=== PATIENT | female | born 1955 | race Caucasian/White ===

== ENCOUNTER 2018-01-30 02:26 | Outpatient (CLI) | payer BC, SELFPAY ==
[2018-01-30 13:21] LABS: ALT 31 U/L (12-78); AST 18 U/L (15-37); Albumin 3.9 g/dL (3.4-5.0); Alkaline Phosphatase 48 U/L (46-116); Anion Gap 9.7 mmol/L (3-11); BUN 11 mg/dL (7-18); Bilirubin, Total 0.3 mg/dL (0.2-1.0); CO2 30.3 mmol/L (21.0-32.0); CREATININE 0.88 mg/dL (0.55-1.02); Calcium 8.8 mg/dL (8.5-10.1); Chloride 103 mmol/L (98-107); Cholesterol 183 mg/dL (50-200); Glucose 107 mg/dL (70-100); HDL Cholesterol 51 mg/dL (40-60); LDL CHOLESTEROL 114 mg/dL (<100); Sodium 143 mmol/L (136-145); Triglyceride 143 mg/dL (30-150)
== END 2018-01-30 02:46 ==
PROVIDERS: PCP Family Medicine; Visit Provider Family Medicine
DX: I10 Essential (primary) hypertension (principal); Z00.00 Encounter for general adult medical examination without abnormal findings
CPT/HCPCS: 36415; 80053; 80061; 83721

== ENCOUNTER 2018-06-05 05:15 | Outpatient (CLI) | payer BC, SELFPAY ==
--- NOTE | 2018-06-05 14:35 | DI.CTLCSR_ITS ---
SYMPTOMS/DIAGNOSIS: FORMER SMOKER, F17.210 CT CHEST, LUNG CANCER SCREENING PROTOCOL: CT examination of the chest was performed utilizing lung cancer screening protocol. Images obtained through the upper abdomen show grossly unremarkable appearance of visualized portions of liver, spleen, pancreas, adrenals and kidneys. There appears to have been a previous cholecystectomy. There is calcific scarring in the right mid lung medially. There are diffuse central lobular pulmonary emphysematous changes and some subpleural emphysema is also noted in the lung apices. Tracheobronchial tree appears intact. Minimal linear scarring noted in left lung base. No pulmonary nodule identified. No evidence of consolidation. CONCLUSION: Negative lung cancer screening CT. Lung-RAD Category: 1- Negative Lung- RAD Management of Findings: Continue annual LDCT screening in 12 months
== END 2018-06-05 05:35 ==
PROVIDERS: PCP Family Medicine; Visit Provider Internal Medicine
DX: Z12.2 Encounter for screening for malignant neoplasm of respiratory organs (principal); Z87.891 Personal history of nicotine dependence; J43.9 Emphysema, unspecified; J98.4 Other disorders of lung
CPT/HCPCS: G0297

== ENCOUNTER 2018-07-11 14:50 | Outpatient (CLI) | payer BC, SELFPAY ==
--- NOTE | 2018-07-11 15:13 | DI.CT_ITS ---
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 Comparison is 12/09/16. The frontal sinuses are clear, as are the ethmoid air cells and sphenoid sinuses. There are postsurgical changes with removal of the medial krueger of both maxillary sinuses. There is mild to moderate mucosal thickening in the right maxillary sinus with a small air-fluid level. There is a rounded soft tissue mass in the left maxillary sinus, which has been present on prior examination and is unchanged in size. This may represent a polyp or mucus retention cyst. The mastoid air cells are well pneumatized. There does appear to be mild wall thickening in the right maxillary sinus consistent with chronic sinus disease. There has been removal of the floors of the ethmoid air cells. The bones otherwise appear intact. The nasal septum is midline. The turbinates are grossly unremarkable. The orbits and retroorbital soft tissues are unremarkable. IMPRESSION: 1. Postsurgical changes seen in the nasal cavity. 2. Stable mucus retention cyst or polyp in the left maxillary sinus. 3. Findings of chronic sinusitis. Small fluid level in the right maxillary sinus. Superimposed acute sinusitis cannot be excluded.
== END 2018-07-11 15:10 ==
PROVIDERS: PCP Family Medicine; Visit Provider Otolaryngology Otolaryngology/Facial Plastic Surgery
DX: J34.89 Other specified disorders of nose and nasal sinuses (principal); J32.0 Chronic maxillary sinusitis; Z98.890 Other specified postprocedural states
CPT/HCPCS: 70486

== ENCOUNTER 2018-07-12 00:27 | Outpatient (CLI) | payer BC, SELFPAY ==
--- NOTE | 2018-07-12 13:42 | DI.MAMMO_ITS ---
SYMPTOM/DIAGNOSIS: SCREENING, Z12.31 MAMMOGRAMS: Mammograms were interpreted according to the usual protocol including computer analysis with CAD system, tomosynthesis and C view imaging. Comparison is made with prior examinations. Breast density, Category B. There are scattered nodular densities in both breasts which appear stable. The skin and axilla are unremarkable. IMPRESSION: No evidence for malignancy. Yearly mammography is recommended. Category 2. MQSA ASSESSMENT OF FINDINGS: Negative with benign findings. Category 2. BI-RADS category B. There are scattered areas of fibroglandular density.
== END 2018-07-12 00:47 ==
PROVIDERS: PCP Family Medicine; Visit Provider Family Medicine
DX: Z12.31 Encounter for screening mammogram for malignant neoplasm of breast (principal)
CPT/HCPCS: 77063; 77067

== ENCOUNTER 2018-08-27 02:40 | Outpatient (RCR) | payer BC, SELFPAY | END 2018-09-03 23:59 | disposition home or self-care (01) | LOC: PRC 02:40 | PROVIDERS: PCP Family Medicine; Visit Provider Family Medicine | DX: J44.9 Chronic obstructive pulmonary disease, unspecified (principal); Z51.89 Encounter for other specified aftercare ==

== ENCOUNTER 2018-09-13 09:46 | Outpatient (RCR) | payer BC, SELFPAY | END 2018-10-04 23:59 | disposition home or self-care (01) | LOC: PRC 09:46 | PROVIDERS: PCP Family Medicine; Visit Provider Family Medicine | DX: J44.9 Chronic obstructive pulmonary disease, unspecified (principal); Z51.89 Encounter for other specified aftercare | CPT/HCPCS: G0424 ==

== ENCOUNTER 2018-09-18 14:31 | Outpatient (CLI) | payer BC, SELFPAY ==
[2018-09-18 14:49] LABS: BE 4.3 mmol/L (-3-3); HCO3 29 mmol/L (22-28); pCO2 42 mmHg (34-47); pH 7.44 (7.35-7.45); pO2 71 mmHg (83-108); sO2 94 % (94-98); tCO2 26 mmol/L (22-29)
[2018-09-18 14:50] LABS: FIO2L R/A L; Site Right Radial
== END 2018-09-18 14:51 ==
PROVIDERS: PCP Family Medicine; Visit Provider Family Medicine
DX: R09.02 Hypoxemia (principal)
CPT/HCPCS: 82805; 36600

== ENCOUNTER 2018-10-06 04:48 | Outpatient (RCR) | payer BC, SELFPAY | END 2018-11-03 23:59 | disposition home or self-care (01) | LOC: PRC 04:48 | PROVIDERS: PCP Family Medicine; Visit Provider Family Medicine | DX: J44.9 Chronic obstructive pulmonary disease, unspecified (principal); Z51.89 Encounter for other specified aftercare | CPT/HCPCS: G0424 ==

== ENCOUNTER 2018-11-04 09:22 | Outpatient (RCR) | payer BC, SELFPAY | END 2018-12-04 23:59 | disposition home or self-care (01) | LOC: PRC 09:22 | PROVIDERS: PCP Family Medicine; Visit Provider Family Medicine | DX: J44.9 Chronic obstructive pulmonary disease, unspecified (principal); Z51.89 Encounter for other specified aftercare | CPT/HCPCS: G0424 ==

== ENCOUNTER 2018-11-18 00:21 | Emergency (ER) | payer BC, SELFPAY ==
[2018-11-18 00:21] VITALS: BP 153/80; PULSE 117; RESP 22; TEMP 36.2; O2SAT 90
--- NOTE | 2018-11-18 00:35 | ED.GENADUL_ITS ---
Discharge Plan Disposition Condition: Stable Discharge Details Chief Complaint: Cellulitis Primary Care Provider: Nicole Hubbard ED Provider: Ham Poole Home Meds and New Rx's Prescriptions: No Action cholecalciferol (vitamin D3) 2,000 unit capsule 2,000 unit PO DAILY RF: 0 albuterol sulfate [Ventolin HFA] 90 mcg/actuation HFA aerosol inhaler 2 puff Inhalation QID PRN (Reason: bronchospasm) Qty: 3 RF: 11 atorvastatin [Lipitor] 10 mg tablet 10 mg PO DAILY Qty: 90 RF: 12 Symbicort 160-4.5 mcg/actuation HFA aerosol inhaler 2 puff Inhalation BID Qty: 3 RF: 11 cetirizine [Zyrtec] 10 mg tablet 10 mg PO BID Qty: 180 RF: 11 estradiol [Estrace] 0.5 mg tablet 0.5 mg PO EVERY OTHER DAY Qty: 45 RF: 12 montelukast [Singulair] 10 mg tablet 10 mg PO DAILY Qty: 90 RF: 12 valacyclovir [Valtrex] 1 gram tablet 1,000 mg PO DAILY Qty: 90 RF: 12 omeprazole 40 mg capsule,delayed release(DR/EC) 40 mg PO BID RF: 0 Stiolto Respimat 2.5-2.5 mcg/actuation mist 2 puff IH DAILY RF: 0 duloxetine 30 mg capsule,delayed release(DR/EC) 30 mg PO DAILY Qty: 90 RF: 5 (DME) EasiVent Mask Large 1 EACH device 1 ea Miscellaneous DIRECTED RF: 0 calcium carbonate-vitamin D3 [Caltrate with Vitamin D3] 1 EACH tablet 1 tab PO DAILY RF: 0 clotrimazole-betamethasone 15 GM cream 15 gm Topical DAILY PRNQty: 45 RF: 0 metoprolol succinate 25 mg tablet extended release 24 hr 25 mg PO DAILY Qty: 90 RF: 4 hydrochlorothiazide 12.5 mg tablet 12.5 mg PO DAILY Qty: 90 RF: 11 losartan-hydrochlorothiazide 50-12.5 mg tablet 1 tab PO DAILY Qty: 90 RF: 5 duloxetine 60 mg capsule,delayed release(DR/EC) 60 mg PO DAILY Qty: 90 RF: 11 Medical Decision Making 62 yo female with hx of copd on o2, hld, who comes in with right leg indentation. She has leg swelling chronically and has 3+ pitting edema of both ankles. The area that she is concerned about is on the lateral right ankle where the edema does indent in. She denies trauma and has no fevers or pain, no redness or warmth or rashes and full rom of the ankle. She was concerned about a dvt and had no ride so called ems. She has no visible dvt on bedside u/s and my suspicion of such given no calf pain and normal size as left leg is low. I suspect she had her ankle pressed against something and indented the fluid she has there. Do not feel further w/u for this indicated at this time. She was tachcyardic after walking from stretcher to the bed but states this is baseline and after resting her HR was in the 90's in no distress. Will have her obtain radiology u/s as outpatient and return precautions given Differential Diagnosis leg edema, lymphedema, dvt HPI General Mode of arrival: ambulatory . Date/Time Provider Initiated Documentation: 11/18/18 00:34 . Limitations to Documentation: no limitations . Information obtained by: patient . History of Present Illness 62 year old F presents to the emergency department with the chief complaint of right ankle indentation, described as mild, and is localized to the right and lower extremity. Patient reports no radiation. Patient started experiencing this hour(s) (3) and it has been constant. No relieving factors improve symptom(s), No exacerbating factors reported . Patient did receive the following treatments prior to arrival, none Related Data Home Medications Medication Instructions Recorded Confirmed EasiVent Mask Large ea 09/18/12 08/12/18 calcium carbonate-vitamin D3 1 tab PO DAILY 09/18/12 08/12/18 [Caltrate with Vitamin D3] clotrimazole-betamethasone 15 gm TOPICAL DAILY PRN #45 gm 12/13/17 08/12/18 metoprolol succinate 25 mg 25 mg PO DAILY #90 tab 01/23/18 08/12/18 tablet,extended release 24 hr albuterol sulfate 90 mcg/actuation 2 puff INHALATION QID PRN #3 each 02/05/18 08/12/18 aerosol inhaler atorvastatin 10 mg tablet 10 mg PO DAILY #90 tab-cap 02/05/18 08/12/18 budesonide-formoterol HFA 160 2 puff INHALATION BID #3 inhaler 02/05/18 08/12/18 mcg-4.5 mcg/actuation aerosol inhaler cetirizine 10 mg tablet 10 mg PO BID #180 tab 02/05/18 08/12/18 cholecalciferol (vitamin D3) 2,000 2,000 unit PO DAILY 02/05/18 08/12/18 unit capsule estradiol 0.5 mg tablet 0.5 mg PO EVERY OTHER DAY #45 02/05/18 08/12/18 tab-cap montelukast 10 mg tablet 10 mg PO DAILY #90 tab-cap 02/05/18 08/12/18 valacyclovir 1 gram tablet 1,000 mg PO DAILY #90 tab-cap 02/05/18 08/12/18 hydrochlorothiazide 12.5 mg tablet 12.5 mg PO DAILY #90 tab-cap 06/22/18 08/12/18 duloxetine 30 mg capsule,delayed 30 mg PO DAILY #90 cap 08/12/18 08/12/18 release omeprazole 40 mg capsule,delayed 40 mg PO BID tab-cap 08/12/18 release tiotropium 2.5 mcg-olodaterol 2.5 2 puff IH DAILY 08/12/18 08/12/18 mcg/actuation mist for inhalation losartan 50 mg-hydrochlorothiazide 1 tab PO DAILY #90 tab 09/17/18 12.5 mg tablet duloxetine 60 mg capsule,delayed 60 mg PO DAILY #90 tab-cap 11/11/18 release Previous Rx's Medication Instructions Recorded metoprolol succinate 25 mg 25 mg PO DAILY #90 tab 01/23/18 tablet,extended release 24 hr albuterol sulfate 90 mcg/actuation 2 puff INHALATION QID PRN #3 each 02/05/18 aerosol inhaler atorvastatin 10 mg tablet 10 mg PO DAILY #90 tab-cap 02/05/18 budesonide-formoterol HFA 160 2 puff INHALATION BID #3 inhaler 02/05/18 mcg-4.5 mcg/actuation aerosol inhaler cetirizine 10 mg tablet 10 mg PO BID #180 tab 02/05/18 estradiol 0.5 mg tablet 0.5 mg PO EVERY OTHER DAY #45 02/05/18 tab-cap montelukast 10 mg tablet 10 mg PO DAILY #90 tab-cap 02/05/18 valacyclovir 1 gram tablet 1,000 mg PO DAILY #90 tab-cap 02/05/18 hydrochlorothiazide 12.5 mg tablet 12.5 mg PO DAILY #90 tab-cap 06/22/18 duloxetine 30 mg capsule,delayed 30 mg PO DAILY #90 cap 08/12/18 release losartan 50 mg-hydrochlorothiazide 1 tab PO DAILY #90 tab 09/17/18 12.5 mg tablet duloxetine 60 mg capsule,delayed 60 mg PO DAILY #90 tab-cap 11/11/18 release Allergies Allergy/AdvReac Type Severity Reaction Status Date / Time amoxicillin trihydrate AdvReac Nausea/Diar Unverified 11/18/18 00:34 [From Augmentin] francisca oxybutynin AdvReac Dry Unverified 11/18/18 00:34 mouth/mucous membranes potassium clavulanate AdvReac Nausea/Diar Unverified 11/18/18 00:34 [From Augmentin] francisca General Stated Complaint: Cellulitis YUKI: 3 Review of Systems Review of Systems All systems reviewed & are unremarkable except as noted in HPI and below Constitutional Denies chills, Denies fever(s) and Denies weakness Cardiovascular Denies chest pain and Denies dyspnea Respiratory Denies dyspnea Gastrointestinal Denies abdominal pain, Denies nausea and Denies vomiting Integumentary/Breasts Denies rash Neurologic Denies weakness [facility] Medical History (Updated 08/12/18 @ 09:22 by Nicole Hubbard MD, [place]) Abnormal mammogram, unspecified (Resolved) Achilles tendinitis, right leg (Chronic 08/18/16) Achilles tendonitis Allergic fungal sinusitis Allergic fungal sinusitis (Chronic 07/16/13) Anemia Anemia (Resolved 12/31/12) Annual physical exam (Resolved 10/25/17) Asthma exacerbation (Chronic 06/12/16) Bleeding hemorrhoids (Resolved 08/09/17) Cellulitis of left lower extremity Cellulitis of left lower extremity (Resolved) Cholelithiasis (Resolved) Chronic obstructive lung disease (Chronic) COPD (chronic obstructive pulmonary disease) Depression Depressive disorder (Chronic) Essential hypertension (Chronic 04/09/13) Gastritis Gastritis (Chronic 04/05/05) 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 (Resolved 04/05/99) Hiatal hernia Hiatal hernia (Resolved 04/05/96) Hormone replacement therapy (postmenopausal) (Resolved 12/20/11) Hyperlipidemia Hyperlipidemia (Chronic 12/31/12) Hypertension Internal hemorrhoids Internal hemorrhoids (Resolved 02/24/14) Lumbar disc prolapse with compression radiculopathy Lumbar disc prolapse with compression radiculopathy (Chronic 08/21/09) Numbness and tingling (Chronic 01/11/16) Otalgia of both ears Otalgia, unspecified (Resolved) Pre-op exam (Resolved) Smoker Smoker (Resolved) Thyroid nodule Thyroid nodule (Resolved) Vitamin D deficiency Vitamin D deficiency (Chronic 06/26/16) Surgical History (Updated 06/17/18 @ 15:46 by Temitope Do) Arthroplasty of knee Cholecystectomy Colonoscopy - MAC Debridement, Soft Tissue Dilation and curettage EGD - MAC (02/24/14) H/O arthroscopy of knee (Resolved) H/O esophagogastroduodenoscopy (Resolved) H/O surgical procedure (Resolved) History of bilateral tubal ligation (Resolved) Hx of biopsy (Resolved) Hysterectomy, Laproscopic (~1996) Ligation of fallopian tube LIP BX (10/05/11) LUNG LOBECTOMY (~1991) RHINOPLASTY (~2001) S/P cholecystectomy (Resolved) S/P dilatation and curettage (Resolved) S/P laparoscopic hysterectomy (Resolved) S/P lobectomy of lung (Resolved) S/P rhinoplasty (Resolved) TOE NAIL REMOVAL Family History Mother Essential hypertension Asthma Father Diabetes Personal history of malignant neoplasm Sister Asthma Sister Asthma Brother No problems noted. Grandfather COPD (chronic obstructive pulmonary disease) Grandfather Diabetes Heart disease Grandmother Personal history of malignant neoplasm Grandmother Diabetes Social History (Updated 02/04/18 @ 08:33 by Nicole Domingo) Smoking/Tobacco Use Status: Current every day Tobacco Type: cigarettes Alcohol Intake: current Alcohol Intake frequency: a few times a month Drug use: Never Substance use type: does not use Household members: spouse and other Details: 2 current occupation: [employer] Pets and animals: Yes Pets and animals: cat(s) What type of physical activity do you participate in: none Louise/Baptism: Confucianist Special louise needs: No Do you feel safe in your relationship?: Yes Exam Const General: no acute distress Orientation: alert HENMT Head: normal to inspection Ears: external ears normal General nose exam: external nose normal Mouth: moist mucous membranes Eyes General: appearance normal, both eyes and all related structures Neck Neck: normal visual inspection Resp Effort & Inspection: normal respiratory effort and able to speak in complete sentences Cardio Rate: regular rate Skin General skin exam: no rashes or lesions noted Neuro General: alert and oriented x3 Extrem General: full ROM and normal capillary refill Psych Mental Status: mental status grossly normal Course Vital Signs Temperature 36.2 C L 11/18/18 00:21 Pulse 117 H 11/18/18 00:21 Respiratory Rate 22 11/18/18 00:21 Blood Pressure 153/80 H 11/18/18 00:21 Pulse Oximetry 90 L 11/18/18 00:21 Temperature 36.2 C L 11/18/18 00:21 Temperature Source Temporal Artery Scan 11/18/18 00:21 Pulse 117 H 11/18/18 00:21 Respiratory Rate 22 11/18/18 00:21 Respiratory Effort 11/18/18 00:21 Blood Pressure 153/80 H 11/18/18 00:21 Pulse Oximetry 90 L 11/18/18 00:21 Oxygen Delivery Method Room Air 11/18/18 00:21 Oxygen Flow Rate 0 11/18/18 00:21 Pain Level 0 11/18/18 00:21
[2018-11-18 00:59] VITALS: BP 127/76; PULSE 104; RESP 20; O2SAT 95
== END 2018-11-18 00:58 | disposition home or self-care (01) ==
LOC: ER 01:00
PROVIDERS: Emergency Provider Emergency Medicine; PCP Family Medicine
DX: L03.115 Cellulitis of right lower limb (principal); F17.210 Nicotine dependence, cigarettes, uncomplicated; J44.9 Chronic obstructive pulmonary disease, unspecified; Z99.81 Dependence on supplemental oxygen; I10 Essential (primary) hypertension
CPT/HCPCS: 99283

== ENCOUNTER 2018-11-20 00:33 | Outpatient (CLI) | payer BC, SELFPAY ==
--- NOTE | 2018-11-20 08:58 | DI.MRI_ITS ---
SYMPTOM/DIAGNOSIS: ? WORSENING SPINAL STENOSIS, BACK PAIN LUMBAR SPINE MRI: Sagittal T 2 and sagittal T 1 and sagittal STIR and axial T 1 and T 2 and axial T 2 MSMA, coronal T 1 pulse sequences were obtained. At L 1-2, there is no evidence of a disc herniation. There are mild facet joint degenerative changes and no evidence of spinal stenosis. At L 2-3, there is diminished disc signal consistent with partial desiccation. There is a mild disc bulge and no focal herniation is seen. There are moderate degenerative changes involving the facet joints without evidence of spinal stenosis. At L 3-4, again noted is diminished disc signal consistent with partial desiccation. There is no evidence of a disc herniation. Moderate facet joint DJD is identified and there is no evidence of spinal stenosis. At L 4-5, a small disc bulge is identified. There is no focal herniation. There are moderately severe facet joint degenerative changes and no evidence of spinal stenosis. At L 5-S 1, again noted is diminished disc signal. There is a small disc herniation with inferior extrusion of a small quantity of disc material. There is severe facet joint DJD and there is moderate left foraminal stenosis. There is no intrinsic abnormality involving the lower dorsal cord,. conus or filum terminale. SUMMARY: Findings consistent with degenerative disc disease and DJD. A small disc herniation is identified at L 5-S 1 where there is severe facet joint DJD and resultant moderate left foraminal stenosis.
== END 2018-11-20 00:53 ==
PROVIDERS: PCP Family Medicine; Visit Provider Chiropractor
DX: M54.5 Low back pain (principal); M48.061 Spinal stenosis, lumbar region without neurogenic claudication; M51.37 Other intervertebral disc degeneration, lumbosacral region; M47.817 Spondylosis without myelopathy or radiculopathy, lumbosacral region; M51.27 Other intervertebral disc displacement, lumbosacral region
CPT/HCPCS: 72148

== ENCOUNTER 2018-11-20 00:37 | Outpatient (CLI) | payer BC, SELFPAY ==
--- NOTE | 2018-11-20 08:47 | DI.US_ITS ---
SYMPTOM/DIAGNOSIS: LEG SWELLING RIGHT LOWER EXTREMITY ULTRASOUND: The study was carried out according to the usual protocol. The superficial, femoral, popliteal and proximal trifurcation in the superior portion of the leg are well seen. Good compressibility is noted throughout. Flow is demonstrated and flow augmentation was easily elicited with calf compression. SUMMARY: There is no evidence of DVT.
== END 2018-11-20 00:57 ==
PROVIDERS: PCP Family Medicine; Visit Provider Emergency Medicine
DX: R22.41 Localized swelling, mass and lump, right lower limb (principal)
CPT/HCPCS: 93971

== ENCOUNTER 2018-12-05 09:07 | Outpatient (RCR) | payer BC, SELFPAY | END 2019-01-04 23:59 | disposition home or self-care (01) | LOC: PRC 09:07 | PROVIDERS: PCP Family Medicine; Visit Provider Family Medicine | DX: J44.9 Chronic obstructive pulmonary disease, unspecified (principal); Z51.89 Encounter for other specified aftercare | CPT/HCPCS: 94618; G0237; G0424 ==

== ENCOUNTER 2019-03-25 07:42 | Outpatient (CLI) | payer BC, SELFPAY ==
--- NOTE | 2019-03-25 07:52 | PDOC.PAIN ---
Pain Clinic Procedure Note Procedure Note Procedure Note: PROCEDURE NOTE LUMBAR MEDIAL BRANCH DIAGNOSTIC BLOCKS Date of Service: March 25, 2019 Patient: CESAR ANGULO Provider: Bean Lyon MD Referring Physician: Masha Snato APRN Diagnosis: lumbar spondylosis Post-operative diagnosis: same as above Pre-procedure Note History and Exam: Patient demonstrates today moderate to severe non- radicular back pain without neurologic deficit aggravated by hyperextension Yes Back pain greater than leg pain Yes Patient today has tenderness over the suspected joint(s) Yes History of post-traumatic injury No Hypertrophic arthropathy Yes Back pain associated with suspected motion segment instability or Hypermobility or pseudoarthrosis No Pre-testing pain score (VAS): 5/10 Previous medial branch block testing?: No Today's Operative Note CESAR ANGULO was greeted by the nurse who verified the patients name and . Patient was then taken to the fluoroscopy suite. CESAR was interviewed and the medical record was reviewed. There were no medical contraindications to performing the bilateral lumbar medial branch nerve blocks. I first had a talk with the patient and discussed the potential risks, benefits, side effects, and alternatives of this procedure including but not limited to increased pain from the procedure, no pain relief, nerve damage, infection, and bleeding. She comprehended my conversation and accepts the risks and understands the goals of this diagnostic procedure. All questions and concerns from the patient were addressed. After I was comfortable that the patient was fully informed about this procedure, the printed consent form was signed. Standard time-out procedure was performed CESAR was placed in the prone position on the fluoroscopy table and automated blood pressure cuff and pulse oximeter were applied. The anatomic target points of the segmental medial branches of bilateral L3, L4, L5-DR were identified with fluoroscopy. Following thorough Chlorhexadine preparation of the skin and draping, a 25 gauge 3.5 spinal needle was placed under fluoroscopic guidance down on to the target point for each respective segmental medial branch.Position was confirmed in A/P, oblique and lateral views and 0.25 cc of Omnipaque-240 at each segmental nerve. At each level we injected 0.5ml of Bupivacaine 0.5%. (49 cc of Omnipaque was wasted) CESAR Hodgess vital signs were stable throughout the procedure and were as recorded in the docflowsheet by the nursing staff. Postoperatively, today patient demonstrates the following changes with hyperextension and with tenderness over the suspected joint(s). Provacative testing using the Loera's facet loading test Right side Left side Directly before the block VAS (0-10) = 5 VAS (0-10) = 5 5 minutes after the block VAS (0-10) = 5 VAS (0-10) = 5 Percentage relief obtained with this diagnostic block 0% 0% Any improved physical functioning directly after the blocks? to be determined Next, CESAR was asked to record the percent pain relief and any changes in provocative maneuvers for the next 4 hours. She will report this information at the next business day to one of our nurses. Based on the medial branches blocked today, if the patient meets insurance criteria for radiofrequency, the treatment should result in the denervation of the bilateral L4/5 and L5/S1 facet joint nerves. We would expect to denervate a total of 4 facets during the radiofrequency ablation. Discharge plan:: She will call back with her 0-4 hour post-procedure pain scores. I personally performed the entire procedure. Bean Lyon MD ABPN-subspecialty board certification in Pain Medicine Attending Physician - Pain Management
[2019-03-25 07:55] VITALS: BP 121/78; PULSE 85; RESP 20; TEMP 37.2; O2SAT 95
[2019-03-25] MEDS: Lactated Ringers 1,000 ML 80 ML IV (08:25)
[2019-03-25] MEDS: Omnipaque 240 MG/ML 50 ML BTL IJ (08:58)
[2019-03-25] MEDS: Bupivacaine 0.5% Pres-Free 10 ML VIAL IJ (08:58)
--- NOTE | 2019-03-25 08:58 | DI.RAD_ITS ---
EXAM: XR PAIN CLINIC LUMBAR SP 2V CLINICAL HISTORY: Dx: Lumbar Spondylosis. TECHNIQUE: Fluoroscopy was provided for the referring physician for guidance with performing injecti on procedure. COMPARISON: No exams were available for comparison FINDINGS: Please see procedure note for details. FLUORO TIME: 65.3 seconds
[2019-03-25 09:02] VITALS: BP 117/61; PULSE 85; RESP 18; O2SAT 96
== END 2019-03-25 08:02 ==
PROVIDERS: PCP Family Medicine; Visit Provider Internal Medicine
DX: M47.816 Spondylosis without myelopathy or radiculopathy, lumbar region (principal)
CPT/HCPCS: 64493 ×2; 64494 ×2; 72100; Q9967

== ENCOUNTER 2019-04-15 12:23 | Emergency (ER) | payer BC, SELFPAY ==
[2019-04-15] VITALS (24 sets, daily range): BP systolic 148–187; BP diastolic 84–108; PULSE 67–83; RESP 11–28; TEMP 36.2–36.5; O2SAT 96–100
[2019-04-15 12:55] LABS: Abs Immature Grans 0.02 k/cumm (0.0-0.09); Absolute Basophil Count 0.04 k/cumm (0.0-0.2); Absolute Lymphocyte Count 2.22 k/cumm (1.2-3.4); Absolute Monocyte Count 0.42 k/cumm (0.11-0.7); Absolute Neutrophil Count 2.74 k/cumm (1.2-6.7); Basophils % 0.7; Eosinophils % 1.8; HCT 33.4 % (36.0-46.0); Immature Grans % 0.4; Lymphocytes % 40.1; Mean Corp. HGB Concentration 32.9 g/dL (32.0-36.0); Mean Corpuscular Hemoglobin 31.2 pg (27.0-33.0); Mean Corpuscular Volume 94.6 fL (80-95); Mean Platelet Volume 9.1 fL (8.0-11.0); Monocytes % 7.6; Neutrophils % 49.4; Platelet Count 312 x1000/uL (130-400); RBC 3.53 m/cumm (4.00-5.20); RBC Distribution Width 12.6 % (11.7-14.6); White Blood Cell Count 5.54 k/cumm (4.4-10.8)
[2019-04-15] MEDS: Ondansetron 4 MG/2 ML VIAL IVP ×2 (13:04→14:19)
[2019-04-15] MEDS: HYDROmorphone 2 MG/ML VIAL 0.5 MG IVP ×2 (13:05→14:19)
[2019-04-15 13:14] LABS: ALT 36 U/L (14-59); AST 24 U/L (15-37); Albumin 4.1 g/dL (3.4-5.0); Alkaline Phosphatase 40 U/L (46-116); Anion Gap 8.4 mmol/L (3-11); BUN 18 mg/dL (7-18); Bilirubin, Total 0.2 mg/dL (0.2-1.0); CO2 32.6 mmol/L (21.0-32.0); CREATININE 0.81 mg/dL (0.55-1.02); Calcium 9.7 mg/dL (8.5-10.1); Chloride 101 mmol/L (98-107); Glucose 108 mg/dL (74-106); Lipase 110 U/L (73-393); Magnesium 1.5 mg/dL (1.8-2.4); NT-proBNP 93 pg/mL (<300); Potassium 3.5 mmol/L (3.5-5.1); Sodium 142 mmol/L (136-145)
[2019-04-15 13:21] LABS: Troponin I < 0.05 ng/Ml (<0.06)
[2019-04-15 13:29] LABS: Bilirubin Negative (Negative); Blood Trace-intact (Negative); Clarity Sl Cloudy (Clear); Glucose Negative (Negative); Ketones Negative (Negative); Leukocyte Esterase Negative (Negative); Nitrite Negative (Negative); Urobilinogen 0.2 EU/dL (Up TO 0.2)
[2019-04-15] MEDS: Omnipaque 350 MG/ML 100 ML BTL IJ (13:32)
[2019-04-15] MEDS: Normal Saline Flush 10 ML SYR IVP (13:33)
--- NOTE | 2019-04-15 13:40 | DI.CT_ITS ---
EXAM: CT ABDOMEN PELVIS W CLINICAL HISTORY: Epigastric pain, nausea, vomiting, diarrhea TECHNIQUE: After IV and without oral contrast. COMPARISON: No exams were available for comparison FINDINGS: Linear densities are seen above the left diaphragm consistent with scarring and/or atelectasis. The liver is enlarged and shows fatty infiltration. The patient is status post cholecystectomy. The spl een, pancreas, adrenals and kidneys are unremarkable. The appendix appears normal. There is no irish l dilatation or inflammatory change. Diverticulosis is noted. There is no evidence of diverticuliti s. No gastric or small bowel distention or wall thickening is seen. There is no free air or free fl uid. The urinary bladder is nearly empty. The patient is status post hysterectomy. The aorta is no rmal in diameter. Degenerative disc changes are seen greatest at L5-S1. IMPRESSION: No acute abnormality.
[2019-04-15 13:42] LABS: Bacteria Few HPF (Negative); C & S Indicated? No/Sq. Contamination; Casts Negative LPF (Negative); Crystals Negative HPF (Negative); Epithelial Cells Moderate HPF (Negative); Mucus Trace (Negative); RBC 0-2 HPF (0-2); WBC 0-2 HPF (0-5)
--- NOTE | 2019-04-15 13:45 | DI.RAD_ITS ---
EXAM: XR CHEST 2V PA LATERAL INDICATION: Nausea, vomiting, diarrhea increased SOB. COMPARISON: CHEST 2 VIEWS PA,LAT from 05/10/2017 TECHNIQUE: 2D digital imaging was performed. FINDINGS: The heart is enlarged and the aorta is tortuous, unchanged. There are linear areas of scarring at th e left lung base. There are old right rib fractures. No free air is seen beneath the diaphragm. IMPRESSION: No acute abnormality.
--- NOTE | 2019-04-15 14:37 | ED.GENADUL_ITS ---
Discharge Plan Disposition Patient Disposition: HOME Discharge Details Chief Complaint: GenMedical Clinical Impression: Diarrhea, Abdominal discomfort Primary Care Provider: Nicole Hubbard ED Provider: Randy Mejias Home Meds and New Rx's Prescriptions: New ondansetron HCl [Zofran] 4 mg tablet 4 mg PO Q8H PRN (Reason: nausea and vomiting) Qty: 10 RF: 0 No Action cholecalciferol (vitamin D3) 2,000 unit capsule 2,000 unit PO DAILY RF: 0 omeprazole 40 mg capsule,delayed release(DR/EC) 40 mg PO BID Qty: 180 RF: 3 albuterol sulfate [Ventolin HFA] 90 mcg/actuation HFA aerosol inhaler 2 puff Inhalation Q4H PRN (Reason: bronchospasm) Qty: 3 RF: 11 atorvastatin [Lipitor] 10 mg tablet 10 mg PO DAILY Qty: 90 RF: 12 cetirizine [Zyrtec] 10 mg tablet 10 mg PO BID Qty: 180 RF: 11 duloxetine 60 mg capsule,delayed release(DR/EC) 60 mg PO DAILY Qty: 90 RF: 11 estradiol [Estrace] 0.5 mg tablet 0.5 mg PO EVERY OTHER DAY Qty: 90 RF: 12 metoprolol succinate 25 mg tablet extended release 24 hr 25 mg PO DAILY Qty: 90 RF: 4 valacyclovir [Valtrex] 1 gram tablet 1,000 mg PO DAILY Qty: 90 RF: 12 methylphenidate HCl 10 mg tablet 10 mg PO BID MDD 2 Qty: 60 RF: 0 (DME) EasiVent Mask Large 1 EACH device 1 ea Miscellaneous DIRECTED RF: 0 calcium carbonate-vitamin D3 [Caltrate with Vitamin D3] 1 EACH tablet 1 tab PO DAILY RF: 0 clotrimazole-betamethasone 15 GM cream 15 gm Topical DAILY PRNQty: 45 RF: 0 hydrochlorothiazide 12.5 mg tablet 12.5 mg PO DAILY Qty: 90 RF: 11 losartan-hydrochlorothiazide 50-12.5 mg tablet 1 tab PO DAILY Qty: 90 RF: 5 Symbicort 160-4.5 mcg/actuation HFA aerosol inhaler 2 puff Inhalation BID Qty: 3 RF: 11 montelukast [Singulair] 10 mg tablet 10 mg PO DAILY Qty: 90 RF: 12 Stiolto Respimat 2.5-2.5 mcg/actuation Mist 2 puff INHALATION DAILY RF: 0 Discharge Instructions Instructions: Acute Diarrhea (ED) Additional Instructions: Lab tests today in the emergency room were unremarkable. CAT scan was also negative for any sort of abnormalities. I suspect that your symptoms are most l ikely related to a form of a stomach bug. Continue with home hydration. You should be drinking 8 ounces of water every 1-2 hours throughout the day. If your symptoms of abdominal pain worsen, or you develop severe vomiting and/or diarrhea you must return to the emergency department. Should your symptoms persist over the next 5 to 7 days you must follow-up with your primary care provider. Referrals: Nicole Hubbard MD, [place] [Primary Care Provider] - 1 week Discharge Data Discharge Date/Time-TO BE ENTERED AT DEPARTURE: 04/15/19 15:09 Medical Decision Making This is a nontoxic-appearing 63-year-old female presenting to the emergency department with GI symptoms of abdominal pain, distention, nausea, vomiting and diarrhea over the last several days. Her vital signs are significant for slightly elevated blood pressure readings to the 150 systolic range. No hypotension or tachycardia. Physical exam demonstrates diffuse tenderness over the abdomen. No rebound or guarding. Her oxygen saturation is upper 90s on 2 L which is her home requirement. Lung sounds clear. Labs unremarkable. Flu negative. CT abdomen pelvis negative for intra-abdominal pathology. Most likely a form of gastroenteritis. Discussed adequate home hydration and the need to follow-up should her symptoms persist. I do not suspect C. difficile or other opportunistic infection at this time as she has not been on any recent antibiotic or hospitalized. HPI General Date/Time Provider Initiated Documentation: 04/15/19 12:32 . HPI Narrative: Patient is a 63-year-old female with a significant past medical history for obesity, COPD (on 27/11 supplemental oxygen), chronic anemia, gastritis, hiatal hernia who presents to the emergency department with abdominal pain and distention with associated nausea and vomiting. She has had frequent bouts of diarrhea associated with her symptoms. She denies any fever but admits to muscle aches. She is had a mild headache associated with her symptoms. She has had increased shortness of breath, however, has remained on the 2 L via nasal cannula. She denies any chest pain. No worsening sputum production or cough. She denies any bloody diarrhea. No recent antibiotic use. Related Data Home Medications Medication Instructions Recorded Confirmed EasiVent Mask Large ea 09/18/12 04/15/19 calcium carbonate-vitamin D3 1 tab PO DAILY 09/18/12 04/15/19 [Caltrate with Vitamin D3] clotrimazole-betamethasone 15 gm TOPICAL DAILY PRN #45 gm 12/13/17 04/15/19 cholecalciferol (vitamin D3) 50 2,000 unit PO DAILY 02/05/18 04/15/19 mcg (2,000 unit) capsule hydrochlorothiazide 12.5 mg tablet 12.5 mg PO DAILY #90 tab-cap 06/22/18 04/15/19 losartan 50 mg-hydrochlorothiazide 1 tab PO DAILY #90 tab 09/17/18 04/15/19 12.5 mg tablet budesonide-formoterol HFA 160 2 puff INHALATION BID #3 inhaler 02/15/19 04/15/19 mcg-4.5 mcg/actuation aerosol inhaler montelukast 10 mg tablet 10 mg PO DAILY #90 tab-cap 02/15/19 04/15/19 tiotropium-olodaterol [Stiolto 2 puff INHALATION DAILY 03/25/19 04/15/19 Respimat] albuterol sulfate 90 mcg/actuation 2 puff INHALATION Q4H PRN #3 each 04/08/19 04/15/19 aerosol inhaler atorvastatin 10 mg tablet 10 mg PO DAILY #90 tab-cap 04/08/19 04/15/19 cetirizine 10 mg tablet 10 mg PO BID #180 tab 04/08/19 04/15/19 duloxetine 60 mg capsule,delayed 60 mg PO DAILY #90 tab-cap 04/08/19 04/15/19 release estradiol 0.5 mg tablet 0.5 mg PO EVERY OTHER DAY #90 04/08/19 04/15/19 tab-cap methylphenidate HCl 10 mg tablet 10 mg PO BID #60 tab MDD 2 04/08/19 04/15/19 metoprolol succinate 25 mg 25 mg PO DAILY #90 tab 04/08/19 04/15/19 tablet,extended release 24 hr omeprazole 40 mg capsule,delayed 40 mg PO BID #180 tab-cap 04/08/19 04/15/19 release valacyclovir 1 gram tablet 1,000 mg PO DAILY #90 tab-cap 04/08/19 04/15/19 ondansetron HCl [Zofran] 4 mg PO Q8H PRN #10 tab 04/15/19 Previous Rx's Medication Instructions Recorded hydrochlorothiazide 12.5 mg tablet 12.5 mg PO DAILY #90 tab-cap 06/22/18 losartan 50 mg-hydrochlorothiazide 1 tab PO DAILY #90 tab 09/17/18 12.5 mg tablet budesonide-formoterol HFA 160 2 puff INHALATION BID #3 inhaler 02/15/19 mcg-4.5 mcg/actuation aerosol inhaler montelukast 10 mg tablet 10 mg PO DAILY #90 tab-cap 02/15/19 albuterol sulfate 90 mcg/actuation 2 puff INHALATION Q4H PRN #3 each 04/08/19 aerosol inhaler atorvastatin 10 mg tablet 10 mg PO DAILY #90 tab-cap 04/08/19 cetirizine 10 mg tablet 10 mg PO BID #180 tab 04/08/19 duloxetine 60 mg capsule,delayed 60 mg PO DAILY #90 tab-cap 04/08/19 release estradiol 0.5 mg tablet 0.5 mg PO EVERY OTHER DAY #90 04/08/19 tab-cap methylphenidate HCl 10 mg tablet 10 mg PO BID #60 tab MDD 2 04/08/19 metoprolol succinate 25 mg 25 mg PO DAILY #90 tab 04/08/19 tablet,extended release 24 hr omeprazole 40 mg capsule,delayed 40 mg PO BID #180 tab-cap 04/08/19 release valacyclovir 1 gram tablet 1,000 mg PO DAILY #90 tab-cap 04/08/19 ondansetron HCl [Zofran] 4 mg PO Q8H PRN #10 tab 04/15/19 Allergies Allergy/AdvReac Type Severity Reaction Status Date / Time amoxicillin trihydrate AdvReac Nausea/Diar Unverified 04/15/19 12:35 [From Augmentin] francisca oxybutynin AdvReac Dry Unverified 04/15/19 12:35 mouth/mucous membranes potassium clavulanate AdvReac Nausea/Diar Unverified 04/15/19 12:35 [From Augmentin] francisca General Stated Complaint: GenMedical YUKI: 2 Review of Systems Constitutional Constitutional: Reports fatigue, Denies fever(s), Reports headache(s) and Denies malaise Eyes Eyes: Denies eye discharge ENT Ears, Nose, Mouth, and Throat: Reports headache(s), Denies odynophagia and Denies sore throat Cardiovascular Cardiovascular: Denies chest pain, Denies pedal edema, Denies edema, Denies claudication, Reports dyspnea, Reports dyspnea on exertion and Denies orthopnea Respiratory Respiratory: Reports cough, Reports dyspnea, Reports dyspnea on exertion, Denies stridor and Denies wheezing Gastrointestinal Gastrointestinal: Reports abdominal pain, Denies melena, Reports bloating, Denies change in stool character, Denies coffee ground emesis, Denies constipation, Reports diarrhea, Reports nausea, Denies odynophagia, Reports vomiting and Denies hematemesis Genitourinary Genitourinary: Denies dysuria and Denies flank pain Musculoskeletal Musculoskeletal: Reports back pain, Reports myalgias, Denies arthralgias and Denies muscle cramps Integumentary/Breasts Skin/Breast: Denies rash Neurologic Neurologic: Reports headache(s) Endocrine Endocrine: Reports fatigue Allergic/Immunologic Allergic/Immunologic: Denies wheezing ON LICENSE OF [facility] Medical History Abnormal mammogram (Inactive 04/05/06) Abnormal mammogram, unspecified (Resolved) 04/05/06 w/6 mos. F/U per [facility] Achilles tendinitis, right leg (Chronic 08/18/16) WITH RETROCALCANEAL EXOSOTOSIS AND APOLONIA'S DEFORMITY Achilles tendonitis Allergic fungal sinusitis Allergic fungal sinusitis (Chronic 07/16/13) Anemia Anemia (Resolved 12/31/12) Annual physical exam (Resolved 10/25/17) Asthma exacerbation (Chronic 06/12/16) Bleeding hemorrhoids (Resolved 08/09/17) Cellulitis of left lower extremity Cellulitis of left lower extremity (Resolved) 12/11/16 Cellulitis of left lower extremity (Inactive 12/11/16) Cholelithiasis (Resolved) without obstruction s/p cholecystectomy Cholelithiasis without obstruction (Inactive) Chronic obstructive lung disease (Chronic) FEV 1-72% COPD (chronic obstructive pulmonary disease) FEV 1- 72% Depression Depressive disorder (Chronic) Essential hypertension (Chronic 04/09/13) Gastritis Gastritis (Chronic 04/05/05) per EGD and mild reflux 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 Evans Hiatal hernia Hiatal hernia (Resolved 04/05/96) small Hormone replacement therapy (postmenopausal) (Resolved 12/20/11) Hyperlipidemia Hyperlipidemia (Chronic 12/31/12) Hypertension Internal hemorrhoids Internal hemorrhoids (Resolved 02/24/14) SMALL Lumbar disc prolapse with compression radiculopathy Lumbar disc prolapse with compression radiculopathy (Chronic 08/21/09) Numbness and tingling (Inactive 01/11/16) Otalgia (Inactive 05/29/16) Otalgia of both ears Otalgia, unspecified (Resolved) 05/29/16 Pre-op exam (Resolved) 06/08/15 Smoker Smoker (Resolved) 2002 Smoker (Inactive) Thyroid nodule Thyroid nodule (Resolved) 01/19/16 normal thyroid scan 01/20 Vitamin D deficiency Vitamin D deficiency (Chronic 06/26/16) Surgical History Arthroplasty of knee Cholecystectomy Colonoscopy - MAC 02/24/14 Debridement, Soft Tissue 11/10/16-DR. VALLECILLO-RIGHT HEEL Dilation and curettage EGD - MAC (02/24/14) H/O arthroscopy of knee (Resolved) H/O esophagogastroduodenoscopy (Resolved) H/O surgical procedure (Resolved) removal of toenails of great toe-bilateral History of arthroscopy of knee (Inactive) History of bilateral ligation of fallopian tubes (Inactive) History of bilateral tubal ligation (Resolved) Hx of biopsy (Resolved) 05/07/11 lip; Dr. Quesada Hysterectomy, Laproscopic (~1996) Ligation of fallopian tube LIP BX (10/05/11) DR. QUESADA LUNG LOBECTOMY (~1991) RLL; ? 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 Grandfather COPD (chronic obstructive pulmonary disease) Grandfather Diabetes Heart disease Grandmother Personal history of malignant neoplasm Pancreatic Grandmother Diabetes Social History Smoking/Tobacco Use Status: Former Tobacco Use Quit Date: 05/07/18 Alcohol Intake: current Alcohol Intake frequency: a few times a month Drug use: Socially Substance use type: marijuana Details: Pt notes that she takes THC gummies recreationally. Household members: spouse and other Details: 2 current occupation: [employer] Pets and animals: Yes Pets and animals: cat(s) What type of physical activity do you participate in: none Louise/Nondenominational: Druze Special louise needs: No Do you feel safe in your relationship?: Yes Exam Const General: cooperative, healthy appearing, comfortable and no acute distress Orientation: alert, awake and oriented x3 HENMT Head: normal to inspection Ears: hearing grossly normal bilaterally Face and sinus: normal facial exam Mouth: oral mucosae normal Throat: posterior oropharynx normal Eyes General: appearance normal, both eyes and all related structures Neck Neck: normal visual inspection, full ROM, no lymphadenopathy and no meningeal signs Chest Chest: normal inspection of the chest Resp Effort & Inspection: normal respiratory effort and able to speak in complete sentences Auscultation: clear to auscultation bilaterally Cardio Rate: regular rate Rhythm: regular rhythm Pulses: normal peripheral pulses GI Inspection: normal to inspection Palpation: soft and tender in the epigastrum; with no rebound tenderness Back/Spine/Pelvis Back: no CVA tenderness Skin General skin exam: no rashes or lesions noted Extrem General: no pedal edema Course Vital Signs Vital signs: Vital Signs Pulse 77 04/15/19 12:29 Respiratory Rate 17 04/15/19 12:29 Blood Pressure 187/99 H 04/15/19 12:29 Pulse Oximetry 98 04/15/19 12:29 Temperature 36.2 C L 04/15/19 12:30 Temperature Source Skin 04/15/19 12:30 Pulse 68 04/15/19 13:47 Pulse 83 04/15/19 13:50 Respiratory Rate 20 04/15/19 13:50 Respiratory Effort 04/15/19 13:00 Respiratory Depth Normal 04/15/19 13:00 Respiratory Pattern Normal 04/15/19 13:00 Blood Pressure 149/88 H 04/15/19 13:47 Blood Pressure Mean 103 04/15/19 13:47 Blood Pressure Position Sitting 04/15/19 12:30 Pulse Oximetry 97 04/15/19 13:50 Oxygen Delivery Method Nasal Cannula 04/15/19 12:44 Oxygen Flow Rate 2 04/15/19 12:44 Pain Level 7 04/15/19 14:19 Lab/Test Results Lab/Test Results: 04/15/19 14:00 Nasopharynx Influenza Types A,B Antigen - Final Laboratory Tests Range/Units 04/15/19 04/15/19 04/15/19 12:35 12:35 13:15 WBC (4.4-10.8) k/cumm 5.54 RBC (4.00-5.20) m/cumm 3.53 L Hgb (12.0-15.5) g/dL 11.0 L Hct (36.0-46.0) % 33.4 L MCV (80-95) fL 94.6 MCH (27.0-33.0) pg 31.2 MCHC (32.0-36.0) g/dL 32.9 RDW (11.7-14.6) % 12.6 Plt Count (130-400) x1000/uL 312 MPV (8.0-11.0) fL 9.1 Immature Gran % 0.4 Neutrophils % 49.4 Lymphocytes % 40.1 Monocytes % 7.6 Eosinophils % 1.8 Basophils % 0.7 Absolute Neutrophils (1.2-6.7) k/cumm 2.74 Absolute Lymphocytes (1.2-3.4) k/cumm 2.22 Absolute Monocytes (0.11-0.7) k/cumm 0.42 Absolute Eosinophils (0.0-0.7) k/cumm 0.10 Absolute Basophils (0.0-0.2) k/cumm 0.04 Sodium (136-145) mmol/L 142 Potassium (3.5-5.1) mmol/L 3.5 Chloride (98-107) mmol/L 101 Carbon Dioxide (21.0-32.0) mmol/L 32.6 H Anion Gap (3-11) mmol/L 8.4 BUN (7-18) mg/dL 18 Creatinine (0.55-1.02) mg/dL 0.81 Estimated GFR/1.73 m2 (mL/min/1.73m2) >= 60.00 Glucose (74-106) mg/dL 108 H Calcium (8.5-10.1) mg/dL 9.7 Magnesium (1.8-2.4) mg/dL 1.5 L Total Bilirubin (0.2-1.0) mg/dL 0.2 AST (15-37) U/L 24 ALT (14-59) U/L 36 Alkaline Phosphatase (46-116) U/L 40 L Troponin I (<0.06) ng/Ml < 0.05 NT-Pro-B Natriuret Pep (<300) pg/mL 93 Total Protein (6.4-8.2) g/dL 8.0 Albumin (3.4-5.0) g/dL 4.1 Lipase (73-393) U/L 110 Urine Color (Yellow) Yellow Urine Clarity (Clear) Sl cloudy Urine pH (5-8) 6.0 Ur Specific [employer] (1.005-1.025) 1.020 Urine Protein (Negative) mg/dL Negative Urine Ketones (Negative) mg/dL Negative Urine Blood (Negative) Trace-intact H Urine Nitrite (Negative) Negative Urine Bilirubin (Negative) Negative Urine Urobilinogen (Up TO 0.2) EU/dL 0.2 Ur Leukocyte Esterase (Negative) Negative Urine RBC (0-2) HPF 0-2 Urine WBC (0-5) HPF 0-2 Ur Epithelial Cells (Negative) HPF Moderate Urine Crystals (Negative) HPF Negative Urine Bacteria (Negative) HPF Few Urine Casts (Negative) LPF Negative Urine Mucus (Negative) Trace Urine Other (Negative) Ur Culture Indicated? No/sq. contamination Urine Glucose (Negative) mg/dL Negative
== END 2019-04-15 15:09 | disposition home or self-care (01) ==
PROVIDERS: Emergency Provider Physician Assistant; PCP Family Medicine
DX: R19.7 Diarrhea, unspecified (principal); R11.2 Nausea with vomiting, unspecified; R14.0 Abdominal distension (gaseous); J44.9 Chronic obstructive pulmonary disease, unspecified; Z87.891 Personal history of nicotine dependence; Z99.81 Dependence on supplemental oxygen; I10 Essential (primary) hypertension
CPT/HCPCS: 36415; 80053; 83690; 87449; 93005; 96374; 96375; 96376; 99285; 71046; 74177; 81003; 81015; 83735; 83880; 84484; 85025; 93010; J2405; J3490

== ENCOUNTER 2019-05-06 12:18 | Outpatient (CLI) | payer BC, SELFPAY ==
[2019-05-06 12:39] VITALS: BP 124/83; PULSE 82; RESP 24; TEMP 37; O2SAT 98
--- NOTE | 2019-05-06 12:55 | PDOC.PAIN_ITS ---
Pain Clinic Procedure Note Procedure Note Procedure Note: INTRA-ARTICULAR SI JOINT INJECTION CESAR ANGULO has been referred to the [facility] for intra- articular SI joint injection. pre-operative diagnosis: disorder of sacrum post-operative diagnosis: same as above Patient was interviewed and the medical record reviewed. There were no medical, pharmacologic, radiographic or other structural contraindications to attempting fluoroscopically guided intra-articular SI joint injection. Risks and expected side effects as well as potential benefit of the procedure were reviewed and voiced concerns addressed. The printed consent form was signed and witnessed. Standard time-out procedure was performed. Patient was placed in the prone position on the fluoroscopy table and automated blood pressure cuff and pulse oximeter applied. The skin entry point for approaching bilateral SI joints was identified under the most advantageous fluoroscopic view and marked. Following thorough Chlorhexadine preparation of the skin and draping and 1% lidocaine infiltration of the skin entry point and subcutaneous tissues, a 22 gauge 5'' spinal needle was placed under fluoroscopic guidance into bilateral SI joints was identified under the most advantageous fluoroscopic view and marked. Following thorough Chlorhexadine preparation of the skin and draping and 1% lidocaine infiltration of the skin entry point and subcutaneous tissues, a 22 gauge spinal needle was placed under fluoroscopic guidance into bilateral SI joint. Intra-articular placement was confirmed by a clear arthrogram resulting from the injection of 0.25ml Omnipaque 240, 1ml 0.5% Bupivocaine, and 40mg Depomedrol were injected intra-articularily with an initial reproduction of a significant component of the usual pain. Vital signs were stable throughout the procedure and were as recorded in the docflowsheet by the nursing staff. If given, dosages of intravenous drugs for anxiolysis and analgesia were documented in MAR. patient received total of 1.5mg of IV versed due to severe needle phobia. Follow up plans and appointments were discussed with the patient. Post procedure instruction was given as documented in nursing documentation and lina rodriguez met discharge criteria, and was discharged from the [facility]. COMMENTS: patient tolerated procedure well. She reported pre-procedure pain level as 3-4 out of 10 and post-procedure pain level as 0 out of 10. I personally performed the entire procedure. Bean Lyon MD Pain Management CC: Nicole Hubbard MD, [place]
[2019-05-06] MEDS: Midazolam 2 MG/2 ML VIAL IVP ×2 (13:15→13:24)
[2019-05-06] MEDS: Lactated Ringers 1,000 ML 80 ML IV (13:16)
[2019-05-06] MEDS: Bupivacaine 0.5% Pres-Free 10 ML VIAL IJ (13:26)
[2019-05-06 13:31] VITALS: BP 126/78; PULSE 81; RESP 20; O2SAT 97
[2019-05-06] MEDS: methylPREDNISolone ACETATE 80 MG/ML VIAL IJ (13:44)
[2019-05-06] MEDS: Omnipaque 240 MG/ML 50 ML BTL IJ (13:45)
--- NOTE | 2019-05-06 14:17 | DI.RAD_ITS ---
EXAM: XR PAIN CLINIC SACRIOILIAC 2V CLINICAL HISTORY: Dx: Sacroiliac Joint Dysfunction TECHNIQUE: C-arm fluoroscopy was utilized by Dr. Lyon during SI joint injection. COMPARISON: No exams were available for comparison FINDINGS: Hard copy shows injection at the SI joints bilaterally. Fluoro time 61.4 seconds
== END 2019-05-06 12:38 ==
PROVIDERS: PCP Family Medicine; Visit Provider Internal Medicine
DX: M54.5 Low back pain (principal); M53.3 Sacrococcygeal disorders, not elsewhere classified
CPT/HCPCS: 27096; 72200; J1040; J2250; Q9967

== ENCOUNTER 2019-05-15 02:24 | Outpatient (CLI) | payer BC, SELFPAY ==
--- NOTE | 2019-05-15 13:58 | DI.CTLCSR_ITS ---
EXAM: CT CHEST LUNG CANCER SCREEN CLINICAL HISTORY: EX SMOKER Z87.891 TECHNIQUE: CT examination of the chest was performed utilizing low-dose lung cancer screening protoc ol. FINDINGS: Images obtained through the upper abdomen show grossly unremarkable appearance of visualized portions of liver, spleen, kidneys, adrenals and pancreas. No mediastinal or hilar adenopathy. Tracheobronc hial tree appears intact throughout. Marked pulmonary centrilobular and subpleural emphysematous kell nges noted. No pleural effusion. Examination is compared to prior study of 06/05/2018. There is a new ground-glass opacity in the lef t lower lobe posteriorly measuring about 17 millimeters in diameter. There is also a 5 millimeter in diameter nodule in the right upper lobe anteromedially, which was probably present on the previous e xamination. No additional nodule seen. IMPRESSION: Marked emphysematous changes. New left lower lobe ground-glass opacity, 17 millimeters. Category 2, benign appearance or behavior. Continue annual screening with LDCT in 12 months. Lung RADS Cat 2 - Benign Appearance / Behavior: Nodules with a very low likelihood of becoming a clin ically active caner due to size or lack of growth
== END 2019-05-15 02:44 ==
PROVIDERS: PCP Family Medicine; Visit Provider Internal Medicine
DX: Z12.2 Encounter for screening for malignant neoplasm of respiratory organs (principal); Z87.891 Personal history of nicotine dependence; J43.9 Emphysema, unspecified; J98.4 Other disorders of lung
CPT/HCPCS: G0297

== ENCOUNTER 2019-07-15 07:47 | Outpatient (CLI) | payer BC, SELFPAY ==
--- NOTE | 2019-07-15 06:00 | DI.RAD_ITS ---
EXAM: XR PAIN CLINIC SACRIOILIAC 2V CLINICAL HISTORY: Dx: Sacroiliac joint dysfunction TECHNIQUE: 2D and realtime digital imaging was performed. CONTRAST MATERIAL: Refer to procedure report. COMPARISON: No exams were available for comparison FINDINGS: Fluoroscopy was provided for Dr. Lyon during the performance of a sacroiliac joint injection. Please refer to the procedure report for complete details. Fluoro time: 30.4 seconds IMPRESSION:
[2019-07-15 07:56] VITALS: BP 105/70; PULSE 72; RESP 17; TEMP 36.2; O2SAT 97
--- NOTE | 2019-07-15 08:08 | PDOC.PAIN ---
Pain Clinic Procedure Note Procedure Note Procedure Note: INTRA-ARTICULAR SI JOINT INJECTION CESAR ANGULO has been referred to the [facility] for intra-articular SI joint injection. COMMENTS: patient underwent bilateral SI joint injection in 04/2019 for bilateral lower back, buttock pain with physical examination consistent with sacroiliac mediated pain, with positive tenderness over bilateral pSIS, and NADEEM's manuever. patient likely has multifactorial pain generators including lumbar facet mediated, however, she has extreme needle phobia and could not tolerate diagnostic lumbar medial branch nerve block. She reports to me that she has left more than right sided pain. From her prior injection, she had several days of absolutely pain free, then her usual pain started to return gradually. She thought left sided pain relief lasted for about 1 month, the right sided pain relief lastsed for 2.5 months - although her right side at baseline is not as severe as left side. Of note, patient again expressed that she has extreme needle phobia but she is willing undergo all future interventional procedures as long as she receives IV anxiolytic. Pre-operative diagnosis: sacroiliac joint pain Post-operative diagnosis: same as above Patient was interviewed and the medical record reviewed. There were no medical, pharmacologic, radiographic or other structural contraindications to attempting fluoroscopically guided intra-articular SI joint injection. Risks and expected side effects as well as potential benefit of the procedure were reviewed and voiced concerns addressed. The printed consent form was signed and witnessed. Standard time-out procedure was performed. Patient was placed in the prone position on the fluoroscopy table and automated blood pressure cuff and pulse oximeter applied. The skin entry point for approaching bilateral SI joints was identified under the most advantageous fluoroscopic view and marked. Following thorough Chlorhexadine preparation of the skin and draping and 1% lidocaine infiltration of the skin entry point and subcutaneous tissues, a 22 gauge 5 spinal needle was placed under fluoroscopic guidance into bilateral SI joints was identified under the most advantageous fluoroscopic view and marked. Intra-articular placement was confirmed by a clear arthrogram resulting from the injection of 0.25ml Omnipaque 240, 1ml 0.5% Bupivocaine, and 40mg Depomedrol were injected intra-articularily on each side with an initial reproduction of a significant component of the usual pain. Vital signs were stable throughout the procedure and were as recorded in the docflowsheet by the nursing staff. If given, dosages of intravenous drugs for anxiolysis and analgesia were documented in MAR. Follow up plans and appointments were discussed with the patient. Post procedure instruction was given as documented in nursing documentation and having met discharge criteria, and was discharged from the [facility]. COMMENTS: patient received 1mg of IV versed. Of note, patient has somewhat unrealistic expectation of pain relief, she stated I am so exhausted from the amount of pain I suffer from on a daily basis, I want it to be gone. When the last injection gave me a couple of days of pain free days, I want to feel that way all the time when I have the ablation. I discussed with patient that with Coolief lateral sacral branch nerve ablation, it will likely result in significant pain relief, however, there is no guarantee that it will achieve 100% pain relief. In fact, it is unlikely for any injections to result in 100% pain relief. 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 She voiced understanding. I personally performed the entire procedure. Bean Lyon MD Pain Management CC: Nicole Hubbard MD, [place]
[2019-07-15] MEDS: Lactated Ringers 1,000 ML 80 ML IV (08:25)
[2019-07-15] MEDS: Midazolam 2 MG/2 ML VIAL IVP (08:30)
[2019-07-15 08:37] VITALS: BP 124/77; PULSE 74; RESP 16; O2SAT 98
[2019-07-15] MEDS: Omnipaque 240 MG/ML 50 ML BTL IJ (08:50)
[2019-07-15] MEDS: methylPREDNISolone ACETATE 80 MG/ML VIAL IJ (08:51)
[2019-07-15] MEDS: Bupivacaine 0.5% Pres-Free 10 ML VIAL IJ (08:51)
== END 2019-07-15 08:07 ==
PROVIDERS: PCP Family Medicine; Visit Provider Internal Medicine
DX: M54.5 Low back pain (principal); M53.3 Sacrococcygeal disorders, not elsewhere classified
CPT/HCPCS: 27096; 72200; J1040; J2250; Q9967

== ENCOUNTER 2019-09-23 08:45 | Outpatient (CLI) | payer BC, SELFPAY ==
[2019-09-25 00:37] LABS: COVID-19 RT-PCR Result NEGATIVE (Negative)
== END 2019-09-23 09:05 ==
PROVIDERS: PCP Family Medicine; Visit Provider Family Medicine
DX: R68.83 Chills (without fever) (principal)
CPT/HCPCS: U0003

== ENCOUNTER 2019-09-23 13:05 | Emergency (ER) | payer BC, SELFPAY ==
[2019-09-23 13:12] VITALS: BP 190/87; PULSE 83; TEMP 37.3; O2SAT 100
--- NOTE | 2019-09-23 13:33 | W.ED.GENAD ---
Discharge Plan Disposition Patient Disposition: HOME Condition: Stable Discharge Details Chief Complaint: Abd Prob Clinical Impression: Abdominal pain, Nausea & vomiting Primary Care Provider: Nicole Hubbard ED Provider: Hector Costa Home Meds and New Rx's Prescriptions: New ondansetron 4 mg tablet,disintegrating 4 mg PO Q8H PRN (Reason: nausea and vomiting) Qty: 14 RF: 0 Continued cholecalciferol (vitamin D3) 2,000 unit capsule 2,000 unit PO DAILY RF: 0 albuterol sulfate [Ventolin HFA] 90 mcg/actuation HFA aerosol inhaler 2 puff Inhalation Q4H PRN (Reason: bronchospasm) Qty: 3 RF: 11 atorvastatin [Lipitor] 10 mg tablet 10 mg PO DAILY Qty: 90 RF: 12 cetirizine [Zyrtec] 10 mg tablet 10 mg PO BID Qty: 180 RF: 11 duloxetine 60 mg capsule,delayed release(DR/EC) 60 mg PO DAILY Qty: 90 RF: 11 estradiol [Estrace] 0.5 mg tablet 0.5 mg PO EVERY OTHER DAY Qty: 90 RF: 12 metoprolol succinate 25 mg tablet extended release 24 hr 25 mg PO DAILY Qty: 90 RF: 4 valacyclovir [Valtrex] 1 gram tablet 1,000 mg PO DAILY Qty: 90 RF: 12 (DME) Aerochamber MV Spacer See Rx Instructions .ROUTE .MEDSUPPLY Qty: 1 RF: 0 omeprazole 40 mg capsule,delayed release(DR/EC) 40 mg PO DAILY Qty: 180 RF: 3 (DME) EasiVent Mask Large 1 EACH device 1 ea Miscellaneous DIRECTED RF: 0 calcium carbonate-vitamin D3 [Caltrate with Vitamin D3] 1 EACH tablet 1 tab PO DAILY RF: 0 clotrimazole-betamethasone 15 GM cream 15 gm Topical DAILY PRNQty: 45 RF: 0 budesonide-formoterol [Symbicort] 160-4.5 mcg/actuation HFA aerosol inhaler 2 puff Inhalation BID Qty: 3 RF: 11 montelukast [Singulair] 10 mg tablet 10 mg PO DAILY Qty: 90 RF: 12 gabapentin 600 mg tablet 600 mg PO TID 30 Days Qty: 90 RF: 11 losartan 50 mg tablet 50 mg PO DAILY Qty: 90 RF: 5 albuterol sulfate 2.5 mg /3 mL (0.083 %) solution for nebulization 2.5 mg IH QID PRNRF: 0 Stiolto Respimat 2.5-2.5 mcg/actuation Mist 2 puff INHALATION DAILY RF: 0 methylphenidate HCl 10 mg tablet 20 mg PO DAILY MDD 2 RF: 0 Discharge Instructions Instructions: Acute Nausea and Vomiting (ED), Abdominal Pain (ED) Additional Instructions: Follow up with primary care provider in 3-5 days. Return to ED sooner if any worsening or concerns. Increase oral fluids. Take medications as prescribed. At this time your symptoms are very concerning for coronavirus. Due to the increased likelihood of your symptoms being from coronavirus the CDC does recommend testing. It takes 48 to 72 hours for the test results to return. You will be contacted by [facility] staff when your results return. If you do not hear from them in 48 to 72 hours, please contact [facility]. Out of an abundance of precaution it is highly recommended that you self quarantine yourself for a total of 14 days or until symptom-free for greater than 24 to 48 hours. It would be prudent to wear a mask at all times, always wash her hands frequently, and follow-up closely with your primary care provider. It is recommended that you call your primary care provider prior to reassessment. If you are going to a health facility, please call/contact them before you arrive. At this time based on your current symptoms the CDC does not recommend admission, and there is no current clinical indication for your admission here at the hospital. However it is vitally important to monitor your symptoms closely, and if you notice any worsening of your symptoms, or any new symptoms such as worsening shortness of breath, difficulty breathing, persistent fever, worsening chills, chest pain, numbness, weakness, or fainting please call and then return immediately to the emergency department for reevaluation. Please call your primary care provider as soon as possible to make them aware of your current situation and for continued monitoring. As always, it was a pleasure participating in your medical care today. Stand Alone Forms: PENDING COVID-19 TESTING Referrals: Nicole Hubbard MD, [place] [Primary Care Provider] - Medical Decision Making <Nedra Wade - Last Filed: 09/23/19 16:19> 63 year old female with a history of COPD presents to the ED with generalized weakness, headache, abdominal pain with vomiting and mild diarrhea. This began on Sunday patient states began with weakness and fatigue followed by the other symptoms. She reports moderate to severe right upper quadrant and left upper quadrant abdominal pain. She is normally on 2 L of oxygen nasal cannula. She states that she has had 2 of her oxygen to 4 L. She has no respiratory distress on arrival mild dyspnea on exertion. Patient was at outpatient COVID testing tent and decided to check into the ED due to severity of symptoms. Work-up ordered including CBC, CMP, lipase, urinalysis. CT abdomen pelvis with IV contrast. Labs are largely unremarkable except for low magnesium 1.5. This is been consistent with her previous results. Abdomen pelvis shows diverticulosis without diverticulitis, fatty liver, no obstruction, no acute changes. She had a CT with similar results in April 2019. We will replace her magnesium with 1 g IV piggyback bolus. Patient is receiving 1 L normal saline is infusing without difficulty. Patient is taking p.o. liquids without difficulty she is drinking carlita mark at this time. COVID testing was done in outpatient setting and at this time is pending. Differential diagnosis includes but not limited to gastroenteritis, small bowel obstruction, COVID-19, kidney stone, UTI. 1615: Magnesium is infusing at this time, will sign out patient's care to ANNABELLE Dejesus oncoming provider pending discharge and magnesium infusion. Patient was hemodynamically stable at the time of this dictation. Medical Records Medical records reviewed: Yes I reviewed the patient's medical records. Lab Data Lab results reviewed: Yes I reviewed the patient's lab results. <ANNABELLE Rubi - Last Filed: 09/23/19 17:17> This is a 63-year-old female who was signed out to me at shift change pending her magnesium infusion and discharge. She received her liter of fluid and a gram of magnesium. I discussed her evaluation here in the ER. She reports that she is currently asymptomatic and has no additional questions or concerns. She has a prescription written for her for Zofran as she did present nauseous, denies any nausea now. She appears well, nontoxic. Head normocephalic, moist mucous membranes, speaks in full sentences. She appears in no acute distress. Moves all extremities without difficulty. Work-up was essentially completed prior to my shift starting. Patient reports that she has no additional questions or concerns, talked with the previous provider regarding everything and is comfortable discharge. Here. We discussed the importance of outpatient follow-up, contacting her primary care provider tomorrow or return to the ER for new or worsening symptoms. Medical Records Medical records reviewed: Yes I reviewed the patient's medical records. HPI <Nedra Wade - Last Filed: 09/23/19 16:19> General Mode of arrival: ambulatory. Date/Time Provider Initiated Documentation: 09/23/19 13:16. Limitations to Documentation: no limitations. Information obtained by: patient. HPI Narrative: 63 year old female with a history of COPD presents to the ED with generalized weakness, headache, abdominal pain with vomiting and mild diarrhea. This began on Sunday patient states began with weakness and fatigue followed by the other symptoms. She reports moderate to severe right upper quadrant and left upper quadrant abdominal pain. She is normally on 2 L of oxygen nasal cannula. She states that she has had 2 of her oxygen to 4 L. She has no respiratory distress on arrival mild dyspnea on exertion. Patient also noted a boil to her right lower quadrant abdominal wall. This was noticed yesterday. Related Data Home Medications Medication Instructions Recorded Confirmed EasiVent Mask Large ea 09/18/12 09/02/19 calcium carbonate-vitamin D3 1 tab PO DAILY 09/18/12 09/23/19 [Caltrate with Vitamin D3] clotrimazole-betamethasone 15 gm TOPICAL DAILY PRN #45 gm 12/13/17 09/23/19 cholecalciferol (vitamin D3) 50 2,000 unit PO DAILY 02/05/18 09/23/19 mcg (2,000 unit) capsule budesonide-formoterol HFA 160 2 puff INHALATION BID #3 inhaler 02/15/19 09/23/19 mcg-4.5 mcg/actuation aerosol inhaler montelukast 10 mg tablet 10 mg PO DAILY #90 tab-cap 02/15/19 09/23/19 Stiolto Respimat 2 puff INHALATION DAILY 03/25/19 09/23/19 albuterol sulfate 90 mcg/actuation 2 puff INHALATION Q4H PRN #3 each 04/08/19 09/23/19 aerosol inhaler atorvastatin 10 mg tablet 10 mg PO DAILY #90 tab-cap 12/03/19 05/19/20 cetirizine 10 mg tablet 10 mg PO BID #180 tab 04/08/19 09/23/19 duloxetine 60 mg capsule,delayed 60 mg PO DAILY #90 tab-cap 04/08/19 09/23/19 release estradiol 0.5 mg tablet 0.5 mg PO EVERY OTHER DAY #90 04/08/19 09/23/19 tab-cap metoprolol succinate 25 mg 25 mg PO DAILY #90 tab 04/08/19 09/23/19 tablet,extended release 24 hr valacyclovir 1 gram tablet 1,000 mg PO DAILY #90 tab-cap 04/08/19 09/23/19 gabapentin 600 mg tablet 600 mg PO TID 30 Days #90 tab 07/15/19 09/23/19 losartan 50 mg tablet 50 mg PO DAILY #90 tab 08/04/19 09/23/19 albuterol sulfate 2.5 mg IH QID PRN 09/01/19 09/23/19 inhalational spacing device #1 each 09/02/19 09/02/19 omeprazole 40 mg capsule,delayed 40 mg PO DAILY #180 tab-cap 09/02/19 09/23/19 release methylphenidate HCl 20 mg PO DAILY MDD 2 09/23/19 09/23/19 ondansetron 4 mg PO Q8H PRN #14 tab 09/23/19 Previous Rx's Medication Instructions Recorded budesonide-formoterol HFA 160 2 puff INHALATION BID #3 inhaler 02/15/19 mcg-4.5 mcg/actuation aerosol inhaler montelukast 10 mg tablet 10 mg PO DAILY #90 tab-cap 02/15/19 albuterol sulfate 90 mcg/actuation 2 puff INHALATION Q4H PRN #3 each 04/08/19 aerosol inhaler atorvastatin 10 mg tablet 10 mg PO DAILY #90 tab-cap 04/08/19 cetirizine 10 mg tablet 10 mg PO BID #180 tab 04/08/19 duloxetine 60 mg capsule,delayed 60 mg PO DAILY #90 tab-cap 04/08/19 release estradiol 0.5 mg tablet 0.5 mg PO EVERY OTHER DAY #90 04/08/19 tab-cap metoprolol succinate 25 mg 25 mg PO DAILY #90 tab 12/03/19 tablet,extended release 24 hr valacyclovir 1 gram tablet 1,000 mg PO DAILY #90 tab-cap 04/08/19 gabapentin 600 mg tablet 600 mg PO TID 30 Days #90 tab 07/15/19 losartan 50 mg tablet 50 mg PO DAILY #90 tab 08/04/19 inhalational spacing device #1 each 09/02/19 omeprazole 40 mg capsule,delayed 40 mg PO DAILY #180 tab-cap 09/02/19 release ondansetron 4 mg PO Q8H PRN #14 tab 09/23/19 Allergies Allergy/AdvReac Type Severity Reaction Status Date / Time amoxicillin trihydrate AdvReac Nausea/Diar Unverified 09/23/19 13:43 [From Augmentin] francisca oxybutynin AdvReac Dry Unverified 09/23/19 13:43 mouth/mucous membranes potassium clavulanate AdvReac Nausea/Diar Unverified 09/23/19 13:43 [From Augmentin] francisca General Stated Complaint: Abd Prob YUKI: 3 Review of Systems <Nedra Wade - Last Filed: 09/23/19 16:19> Narrative: Constitutional: Negative for weight loss, alert and oriented, well groomed, obese body habitus, appears uncomfortable. HEENT: Denies trauma, blurry vision, nasal discharge, sore throat, trouble swallowing. Chest: Denies chest pain, palpitations, irregular rhythm, hypertension. Respiratory: Denies cough, hemoptysis. Positive shortness of breath history of COPD on oxygen. GI: Denies constipation. Positive nausea vomiting diarrhea, positive abdominal pain. : Denies dysuria, hematuria, flank pain, rectal bleeding. Neuro: Denies dizziness, blurry vision, syncope, headache or facial numbness. Positive generalized weakness. Hematologic: Denies easy bruising, intolerance to heat or cold, hair loss. All systems reviewed & are unremarkable except as noted in HPI and below PFSH <Nedra Wade - Last Filed: 09/23/19 16:19> Medical History Abnormal mammogram (Inactive 04/05/06) Abnormal mammogram, unspecified (Resolved) 04/05/06 w/6 mos. F/U per [facility] Achilles tendinitis, right leg (Chronic 08/18/16) WITH RETROCALCANEAL EXOSOTOSIS AND APOLONIA'S DEFORMITY Achilles tendonitis Allergic fungal sinusitis Allergic fungal sinusitis (Chronic 07/16/13) Anemia Anemia (Resolved 12/31/12) Annual physical exam (Resolved 10/25/17) Asthma exacerbation (Chronic 06/12/16) Bleeding hemorrhoids (Resolved 08/09/17) Cellulitis of left lower extremity Cellulitis of left lower extremity (Resolved) 12/11/16 Cellulitis of left lower extremity (Inactive 12/11/16) Cholelithiasis (Resolved) without obstruction s/p cholecystectomy Cholelithiasis without obstruction (Inactive) Chronic obstructive lung disease (Chronic) FEV 1-72% COPD (chronic obstructive pulmonary disease) FEV 1- 72% Depression Depressive disorder (Chronic) Essential hypertension (Chronic 04/09/13) Gastritis Gastritis (Chronic 04/05/05) per EGD and mild reflux 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 Evans Hiatal hernia Hiatal hernia (Resolved 04/05/96) small Hormone replacement therapy (postmenopausal) (Resolved 12/20/11) Hyperlipidemia Hyperlipidemia (Chronic 12/31/12) Hypertension Internal hemorrhoids Internal hemorrhoids (Resolved 02/24/14) SMALL Lumbar disc prolapse with compression radiculopathy Lumbar disc prolapse with compression radiculopathy (Chronic 08/21/09) Numbness and tingling (Inactive 01/11/16) Otalgia (Inactive 05/29/16) Otalgia of both ears Otalgia, unspecified (Resolved) 05/29/16 Pre-op exam (Resolved) 06/08/15 Smoker Smoker (Resolved) 2002 Smoker (Inactive) Thyroid nodule Thyroid nodule (Resolved) 01/19/16 normal thyroid scan 01/20 Vitamin D deficiency Vitamin D deficiency (Chronic 06/26/16) Surgical History Arthroplasty of knee Cholecystectomy Colonoscopy - MAC 02/24/14 Debridement, Soft Tissue 11/10/16-DR. VALLECILLO-RIGHT HEEL Dilation and curettage EGD - MAC (02/24/14) H/O arthroscopy of knee (Resolved) H/O esophagogastroduodenoscopy (Resolved) H/O surgical procedure (Resolved) removal of toenails of great toe-bilateral History of arthroscopy of knee (Inactive) History of bilateral ligation of fallopian tubes (Inactive) History of bilateral tubal ligation (Resolved) Hx of biopsy (Resolved) 05/07/11 lip; Dr. Quesada Hysterectomy, Laproscopic (~1996) Ligation of fallopian tube LIP BX (10/05/11) DR. QUESADA LUNG LOBECTOMY (~1991) RLL; ? 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 Grandfather COPD (chronic obstructive pulmonary disease) Grandfather Diabetes Heart disease Grandmother Personal history of malignant neoplasm Pancreatic Grandmother Diabetes Social History Smoking/Tobacco Use Status: Former Tobacco Use Quit Date: 05/07/18 Alcohol Intake: current Alcohol Intake frequency: a few times a month Drug use: Socially Substance use type: marijuana Details: Pt notes that she takes THC gummies recreationally. Household members: spouse and other Details: 2 current occupation: [employer] Pets and animals: Yes Pets and animals: cat(s) What type of physical activity do you participate in: none Louise/Christianity: Religion Special louise needs: No Do you feel safe at home: Yes Do you feel safe in your relationship?: Yes Exam <Nedra Wade - Last Filed: 09/23/19 16:19> Narrative Exam Narrative: Constitutional: Alert and oriented x3. Appears stated age. Obese body habitus. Head: Normocephalic, no trauma. Eyes: Pupils PERRLA, Red reflex noted, EOM's intact. Eyelids symmetrical without lesions, discharge, or swelling. ENT: Bilateral TM's WNL, External ear normal to inspection, no mastoid TTP, swelling, or erythema, Nasal turbinates WNL, no nasal discharge. Normal dentition, Posterior pharynx WNL, no exudate. Chest: RRR, Normal S1, S2, distal pulses intact. Resp: Lungs clear to auscultation bilaterally, no wheezes, rales, or rhonchi. Musculoskeletal: Normal gait, 5/5 strength to all four extremities. Skin: No suspicious rashes. Patient does have a red raised papule noted to her right lower quadrant abdominal fold which began yesterday. Capillary refill less than 2 sec. Neurologic: Cranial nerves II-XII intact. Alert and oriented x 3. DTR's intact. Hematologic/Lymphatic: No ecchymosis, no lymphadenopathy. Course <Nedra Wade - Last Filed: 09/23/19 16:19> Vital Signs Vital signs: Vital Signs Temperature 37.3 C 09/23/19 13:12 Pulse 83 09/23/19 13:12 Blood Pressure 190/87 H 09/23/19 13:12 Pulse Oximetry 100 09/23/19 13:12 Temperature 37.3 C 09/23/19 13:12 Temperature Source Oral 09/23/19 13:12 Pulse 83 09/23/19 13:12 Respiratory Effort Non-Labored 09/23/19 13:26 Blood Pressure 190/87 H 09/23/19 13:12 Blood Pressure Position Supine 09/23/19 13:12 Pulse Oximetry 100 09/23/19 13:12 Oxygen Delivery Method Nasal Cannula 09/23/19 13:12 Oxygen Flow Rate 4 09/23/19 13:12 Pain Level 3 09/23/19 13:12 Comment 09/23/19 13:12 Sign Out <Nedra Wade - Last Filed: 09/23/19 16:19> Sign Out Data: Sign Out Comment: Pending discharge and magnesium infusion. Last updated by Nedra Wade at 09/23/19 16:17
[2019-09-23] MEDS: FAMOTIDINE 20 MG/50 ML BAG 100 MG IVPB (14:10)
[2019-09-23] MEDS: Normal Saline 1,000 ML 1000 ML IV (14:10)
[2019-09-23] MEDS: Ondansetron 4 MG/2 ML VIAL IVP (14:10)
[2019-09-23] MEDS: Normal Saline Flush 10 ML SYR IVP ×2 (14:14→14:59)
[2019-09-23 14:20] LABS: Bilirubin Small (Negative); Blood Negative (Negative); Clarity Cloudy (Clear); Glucose Negative (Negative); Ketones Trace mg/dL (Negative); Leukocyte Esterase Negative (Negative); Nitrite Negative (Negative); Specific Gravity 1.025 (1.005-1.025); Urobilinogen 0.2 EU/dL (Up TO 0.2)
[2019-09-23 14:20] LABS: Abs Immature Grans 0.01 k/cumm (0.0-0.09); Absolute Basophil Count 0.03 k/cumm (0.0-0.2); Absolute Eosinophil Count 0.08 k/cumm (0.0-0.7); Absolute Lymphocyte Count 2.19 k/cumm (1.2-3.4); Absolute Neutrophil Count 4.71 k/cumm (1.2-6.7); Basophils % 0.4; Eosinophils % 1.1; HCT 33.3 % (36.0-46.0); Immature Grans % 0.1 %; Lymphocytes % 29.1; Mean Corpuscular Hemoglobin 31.3 pg (27.0-33.0); Mean Corpuscular Volume 94.6 fL (80-95); Mean Platelet Volume 9.3 fL (8.0-11.0); Monocytes % 6.6; Neutrophils % 62.7; Platelet Count 305 x1000/uL (130-400); RBC 3.52 m/cumm (4.00-5.20); White Blood Cell Count 7.52 k/cumm (4.4-10.8)
[2019-09-23 14:29] LABS: ALT 51 U/L (14-59); AST 30 U/L (15-37); Albumin 4.4 g/dL (3.4-5.0); Alkaline Phosphatase 35 U/L (46-116); Anion Gap 7.2 mmol/L (3-11); BUN 14 mg/dL (7-18); Bilirubin, Total 0.3 mg/dL (0.2-1.0); CO2 30.8 mmol/L (21.0-32.0); CREATININE 0.84 mg/dL (0.55-1.02); Calcium 9.2 mg/dL (8.5-10.1); Chloride 102 mmol/L (98-107); Glucose 100 mg/dL (74-106); Lipase 68 U/L (73-393); Magnesium 1.5 mg/dL (1.8-2.4); Potassium 3.5 mmol/L (3.5-5.1); Sodium 140 mmol/L (136-145)
[2019-09-23 14:31] LABS: Bacteria Moderate HPF (Negative); C & S Indicated? No/Sq. Contamination; Epithelial Cells Many HPF (Negative)
[2019-09-23 14:33] LABS: Troponin I < 0.05 ng/Ml (<0.06)
[2019-09-23] MEDS: Omnipaque 350 MG/ML 100 ML BTL IJ (14:58)
--- NOTE | 2019-09-23 15:05 | DI.CT_ITS ---
EXAM: CT ABDOMEN PELVIS W CLINICAL HISTORY: Abdominal pain, dry heaves TECHNIQUE: Imaging Protocol: Axial computed tomography images with coronal and sagittal reformatted images were created and reviewed CONTRAST MATERIAL: Intravenous: Omnipaque 350 Contrast volume:100 mL Oral: No COMPARISON: CT CT ABDOMEN PELVIS W from 04/15/2019 FINDINGS: ABDOMEN: Lung Bases: No acute abnormality. Liver: Diffuse decreased attenuation of the liver consistent with fatty infiltration. No measurable mass. Portal, Superior Mesenteric, and Splenic Veins: Unremarkable. Gallbladder and Biliary Tract: Status post cholecystectomy. No biliary ductal dilatation. Pancreas: Normal density, no abnormal calcifications or inflammatory process. Spleen: Normal. Adrenals: No masses seen. Kidneys: Normal size, contour and axis. No radiodense stones or obstructive uropathy. Stable left jessica al cyst. Abdominal Aorta: Abdominal portion non-dilated. Mild atherosclerosis. Bowel: No obstruction or bowel wall thickening. No evidence of acute appendicitis. Colonic diverticu losis but no evidence of acute diverticulitis. Peritoneal Cavity: No ascites, collection or mesenteric inflammatory response. Lymph Nodes: Within normal limits. Bones: Age appropriate degenerative changes. Soft Tissues: Unremarkable. PELVIS: Bladder: Symmetric distention, no gross wall thickening. Reproductive Organs: Status post hysterectomy. Lymph Nodes: Within normal limits. Bones: Age appropriate degenerative changes. IMPRESSION: No acute abdominal or pelvic process. The findings were discussed with the emergency department on the date of the examination. RADIATION DOSE DELIVERED: 1,471.88mGy.cm Total DLP DATA REPOSITORY: All CT scans at this facility are submitted to the National Radiology Data Registry (NRDR) Dose Index Registry (DIR) with the [employer] (A[employer]). RADIATION OPTIMIZATION: All CT scans at this facility use at least one of these dose optimization te chniques: automated exposure control; mA and/or kV adjustment per patient size (includes targeted exa ms where dose is matched to clinical indication); or iterative reconstruction.
[2019-09-23 15:09] VITALS: BP 142/90; PULSE 73; RESP 18; O2SAT 99
[2019-09-23] MEDS: MAGNESIUM SULFATE 1 GM/100 ML BAG IVPB (15:44)
[2019-09-23 15:54] VITALS: BP 142/90; PULSE 78; O2SAT 94
[2019-09-23 16:45] VITALS: BP 145/87; PULSE 88; RESP 14; TEMP 36.6; O2SAT 95
== END 2019-09-23 17:15 | disposition home or self-care (01) ==
PROVIDERS: Registered Nurse Emergency; Emergency Provider Physician Assistant; PCP Family Medicine
DX: R11.2 Nausea with vomiting, unspecified (principal); R10.10 Upper abdominal pain, unspecified; R53.1 Weakness; E83.42 Hypomagnesemia; L02.221 Furuncle of abdominal wall; J44.9 Chronic obstructive pulmonary disease, unspecified; Z87.891 Personal history of nicotine dependence; Z99.81 Dependence on supplemental oxygen; I10 Essential (primary) hypertension
CPT/HCPCS: 36415; 80053; 83690; 96361; 96365; 96367; 96375; 99285; 74177; 81003; 81015; 83735; 84484; 85025; J2405; J3475; J3490

== ENCOUNTER 2019-11-11 01:05 | Outpatient (CLI) | payer BC, SELFPAY ==
--- NOTE | 2019-11-11 14:30 | DI.CT_ITS ---
EXAM: CT CHEST WO CLINICAL HISTORY: R93.89, ABNORMAL FINDINGS ON DIAGNOSTIC IMAGING TECHNIQUE: Imaging Protocol: Axial computed tomography images with coronal and sagittal reformatted images were created and reviewed CONTRAST MATERIAL: Intravenous: Omnipaque 350 Contrast volume:structured data in ml. COMPARISON: CR XR CHEST 2V PA LATERAL from 04/15/2019 FINDINGS: Tracheobronchial tree: Patent where visualized. Mediastinum and Yolanda: No dominant adenopathy or fluid collection. Pulmonary parenchyma: No consolidation or dominant measurable mass. Centrilobular emphysema greatest in the upper lobes. Minimal basilar atelectasis or scarring.. Pleura: No effusion or pneumothorax. Heart: The heart is not dilated. No coronary artery calcifications are seen. Aorta: Thoracic aorta non-dilated. Lymph nodes: No pathologically enlarged lymph nodes.. Upper abdomen: Enlarged liver. Hepatic steatosis. Status post cholecystectomy. Normal size spleen. Normal adrenal glands. Bones: Partial resection of the right 6th rib. Degenerative disc changes are seen in the thoracic sp ine. IMPRESSION: Mild emphysematous changes. No acute abnormality. RADIATION DOSE DELIVERED: Total DLP DATA REPOSITORY: All CT scans at this facility are submitted to the National Radiology Data Registry (NRDR) Dose Index Registry (DIR) with the [employer] ([employer]). RADIATION OPTIMIZATION: All CT scans at this facility use at least one of these dose optimization te chniques: automated exposure control; mA and/or kV adjustment per patient size (includes targeted exa ms where dose is matched to clinical indication); or iterative reconstruction.
== END 2019-11-11 01:25 ==
PROVIDERS: PCP Family Medicine; Visit Provider Internal Medicine
DX: R93.89 Abnormal findings on diagnostic imaging of other specified body structures (principal); J43.8 Other emphysema; K76.0 Fatty (change of) liver, not elsewhere classified; R16.0 Hepatomegaly, not elsewhere classified
CPT/HCPCS: 71250

== ENCOUNTER 2020-02-18 16:45 | Inpatient (IN) | payer BC, SELFPAY ==
[2020-02-18] VITALS (51 sets, daily range): BP systolic 122–165; BP diastolic 75–94; PULSE 67–196; RESP 11–25; TEMP 36.6–36.8; O2SAT 96–100
[2020-02-18] MEDS: Normal Saline 1,000 ML 250 ML IV (16:45)
--- NOTE | 2020-02-18 16:45 | RT.EKG_ITS ---
APPROVED REPORT Exam: Resting ECG Patient Location: E HR:83 bpm ECG Measurements Heart Rate 83 AXIS MT 152 P 45 QRSd 94 QRS -9 QT 408 T 38 QTc 481 Conclusion Sinus rhythm. Rate 83...normal P axis Low voltage, precordial leads
--- NOTE | 2020-02-18 16:52 | ED.GENADUL_ITS ---
Discharge Plan Disposition Patient Disposition: [facility] INPATIENT Condition: Poor Discharge Details Chief Complaint: Chest Pain Clinical Impression: PSVT (paroxysmal supraventricular tachycardia), Anemia Admit Date/Time: 02/18/20 19:00 Admit Provider: Srinath Vasquez Attending Provider: Srinath Vasquez Primary Care Provider: Nicole Hubbard ED Provider: Nadira Mead Discharge Data Discharge Date/Time-TO BE ENTERED AT DEPARTURE: 02/18/20 20:00 Medical Decision Making Patient is a pleasant 64-year-old female presenting today with chief complaint of intermittent chest pain. She reports that she is been experiencing this for at least the last month. She reports no precipitating factors. States that when she does experience this discomfort is substernal, radiates up to the neck into the top of her head. Feels that she is having palpitations with this. Reports that throughout the course of the month is become more frequent with increased severity. She also reports she is short of breath. When she experiences these is short lived. Does not wake from sleep. States that she has had similar symptoms prior to the past month they have not been as noticeable. No recent medication changes. Denies any recent fevers or chills. No recent illness. Denies any abdominal pain. No nausea or vomiting. Pain does not radiate into her back. No personal or familial history of cardiac disease. On exam, patient does appear acutely ill. Shortly after her arrival here, while the patient was on the monitor, she spiked a pulse from the 80s to 180s. Monitor appeared to be consistent with sinus tach. She began to appear flushed and diaphoretic. This is very short-lived. Only lasted few seconds. Vagal maneuvers these symptoms went away. No EKG was able to be obtained. Thyroid is normal on exam. Patient is on methylphenidate which may be driving some of this. Also consider potential electrolyte abnormality, ACS. Will obtain ECG, baseline labs, chest x-ray. Discussed this plan with the patient and her signif icant other who are in agreement. Chest x-ray reviewed by radiologist: FINDINGS: MEDIASTINUM: Normal. HEART: Normal. PULMONARY VASCULATURE: Normal. LUNGS: Clear. PLEURAL SPACE: No pleural effusion or pneumothorax. BONE:Within normal limits for the patient's age. OTHER FINDINGS:Normal. IMPRESSION: No acute pulmonary findings. EKG was reviewed by Dr. Martinez. Patient is in sinus rhythm with a rate of 83. Low voltage in the precordial leads with this appears unchanged from previous. No acute ischemic changes. Labs reviewed. No leukocytosis. Patient is anemic with a hemoglobin of 9.6. Patient is typically 05/16/2010 range. She denies any active bleeding. Coags are normal. Potassium is low at 3.2, will replenish this IV. Her magnesium is also low at 1.1, 2 g ordered. Troponin is less than 0.05. TSH is elevated 4.52 but free T4 is normal at 0.89. Patient had one further episode of what appeared to be short-lived SVT during which time she did experience the same symptoms. Patient is on metoprolol daily. Give another 5 metoprolol IV. In total, the patient has been receiving IV hydration, 20 mcg of potassium, 2 g of magnesium and 5 mg of metoprolol. She received nitroglycerin and aspirin prior to arrival. Consulted with hospitalist who agrees to admission. Question of the hypomagnesemia versus medications patient is currently on may be driving this. Patient will remain on telemetry. Discussed plan with her and she is in agreement. All of her questions and concerns were addressed and she is in agreement this plan. HPI General Mode of arrival: EMS . Date/Time Provider Initiated Documentation: 02/18/20 16:45 . Limitations to Documentation: no limitations . Information obtained by: patient, EMS and RN notes reviewed . History of Present Illness 64 year old F presents to the emergency department with the chief complaint of Chest pain, palpitations, lightheadedness, described as moderate, with intensity rated at 6. Quality is described as aching, and is localized to the chest. Patient neck. Patient started experiencing this month(s) and it has been intermittent. No relieving factors improve symptom(s), No exacerbating factors reported . Patient notes chest pain and shortness of breath; denies confusion, cough, diaphoresis, fever/chills, headaches, loss of appetite, nausea/vomiting, seizure, syncope and weakness. Patient did receive the following treatments prior to arrival, none Related Data Home Medications Medication Instructions Recorded Confirmed EasiVent Mask Large ea 09/18/12 12/15/19 calcium carbonate-vitamin D3 1 tab PO DAILY 09/18/12 02/18/20 [Caltrate with Vitamin D3] clotrimazole-betamethasone 15 gm TOPICAL DAILY PRN #45 gm 12/13/17 02/18/20 cholecalciferol (vitamin D3) 50 2,000 unit PO DAILY 02/05/18 02/18/20 mcg (2,000 unit) capsule budesonide-formoterol HFA 160 2 puff INHALATION BID #3 inhaler 02/15/19 02/18/20 mcg-4.5 mcg/actuation aerosol inhaler montelukast 10 mg tablet 10 mg PO DAILY #90 tab-cap 02/15/19 02/18/20 Stiolto Respimat 2 puff INHALATION DAILY 03/25/19 02/18/20 atorvastatin 10 mg tablet 10 mg PO DAILY #90 tab-cap 04/08/19 02/18/20 cetirizine 10 mg tablet 10 mg PO BID #180 tab 04/08/19 02/18/20 duloxetine 60 mg capsule,delayed 60 mg PO DAILY #90 tab-cap 04/08/19 02/18/20 release estradiol 0.5 mg tablet 0.5 mg PO EVERY OTHER DAY #90 04/08/19 02/18/20 tab-cap metoprolol succinate 25 mg 25 mg PO DAILY #90 tab 04/08/19 02/18/20 tablet,extended release 24 hr valacyclovir 1 gram tablet 1,000 mg PO DAILY #90 tab-cap 04/08/19 02/18/20 losartan 50 mg tablet 50 mg PO DAILY #90 tab 08/04/19 02/18/20 albuterol sulfate 2.5 mg IH QID PRN 09/01/19 02/18/20 inhalational spacing device #1 each 09/02/19 12/15/19 omeprazole 40 mg capsule,delayed 40 mg PO DAILY #180 tab-cap 09/02/19 02/18/20 release methylphenidate HCl 10 mg tablet 20 mg PO DAILY #60 tab MDD 2 01/16/20 02/18/20 Previous Rx's Medication Instructions Recorded budesonide-formoterol HFA 160 2 puff INHALATION BID #3 inhaler 02/15/19 mcg-4.5 mcg/actuation aerosol inhaler montelukast 10 mg tablet 10 mg PO DAILY #90 tab-cap 02/15/19 atorvastatin 10 mg tablet 10 mg PO DAILY #90 tab-cap 04/08/19 cetirizine 10 mg tablet 10 mg PO BID #180 tab 04/08/19 duloxetine 60 mg capsule,delayed 60 mg PO DAILY #90 tab-cap 04/08/19 release estradiol 0.5 mg tablet 0.5 mg PO EVERY OTHER DAY #90 04/08/19 tab-cap metoprolol succinate 25 mg 25 mg PO DAILY #90 tab 04/08/19 tablet,extended release 24 hr valacyclovir 1 gram tablet 1,000 mg PO DAILY #90 tab-cap 04/08/19 losartan 50 mg tablet 50 mg PO DAILY #90 tab 08/04/19 inhalational spacing device #1 each 09/02/19 omeprazole 40 mg capsule,delayed 40 mg PO DAILY #180 tab-cap 09/02/19 release methylphenidate HCl 10 mg tablet 20 mg PO DAILY #60 tab MDD 2 01/16/20 Allergies Allergy/AdvReac Type Severity Reaction Status Date / Time amoxicillin trihydrate AdvReac Nausea/Diar Unverified 02/18/20 16:56 [From Augmentin] francisca oxybutynin AdvReac Dry Unverified 02/18/20 16:56 mouth/mucous membranes potassium clavulanate AdvReac Nausea/Diar Unverified 02/18/20 16:56 [From Augmentin] francisca General YUKI: 3 Review of Systems Constitutional Constitutional: Reports as per HPI, Denies chills, Denies fever(s), Denies headache(s), Denies lethargy and Denies poor appetite Eyes Eyes: Denies change in vision ENT Ears, Nose, Mouth, and Throat: Denies dizziness and Denies headache(s) Cardiovascular Cardiovascular: Reports as per HPI, Reports chest pain (intermittent, short lived CP), Reports lightheadedness, Reports radiating jaw, neck or arm pain, Reports palpitations, Reports dyspnea (during episodes of discomfort), Denies dyspnea on exertion, Denies orthopnea and Denies paroxysmal nocturnal dyspnea Respiratory Respiratory: Reports as per HPI, Denies chest congestion, Denies cough, Denies pain on inspiration, Denies pain with cough, Reports dyspnea (during episodes of discomfort), Denies dyspnea on exertion and Denies wheezing Gastrointestinal Gastrointestinal: Reports as per HPI, Denies abdominal pain, Denies diarrhea, Denies nausea and Denies vomiting Musculoskeletal Musculoskeletal: Reports as per HPI and Denies back pain Integumentary/Breasts Skin/Breast: Reports as per HPI and Denies rash Neurologic Neurologic: Reports as per HPI, Denies dizziness and Denies headache(s) Endocrine Endocrine: Reports palpitations Allergic/Immunologic Allergic/Immunologic: Denies wheezing [facility] Medical History (Updated 02/19/20 @ 00:13 by ANNABELLE Vasquez) Abnormal mammogram (04/05/06) Abnormal mammogram, unspecified 04/05/06 w/6 mos. F/U per [facility] Achilles tendinitis, right leg (08/18/16) WITH RETROCALCANEAL EXOSOTOSIS AND APOLONIA'S DEFORMITY Achilles tendonitis Allergic fungal sinusitis Allergic fungal sinusitis (07/16/13) Anemia Anemia (12/31/12) Annual physical exam (10/25/17) Asthma exacerbation (06/12/16) Bleeding hemorrhoids (08/09/17) Cellulitis of left lower extremity Cellulitis of left lower extremity 12/11/16 Cellulitis of left lower extremity (12/11/16) Cholelithiasis without obstruction s/p cholecystectomy Cholelithiasis without obstruction Chronic obstructive lung disease FEV 1-72% COPD (chronic obstructive pulmonary disease) FEV 1- 72% Depression Depressive disorder Essential hypertension (04/09/13) Gastritis Gastritis (04/05/05) per EGD and mild reflux 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 Evans Hiatal hernia Hiatal hernia (04/05/96) small Hormone replacement therapy (postmenopausal) (12/20/11) Hyperlipidemia Hyperlipidemia (12/31/12) Hypertension Internal hemorrhoids Internal hemorrhoids (02/24/14) SMALL Lumbar disc prolapse with compression radiculopathy Lumbar disc prolapse with compression radiculopathy (08/21/09) Numbness and tingling (01/11/16) Otalgia (05/29/16) Otalgia of both ears Otalgia, unspecified 05/29/16 Pre-op exam 06/08/15 Smoker Smoker 2002 Smoker Thyroid nodule Thyroid nodule 01/19/16 normal thyroid scan 01/20 Vitamin D deficiency Vitamin D deficiency (06/26/16) Surgical History Arthroplasty of knee Cholecystectomy Colonoscopy - MAC 02/24/14 Debridement, Soft Tissue 11/10/16-DR. VALLECILLO-RIGHT HEEL Dilation and curettage EGD - MAC (02/24/14) H/O arthroscopy of knee H/O esophagogastroduodenoscopy H/O surgical procedure removal of toenails of great toe-bilateral History of arthroscopy of knee History of bilateral ligation of fallopian tubes History of bilateral tubal ligation Hx of biopsy 05/07/11 lip; Dr. Quesada Hysterectomy, Laproscopic (~1996) Ligation of fallopian tube LIP BX (10/05/11) DR. QUESADA LUNG LOBECTOMY (~1991) RLL; ? 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 Grandfather COPD (chronic obstructive pulmonary disease) Grandfather Diabetes Heart disease Grandmother Personal history of malignant neoplasm Pancreatic Grandmother Diabetes Social History Smoking/Tobacco Use Status: Former Tobacco Use Quit Date: 05/07/18 Alcohol Intake: current Alcohol Intake frequency: a few times a week Drug use: Socially Substance use type: marijuana Details: Pt notes that she takes THC gummies recreationally. Household members: spouse and other Details: 2 current occupation: [employer] Pets and animals: Yes Pets and animals: cat(s) What type of physical activity do you participate in: none Louise/Baptist: [employer] Special louise needs: No Do you feel safe at home: Yes Do you feel safe in your relationship?: Yes Exam Const General: cooperative, comfortable, no acute distress, well developed and ill appearing acutely Nutritional Appearance: well nourished and obese Orientation: alert, awake and oriented x3 HENMT Head: normal to inspection Ears: hearing grossly normal bilaterally Mouth: moist mucous membranes Neck Neck: normal visual inspection, full ROM and no lymphadenopathy Thyroid: thyroid normal Chest Chest: normal inspection of the chest, normal palpation of entire chest wall and no crepitus Resp Effort & Inspection: normal respiratory effort, able to speak in complete sentences and no respiratory distress Auscultation: clear to auscultation bilaterally, no rales, no rhonchi and no wheezes Cardio Rate: tachycardic Rhythm: regular rhythm Heart Sounds: S1 normal and S2 normal GI Inspection: normal to inspection, no edema and non-distended Palpation: soft, no hepatosplenomegaly, not firm, no guarding, not rigid and nontender Auscultation: normal bowel sounds Back/Spine/Pelvis Back: no CVA tenderness Thoracic/Lumbar Spine: thoracic and lumbar spine normal to inspection Skin General skin exam: no rashes or lesions noted Trauma: no lacerations or abrasions Neuro General: patient alert, patient awake and patient oriented x3 Cognition: normal cognition Speech: speech normal Gait: normal gait Extrem General: normal to inspection, capillary refill normal, no pedal edema, no calf tenderness and normal gait Psych Appearance: grossly normal and well kempt Mental Status: mental status grossly normal Speech and Movement: speech and movement normal
--- NOTE | 2020-02-18 16:54 | DI.RAD_ITS ---
EXAM: XR PORTABLE CHEST AP CLINICAL HISTORY: chest pain TECHNIQUE: 2D digital imaging was performed. COMPARISON: CR XR CHEST 2V PA LATERAL from 04/15/2019 FINDINGS: MEDIASTINUM: Normal. HEART: Normal. PULMONARY VASCULATURE: Normal. LUNGS: Clear. PLEURAL SPACE: No pleural effusion or pneumothorax. BONE:Within normal limits for the patient's age. OTHER FINDINGS:Normal. IMPRESSION: No acute pulmonary findings. DATA REPOSITORY: RADIATION DOSE DELIVERED:
--- NOTE | 2020-02-18 17:00 | RT.EKG_ITS ---
APPROVED REPORT Exam: Resting ECG Patient Location: I HR:76 bpm ECG Measurements Heart Rate 76 AXIS SD 148 P 29 QRSd 94 QRS -4 QT 441 T 32 QTc 497 Conclusion Sinus rhythm...normal P axis, V-rate 60- 99 Low voltage, precordial leads...precordial leads <1.0mV
[2020-02-18 17:25] LABS: Abs Immature Grans 0.03 10^3/uL (0.0-0.06); Absolute Basophil Count 0.05 10^3/uL (0.0-0.2); Absolute Eosinophil Count 0.09 10^3/uL (0.0-0.7); Absolute Lymphocyte Count 2.34 10^3/uL (1.2-3.4); Absolute Monocyte Count 0.39 10^3/uL (0.1-0.8); Absolute Neutrophil Count 3.01 10^3/uL (1.2-6.7); Basophils % 0.8; Eosinophils % 1.5; HCT 28.5 % (36.0-46.0); HGB 9.6 g/dL (11.2-15.7); Immature Grans % 0.5; Lymphocytes % 39.6; MCH 31.8 pg (27.0-33.0); MCHC 33.7 % (32.0-36.0); MCV 94.4 fL (80-95); MPV 9.6 fL (8.0-11.0); Monocytes % 6.6; Nucleated RBC 0 %; Platelet Count 278 10^3/uL (130-400); RBC 3.02 10^6/uL (3.93-5.22); RDW 12.5 % (11.7-14.6); RDW-SD 43.3 fL; WBC 5.91 10^3/uL (4.4-10.8)
[2020-02-18 17:40] LABS: PTT Activated 22.9 sec (21.0-31.4); Prothrombin Time 10.3 sec (9.3-11.0)
[2020-02-18 17:44] LABS: ALT 24 U/L (14-59); AST 18 U/L (15-37); Albumin 3.9 g/dL (3.4-5.0); Alkaline Phosphatase 44 U/L (46-116); Anion Gap 5.7 mmol/L (3-11); BUN 23 mg/dL (7-18); Bilirubin, Total 0.2 mg/dL (0.2-1.0); CO2 34.3 mmol/L (21.0-32.0); CREATININE 0.99 mg/dL (0.55-1.02); Chloride 101 mmol/L (98-107); Estimated GFR 56.65 (mL/min/1.73m2); Glucose 112 mg/dL (74-106); Magnesium 1.1 mg/dL (1.8-2.4); Potassium 3.2 mmol/L (3.5-5.1); Sodium 141 mmol/L (136-145); Total Protein 7.5 g/dL (6.4-8.2)
[2020-02-18 17:47] LABS: Troponin I < 0.05 ng/mL (<0.06)
[2020-02-18 17:47] LABS: Bilirubin Negative (Negative); Blood Negative (Negative); Clarity Clear (Clear); Glucose Negative (Negative); Ketones Negative (Negative); Leukocyte Esterase Negative (Negative); Nitrite Negative (Negative); Specific Gravity 1.015 (1.005-1.025); Urobilinogen 0.2 EU/dL (Up TO 0.2); pH 6.5 (5-8)
[2020-02-18 17:49] LABS: TSH (W/Ref FT4) 4.52 uIU/mL (0.36-3.74)
[2020-02-18] MEDS: Metoprolol 5 MG/5 ML VIAL IVP (17:57)
[2020-02-18] MEDS: POTASSIUM CHLORIDE 20 MEQ/100 ML BAG 50 MEQ IVPB (18:03)
[2020-02-18] MEDS: Normal Saline Flush 10 ML SYR IVP (18:04)
[2020-02-18] MEDS: MAGNESIUM SULFATE 2 GM/50 ML BAG IVPB (18:04)
[2020-02-18 18:10] LABS: FREE T4 0.89 ng/dL (0.76-1.46)
--- NOTE | 2020-02-18 18:41 | W.PM.HP.N ---
Date of service: 02/18/20 Time of Service: 18:42 Assessment and Plan Assessment and plan (1) PSVT (paroxysmal supraventricular tachycardia): Status: Acute Assessment and plan: PSVT. Electrolyte abnormalities may be precipitating factor and will first focus here. If persists thereafter would consider reducing or eliminating Ritalin. As to the cause of the issues no cause apparent, may be some intrinsic wasting syndrome. For now would replace and maintain on supplements, and will need renal consult. The occurrence of CP during spells, along with ST depressions on strip, could be construed as auto stress test; would advise formal ETT. It is theoretically possible patient may be having primary ischemic episodes with consequent SVT but I think this is a very unlikely scenario. In meantime we are trending out troponins (first negative). Incidental anemia noted, unclear cause, acute on chronic. Will check stools, iron studies and track counts. Reviewed ADs, requests Full Code. History of Present Illness History of Present Illness Chief Complaint: palpitations Narrative: 64 female reports one month of escalating episodes of palpitations, associated with CP, lightheadedness and sometimes diaphoresis. Episodes ttpically last only a minute or so. Seen by PCP, tachycardia noted and sent tot ER. In ER had two documented episodes of SVT (the one I have shows regular, narrow complex at 196). This was brief, unable to obtain 12 lead, but her symptoms correlated precisely with ictus). Mg 1.1 and K 3.2 noted. Given 2 g Mg SO4 and 20 KCl IV. No spells since. TSH noted . Has had prior hypo mag consistently, and one prior hypo-K. Denies diuretics, laxatives or diarrhea. Also Hct 28 noted, MCV 94. Baseline low 30s. At present feels well except for dyspepsia -- common for her, resolves with AAs. Note that this is not the CP she experienced during PSVT. Review of Systems All systems reviewed & are unremarkable except as noted in HPI and below [facility] Medical History (Updated 02/18/20 @ 18:52 by Srinath Vasquez MD) Abnormal mammogram (04/05/06) Abnormal mammogram, unspecified 04/05/06 w/6 mos. F/U per [facility] Achilles tendinitis, right leg (08/18/16) WITH RETROCALCANEAL EXOSOTOSIS AND APOLONIA'S DEFORMITY Achilles tendonitis Allergic fungal sinusitis Allergic fungal sinusitis (07/16/13) Anemia Anemia (12/31/12) Annual physical exam (10/25/17) Asthma exacerbation (06/12/16) Bleeding hemorrhoids (08/09/17) Cellulitis of left lower extremity Cellulitis of left lower extremity 12/11/16 Cellulitis of left lower extremity (12/11/16) Cholelithiasis without obstruction s/p cholecystectomy Cholelithiasis without obstruction Chronic obstructive lung disease FEV 1-72% COPD (chronic obstructive pulmonary disease) FEV 1- 72% Depression Depressive disorder Essential hypertension (04/09/13) Gastritis Gastritis (04/05/05) per EGD and mild reflux 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 Evans Hiatal hernia Hiatal hernia (04/05/96) small Hormone replacement therapy (postmenopausal) (12/20/11) Hyperlipidemia Hyperlipidemia (12/31/12) Hypertension Internal hemorrhoids Internal hemorrhoids (02/24/14) SMALL Lumbar disc prolapse with compression radiculopathy Lumbar disc prolapse with compression radiculopathy (08/21/09) Numbness and tingling (01/11/16) Otalgia (05/29/16) Otalgia of both ears Otalgia, unspecified 05/29/16 Pre-op exam 06/08/15 Smoker Smoker 2002 Smoker Thyroid nodule Thyroid nodule 01/19/16 normal thyroid scan 01/20 Vitamin D deficiency Vitamin D deficiency (06/26/16) Surgical History Arthroplasty of knee Cholecystectomy Colonoscopy - MAC 02/24/14 Debridement, Soft Tissue 11/10/16-DR. VALLECILLO-RIGHT HEEL Dilation and curettage EGD - MAC (02/24/14) H/O arthroscopy of knee H/O esophagogastroduodenoscopy H/O surgical procedure removal of toenails of great toe-bilateral History of arthroscopy of knee History of bilateral ligation of fallopian tubes History of bilateral tubal ligation Hx of biopsy 05/07/11 lip; Dr. Quesada Hysterectomy, Laproscopic (~1996) Ligation of fallopian tube LIP BX (10/05/11) DR. QUESADA LUNG LOBECTOMY (~1991) RLL; ? 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 Grandfather COPD (chronic obstructive pulmonary disease) Grandfather Diabetes Heart disease Grandmother Personal history of malignant neoplasm Pancreatic Grandmother Diabetes Social History Smoking/Tobacco Use Status: Former Tobacco Use Quit Date: 05/07/18 Alcohol Intake: current Alcohol Intake frequency: a few times a week Drug use: Socially Substance use type: marijuana Details: Pt notes that she takes THC gummies recreationally. Household members: spouse and other Details: 2 current occupation: [employer] Pets and animals: Yes Pets and animals: cat(s) What type of physical activity do you participate in: none Louise/Jainism: Yazdanism Special louise needs: No Do you feel safe at home: Yes Do you feel safe in your relationship?: Yes Meds Home Medications and Allergies Home Medications Medication Instructions Recorded Confirmed Type EasiVent Mask Large ea 09/18/12 12/15/19 History calcium carbonate-vitamin D3 1 tab PO DAILY 09/18/12 02/18/20 History [Caltrate with Vitamin D3] clotrimazole-betamethasone 15 gm TOPICAL DAILY PRN #45 gm 12/13/17 02/18/20 History cholecalciferol (vitamin D3) 50 2,000 unit PO DAILY 02/05/18 02/18/20 History mcg (2,000 unit) capsule budesonide-formoterol HFA 160 2 puff INHALATION BID #3 inhaler 02/15/19 02/18/20 Rx mcg-4.5 mcg/actuation aerosol inhaler montelukast 10 mg tablet 10 mg PO DAILY #90 tab-cap 02/15/19 02/18/20 Rx Stiolto Respimat 2 puff INHALATION DAILY 03/25/19 02/18/20 History atorvastatin 10 mg tablet 10 mg PO DAILY #90 tab-cap 04/08/19 02/18/20 Rx cetirizine 10 mg tablet 10 mg PO BID #180 tab 04/08/19 02/18/20 Rx duloxetine 60 mg capsule,delayed 60 mg PO DAILY #90 tab-cap 04/08/19 02/18/20 Rx release estradiol 0.5 mg tablet 0.5 mg PO EVERY OTHER DAY #90 04/08/19 02/18/20 Rx tab-cap metoprolol succinate 25 mg 25 mg PO DAILY #90 tab 04/08/19 02/18/20 Rx tablet,extended release 24 hr valacyclovir 1 gram tablet 1,000 mg PO DAILY #90 tab-cap 04/08/19 02/18/20 Rx losartan 50 mg tablet 50 mg PO DAILY #90 tab 08/04/19 02/18/20 Rx albuterol sulfate 2.5 mg IH QID PRN 09/01/19 02/18/20 History inhalational spacing device #1 each 09/02/19 12/15/19 Rx omeprazole 40 mg capsule,delayed 40 mg PO DAILY #180 tab-cap 09/02/19 02/18/20 Rx release methylphenidate HCl 10 mg tablet 20 mg PO DAILY #60 tab MDD 2 01/16/20 02/18/20 Rx Allergies Allergy/AdvReac Type Severity Reaction Status Date / Time amoxicillin trihydrate AdvReac Nausea/Diar Unverified 02/18/20 16:56 [From Augmentin] francisca oxybutynin AdvReac Dry Unverified 02/18/20 16:56 mouth/mucous membranes potassium clavulanate AdvReac Nausea/Diar Unverified 02/18/20 16:56 [From Augmentin] francisca Exam Narrative Exam Narrative: 135/85, 74, 36.0, 15, 98% RA. HEENT unremarkable; neck supple; lungs clear; heart RRR w/o MRG; abdomen soft and NT; extremities w/o edema, pulses 2+/=; neuro Ox3, nonfocal Results Labs Result diagrams: 02/18/20 16:55 02/18/20 16:55 Labs: Laboratory Results - last 24 hr 10/14/20 10/14/20 10/14/20 16:55 16:55 16:55 WBC 5.91 RBC 3.02 L Hgb 9.6 L Hct 28.5 L MCV 94.4 MCH 31.8 MCHC 33.7 RDW 12.5 Plt Count 278 MPV 9.6 Immature Gran % 0.5 Neutrophils % 51.0 Lymphocytes % 39.6 Monocytes % 6.6 Eosinophils % 1.5 Basophils % 0.8 Nucleated RBC % 0 Absolute Neutrophils 3.01 Absolute Lymphocytes 2.34 Absolute Monocytes 0.39 Absolute Eosinophils 0.09 Absolute Basophils 0.05 PT INR APTT Sodium 141 Potassium 3.2 L Chloride 101 Carbon Dioxide 34.3 H Anion Gap 5.7 BUN 23 H Creatinine 0.99 Estimated GFR/1.73 m2 56.65 Glucose 112 H Calcium 9.0 Magnesium 1.1 L Total Bilirubin 0.2 AST 18 ALT 24 Alkaline Phosphatase 44 L Troponin I < 0.05 Total Protein 7.5 Albumin 3.9 TSH 4.52 H Free T4 0.89 Urine Color Urine Clarity Urine pH Ur Specific [place] Urine Protein Urine Ketones Urine Blood Urine Nitrite Urine Bilirubin Urine Urobilinogen Ur Leukocyte Esterase Urine Glucose 02/18/20 02/18/20 16:55 17:40 WBC RBC Hgb Hct MCV MCH MCHC RDW Plt Count MPV Immature Gran % Neutrophils % Lymphocytes % Monocytes % Eosinophils % Basophils % Nucleated RBC % Absolute Neutrophils Absolute Lymphocytes Absolute Monocytes Absolute Eosinophils Absolute Basophils PT 10.3 INR 1.0 APTT 22.9 Sodium Potassium Chloride Carbon Dioxide Anion Gap BUN Creatinine Estimated GFR/1.73 m2 Glucose Calcium Magnesium Total Bilirubin AST ALT Alkaline Phosphatase Troponin I Total Protein Albumin TSH Free T4 Urine Color Yellow Urine Clarity Clear Urine pH 6.5 Ur Specific [place] 1.015 Urine Protein Negative Urine Ketones Negative Urine Blood Negative Urine Nitrite Negative Urine Bilirubin Negative Urine Urobilinogen 0.2 Ur Leukocyte Esterase Negative Urine Glucose Negative Last Vital Signs Temp 36.6 C 02/18/20 16:47 Pulse 74 02/18/20 18:30 Resp 15 02/18/20 18:31 BP 138/85 02/18/20 18:30 Pulse Ox 98 02/18/20 18:31 COVID-19 Screening Have you,or household,traveled outside [place] in last 14 days?: No Had IN PERSON contact w/suspected or confirmed C-19 person: No
[2020-02-18 19:33] LABS: Reticulocyte 1.5 % (0.5-2.4)
[2020-02-18 19:47] LABS: Iron 56 ug/dL (50-170); Total Iron Binding Capacity 319 ug/dL (250-450); Transferrin Sat 18 % (15-50)
[2020-02-18 20:00] LABS: Ferritin 164 ng/mL (8-252)
[2020-02-18 20:36] LABS: Magnesium 1.8 mg/dL (1.8-2.4); Potassium 4.1 mmol/L (3.5-5.1)
[2020-02-18 20:40] LABS: Troponin I < 0.05 ng/mL (<0.06)
[2020-02-18] MEDS: Cetirizine 10 MG TAB PO (22:54)
[2020-02-18] MEDS: Famotidine 20 MG TAB PO (22:54)
[2020-02-19] VITALS (23 sets, daily range): BP systolic 128–180; BP diastolic 78–94; PULSE 66–174; RESP 15–24; TEMP 36.4–36.8; O2SAT 92–100
--- NOTE | 2020-02-19 | DI.US_ITS ---
APPROVED REPORT EXAM: Comprehensive 2D, Doppler, and color-flow Echocardiogram Patient Location: In-Patient Room/Bed: [id number] [facility] [employer] Teacher: Ratna Rice RDCS (AE) Indications: SVT Other Information Study Quality: Adequate Conclusion Left Ventricle : The left ventricle is normal size. The left ventricular systolic function is normal. The left ventricular ejection fraction is within the normal range. Mild concentric left ventricular hypertrophy. There is normal LV segmental wall motion. The left ventricular diastolic function is nor mal. LVEF is 60%. Right Ventricle : The right ventricle is normal size. The right ventricular systolic function is norm al. The RVSP is 26.4 mmHg. Atria : The left atrium size is normal. The right atrium size is normal. Aortic Valve : The Aortic valve is sclerotic. Aortic valve is trileaflet. Mild aortic regurgitation. No hemodynamically significant valvular aortic stenosis. Mitral Valve : Mild mitral annular calcification. Great Vessels : The aortic root is normal in size. Ascending aorta is not well visualized. Aortic arc h is normal in caliber. IVC is normal in size and collapses >50% with inspiration. Paired to study from 01/19/2016, there is no significant change. Wall motion Left Ventricle The left ventricle is normal size. The left ventricular systolic function is normal. The left ventric ular ejection fraction is within the normal range. Mild concentric left ventricular hypertrophy. Ther e is normal LV segmental wall motion. The left ventricular diastolic function is normal. There is no ventricular septal defect visualized. LVEF is 60%. Right Ventricle The right ventricle is normal size. The right ventricular systolic function is normal. The RVSP is 26 .4 mmHg. Atria The left atrium size is normal. The right atrium size is normal. The interatrial septum is intact wit h no evidence for an atrial septal defect. Aortic Valve The Aortic valve is sclerotic. Aortic valve is trileaflet. No hemodynamically significant valvular ao rtic stenosis. Mild aortic regurgitation. Mitral Valve Mild mitral annular calcification. No evidence of mitral valve stenosis. Trace mitral regurgitation. Tricuspid Valve The tricuspid valve is normal in structure. There is no tricuspid valve stenosis. Trace tricuspid reg urgitation. Pulmonic Valve Pulmonic valve is not well visualized. There is no pulmonic valvular stenosis. There is no pulmonic v alvular regurgitation. Great Vessels The aortic root is normal in size. Ascending aorta is not well visualized. Aortic arch is normal in c aliber. IVC is normal in size and collapses >50% with inspiration. Pericardium There is no pericardial effusion. 2D Dimensions IVSD d PLAX 1.11 cm F: 0.6-1.0 LV Vol A2C d MOD 96.3 mL LVPW d PLAX 1.17 cm F: 0.6 - 1.0 LV Vol A4C d MOD 124.4 mL LVID d PLAX 4.94 cm F: 3.8 - 5.2 LA vol/ BSA A2C s A-L 29.5 mL/m2 LVDs 3.35 cm F: 2.2 - 3.5 LA vol/ BSA A4C s A-L 29.3 mL/m2 Ao Root d 3.62 cm F: 2.7 - 3.3 LA Vol/ BSA Biplane s A-L 30.4 mL/m2 RA Area A4C 20.26 cm2 LA Area A4C s MOD 20.98 cm2 RA Vol/ BSA A4C s A-L 28.8 mL/m2 LA Area A2C s MOD 21.75 cm2 LV EF Teichholz 59.9 % LV EF A4C MOD 60.0 % LVEF (Rubio's) 59.46 % F: 54 - 74 LV EF A2C MOD 60.0 % LV Volume 80.60 mL F: 46 - 106 LV EF Biplane MOD 59.5 % LV Volume Index 37.48 mL/m2 F: 29 - 61 SV 65.42 mL LV Vol Biplane MOD 110.0 mL SV Index 30.42 mL/m2 FS 32.00 % M-Mode TAPSE 2.64 cm (M/F) >1.7 LV Diastology MV E' medial 0.099 (>0.07 m/s) E/A Ratio 0.9 LV E/e MED 8.80 (<14) MV E Vmax 0.87 (0.4-1.3 m/s) MV E' lateral 0.123 (>0.1 m/s) MV A Vmax 0.95 (0.4-1.3 m/s) LV E/e LAT 7.05 (<14) MV E/A Ratio 0.90 MV E/E' medial 8.81 MV E/E' lateral 7.06 Aortic Valve LVOT Area 3.72 cm2 AoV Area Vmax 2.10 cm2 LVOT Vmax 1.10 m/s AoV Area/ BSA (Vmax) 0.97 cm2/m2 LVOT Mean Usnny. 0.74 m/s RUBY Mean Sunny. 1.94 cm2 LVOT Peak Grad 4.9 mmHg RUBY Mean Sunny. Index 0.90 cm2/m2 LVOT Mean Grad 2.5 mmHg AR DT 1509 msec LVOT VTI 0.244 m AR PHT 438 msec LVOT Diam s 2.15 cm AoV Vmax 1.96 m/s Velocity Ratio 0.56 AoV Mean Sunny. 1.41 m/s AoV Peak Grad 15.3 mmHg LVOT SV 90.69 mL AoV Mean Grad 8.7 mmHg AoV VTI 0.425 m AoV Area VTI 2.13 cm2 AoV Area/ BSA (VTI) 0.99 cm/m2 Mitral Valve MV DT 275 (160-240 msec) MV PHT 80 msec MV Area PHT 2.76 cm2 Pulmonary Valve PV Vmax 0.89 (0.5-1.5 m/s) RVOT Peak Gr. 1.10 mmHg PV Peak Grad 3.2 mmHg RVOT Mean Gr. 0.65 mmHg PV Mean Grad 1.9 mmHg RVOT VTI 0.110 m PV VTI 0.209 m RVOT Vmax 0.53 m/s Tricuspid Valve TR Peak Grad 23.4 mmHg TR Vmax 2.42 m/s RA Pressure 3.00 mmHg RVSP (TR) 26.4 mmHg
[2020-02-19] MEDS: Budesonide/Formoterol 160/4.5 6 GM 60 PUFF INH IH ×3 (00:16→19:53)
[2020-02-19] MEDS: MAGNESIUM SULFATE 1 GM/100 ML BAG IVPB (02:28)
[2020-02-19 07:07] LABS: HCT 27.1 % (36.0-46.0); HGB 8.9 g/dL (11.2-15.7); MCH 31.3 pg (27.0-33.0); MCHC 32.8 % (32.0-36.0); MCV 95.4 fL (80-95); MPV 9.7 fL (8.0-11.0); Platelet Count 246 10^3/uL (130-400); RBC 2.84 10^6/uL (3.93-5.22); RDW 12.7 % (11.7-14.6); RDW-SD 43.5 fL; WBC 6.03 10^3/uL (4.4-10.8)
[2020-02-19 07:20] LABS: Magnesium 1.6 mg/dL (1.8-2.4); Potassium 3.9 mmol/L (3.5-5.1)
[2020-02-19] MEDS: Atorvastatin 10 MG TAB PO (08:00)
--- NOTE | 2020-02-19 08:22 | PGE_ITS ---
Date of Service Date of service: 02/19/20 Time of Service: 11:23 Assessment and Plan Assessment and plan (1) PSVT (paroxysmal supraventricular tachycardia): Status: Acute Assessment and plan: In setting of profound hypomagnesemia as well as hypokalemia. No recurrences of SVT since repletion. Continue to monitor on tele. I did increase her beta blockers. Echo without significant abnormalities. Appreciate cardiology consult. (2) Chest pain: Status: Resolved Assessment and plan: ACS ruled out. Additionally, negative MPI today. Chest pain is likely due to symptomatic PSVT, but does not clearly indicate underlying ischemia. (3) Hypokalemia: Status: Acute Assessment and plan: Resolved. Recheck in am. (4) Hypomagnesemia: Status: Acute Assessment and plan: likely due to a PPI. Likely the cause of NSVT. Recheck in am. (5) Chronic obstructive lung disease: Status: Chronic Assessment and plan: Not clearly in acute exacerbation. Continue home therapy. (6) ALEXX on CPAP: Status: Chronic Assessment and plan: Continue home CPAP (7) DVT prophylaxis: Status: Acute Assessment and plan: SC heparin (8) Discharge planning issues: Status: Acute Assessment and plan: Full code Will likely discharge home tomorrow, assuming magnesium is better. Will need a cardiac event recorder and a referral to cardiology. Subjective Subjective Interval history since last seen: Feels very tired. Feels like her heart is about to start doing something funny again. She admits to feeling anxious about all this. She denies nausea, but stated that she has no appetite. Denies shortness of breath at rest at rest. 2L of O2 (wears 2L of O2 at home). Wears a CPAP at home. Bursts of SVT - frequent, a couple of bursts of VTach (longest 8 beats) while asleep. No SVT since 3 am. High 90s on 2L - just taken off and saturating 94%. Exam Narrative Exam Narrative: General: very pleasant obese female, A&Ox3, mildly anxious HEENT: EOMI, MMM Heart: RRR, no m/r/g Lungs: dry cough, coarse breath sounds B Abdomen: soft, nontender, nondistended Extremities: no edema BLEs Objective Last Vital Signs Temp 36.8 C 02/19/20 03:46 Pulse 88 02/19/20 03:46 Resp 18 10/15/20 03:46 BP 135/84 02/19/20 00:26 Pulse Ox 97 02/19/20 03:46 Laboratory Results - last 24 hr 02/18/20 02/18/20 02/18/20 16:55 16:55 16:55 WBC 5.91 RBC 3.02 L Hgb 9.6 L Hct 28.5 L MCV 94.4 MCH 31.8 MCHC 33.7 RDW 12.5 Plt Count 278 MPV 9.6 Reticulocyte % (Auto) Immature Gran % 0.5 Neutrophils % 51.0 Lymphocytes % 39.6 Monocytes % 6.6 Eosinophils % 1.5 Basophils % 0.8 Nucleated RBC % 0 Absolute Neutrophils 3.01 Absolute Lymphocytes 2.34 Absolute Monocytes 0.39 Absolute Eosinophils 0.09 Absolute Basophils 0.05 PT INR APTT Sodium 141 Potassium 3.2 L Chloride 101 Carbon Dioxide 34.3 H Anion Gap 5.7 BUN 23 H Creatinine 0.99 Estimated GFR/1.73 m2 56.65 Glucose 112 H Calcium 9.0 Magnesium 1.1 L Iron TIBC Transferrin % Sat Ferritin Total Bilirubin 0.2 AST 18 ALT 24 Alkaline Phosphatase 44 L Troponin I < 0.05 Total Protein 7.5 Albumin 3.9 TSH 4.52 H Free T4 0.89 Urine Color Urine Clarity Urine pH Ur Specific [place] Urine Protein Urine Ketones Urine Blood Urine Nitrite Urine Bilirubin Urine Urobilinogen Ur Leukocyte Esterase Urine Glucose 02/18/20 02/18/20 02/18/20 16:55 16:55 16:55 WBC RBC Hgb Hct MCV MCH MCHC RDW Plt Count MPV Reticulocyte % (Auto) 1.5 Immature Gran % Neutrophils % Lymphocytes % Monocytes % Eosinophils % Basophils % Nucleated RBC % Absolute Neutrophils Absolute Lymphocytes Absolute Monocytes Absolute Eosinophils Absolute Basophils PT 10.3 INR 1.0 APTT 22.9 Sodium Potassium Chloride Carbon Dioxide Anion Gap BUN Creatinine Estimated GFR/1.73 m2 Glucose Calcium Magnesium Iron TIBC Transferrin % Sat Ferritin 164 Total Bilirubin AST ALT Alkaline Phosphatase Troponin I Total Protein Albumin TSH Free T4 Urine Color Urine Clarity Urine pH Ur Specific [place] Urine Protein Urine Ketones Urine Blood Urine Nitrite Urine Bilirubin Urine Urobilinogen Ur Leukocyte Esterase Urine Glucose 02/18/20 02/18/20 02/18/20 17:40 19:03 19:06 WBC RBC Hgb Hct MCV MCH MCHC RDW Plt Count MPV Reticulocyte % (Auto) Immature Gran % Neutrophils % Lymphocytes % Monocytes % Eosinophils % Basophils % Nucleated RBC % Absolute Neutrophils Absolute Lymphocytes Absolute Monocytes Absolute Eosinophils Absolute Basophils PT INR APTT Sodium Potassium Chloride Carbon Dioxide Anion Gap BUN Creatinine Estimated GFR/1.73 m2 Glucose Calcium Magnesium Iron Cancelled 56 TIBC Cancelled 319 Transferrin % Sat Cancelled 18 Ferritin Total Bilirubin AST ALT Alkaline Phosphatase Troponin I Total Protein Albumin TSH Free T4 Urine Color Yellow Urine Clarity Clear Urine pH 6.5 Ur Specific [place] 1.015 Urine Protein Negative Urine Ketones Negative Urine Blood Negative Urine Nitrite Negative Urine Bilirubin Negative Urine Urobilinogen 0.2 Ur Leukocyte Esterase Negative Urine Glucose Negative 02/18/20 02/18/20 02/19/20 20:00 20:00 06:25 WBC RBC Hgb Hct MCV MCH MCHC RDW Plt Count MPV Reticulocyte % (Auto) Immature Gran % Neutrophils % Lymphocytes % Monocytes % Eosinophils % Basophils % Nucleated RBC % Absolute Neutrophils Absolute Lymphocytes Absolute Monocytes Absolute Eosinophils Absolute Basophils PT INR APTT Sodium Potassium 4.1 D 3.9 Chloride Carbon Dioxide Anion Gap BUN Creatinine Estimated GFR/1.73 m2 Glucose Calcium Magnesium 1.8 1.6 L Iron TIBC Transferrin % Sat Ferritin Total Bilirubin AST ALT Alkaline Phosphatase Troponin I < 0.05 Total Protein Albumin TSH Free T4 Urine Color Urine Clarity Urine pH Ur Specific [place] Urine Protein Urine Ketones Urine Blood Urine Nitrite Urine Bilirubin Urine Urobilinogen Ur Leukocyte Esterase Urine Glucose 02/19/20 06:25 WBC 6.03 RBC 2.84 L Hgb 8.9 L Hct 27.1 L MCV 95.4 H MCH 31.3 MCHC 32.8 RDW 12.7 Plt Count 246 MPV 9.7 Reticulocyte % (Auto) Immature Gran % Neutrophils % Lymphocytes % Monocytes % Eosinophils % Basophils % Nucleated RBC % Absolute Neutrophils Absolute Lymphocytes Absolute Monocytes Absolute Eosinophils Absolute Basophils PT INR APTT Sodium Potassium Chloride Carbon Dioxide Anion Gap BUN Creatinine Estimated GFR/1.73 m2 Glucose Calcium Magnesium Iron TIBC Transferrin % Sat Ferritin Total Bilirubin AST ALT Alkaline Phosphatase Troponin I Total Protein Albumin TSH Free T4 Urine Color Urine Clarity Urine pH Ur Specific [place] Urine Protein Urine Ketones Urine Blood Urine Nitrite Urine Bilirubin Urine Urobilinogen Ur Leukocyte Esterase Urine Glucose Objective Narrative Objective Narrative: Echo: Left Ventricle : The left ventricle is normal size. The left ventricular systolic function is normal. The left ventricular ejection fraction is within the normal range. Mild concentric left ventricular hypertrophy. There is normal LV segmental wall motion. The left ventricular diastolic function is normal. LVEF is 60%. Right Ventricle : The right ventricle is normal size. The right ventricular systolic function is normal. The RVSP is 26.4 mmHg. Atria : The left atrium size is normal. The right atrium size is normal. Aortic Valve : The Aortic valve is sclerotic. Aortic valve is trileaflet. Mild aortic regurgitation. No hemodynamically significant valvular aortic stenosis. Mitral Valve : Mild mitral annular calcification. Great Vessels : The aortic root is normal in size. Ascending aorta is not well visualized. Aortic arch is normal in caliber. IVC is normal in size and collapses >50% with inspiration. Paired to study from 01/19/2016, there is no significant change. MPI: The patient's ejection fraction was 53% with stress. There were no wall motion abnormalities. There is no evidence of ischemia on the imaging portion of the exam. This represents a normal SPECT stress test.
[2020-02-19] MEDS: Magnesium Oxide 400 MG TAB PO ×2 (08:33→19:53)
[2020-02-19] MEDS: Famotidine 20 MG TAB PO ×2 (08:33→19:53)
[2020-02-19] MEDS: Losartan 50 MG TAB PO (08:34)
[2020-02-19] MEDS: Metoprolol CR 25 MG TABCR PO (08:34)
[2020-02-19] MEDS: Methylphenidate 10 MG TAB 20 MG PO (08:34)
[2020-02-19] MEDS: DULoxetine 30 MG CAP 60 MG PO (08:34)
[2020-02-19] MEDS: Cetirizine 10 MG TAB PO ×2 (08:35→19:54)
[2020-02-19] MEDS: valACYclovir 1,000 MG TAB 1000 MG PO (08:35)
[2020-02-19] MEDS: MAGNESIUM SULFATE 4 GM/100 ML BAG IVPB (08:36)
[2020-02-19 08:50] LABS: Calculated LDL 101 mg/dL (<100); Cholesterol 179 mg/dL (<200); HDL Cholesterol 39 mg/dL (40-60); Triglyceride 196 mg/dL (<150)
[2020-02-19 08:56] LABS: Troponin I < 0.05 ng/mL (<0.06)
--- NOTE | 2020-02-19 10:21 | W.CARDCONSUL ---
Date of service: 02/19/20 Time of Service: 10:21 Assessment and Plan Assessment and plan (1) PSVT (paroxysmal supraventricular tachycardia): Status: Acute Assessment and plan: 1. SVT as well as NSVT in the setting of multiple metabolic abnormalities. I think is a high likelihood that these are triggered by her low potassium and low magnesium. She does not have any particular reason to have low potassium and low magnesium at this point except for potentially her Prilosec use. Her TSH is slightly high today. she does have risk factors for ischemia even though she has ruled out with multiple negative troponins. She has a history of smoking as well as obesity and exercise intolerance. The echocardiogram was being performed while I was in the room but I did not see any significant decrease in ejection fraction. We will need to look at it in more detail on the larger screen. The patient has been on Ritalin for over a year now so I be surprised if it all of a sudden started causing arrhythmia without another underlying aberration. ?We will review echocardiogram ?Agree with aggressive electrolyte replacement. Goal magnesium greater than 2 goal potassium greater than 4. ?Would consider thyroid repletion based on T4 as her TSH is slightly elevated. ?Agree with aggressive beta-blockade both for the SVT and the NSVT. ?The patient will need an ischemic evaluation but this does not necessarily have to be done prior to discharge as long as we can decrease her ectopic burden. ?Please discharge with a 48-hour Holter monitor. Please contact cardiology with any further questions. History of Present Illness History of Present Illness Chief Complaint: chest pain Narrative: Ms. Sheets is a 64-year-old female with past medical history significant for COPD, attention deficit disorder on stimulant, and gastritis who presents with chest discomfort and palpitations. She says over the past month or so she has noted more episodes of heart racing but over the last few days it has become worse. Now when she has these episodes she feels a tightness in her neck which was concerning enough that she went to see her primary care who sent her to the emergency room. Here she has been ruled out with multiple negative troponins but overnight was noted to have multiple episodes of SVT as well as NSVT. These are symptomatic episodes. She was found to have a slightly elevated TSH as well as multiple metabolic abnormalities including low magnesium at 1.1 and a low potassium of 3.2. These have been repleted overnight. Cardiology was consulted for arrhythmia. Patient denies episodes of chest pain outside of these tachycardic episodes. She has baseline COPD and says she has not felt well with regards to her breathing in many years. She denies exertional dyspnea out of proportion to what she has had before. Review of Systems All systems reviewed & are unremarkable except as noted in HPI and below PFSH Medical History Abnormal mammogram (04/05/06) Abnormal mammogram, unspecified 04/05/06 w/6 mos. F/U per [facility] Achilles tendinitis, right leg (08/18/16) WITH RETROCALCANEAL EXOSOTOSIS AND APOLONIA'S DEFORMITY Achilles tendonitis Allergic fungal sinusitis Allergic fungal sinusitis (07/16/13) Anemia Anemia (12/31/12) Annual physical exam (10/25/17) Asthma exacerbation (06/12/16) Bleeding hemorrhoids (08/09/17) Cellulitis of left lower extremity Cellulitis of left lower extremity 12/11/16 Cellulitis of left lower extremity (12/11/16) Cholelithiasis without obstruction s/p cholecystectomy Cholelithiasis without obstruction Chronic obstructive lung disease FEV 1-72% COPD (chronic obstructive pulmonary disease) FEV 1- 72% Depression Depressive disorder Essential hypertension (04/09/13) Gastritis Gastritis (04/05/05) per EGD and mild reflux 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 Evans Hiatal hernia Hiatal hernia (04/05/96) small Hormone replacement therapy (postmenopausal) (12/20/11) Hyperlipidemia Hyperlipidemia (12/31/12) Hypertension Internal hemorrhoids Internal hemorrhoids (02/24/14) SMALL Lumbar disc prolapse with compression radiculopathy Lumbar disc prolapse with compression radiculopathy (08/21/09) Numbness and tingling (01/11/16) Otalgia (05/29/16) Otalgia of both ears Otalgia, unspecified 05/29/16 Pre-op exam 06/08/15 Smoker Smoker 2003 Smoker Thyroid nodule Thyroid nodule 01/19/16 normal thyroid scan 01/20 Vitamin D deficiency Vitamin D deficiency (06/26/16) Surgical History Arthroplasty of knee Cholecystectomy Colonoscopy - MAC 02/24/14 Debridement, Soft Tissue 11/10/16-DR. VALLECILLO-RIGHT HEEL Dilation and curettage EGD - MAC (02/24/14) H/O arthroscopy of knee H/O esophagogastroduodenoscopy H/O surgical procedure removal of toenails of great toe-bilateral History of arthroscopy of knee History of bilateral ligation of fallopian tubes History of bilateral tubal ligation Hx of biopsy 05/07/11 lip; Dr. Quesada Hysterectomy, Laproscopic (~1996) Ligation of fallopian tube LIP BX (10/05/11) DR. QUESADA LUNG LOBECTOMY (~1991) RLL; ? 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 Grandfather COPD (chronic obstructive pulmonary disease) Grandfather Diabetes Heart disease Grandmother Personal history of malignant neoplasm Pancreatic Grandmother Diabetes Social History Smoking/Tobacco Use Status: Former Tobacco Use Quit Date: 05/07/18 Alcohol Intake: current Alcohol Intake frequency: a few times a week Drug use: Socially Substance use type: marijuana Details: Pt notes that she takes THC gummies recreationally. Household members: spouse and other Details: 2 current occupation: [employer] Pets and animals: Yes Pets and animals: cat(s) What type of physical activity do you participate in: none Louise/Bahai: Jain Special louise needs: No Do you feel safe at home: Yes Do you feel safe in your relationship?: Yes Exam Const General: comfortable and no acute distress HENMT Head: normocephalic and atraumatic Eyes General: appearance normal, both eyes and all related structures Resp Effort & Inspection: normal respiratory effort Auscultation: clear to auscultation bilaterally Cardio Jugular venous pressure: no JVD Palpation: normal PMI Rate: regular rate Rhythm: regular rhythm Heart Sounds: S1 normal and murmur diastolic II/ GI Palpation: soft Auscultation: normoactive bowel sounds Skin General skin exam: no rashes or lesions noted Extrem General: normal to inspection and no clubbing, cyanosis or edema Psych Appearance: grossly normal Results Last Vital Signs Temp 36.8 C 02/19/20 09:01 Pulse 72 02/19/20 09:01 Resp 18 02/19/20 09:01 BP 130/78 02/19/20 09:01 Pulse Ox 97 02/19/20 09:01 Labs Result diagrams: 02/19/20 06:25 02/19/20 06:25 Labs: Laboratory Results - last 24 hr 02/18/20 02/18/20 02/18/20 16:55 16:55 16:55 WBC 5.91 RBC 3.02 L Hgb 9.6 L Hct 28.5 L MCV 94.4 MCH 31.8 MCHC 33.7 RDW 12.5 Plt Count 278 MPV 9.6 Reticulocyte % (Auto) Immature Gran % 0.5 Neutrophils % 51.0 Lymphocytes % 39.6 Monocytes % 6.6 Eosinophils % 1.5 Basophils % 0.8 Nucleated RBC % 0 Absolute Neutrophils 3.01 Absolute Lymphocytes 2.34 Absolute Monocytes 0.39 Absolute Eosinophils 0.09 Absolute Basophils 0.05 PT INR APTT Sodium 141 Potassium 3.2 L Chloride 101 Carbon Dioxide 34.3 H Anion Gap 5.7 BUN 23 H Creatinine 0.99 Estimated GFR/1.73 m2 56.65 Glucose 112 H Calcium 9.0 Magnesium 1.1 L Iron TIBC Transferrin % Sat Ferritin Total Bilirubin 0.2 AST 18 ALT 24 Alkaline Phosphatase 44 L Troponin I < 0.05 Total Protein 7.5 Albumin 3.9 Triglycerides Total Cholesterol LDL Cholesterol, Calc HDL Cholesterol TSH 4.52 H Free T4 0.89 Urine Color Urine Clarity Urine pH Ur Specific [place] Urine Protein Urine Ketones Urine Blood Urine Nitrite Urine Bilirubin Urine Urobilinogen Ur Leukocyte Esterase Urine Glucose 02/18/20 02/18/20 02/18/20 16:55 16:55 16:55 WBC RBC Hgb Hct MCV MCH MCHC RDW Plt Count MPV Reticulocyte % (Auto) 1.5 Immature Gran % Neutrophils % Lymphocytes % Monocytes % Eosinophils % Basophils % Nucleated RBC % Absolute Neutrophils Absolute Lymphocytes Absolute Monocytes Absolute Eosinophils Absolute Basophils PT 10.3 INR 1.0 APTT 22.9 Sodium Potassium Chloride Carbon Dioxide Anion Gap BUN Creatinine Estimated GFR/1.73 m2 Glucose Calcium Magnesium Iron TIBC Transferrin % Sat Ferritin 164 Total Bilirubin AST ALT Alkaline Phosphatase Troponin I Total Protein Albumin Triglycerides Total Cholesterol LDL Cholesterol, Calc HDL Cholesterol TSH Free T4 Urine Color Urine Clarity Urine pH Ur Specific [place] Urine Protein Urine Ketones Urine Blood Urine Nitrite Urine Bilirubin Urine Urobilinogen Ur Leukocyte Esterase Urine Glucose 02/18/20 02/18/20 02/18/20 17:40 19:03 19:06 WBC RBC Hgb Hct MCV MCH MCHC RDW Plt Count MPV Reticulocyte % (Auto) Immature Gran % Neutrophils % Lymphocytes % Monocytes % Eosinophils % Basophils % Nucleated RBC % Absolute Neutrophils Absolute Lymphocytes Absolute Monocytes Absolute Eosinophils Absolute Basophils PT INR APTT Sodium Potassium Chloride Carbon Dioxide Anion Gap BUN Creatinine Estimated GFR/1.73 m2 Glucose Calcium Magnesium Iron Cancelled 56 TIBC Cancelled 319 Transferrin % Sat Cancelled 18 Ferritin Total Bilirubin AST ALT Alkaline Phosphatase Troponin I Total Protein Albumin Triglycerides Total Cholesterol LDL Cholesterol, Calc HDL Cholesterol TSH Free T4 Urine Color Yellow Urine Clarity Clear Urine pH 6.5 Ur Specific [place] 1.015 Urine Protein Negative Urine Ketones Negative Urine Blood Negative Urine Nitrite Negative Urine Bilirubin Negative Urine Urobilinogen 0.2 Ur Leukocyte Esterase Negative Urine Glucose Negative 02/18/20 02/18/20 02/19/20 20:00 20:00 06:25 WBC RBC Hgb Hct MCV MCH MCHC RDW Plt Count MPV Reticulocyte % (Auto) Immature Gran % Neutrophils % Lymphocytes % Monocytes % Eosinophils % Basophils % Nucleated RBC % Absolute Neutrophils Absolute Lymphocytes Absolute Monocytes Absolute Eosinophils Absolute Basophils PT INR APTT Sodium Potassium 4.1 D 3.9 Chloride Carbon Dioxide Anion Gap BUN Creatinine Estimated GFR/1.73 m2 Glucose Calcium Magnesium 1.8 1.6 L Iron TIBC Transferrin % Sat Ferritin Total Bilirubin AST ALT Alkaline Phosphatase Troponin I < 0.05 < 0.05 Total Protein Albumin Triglycerides 196 H Total Cholesterol 179 LDL Cholesterol, Calc 101 H HDL Cholesterol 39 L TSH Free T4 Urine Color Urine Clarity Urine pH Ur Specific [place] Urine Protein Urine Ketones Urine Blood Urine Nitrite Urine Bilirubin Urine Urobilinogen Ur Leukocyte Esterase Urine Glucose 02/19/20 06:25 WBC 6.03 RBC 2.84 L Hgb 8.9 L Hct 27.1 L MCV 95.4 H MCH 31.3 MCHC 32.8 RDW 12.7 Plt Count 246 MPV 9.7 Reticulocyte % (Auto) Immature Gran % Neutrophils % Lymphocytes % Monocytes % Eosinophils % Basophils % Nucleated RBC % Absolute Neutrophils Absolute Lymphocytes Absolute Monocytes Absolute Eosinophils Absolute Basophils PT INR APTT Sodium Potassium Chloride Carbon Dioxide Anion Gap BUN Creatinine Estimated GFR/1.73 m2 Glucose Calcium Magnesium Iron TIBC Transferrin % Sat Ferritin Total Bilirubin AST ALT Alkaline Phosphatase Troponin I Total Protein Albumin Triglycerides Total Cholesterol LDL Cholesterol, Calc HDL Cholesterol TSH Free T4 Urine Color Urine Clarity Urine pH Ur Specific [place] Urine Protein Urine Ketones Urine Blood Urine Nitrite Urine Bilirubin Urine Urobilinogen Ur Leukocyte Esterase Urine Glucose
--- NOTE | 2020-02-19 11:06 | PDOC.CMIN ---
- If Service Date Differs Date of service: 02/19/20 Time of Service: 11:07 Care Management Initial Assess REASON FOR HOSPITALIZATION:: PSVT PAST MEDICAL HISTORY/PAST SURGICAL HISTORY:: COPD, Hyperlipidemia, Anemia, VIT D Def., Lumbar disk prolaspe, gastritis, ashtma, allergic fungal sinusitis, depression, HTN PREVIOUS FUNCTIONAL STATUS/SOCIAL/FAMILY SUPPORTS:: Joselyn lives with her spouse in their own home. She is the local [employer] and works fulltime. She is indepdent with ADL's she does wear her oxygen at all times she does have a CPAP at home. CURRENT FUNCTIONAL STATUS:: Joselyn is sitting on the side of the bed she is engaged in conversation and assessment. Joselyn is able to describe why she came to the hospital and her treatment course. She is planning on being discharged home today and has a good relationship with her primary care and her pulmonolgist. ADVANCE DIRECTIVES:: On file at [facility] Has patient been provided with info about the portal/API?: No Did the patient sign up for the portal?: Yes (active ) CODE STATUS:: Full Code INSURANCE COVERAGE / FINANCIAL ISSUES:: BCBS CURRENT HOME/COMMUNITY SERVICES/EQUIPMENT:: Home oxgen and CPAP PRIMARY CARE PHYSICIAN:: Dr. Hubbard POTENTIAL DISCHARGE NEEDS:: Follow up with primary care as directed. PATIENT/FAMILY EDUCATION NEEDS:: Discharge education, limitations and follow up plan of care including ask me three and self management. ANTICIPATED BARRIERS TO DISCHARGE:: None TRANSPORTATION:: Via private car with spouse at time of discharge PLAN:: Joselyn will be discharge today, she anticipates no additional needs at this time. She will have resumption of oxygen and cpap. She will transport home with her spouse at time of discharge.
--- NOTE | 2020-02-19 11:50 | PHA.REVIEW ---
Pharmacy Admission Review - Admission Clinical Review (Last Reviewed 02/19/20 @ 10:24 by Srinath Lutz MD) PSVT (paroxysmal supraventricular tachycardia) (Acute) Anemia (Acute 12/31/12) amoxicillin trihydrate [From Augmentin] Adverse Reaction (Unverified 02/18/20 16:56) Nausea/Diarrhea oxybutynin Adverse Reaction (Unverified 02/18/20 16:56) Dry mouth/mucous membranes potassium clavulanate [From Augmentin] Adverse Reaction (Unverified 02/18/20 16:56) Nausea/Diarrhea Height 5 ft 4 in Weight 113.5 kg - Renal Dosing Renal Dosing: BUN 23 mg/dL (7-18) H 02/18/20 16:55 Creatinine 0.99 mg/dL (0.55-1.02) 02/18/20 16:55 Medications needing adjustments: Reviewed - Anticoagulation Anticoagulation: Hgb 8.9 g/dL (11.2-15.7) L 02/19/20 06:25 Hct 27.1 % (36.0-46.0) L 02/19/20 06:25 Plt Count 246 10^3/uL (130-400) 02/19/20 06:25 INR 1.0 (0.9-1.1) 02/18/20 16:55 Creatinine 0.99 mg/dL (0.55-1.02) 02/18/20 16:55 DVT Prohphylaxis: N/A Therapeutic Anticoagulation: N/A - Opiate Usage Evaluate Pain Scale/Pains Meds: N/A - Relevant Labs Sodium 141 mmol/L (136-145) 02/18/20 16:55 Potassium 3.9 mmol/L (3.5-5.1) 02/19/20 06:25 Chloride 101 mmol/L (98-107) 02/18/20 16:55 Magnesium 1.6 mg/dL (1.8-2.4) L 02/19/20 06:25 Electrolytes, C-Reactive P, ESR: Reviewed (2gm IV Mag in ED, 1gm IV mag given at 0200 and another 4gm IV given at 0800 AND 500mg po BID ordered; 20meq IV K+ in ED,) - DM Control DM Control: Glucose 112 mg/dL (74-106) H 02/18/20 16:55 Insulin Dosing: N/A - Heart Failure/WA Heart Failure/WA: Troponin I < 0.05 ng/mL (<0.06) 02/19/20 06:25 EF%, JANENE's, B-Blockers, Diuretics: Reviewed - BP Control BP Control: Blood Pressure [Right Arm] 130/78 Blood Pressure [Right Arm] 130/78 Blood Pressure 135/84 If elevated: Reviewed - Qtc Review If Elevated: Reviewed (481) - IV to PO Switch IV Medications: Reviewed - Home Meds Home Med List reviewed: Reviewed Relevent Home Meds Not ordered & why?: All ordered -- confirmed with patient that 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
--- NOTE | 2020-02-19 12:15 | DI.NM_ITS ---
APPROVED REPORT Exam: Pharmacologic Patient Location: In-Patient Room/Bed: 220 BMI: 42.90 Baseline Rhythm: Sinus Rhythm Indications: PSVT. Chest pain with diaphoresis. Medical History Medical History: COPD, Smoking, HTN, Hyperlipidemia, Obesity Cardiac Medications: Atorvastatin. Metoprolol Succinate. Losartan. Omeprazole Allergies: Amoxicillin, Oxybutynin, Potassium clavulanate. Cardiac Risk Factors: HTN, Hyperlipidemia, FHX of CAD, Smoking (former), Asthma, COPD Pretest Chest Pain Characteristics: No chest pain Exercise History: Sedentary Lung Sounds: Clear to auscultation, diminished Heart Sounds: Regular Stress Test Details Test: Pharmacologic stress testing performed using 0.4 mg of regadenoson per 5 mL given IV over 10 s econds. Reason for pharmacologic stress test: PUI for COVID19. Nuclear Acquisition: Rest Tc-99m/Stress Tc-99m 1 day Rest Isotope: Tc-99m Sestamibi. Dose: 12.3 Date: 02/19/2020 Injection Time: 1145 Stress Isotope: Tc-99m Sestamibi. Dose: 36.6 Date: 02/19/2020 Injection Time: 1441 HR Resting HR Supine: 71 bpm Max Heart Rate (APMHR): 157 bpm Target HR (85% APMHR): 133 bpm Max HR Achieved: 91 bpm % of APMHR: 57 Recovery HR: 73 bpm BP Resting BP Supine: 124/88 mmHg Max BP: 130/64 mmHg Recovery BP: 120/80 mmHg ECG Resting ECG: Sinus Rhythm Stress ECG: Sinus Rhythm ST Change: no significant ST segment changes noted Arrhythmia: None Recovery ECG: Sinus Rhythm Recovery ST Change: Normal Recovery Arrhythmia: None Clinical Stress Symptoms: Dyspnea, Chest pain Stress ECG Conclusion 1. This is a pharmacological stress test. Patient with symptoms suggestive of ischemia 2. EKG portion of the exam is nondiagnostic. Stress Test Summary STAGE HR BP Symptoms NOTES Supine 71 1124/88 1 min post Lexiscan injection 86 130/64 SOB, 3/10 chest pressure 3 min post Lexiscan injection 79 118/82 SOB resolved. 3/10 chest pressure. 6 min post Lexiscan injection 73 120/80 Chest pressure resolved. MPI Conclusion The patient's ejection fraction was 53% with stress. There were no wall motion abnormalities. There is no evidence of ischemia on the imaging portion of the exam. This represents a normal SPECT stress test. Radiologist Interpretation Radiologist Interpretation by: Manuel Barrera MD Interpretation Date/Time: 02/19/2020 15:57:00
--- NOTE | 2020-02-19 12:25 | RESPIRATORY ---
Pt has Oxygen and CPAP machine through [facility]. Oxygen 4lpm max. Pt CPAP Auto min 6 and max 14.
[2020-02-19 12:34] LABS: COVID-19 RT-PCR UVMMC Result Negative (Negative)
[2020-02-19] MEDS: Regadenoson 0.4 MG/5 ML SYR IVP (14:47)
--- NOTE | 2020-02-19 16:04 | DI.VRAD_ITS ---
PROCEDURE INFORMATION: Exam: XR Chest, 1 View Exam date and time: 02/18/2020 5:28 PM Age: 64 years old Clinical indication: Other: Chest pain TECHNIQUE: Imaging protocol: XR of the chest Views: 1 view. COMPARISON: CT CHEST WO 11/11/2019 2:38 PM FINDINGS: Lungs: Clear lungs. Pleural space: No pneumothorax. No sizeable effusion. Heart/Mediastinum: Cardiomediastinal silhouette is within normal limits. Bones/joints: No acute displaced fracture or dislocation. IMPRESSION: No acute cardiopulmonary process. Dictated and Authenticated by: Christoph Osborn MD. Ordering:SHERRY Waddell MD
[2020-02-19] MEDS: Heparin 5,000 UNITS/ML VIAL 5000 UNITS SC (16:56)
[2020-02-19] MEDS: Metoprolol 25 MG TAB PO (19:54)
[2020-02-19] MEDS: Normal Saline Flush 10 ML SYR IVP (20:15)
[2020-02-19] MEDS: Montelukast 10 MG TAB PO (20:15)
[2020-02-20] VITALS (7 sets, daily range): BP systolic 112–130; BP diastolic 72–83; PULSE 60–104; RESP 14–19; TEMP 36.2; O2SAT 95–98
[2020-02-20] MEDS: Heparin 5,000 UNITS/ML VIAL 5000 UNITS SC (05:05)
[2020-02-20 07:26] LABS: Anion Gap 4.6 mmol/L (3-11); BUN 17 mg/dL (7-18); CO2 30.4 mmol/L (21.0-32.0); CREATININE 0.92 mg/dL (0.55-1.02); Calcium 8.5 mg/dL (8.5-10.1); Chloride 104 mmol/L (98-107); Glucose 103 mg/dL (74-106); Magnesium 1.9 mg/dL (1.8-2.4); Potassium 4.1 mmol/L (3.5-5.1); Sodium 139 mmol/L (136-145)
[2020-02-20] MEDS: Budesonide/Formoterol 160/4.5 6 GM 60 PUFF INH IH (08:17)
[2020-02-20] MEDS: Tiotropium/Olodaterol 10 PUFF INHALER 2 PUFF IH (08:17)
--- NOTE | 2020-02-20 08:19 | W.PM.PROGNOT ---
Subjective Subjective Interval history since last seen: No SVT overnight. Coarse cough this am. COVID negtive. Objective Last Vital Signs Temp 36.2 C L 02/20/20 05:13 Pulse 60 02/20/20 05:11 Resp 19 02/20/20 05:11 BP 112/72 02/20/20 05:11 Pulse Ox 95 02/20/20 05:11 Laboratory Results - last 24 hr 02/18/20 02/19/20 02/20/20 19:15 06:25 06:12 Sodium 139 Potassium 3.9 4.1 Chloride 104 Carbon Dioxide 30.4 Anion Gap 4.6 BUN 17 D Creatinine 0.92 Estimated GFR/1.73 m2 >= 60.00 Glucose 103 Calcium 8.5 Magnesium 1.6 L 1.9 Troponin I < 0.05 Triglycerides 196 H Total Cholesterol 179 LDL Cholesterol, Calc 101 H HDL Cholesterol 39 L COVID-19 PCR Negative Nasopharyn COVID-19 PCR Not Applicable Ref Test Perform Site [facility]
[2020-02-20] MEDS: Methylphenidate 10 MG TAB 20 MG PO (09:28)
[2020-02-20] MEDS: valACYclovir 1,000 MG TAB 1000 MG PO (09:28)
[2020-02-20] MEDS: Cholecalciferol (Vitamin D3) 1,000 UNIT TAB 2000 UNITS PO (09:28)
[2020-02-20] MEDS: DULoxetine 30 MG CAP 60 MG PO (09:28)
[2020-02-20] MEDS: Metoprolol 25 MG TAB PO (09:28)
[2020-02-20] MEDS: Losartan 50 MG TAB PO (09:29)
[2020-02-20] MEDS: Cetirizine 10 MG TAB PO (09:29)
[2020-02-20] MEDS: Calcium 600mg/Vit D 200U TAB 1 TAB PO (09:29)
[2020-02-20] MEDS: Atorvastatin 10 MG TAB PO (09:29)
[2020-02-20] MEDS: Magnesium Oxide 400 MG TAB PO (09:29)
[2020-02-20] MEDS: Famotidine 20 MG TAB PO (09:29)
--- NOTE | 2020-02-20 10:55 | DSE_ITS ---
Date of service: 02/20/20 Time of Service: 10:55 DS: Diagnosis Discharge Diagnosis (1) PSVT (paroxysmal supraventricular tachycardia): Status: Resolved Asessment and Plan: In setting of hypomagnesemia and hypokalemia (2) Chest pain: Status: Resolved Asessment and Plan: In setting of SVT and electrolyte abnormalities. Negative MPI. (3) Hypokalemia: Status: Resolved (4) Hypomagnesemia: Status: Resolved (5) Chronic obstructive lung disease: Status: Chronic Asessment and Plan: Not in acute exacerbation (6) Chronic respiratory failure with hypoxia: Status: Chronic Asessment and Plan: 2 L of O2 at rest; 4L with activity. 2 L bleed in with CPAP. (7) ALEXX on CPAP: Status: Chronic (8) COVID-19 ruled out by laboratory testing: Status: Ruled-out Discharge Plan Disposition Patient Disposition: HOME Condition: Stable Discharge Details Reason For Visit: PSVT Admit Date/Time: 02/19/20 16:25 Admit Provider: Srinath Vasquez Attending Provider: Srinath Vasquez Primary Care Provider: Nicole Hubbard [facility] Hospital Course: Ms Sheets is a 64 year old female with PMHx of oxygen-dependent COPD, chronic hypoxic respiratory failure on 2-4L of O2 by NC, hypertension, ALEXX on CPAP, GERD on PPI, h/o gastritis on PPI, who was a patient on [facility] hospitalist service from 02/18/2020 until 02/20/2020 for symptomatic paroxysmal SVT in setting of profound hypomagnesemia as well as hypokalemia. Symptoms of SVT were suggestive of coronary ischemia, including chest pain, dizziness, nausea, diaphoresis, shortness of breath, and would resolve with resolution of SVT. SVT was treated w ith increase of the patient's metoprolol as well as aggressive correction of her electrolytes. SVT has not recurred since her magnesium and potassium levels have normalized. We feel that the reason she was so hypomagnesemic was because of her PPI therapy; therefore, she was switched to pepcid, which is somewhat safer in that regard. She underwent an echocardiogram, which revealed an LVEF of 60%, normal wall motion, RVSP of 26.4 mmHg, and no hemodynamically significant valvular abnormalities. Her aortic valve stenosis is unchanged. Her MPI was negative. She was evaluated by Dr Lutz of cardiology, who recommended increasing her beta blockers and a 48-hour holter monitor. She is being discharged on lopressor 25 mg PO BID. She will need to follow up with her PCP within 1 week and with cardi ology within 4-6 weeks. She will need bloodwork in 1 week to ensure her potassium and magnesium levels are adequate. Care for patient as well as completion of her discharge summary on day of discharge took 45 minutes. Home Meds and New Rx's Prescriptions: New famotidine 20 mg Tablet 20 mg PO BID Qty: 60 RF: 0 magnesium oxide 400 mg (241.3 mg magnesium) Tablet 400 mg PO BID Qty: 20 RF: 0 metoprolol tartrate 25 mg Tablet 25 mg PO BID Qty: 60 RF: 0 Continued cholecalciferol (vitamin D3) 2,000 unit capsule 2,000 unit PO DAILY RF: 0 atorvastatin [Lipitor] 10 mg tablet 10 mg PO DAILY Qty: 90 RF: 12 cetirizine [Zyrtec] 10 mg tablet 10 mg PO BID Qty: 180 RF: 11 duloxetine 60 mg capsule,delayed release(DR/EC) 60 mg PO DAILY Qty: 90 RF: 11 estradiol [Estrace] 0.5 mg tablet 0.5 mg PO EVERY OTHER DAY Qty: 90 RF: 12 valacyclovir [Valtrex] 1 gram tablet 1,000 mg PO DAILY Qty: 90 RF: 12 (DME) Aerochamber MV Spacer See Rx Instructions .ROUTE .MEDSUPPLY Qty: 1 RF: 0 (DME) EasiVent Mask Large 1 EACH device 1 ea Miscellaneous DIRECTED RF: 0 calcium carbonate-vitamin D3 [Caltrate with Vitamin D3] 1 EACH tablet 1 tab PO DAILY RF: 0 clotrimazole-betamethasone 15 GM cream 15 gm Topical DAILY PRNQty: 45 RF: 0 budesonide-formoterol [Symbicort] 160-4.5 mcg/actuation HFA aerosol inhaler 2 puff Inhalation BID Qty: 3 RF: 11 montelukast [Singulair] 10 mg tablet 10 mg PO DAILY Qty: 90 RF: 12 losartan 50 mg tablet 50 mg PO DAILY Qty: 90 RF: 5 albuterol sulfate 2.5 mg /3 mL (0.083 %) solution for nebulization 2.5 mg IH QID PRNRF: 0 methylphenidate HCl 10 mg tablet 20 mg PO DAILY MDD 2 Qty: 60 RF: 0 Stiolto Respimat 2.5-2.5 mcg/actuation Mist 2 puff INHALATION DAILY RF: 0 Discontinued metoprolol succinate 25 mg tablet extended release 24 hr 25 mg PO DAILY Qty: 90 RF: 4 omeprazole 40 mg capsule,delayed release(DR/EC) 40 mg PO DAILY Qty: 180 RF: 3 Discharge Instructions Instructions: Supraventricular Tachycardia (DC), Hypokalemia (DC), Hypomagnesemia (DC), Holter Monitor (GEN) Additional Instructions: Return to the hospital with any fever, bleeding, chest pain, or shortness of breath. Bloodwork in 1 week - results to Dr Hubbard. Follow up with Dr Hubbard within 1 week and with Cardiology (Dr Lutz) in 4-6 weeks. Referrals: Nicole Hubbard MD, [place] [Primary Care Provider] - Srinath Lutz MD [MD CONSULTING PHYSICIAN] - (4-6 week follow up for SVT) Activity:: Activity as Tolerated Equipment/Supplies:: 48 hour holter monitor Diet:: As Tolerated Discharge Orders Discharge Orders: Discharge Order (Routine); Ordered 02/20/20 Ordered By: Nicolasa Hdz Other Ambulatory Orders: Basic Metabolic Panel (Routine) Timeframe: 20200226 Facility: [facility] - Location: Laboratory Outpatient Ordered By: Nicolasa Hdz Magnesium (Routine) Timeframe: 20200226 Facility: [facility] - Location: Laboratory Outpatient Ordered By: Nicolasa Hdz Holter Monitor (Outpt) (ONCE) Timeframe: 20200221 Facility: [facility] - Location: Respiratory Therapy Ordered By: Nicolasa Hdz DS: Summary Status at Discharge Functional status at discharge: independent ambulation Overall status at discharge: patient is progressing back to baseline Mental Status: mental status grossly normal Speech and Movement: speech and movement normal Mood: congruent mood Affect: normal affect Exam Narrative Exam Narrative: General: very pleasant obese female, A&Ox3, sitting up at the edge of the bed HEENT: EOMI, MMM Heart: RRR, no m/r/g Lungs: dry cough, CTAB on my exam Abdomen: soft, nontender, nondistended Extremities: no edema BLEs Psych Mental Status: mental status grossly normal Speech and Movement: speech and movement normal Mood: congruent mood Affect: normal affect DS: Data Vitals/I&O Vitals and I&O: Vital Signs Temperature 36.2 C L 02/20/20 05:13 Temperature Source Temporal Artery Scan 02/20/20 05:13 Pulse 66 02/20/20 10:16 Pulse Rhythm Regular 02/20/20 09:51 Pulse 89 02/20/20 10:16 Respiratory Rate 19 02/20/20 10:16 Respiratory Effort Non-Labored 02/20/20 09:51 Respiratory Depth Normal 02/20/20 09:51 Respiratory Pattern Normal 02/20/20 09:51 Blood Pressure 124/83 02/20/20 10:16 Blood Pressure Mean 93 02/20/20 10:16 Blood Pressure Position Sitting 02/19/20 16:02 Pulse Oximetry 98 02/20/20 10:16 Oxygen Delivery Method Nasal Cannula 02/19/20 16:02 Oxygen Flow Rate 2 02/20/20 08:25 Pain Level 0 02/19/20 16:02 Intake & Output 02/19/20 02/19/20 02/20/20 11:59 23:59 11:59 Intake Total 200 / 440 240 / 440 480 / 480 Output Total 900 / 1450 550 / 1450 700 / 700 Balance -700 / -1010 -310 / -1010 -220 / -220 Weight 113.6 kg Intake: IV 200 / 200 Oral 240 / 240 480 / 480 Output: Urine 900 / 1450 550 / 1450 700 / 700 Other: Urine Color Yellow Yellow Yellow Urine Appearance Clear Clear Clear Urine Odor Normal Normal Comment one large unmeasurable void in commode Voiding Methods Bedside Commode Bedside Commode Bedside Commode Data Completed and Pending Completed studies during hospitalization [Text1]: CXR 02/18/2020: No acute pulmonary findings. Echo 02/19/2020: Left Ventricle : The left ventricle is normal size. The left ventricular systolic function is normal. The left ventricular ejection fraction is within the normal range. Mild concentric left ventricular hypertrophy. There is normal LV segmental wall motion. The left ventricular diastolic function is normal. LVEF is 60%. Right Ventricle : The right ventricle is normal size. The right ventricular systolic function is normal. The RVSP is 26.4 mmHg. Atria : The left atrium size is normal. The right atrium size is normal. Aortic Valve : The Aortic valve is sclerotic. Aortic valve is trileaflet. Mild aortic regurgitation. No hemodynamically significant valvular aortic stenosis. Mitral Valve : Mild mitral annular calcification. Great Vessels : The aortic root is normal in size. Ascending aorta is not well visualized. Aortic arch is normal in caliber. IVC is normal in size and collapses >50% with inspiration. Paired to study from 01/19/2016, there is no significant change. MPI 02/19/2020: Stress ECG Conclusion 1. This is a pharmacological stress test. Patient with symptoms suggestive of ischemia 2. EKG portion of the exam is nondiagnostic. The patient's ejection fraction was 53% with stress. There were no wall motion abnormalities. There is no evidence of ischemia on the imaging portion of the exam. This represents a normal SPECT stress test. Labs on day of discharge: Labs from last 24 hours 02/20/20 02/18/20 06:12 19:15 Sodium 139 Potassium 4.1 Chloride 104 Carbon Dioxide 30.4 Anion Gap 4.6 BUN 17 D Creatinine 0.92 Estimated GFR/1.73 m2 >= 60.00 Glucose 103 Calcium 8.5 Magnesium 1.9 COVID-19 PCR Negative Nasopharyn COVID-19 PCR Not Applicable Ref Test Perform Site [facility] Medical History (Updated 02/20/20 @ 10:58 by Nicolasa Hdz MD) Abnormal mammogram (04/05/06) Abnormal mammogram, unspecified 04/05/06 w/6 mos. F/U per [facility] Achilles tendinitis, right leg (08/18/16) WITH RETROCALCANEAL EXOSOTOSIS AND APOLONIA'S DEFORMITY Achilles tendonitis Allergic fungal sinusitis Allergic fungal sinusitis (07/16/13) Anemia Anemia (12/31/12) Annual physical exam (10/25/17) Asthma exacerbation (06/12/16) Bleeding hemorrhoids (08/09/17) Cellulitis of left lower extremity Cellulitis of left lower extremity 12/11/16 Cellulitis of left lower extremity (12/11/16) Cholelithiasis without obstruction s/p cholecystectomy Cholelithiasis without obstruction Chronic obstructive lung disease FEV 1-72% Chronic respiratory failure with hypoxia COPD (chronic obstructive pulmonary disease) FEV 1- 72% Depression Depressive disorder Essential hypertension (04/09/13) Gastritis Gastritis (04/05/05) per EGD and mild reflux 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 Evans Hiatal hernia Hiatal hernia (04/05/96) small Hormone replacement therapy (postmenopausal) (12/20/11) Hyperlipidemia Hyperlipidemia (12/31/12) Hypertension Internal hemorrhoids Internal hemorrhoids (02/24/14) SMALL Lumbar disc prolapse with compression radiculopathy Lumbar disc prolapse with compression radiculopathy (08/21/09) Numbness and tingling (01/11/16) Otalgia (05/29/16) Otalgia of both ears Otalgia, unspecified 05/29/16 Pre-op exam 06/08/15 Smoker Smoker 2002 Smoker Thyroid nodule Thyroid nodule 01/19/16 normal thyroid scan 01/20 Vitamin D deficiency Vitamin D deficiency (06/26/16) Surgical History Arthroplasty of knee Cholecystectomy Colonoscopy - MAC 02/24/14 Debridement, Soft Tissue 11/10/16-DR. VALLECILLO-RIGHT HEEL Dilation and curettage EGD - MAC (02/24/14) H/O arthroscopy of knee H/O esophagogastroduodenoscopy H/O surgical procedure removal of toenails of great toe-bilateral History of arthroscopy of knee History of bilateral ligation of fallopian tubes History of bilateral tubal ligation Hx of biopsy 05/07/11 lip; Dr. Quesada Hysterectomy, Laproscopic (~1996) Ligation of fallopian tube LIP BX (10/05/11) DR. QUESADA LUNG LOBECTOMY (~1991) RLL; ? 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 Grandfather COPD (chronic obstructive pulmonary disease) Grandfather Diabetes Heart disease Grandmother Personal history of malignant neoplasm Pancreatic Grandmother Diabetes Social History Smoking/Tobacco Use Status: Former Tobacco Use Quit Date: 05/07/18 Alcohol Intake: current Alcohol Intake frequency: a few times a week Drug use: Socially Substance use type: marijuana Details: Pt notes that she takes THC gummies recreationally. Household members: spouse and other Details: 2 current occupation: [employer] Pets and animals: Yes Pets and animals: cat(s) What type of physical activity do you participate in: none Louise/Bahai: Zoroastrianism Special louise needs: No Do you feel safe at home: Yes Do you feel safe in your relationship?: Yes
--- NOTE | 2020-02-20 12:38 | PDOC.CMDIS ---
- If Service Date Differs Date of service: 02/20/20 Time of Service: 12:38 LACE Index Scoring Tool - Questions: Length of Stay (in days): 3 Acuity (Admit via E.D.?): Yes Comorbidities: Chronic Pulmonary Disease E.D. Visits: 3 - Answers: Total Score: 11 Risk of Readmission: High Risk Care Management Discharge Reason for Hospitalization: PSVT Discharge Plan: Joselyn is being discharged home with resumption of home oxygen and her CPAP. She will follow up with her providers as directed. Spouse to transport home. Joselyn feels ready for discharge and understands her plan. Patient/Family Education Needs: Discharge education, limitations and follow up plan of care. Services Needed at Discharge: Oxygen Therapy
--- NOTE | 2020-02-20 14:38 | CHAPLAIN ---
Joselyn was sitting at the edge of her bed when I visited. We met when she was in pulmonary rehab, and spoke to patients in the program about advance directives. 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 At home she likes to relax with and cats. She said theologically she questions the existence of God, but at the same time is a believer in finding hope and renae in less traditional places. She believes that she has been placed in circumstances and in people's lives for a reason and is usually able to help them out, or lean something from them.
== END 2020-02-20 13:20 | disposition home or self-care (01) | DRG 309 ==
LOC: ER 19:39 → ICU 20:11
PROVIDERS: Internal Medicine; Admitting Provider General Practice; Emergency Provider Physician Assistant; PCP Family Medicine; Visit Provider General Practice
DX: I47.1 Supraventricular tachycardia (principal); Z68.41 Body mass index [BMI] 40.0-44.9, adult; J96.11 Chronic respiratory failure with hypoxia; R07.89 Other chest pain; D64.9 Anemia, unspecified; R42 Dizziness and giddiness; M76.61 Achilles tendinitis, right leg; J44.9 Chronic obstructive pulmonary disease, unspecified; F32.9 Major depressive disorder, single episode, unspecified; I10 Essential (primary) hypertension; K29.70 Gastritis, unspecified, without bleeding; K44.9 Diaphragmatic hernia without obstruction or gangrene; E78.5 Hyperlipidemia, unspecified; E55.9 Vitamin D deficiency, unspecified; Z87.891 Personal history of nicotine dependence; E83.42 Hypomagnesemia; E87.6 Hypokalemia; E66.9 Obesity, unspecified; G47.33 Obstructive sleep apnea (adult) (pediatric); Z11.59 Encounter for screening for other viral diseases; K21.9 Gastro-esophageal reflux disease without esophagitis
CPT/HCPCS: 36415; 78452; 80048; 80053; 80061; 85027; 93005; 94640; 96361; 96365; 96366; 96368; 96375; 99219; 99222; 99233; 99239; 99254; 99285; U0003; 71045; 81003; 82728; 83540; 83550; 83735; 84132; 84439; 84443; 84484; 85025; 85045; 85610; 85730; 93010; 93017; 93225; 93306; G0378; J1644; J2785; J3475; J3480

== ENCOUNTER 2020-02-23 17:04 | Outpatient (CLI) | payer BC, SELFPAY ==
--- NOTE | 2020-02-24 08:33 | W.HOLTRPT ---
Date of service: 02/24/20 Time of Service: 08:34 Holter Monitor Report Referring Provider:: kady Indications:: PSVT Holter Monitor Note: This is a 48-hour Holter monitor ordered for indication of SVT. ?Patient was in normal sinus rhythm for the majority of the recording with an average heart rate of 73 bpm. ?There were 6 episodes of SVT with the longest lasting 8 beats. None of these were symptomatic. There were rare PACs. ?There are no episodes of ventricular tachycardia and rare PVCs. ?There were no episodes of atrial fibrillation, no pauses greater than 3 seconds and no evidence of high degree heart block. ?The 1 patient triggered event was associated with sinus tachycardia.
== END 2020-02-23 17:24 ==
PROVIDERS: PCP Family Medicine; Visit Provider Family Medicine
DX: I47.1 Supraventricular tachycardia (principal)
CPT/HCPCS: 93226

== ENCOUNTER 2020-02-26 10:26 | Outpatient (REF) | payer BC, SELFPAY ==
[2020-02-26 13:25] LABS: HCT 30.1 % (36.0-46.0); HGB 9.9 g/dL (11.2-15.7); MCH 31.7 pg (27.0-33.0); MCHC 32.9 % (32.0-36.0); MCV 96.5 fL (80-95); MPV 9.9 fL (8.0-11.0); Platelet Count 282 10^3/uL (130-400); RBC 3.12 10^6/uL (3.93-5.22); RDW 12.8 % (11.7-14.6); RDW-SD 44.7 fL; WBC 9.97 10^3/uL (4.4-10.8)
[2020-02-26 13:41] LABS: ALT 31 U/L (14-59); AST 17 U/L (15-37); Albumin 4.1 g/dL (3.4-5.0); Alkaline Phosphatase 51 U/L (46-116); Anion Gap 7.6 mmol/L (3-11); BUN 21 mg/dL (7-18); Bilirubin, Total 0.3 mg/dL (0.2-1.0); CO2 28.4 mmol/L (21.0-32.0); CREATININE 0.97 mg/dL (0.55-1.02); Calcium 9.3 mg/dL (8.5-10.1); Chloride 102 mmol/L (98-107); Glucose 109 mg/dL (74-106); Magnesium 1.4 mg/dL (1.8-2.4); Potassium 4.3 mmol/L (3.5-5.1); Sodium 138 mmol/L (136-145); Total Protein 7.5 g/dL (6.4-8.2)
[2020-02-26 14:05] LABS: Vitamin D 25 Total 33.2 ng/ml (30-100)
== END 2020-02-26 10:46 ==
LOC: LBN 10:26
PROVIDERS: PCP Family Medicine; Visit Provider Family Medicine
DX: E11.9 Type 2 diabetes mellitus without complications (principal); I10 Essential (primary) hypertension; E04.1 Nontoxic single thyroid nodule; R53.83 Other fatigue; D64.9 Anemia, unspecified; J44.9 Chronic obstructive pulmonary disease, unspecified
CPT/HCPCS: 80053; 82306; 85027; 83036; 83735

== ENCOUNTER 2020-04-05 03:06 | Outpatient (CLI) | payer BC, SELFPAY ==
[2020-04-05 12:24] LABS: HCT 27.7 % (36.0-46.0); HGB 8.9 g/dL (11.2-15.7); MCH 30.8 pg (27.0-33.0); MCHC 32.1 % (32.0-36.0); MCV 95.8 fL (80-95); MPV 9.4 fL (8.0-11.0); Platelet Count 280 10^3/uL (130-400); RBC 2.89 10^6/uL (3.93-5.22); RDW 13.4 % (11.7-14.6); RDW-SD 47.2 fL; WBC 7.75 10^3/uL (4.4-10.8)
[2020-04-05 12:45] LABS: Iron 42 ug/dL (50-170)
[2020-04-05 12:55] LABS: AST 5 U/L (15-37)
[2020-04-05 13:08] LABS: BUN 37 mg/dL (7-18); Chloride 99 mmol/L (98-107); Glucose 104 mg/dL (74-106); Magnesium 1.6 mg/dL (1.8-2.4); Potassium 3.8 mmol/L (3.5-5.1)
[2020-04-05 13:20] LABS: ALT 28 U/L (14-59); Alkaline Phosphatase 66 U/L (46-116); Anion Gap 6.8 mmol/L (3-11); Bilirubin, Total 0.4 mg/dL (0.2-1.0); CO2 30.2 mmol/L (21.0-32.0); Calcium 9.3 mg/dL (8.5-10.1); Estimated GFR 41.37 (mL/min/1.73m2); Sodium 136 mmol/L (136-145); Total Protein 7.7 g/dL (6.4-8.2)
[2020-04-05 14:00] LABS: TSH (W/Ref FT4) 4.05 uIU/mL (0.36-3.74)
[2020-04-05 14:16] LABS: FREE T4 0.85 ng/dL (0.76-1.46)
== END 2020-04-05 03:26 ==
PROVIDERS: PCP Family Medicine; Visit Provider Family Medicine
DX: D64.9 Anemia, unspecified (principal); E83.42 Hypomagnesemia; E87.6 Hypokalemia; E04.1 Nontoxic single thyroid nodule
CPT/HCPCS: 36415; 80053; 85027; 83540; 83735; 84439; 84443

== ENCOUNTER 2020-04-14 10:06 | Outpatient (REF) | payer BC, SELFPAY ==
[2020-04-14 16:42] LABS: Abs Immature Grans 0.04 10^3/uL (0.0-0.06); Absolute Basophil Count 0.06 10^3/uL (0.0-0.2); Absolute Eosinophil Count 0.14 10^3/uL (0.0-0.7); Absolute Lymphocyte Count 2.48 10^3/uL (1.2-3.4); Absolute Monocyte Count 0.52 10^3/uL (0.1-0.8); Absolute Neutrophil Count 4.88 10^3/uL (1.2-6.7); Basophils % 0.7; Eosinophils % 1.7; HCT 28.2 % (36.0-46.0); Immature Grans % 0.5; Lymphocytes % 30.5; MCH 30.5 pg (27.0-33.0); MCHC 31.9 % (32.0-36.0); MCV 95.6 fL (80-95); MPV 9.4 fL (8.0-11.0); Monocytes % 6.4; Neutrophils % 60.2; Nucleated RBC 0 %; Platelet Count 309 10^3/uL (130-400); RBC 2.95 10^6/uL (3.93-5.22); RDW-SD 45.2 fL; Reticulocyte 2.4 % (0.5-2.4); WBC 8.12 10^3/uL (4.4-10.8)
[2020-04-14 17:38] LABS: Anion Gap 8.7 mmol/L (3-11); BUN 26 mg/dL (7-18); CO2 30.3 mmol/L (21.0-32.0); CREATININE 1.19 mg/dL (0.55-1.02); Calcium 9.8 mg/dL (8.5-10.1); Chloride 98 mmol/L (98-107); Estimated GFR 45.81 (mL/min/1.73m2); Ferritin 171 ng/mL (8-252); Folate 5.2 ng/mL (8.6-20.0); Glucose 103 mg/dL (74-106); Potassium 3.9 mmol/L (3.5-5.1); Sodium 137 mmol/L (136-145); Vitamin B12 235 pg/mL (193-986)
[2020-04-14 18:02] LABS: C-Reactive Protein 0.33 mg/dL (0.0-0.3)
[2020-04-14 21:26] LABS: Total Iron Binding Capacity 359 ug/dL (250-450)
[2020-04-16 09:22] LABS: Parathyroid Hormone,Intact 48 pg/mL (19-88)
[2020-04-19 16:59] LABS: 1,25-Dihydroxyvitamin D 34 pg/mL (18-78)
== END 2020-04-14 10:26 ==
LOC: LBN 10:06
PROVIDERS: PCP Family Medicine; Visit Provider Surgery
DX: D50.9 Iron deficiency anemia, unspecified (principal); E04.1 Nontoxic single thyroid nodule; E55.9 Vitamin D deficiency, unspecified; E83.42 Hypomagnesemia; E87.6 Hypokalemia; R53.83 Other fatigue; I47.1 Supraventricular tachycardia; R07.9 Chest pain, unspecified; R10.9 Unspecified abdominal pain; K29.70 Gastritis, unspecified, without bleeding
CPT/HCPCS: 80048; 82607; 82652; 82728; 82746; 83550; 83970; 85025; 85045; 86140

== ENCOUNTER 2020-04-15 13:31 | Outpatient (REF) | payer BC, SELFPAY ==
[2020-04-16 11:15] LABS: Campylobacter PCR Positive (Negative); Salmonella PCR Negative (Negative); Shiga Toxin PCR Negative (Negative); Shigella/Enteroinvasive Ecoli Negative (Negative)
== END 2020-04-15 13:51 ==
LOC: LBN 13:31
PROVIDERS: PCP Family Medicine; Visit Provider Surgery
DX: K52.9 Noninfective gastroenteritis and colitis, unspecified (principal); E87.6 Hypokalemia; E83.42 Hypomagnesemia
CPT/HCPCS: 87505

== ENCOUNTER 2020-04-22 02:21 | Outpatient (CLI) | payer BC, SELFPAY ==
[2020-04-23 14:50] LABS: COVID-19 RT-PCR UVMMC Result Negative (Negative)
== END 2020-04-22 02:41 ==
PROVIDERS: PCP Family Medicine; Visit Provider Surgery
DX: Z11.59 Encounter for screening for other viral diseases (principal); Z01.818 Encounter for other preprocedural examination
CPT/HCPCS: U0003

== ENCOUNTER 2020-04-26 06:21 | Day surgery (SDC) | payer BC, SELFPAY ==
[2020-04-26 06:41] VITALS: BP 121/76; PULSE 68; RESP 16; TEMP 36.3; O2SAT 100
[2020-04-26] MEDS: Lactated Ringers 1,000 ML 80 ML IV (07:18)
[2020-04-26 07:46] LABS: Anion Gap 9.6 mmol/L (3-11); BUN 21 mg/dL (7-18); CO2 28.4 mmol/L (21.0-32.0); Calcium 8.7 mg/dL (8.5-10.1); Chloride 100 mmol/L (98-107); Glucose 112 mg/dL (74-106); Magnesium 1.6 mg/dL (1.8-2.4); Potassium 3.7 mmol/L (3.5-5.1); Sodium 138 mmol/L (136-145)
--- NOTE | 2020-04-26 08:10 | BOWEL_PTH ---
PATIENT: Joselyn Ramírez LOC: [facility] U#:[id number] AGE/SX: 64/F ROOM: RE04/26/[address]: Negrita Pozo : 1955 BED: DIS: 04/26/2020 SPEC #: [id number] RECD: 04/26/20 12:42 STATUS: LÓPEZ REErik #: [id number] CONNOR: 04/26/20 08:[address]: Negrita Pozo DEPT: Surgical Specimen RECD BY: Rachel Pedro ENTERED: 04/26/20 12:44 SP TYPE: Bowel OTHR DR: Nicole Hubbard MD, DC Tissues: 1 - BIOPSY BOWEL 2 - STOMACH BIOPSY 3 - STOMACH BIOPSY 4 - ESOPHAGUS BIOPSY 5 - ESOPHAGUS BIOPSY 6 - BIOPSY BOWEL 7 - BIOPSY BOWEL 8 - BIOPSY BOWEL 9 - BIOPSY BOWEL 10 - BIOPSY BOWEL 11 - BIOPSY BOWEL Procedures: GROSS AND MICRO LEVEL 4 Comments: [id number]
--- NOTE | 2020-04-26 09:12 | ENDO_ITS ---
Date of service: 04/26/20 Time of Service: 09:13 Endoscopy Report DATE OF PROCEDURE: 04/26/20 PRE-OP DIAGNOSIS: anemia POST-OP DIAGNOSIS: other PROCEDURE: egd w/ bx SURGEON: Negrita Pozo ANESTHESIA: GETA ESTIMATED BLOOD LOSS: 1 PATHOLOGY: other COMPLICATIONS: None PROCEDURE DESCRIPTION: After informed consent was obtained the patient was take to the procedure room and placed in a supine position. Monitors were applied and a time out was done. The patients name, date of , procedure type, allergies to medications and metal in their body was reviewed. A bite block was placed and the patient was sedated. Once sedated and comfortable the gastroscope was advanced through the oropharynx which was grossly normal into the esophagus. The proximal and mid-esophagus were nl. In the distal esophagus there was no: esophageal erosions/varices/diverticula or hernias noted. The scope was advanced into the stomach and through the pylorus into the 3rd portion of the duodenum. The duodenum was noted to be nl. Biopsies were done, all spe cimens were retrieved adn no bleeding was noted.. The scope was retracted back into the stomach and biopsies were done to rule out H. pylori. There were no ulcers. The scope was retroflexed. The cardia and fundus were noted to be normal. There was no hiatal hernia noted. The scope was retracted back into the esophagus and biopsies were done of the GE junction to rule out Rojas's. The Z line was regular. The scopes today are essential normal and do not explain the pt aenmia.
--- NOTE | 2020-04-26 09:15 | W.COLOREPORT ---
Date of service: 04/26/20 Time of Service: 09:15 Colonoscopy Report Date of procedure: 04/26/20 Pre-op diagnosis general: anemia Anesthesia proc note operative: GETA and MAC Estimated blood loss (mL): 1 Pathology: other Disposition: same day Prep: Miralax/Dulcolax Retraction Time: 12 mins Procedure Description: After informed consent was obtained the patient was taken to the procedure room and placed in a left decubitous position. Monitors were applied and a time out was done. The patients name, date of , procedure, allergies to medications and metal in their body was reviewed. The patient was then sedated. Once sedated and comfortable a rectal exam was done. External exam was normal. Internal exam revealed a normal sphincter tone and no palpable masses. The scope was then introduced and retrofelexed. No internal hemorrhoids were identified. The scope was then advanced to the cecum w/out difficulty. The TI and appendiceal orifice were identified. The prep was good. The scope was then slowly retracted over 12 minutes back into the rectum. Polyps x1 were removed at 30cm it is a .75cm, but w/ no stalk.It is removed w/.a hot forcept. All specimen is retrieved and no bleeding is noted. She has moderate diverticula confined to the sigmoid colon w/ no signs of active bleeding or any infections. The scope was removed and the patient was woken up and taken back to Same day surgery in stable condition. The patient tolerated the procedure well and there were no immediate complications. Follow up: The patient should follow up in 5 years, path pd, unless they develop changes in bowel habits or other new gastrointestinal complaints.
--- NOTE | 2020-04-26 09:16 | W.PM.DSUDISC ---
Discharge Plan Disposition Patient Disposition: HOME Condition: Good Discharge Details Reason For Visit: stomach and colon scope Attending Provider: Negrita Pozo Primary Care Provider: Nicole Hubbard Home Meds and New Rx's Prescriptions: Continued cholecalciferol (vitamin D3) 2,000 unit capsule 2,000 unit PO DAILY RF: 0 valacyclovir [Valtrex] 1 gram tablet 1,000 mg PO DAILY Qty: 90 RF: 12 atorvastatin [Lipitor] 10 mg tablet 10 mg PO DAILY Qty: 90 RF: 12 budesonide-formoterol [Symbicort] 160-4.5 mcg/actuation HFA aerosol inhaler 2 puff Inhalation BID Qty: 3 RF: 11 cetirizine [Zyrtec] 10 mg tablet 10 mg PO BID Qty: 180 RF: 11 duloxetine 60 mg capsule,delayed release(DR/EC) 60 mg PO DAILY Qty: 90 RF: 11 estradiol [Estrace] 0.5 mg tablet 0.5 mg PO EVERY OTHER DAY Qty: 90 RF: 12 montelukast [Singulair] 10 mg tablet 10 mg PO DAILY Qty: 90 RF: 12 Stiolto Respimat 2.5-2.5 mcg/actuation mist 2 puff INHALATION DAILY Qty: 12 RF: 5 methylphenidate HCl 10 mg tablet 20 mg PO DAILY MDD 2 Qty: 60 RF: 0 hydrochlorothiazide 12.5 mg tablet 12.5 mg PO DAILY RF: 0 (DME) Aerochamber MV Spacer See Rx Instructions .ROUTE .MEDSUPPLY Qty: 1 RF: 0 magnesium oxide 400 mg (241.3 mg magnesium) tablet 800 mg PO TID Qty: 180 RF: 4 metoprolol succinate 25 mg tablet extended release 24 hr 25 mg PO DAILY Qty: 90 RF: 4 (DME) EasiVent Mask Large 1 EACH device 1 ea Miscellaneous DIRECTED RF: 0 calcium carbonate-vitamin D3 [Caltrate with Vitamin D3] 1 EACH tablet 1 tab PO DAILY RF: 0 clotrimazole-betamethasone 15 GM cream 15 gm Topical DAILY PRNQty: 45 RF: 0 losartan 50 mg tablet 50 mg PO DAILY Qty: 90 RF: 5 albuterol sulfate 2.5 mg /3 mL (0.083 %) solution for nebulization 2.5 mg IH QID PRNRF: 0 omeprazole 40 mg capsule,delayed release(DR/EC) 40 mg PO DAILY Qty: 90 RF: 5 folic acid 1 mg tablet 1 mg PO DAILY Qty: 90 RF: 4 No Action polyethylene glycol 3350 [Miralax] 17 gram powder in packet 17 g PO DAILY Qty: 238 RF: 0 Discharge Instructions Additional Instructions: Findings:stomach-- normal colon- medium polyp diverticula Follow up: f/u PCP regarding electrolytes (magnesium was still low today. You did receive IV replacement today) in 1-2 wks DIVERTICULAR DISEASE OVERVIEW ? A diverticulum is a pouch-like structure that can form through points of weakness in the muscular wall of the colon (ie, at points where blood vessels pass through the wall). Diverticulosis affects men and women equally. The risk of diverticular disease increases with age. It occurs throughout the world but is seen more commonly in developed countries. WHAT IS DIVERTICULAR DISEASE? Diverticulosis ? Diverticulosis merely describes the presence of diverticula. Diverticulosis is often found during a test done for other reasons, such as flexible sigmoidoscopy, colonoscopy, or barium enema. Most people with diverticulosis have no symptoms and will remain symptom free for the rest of their lives. A person with diverticulosis may have diverticulitis, or diverticular bleeding. Diverticulitis ? Inflammation of a diverticulum (diverticulitis) occurs when there is thinning and breakdown of the diverticular wall. This may be caused by increased pressure within the colon or by hardened particles of stool, which can become lodged within the diverticulum. The symptoms of diverticulitis depend upon the degree of inflammation present. The most common symptom is pain in the left lower abdomen. Other symptoms can include nausea and vomiting, constipation, diarrhea, and urinary symptoms such as pain or burning when urinating or the frequent need to urinate. Diverticulitis is divided into simple and complicated forms. ?Simple diverticulitis, which accounts for 75 percent of cases, is not associated with complications and typically responds to medical treatment without surgery. ?Complicated diverticulitis occurs in 25 percent of cases and usually requires surgery. Complications associated with diverticulitis can include the following: ?Abscess ? a localized collection of pus ?Fistula ? an abnormal tract between two areas that are not normally connected (eg, bowel and bladder) ?Obstruction ? a blockage of the colon ?Peritonitis ? infection involving the space around the abdominal organ ?Sepsis ? overwhelming body-wide infection that can lead to failure of multiple organs Diverticular bleeding ? Diverticular bleeding occurs when a small artery located within a diverticulum is eroded and bleeds into the colon. Diverticular bleeding usually causes painless bleeding from the rectum. In approximately 50 percent of cases, the person will see maroon or bright red blood with bowel movements. Is bleeding with a bowel movement normal? ? It is not normal to see blood in a bowel movement; this can be a sign of several conditions, most of which are not serious (eg, hemorrhoids) but some of which are serious and require immediate treatment. Anyone who sees blood after a bowel movement should consult with their healthcare provider to determine if further testing or evaluation is needed. DIVERTICULOSIS AND DIVERTICULITIS DIAGNOSIS ? Diverticulosis is often found during tests performed for other reasons. ?Barium enema ? This is an x-ray study that uses barium in an enema to view the outline of the lower intestinal tract. This is an older test and has been largely replaced by computed tomography (CT) scan. ?Flexible sigmoidoscopy ? This is an examination of the inside of the sigmoid colon with a thin, flexible tube that contains a camera. ?Colonoscopy ? This is an examination of the inside of the entire colon. ?CT scan ? A CT scan is often used to diagnose diverticulitis and its complications. If diverticulitis (not just diverticulosis) is suspected, the above three tests should not be used because of the risk of perforation. TREATMENT Diverticulosis ? People with diverticulosis who do not have symptoms do not require treatment. However, most clinicians recommend increasing fiber in the diet, which can help to bulk the stools and possibly prevent the development of new diverticula, diverticulitis, or diverticular bleeding. Fiber is not proven to prevent these conditions in all patients but may help to control recurrent episodes in some. Increase fiber ? Fruits and vegetables are a good source of fiber. Fiber content of packaged foods can be calculated by reading the nutrition label. Seeds and nuts ? Patients with diverticular disease have historically been advised to avoid whole pieces of fiber (such as seeds, corn, and nuts) because of concern that these foods could cause an episode of diverticulitis. However, this belief is completely unproven. We do not suggest that patients with diverticulosis avoid seeds, corn, or nuts. Diverticulitis ? Treatment of diverticulitis depends upon how severe your symptoms are. Home treatment ? If you have mild symptoms of diverticulitis (mild abdominal pain, usually left lower abdomen), you can be treated at home with a clear liquid diet and oral antibiotics. However, if you develop one or more of the following signs or symptoms, you should seek immediate medical attention: ?Temperature >100.1?F (38?C) ?Worsening or severe abdominal pain ?An inability to tolerate fluids Hospital treatment ? If you have moderate to severe symptoms, you may be hospitalized for treatment. During this time, you are not allowed to eat or drink; antibiotics and fluids are given into a vein. If you develop an abscess of the colon, you may require drainage of the abscess (usually performed by placing a drainage tube across the abdominal wall) or by surgically opening the affected area. Surgery ? If you develop a generalized infection in the abdomen (peritonitis), you will usually require an emergency operation. A two-part operation may be necessary in some cases. ?The first operation involves removal of the diseased colon and creation of a colostomy. A colostomy is an opening between the colon and the skin, where a bag is attached to collect waste from the intestine. The lower end of the colon is temporarily sewed closed to allow it to heal. ?Approximately three to six months later, a second operation is performed to reconnect the two parts of the colon and close the opening in the skin. You are then able to empty your bowels through the rectum. Sometimes patients require up to a year to recover from the first operation, depending on how sick they were. In non-emergency situations, the diseased area of the colon can be removed and the two ends of the colon can be reconnected in one operation, without the need for a colostomy. Surgery versus medical therapy ? An operation to remove the diseased area of the colon may be necessary if you do not improve with medical therapy. After an episode of uncomplicated diverticulitis, elective surgery is generally not required as the risk of another attack or requiring emergency surgery is low. However, patients with persistent symptoms attributable to diverticulitis, a history of complicated diverticulitis, or a compromised immune system should be evaluated for possible surgery to prevent another attack. In such patients, another attack has been associated with a higher risk of complications or . Of course, the decision will also depend in part upon your other medical conditions and ability to undergo surgery. In many cases, an elective operation can be performed laparoscopically, using small incisions, rather than the typical vertical (up and down) abdominal incision. Laparoscopic surgery usually allows you to recover more quickly and shortens the hospital stay. After diverticulitis resolves ? After an episode of diverticulitis resolves, if you have not had a recent colonoscopy, the entire length of the colon should be evaluated to determine the extent of disease and to rule out the presence of abnormal lesions such as polyps or cancer. Recommended tests include colonoscopy, barium enema and sigmoidoscopy, or CT colonography. Diverticular bleeding ? Most cases of diverticular bleeding resolve on their own. However, some people will need further testing or treatment to stop bleeding, which may include a colonoscopy, angiography (a treatment that blocks off the bleeding artery), bleeding scan, or surgery. DIVERTICULAR DISEASE PROGNOSIS Diverticulosis ? Over time, diverticulosis may cause no problems or it may cause episodes of bleeding and/or diverticulitis. Approximately 15 to 25 percent of people with diverticulosis will develop diverticulitis, while 5 to 15 percent will develop diverticular bleeding. Diverticulitis ? Approximately 85 percent of people with uncomplicated diverticulitis will respond to medical treatment, while approximately 15 percent of patients will need an operation. After successful treatment for a first attack of diverticulitis, one-third of patients will remain asymptomatic, one-third will have episodic cramps without diverticulitis, and one-third will go on to have a second attack of diverticulitis. The prognosis tends to remain similar following a second attack of diverticulitis. Only 10 percent of people remain symptom-free after a second attack. Subsequent attacks tend to be of similar severity, not increasing in severity as previously believed. High Fiber Diet What is Dietary Fiber? All fiber comes from plants, bushes, jocelyn or trees. Of course, the ones that we eat provide us with fruits, vegetables and grains. There are many different types of fiber but the three that are most important to the health of the body are: Insoluble Fiber This fiber does not dissolve in water, nor is it fermented by the bacteria residing in the colon. Rather, it retains water and in so doing, helps to promote a larger, bulkier and more regular bowel activity. This, in turn, may be important in preventing disorder such as diverticulosis and hemorrhoids, and in sweeping out certain toxins and cancer causing carcinogens. Sources of insoluble fiber are: ? whole grain wheat and other whole grains ? corn bran, including popcorn, unflavored and unsweetened ? nuts and seeds ? potatoes and the skins from most fruits from trees such as apples, bananas and avocados ? many green vegetables such as green beans, zucchini, celery and cauliflower ? some fruit plants such as tomatoes and kiwi Soluble Fiber These fibers are fermented or used by the colon bacteria as a food source or nourishment. When these good bacteria grow and thrive, many health benefits occur in both the colon and the body. Soluble fiber is present in some degree in most edible plant foods, but the ones with the most soluble fiber include: ? legumes such as peas and most beans, including soybeans ? oats, rye and barley ? many fruits such as berries, plums, apples bananas and pears ? certain vegetables such as broccoli and carrots ? most root vegetables ? psyllium husk supplement products Prebiotic Soluble Fiber These are relatively newly discovered soluble plant fibers. The technical name for this fiber is inulin or fructan. When these soluble fibers are fermented by the good colon bacteria, some further significant health benefits have been shown to occur by research in many medical centers. These soluble prebiotic fibers occur in significant amounts in: ? asparagus ? yams ? onions ? garlic ? bananas ? leeks ? agave ? chicory and other root vegetables such as [place] artichokes ? wheat, rye and barley (smaller amounts) Benefits of a High Fiber Diet The health benefits of a high fiber diet, consumed on a regular basis and reaching recommended amounts (below), are now fairly well-defined. There are some additional benefits in the early research stage with the prebiotic soluble fibers. What is now known regarding a high fiber diet include: Bowel Regularity A high fiber diet promotes regularity with a softer, bulkier and regular stool pattern. This decreases the chance of hemorrhoids, diverticulosis and perhaps colon cancer. Cholesterol and Reduced Triglycerides The soluble fibers are the ones that will reduce cholesterol levels when used on a regular basis. Psyllium husk and prebiotic soluble fiber will also reduce cholesterol. They may also reduce the incidence of coronary heart disease. Oats, flax seeds and legumes or beans are the recommended fibers. Colon Polyps and Cancer It is still not certain if a high fiber diet helps prevent colon cancer. Considerable research suggests that this may occur. Certainly it makes sense to increase regularity and so speed the movement of cancer causing carcinogens through the bowel. In addition, reducing a heavy meat diet reduces the bile flow from the liver in a favorable way. This, too, reduces the amount of carcinogens that reach and are manufactured in the colon. Finally, a high fiber diet, including prebiotic soluble fiber, increases the integrity and health of the wall of the colon. The risk of cancer may be reduced. Colon Wall Integrity A high fiber diet changes the bacterial makeup of the colon toward a more favorable balance. For instance, it is known that those people with obesity, diabetes type 2 and inflammatory bowel disease have a predominance of bad bacteria in the colon. This, in turn, may render the bowel wall weak and allow bacteria and, indeed, even toxins to seep through. A high fiber diet with a modest reduction in animal and meat products may return the bacterial makeup to a more positive balance. This, in particular, has been seen when the soluble fiber prebiotics are added to the diet. Blood Sugar Soluble fiber such as in legumes (beans), oats and in prebiotic fibers slows the absorption of blood sugar and so helps regulate the sugar in the blood. Insoluble fiber on a regular basis is associated with reduced risk of type 2 diabetes. Weight Loss High fiber diets are more filling and give a sense of fullness sooner than an animal and meat based diet does. In addition, the soluble prebiotic fibers have been shown to turn off the hunger hormones produced in the wall of the gut and to increase the hormones that give a sense of fullness. Those hormones are made in the wall of the gut. New medical research has shown that the bacterial makeup in the colon in overweight people is abnormal to the extent that they manufacture and absorb almost twice the number of calories through the colon wall as do normals. Prebiotic fibers (below) will help change this hormonal balancein a favorable way. Bacteria and the Function of the Colon The colon finishes the digestive process. Hopefully, the waste products move through in a nice regular manner. Insoluble fibers help this process by retaining water and so producing a bulkier, softer stool, which is easy to pass. The additional role of the colon is to provide a home for an enormous number of micro-organisms, mostly bacteria. Recent research has shown that there are over 1,000 species of bacteria with a total bacterial count ten times the number of cells in the body. These bacteria play a major role in keeping the colon wall itself healthy. In addition, these good bacteria produce a very strong immune system for the body. They significantly increase calcium absorption and bone density. They provide other documented benefits. It is the soluble fibers in the diet that are so effective in stimulating the growth of good colon bacteria. How Much is Enough? The amount of fiber in food is measured in grams. National nutritional authorities recommend the following amounts of dietary fiber daily. Under Age 50 Over Age 50 Men 38 grams 30 grams Women 25 grams 21 grams For a week or so, it is best to tally the amount of fiber you are consuming. Boxed and packaged foods will have the amount of fiber per serving on the nutrition label. Which Fibers and Which Foods are Best? As noted, healthy fiber is only found in plants. The three major categories are whole grains, fruits and vegetables. Whole Grains Wheat, oats, barley, wild or brown rice, amaranth, buckwheat, bulgur, corn, millet, quinoa, rye, sorghum, teff and triticals. By far, wheat, oats and wild or brown rice are most common. Always buy whole grain products. White bread, baked goods and rolls almost always are made from wheat flour. Wheat flour is white because most of the fiber, vitamins and other nutrients have been removed. Try not buy enriched grains. What this means is that simple white flour has had vitamins added to it by the intranet specialist. The word, enriched, implies a good and healthy product. On the contrary, enriched means that most of the fiber has been removed and a few vitamins added. Fruits Fruits come from trees such as apple and pear or from bushes or jocelyn. You should eat a wide variety of fruits, preferably with every meal. In many cases, the skin of a fruit such as apple will contain much of the insoluble fiber while the pulp contains most of the soluble fiber. To the extent possible, buy organic fruits as these will have little or no pesticides. Always wash fruit. Vegetables Eat a wide variety of vegetables. They should be a mainstay of lunch and dinners. Frozen vegetables retain as much nutrition and fiber as fresh vegetables. As with fruit, try to buy organic to reduce any residual pesticide ingestion. Wash fresh vegetables thoroughly. Cruciferous vegetables such as broccoli, [place] sprouts and cauliflower contain certain chemicals such as sulforaphane. This substance has very strong anti-cancer properties and should be eaten frequently. Legumes, Beans, Peas and Soybeans These vegetables have plenty of soluble fiber and should be part of a varied vegetable intake. Beans, in particular, contain a certain type of fiber that may lead to harmless gas or bloating. Nuts and Seeds These are rich sources of fiber and are a good substitute for sweets such as candies and baked sweet goods. While nuts and seeds are rich in fiber, they also contain vegetable fat and so can and do add calories. Read the Labels As noted, fresh and frozen foods are usually better. They have good nutrition and few, if any, chemicals added to them. When buying packaged foods and, in particular grains, look for three things: ? The first word on the label should be whole, such as whole wheat or whole grain. ? Check out the calories and the amount of fiber in a serving. ? How many and what other additives or chemicals are added. Fewer is always better. Do you know what each additive does? Some are added not for the benefit of the hunter guide but rather for manufacturers. These could and do include sugar, artificial flavor, chemicals to prevent oxidation and spoilage, emulsifiers to blend the product. You have to be a auricular detoxification specialist. Fiber Facts, Nuggets and Pearls ? For breakfast you can easily get the day started well by using a high fiber, whole grain cereal. Check the labels. Add fruit such as blueberries and bananas. If you are an egg eater, use whole wheat or grain toast. Adding wheat germ gives you a good fiber kick. ? Always use whole grain or wheat with rolls and sandwiches. Does your fast food store not have them? Perhaps you look elsewhere. Eating an occasional black adam or veggie burger provides variety. ? Snacks should consist of fruit and/or nuts. While nuts are loaded with fiber, they are an energy rich food, meaning they have a lot of calories in a small packet. ? Fruit juices should contain pulp. Clear juices such as clear orange, pear or apple juice contain little fiber and have a lot of fructose. Prune juice is usually high in fiber. ? Homemade soups ? adding fresh or frozen vegetables to a chicken or vegetable stock is a good way to start homemade soup. ? Salads ? adding cooked and then chilled vegetables provide great flavoring to almost any salad. Remember, a longo salad has lots of cooked corn in it. Small slices of apples or oranges and nuts such as chopped walnuts or sliced almonds always adds taste, variety and fiber to almost any salad. ? Fruit ? Try to eat fruit of some type with almost every meal. ? Rethink how you place the various foods on your dinner plate. Reducing the portions of the meat or animal food portion to the side with equal or more portions of vegetables, legumes and fruits portion always allows for more fiber. There was never anything magic about making the meat or animal food portion the main part of the dinner plate. Eating from smaller plates can, over time, trick your mind and intermodal customer service habit of using a dinner plate. Again, there is nothing magic in an 11, 12, or 13 inch dinner plate. Fiber Supplements There are a variety of fiber supplements available on the food or pharmacy shelves. Psyllium This soluble plant fiber has been used in [place] for over 2,000 years. It is a soluble fiber with mucilage in it. This acts to retain a lot of water and also is fermented by colon bacteria. When 7 grams a day are used, it does lower cholesterol. Metamucil in various forms is psyllium. Methyl Cellulose All the cellulose products come from finely ground wood chips which are then treated in a variety of ways such as boiling in acids. Methyl cellulose is an insoluble fiber which does dissolve in water. It is also an emulsifier, meaning it blends oils and water. Citrucel is methyl cellulose (MC). MC may not be appropriate for Crohn?s disease or ulcerative colitis as several medical studies have shown that certain emulsifiers dissolve the mucous lining of the colon in animals prone to Crohn?s disease. This then allows bacteria to invade the underlying tissue. Inulin Inulin is a soluble prebiotic fiber found in many foods and which are fermented mostly in the left side of the colon. It is available in a supplement as generic inulin and in Fiber Choice. Oligofructose FOS These are also prebiotic fibers. They are fermented very quickly in the right side of the colon. Prebiotin This product is a combination of oligofructose, which feeds the bacteria in the right side of the colon and inulin, which does the same in the left side of the colon. There seems to be a benefit for this particular formula based on medical research. Prebiotic Soluble Fiber These may be the healthiest of all the soluble fibers. They grow in many plants and have had a great deal of research done on them in the last 10-15 years. These fibers are found in asparagus, yams and other root vegetables such as chicory, garlic, onion, leeks and in smaller amounts in wheat. This research has shown the following: ? Increase in good and decrease in bad colon bacteria ? Increase calcium absorption and enhanced bone mass ? Enhanced immune system ? Appetite and weight control by changing the hormone appetite signals to the brain ? May decrease colon cancer incidence ? Reduce or correct a leaky colon Eating a wide variety of plant food up to the recommended amount will likely give you enough prebiotic fiber. Supplements such as Prebiotin can be added to the diet. Short Chain Fatty Acids (SCFA) Some rather remarkable research findings have shown that one of the benefits of ingesting a lot of soluble fiber, in particular the prebiotic ones, results in larger amounts of SCFAs in the colon. These SCFAs are made by the good bacteria in the colon such as Bifidobacter and Lactobacillus. These small molecules have been shown to do the following: ? Enhance the health and integrity of the colon wall ? Provide nourishment for the cells that actually line the colon ? Increases the acidity of the colon which is a very real health benefit ? Stabilize blood sugar for diabetics ? Reduce blood cholesterol and triglyceride ? Significantly enhance immunity ? May be a benefit for Crohn?s disease and ulcerative colitis patients Fiber and Gas Everyone has intestinal gas and that is a good thing. It means that bacteria, hopefully the good ones, are thriving. The normal amount of flatus passed each day depends on sex and what is eaten. The normal number of flatus is 10-20 times a day. When the bacteria that make intestinal gases are growing, it also means that other good bacteria are using the same fibers to grow and produce multiple health benefits, including the production of healthy short-chain fatty acids. These substances are produced quietly in the colon and produce many health-related outcomes. Soluble fiber should always be used in a gradual manner. If too much is consumed at any one time, then excess, but harmless, intestinal gas can occur. People with irritable bowel syndrome are particularly prone to bloating and mild cramping. In this instance, soluble fiber in the diet or supplement should be used in small doses and increased gradually. Finally, prebiotic fibers tend to cause the production of short-chain fatty acids which acidify the colon. This, in turn, reduces or stops the growth of bacteria that make the smelly hydrogen sulfide gases that produce noxious flatus. People who consume many vegetables with prebiotics or take a prebiotic fiber supplement often have non-odoriferous flatus. Fiber and Irritable Bowel Syndrome Irritable bowel syndrome (IBS) is one of the most common disorders of the lower digestive tract. The symptoms of IBS can be quite varied. They can be a mix of several symptoms such as constipation, diarrhea, crampy abdominal discomfort, bloating and gas. An attack of IBS can be triggered by emotional tension and anxiety, poor dietary habits and certain medications. It is now known that infections in the intestine can lead to long-term IBS symptoms. Increased amounts of fiber in the diet can help relieve the symptoms of irritable bowel syndrome by producing soft, bulky stools. This helps to normalize the time it takes for the stool to pass through the colon. Recent medical research with newer techniques has shown some surprising and dramatic findings for IBS patients. Specifically, there is a very significant and abnormal shift of bacteria from those that provide health benefits to those bad bacteria that we really do not want in the gut. The technical name for this bad group of bacteria is called Firmicutes. Along with this abnormal bacterial collection, there is a smoldering low-grade inflammation in the gut wall that may contribute to symptoms. The goal for IBS patients should be to gradually increase the soluble dietary fibers in the diet so as to promote the growth of good bacteria and so suppress the bad ones along with the associated inflammation. IBS patients need to be careful of the amount of soluble fiber they consume. The reason for this is that, while the good colon bacteria thrive on these fibers and produce health benefits, other gas-forming bacteria may generate excessive but harmless gas and subsequent bloating. Thus, soluble plant fibers or a dietary prebiotic supplement should be taken in small initial doses and then gradually increased to tolerance. Fiber and Colon Polyps/Cancer Colon cancer is a major health problem. This disease is most common in Western cultures. It is not seen very often in rural cultures where the diet is mostly plant based. Usually, colon cancer starts out as a colon polyp, a benign mushroom-shaped growth. In time it grows, and in some people it becomes cancerous. Colon cancer is usually always curable if polyps are removed when found or if surgery is performed at an early stage. It is now known that people can inherit the risk of developing colon cancer, but diet is important, too. As noted, there is a very low rate of colon cancer in residents of countries where grains are unprocessed and retain their fiber. It seems that in the [place] world, cancer-containing agents (carcinogens) remain in contact with the colon wall for a longer time and in higher concentrations. So, a large bulky stool may act to dilute these carcinogens by moving them through the bowel more quickly. Less carcinogenic exposure to the colon may mean fewer colon polyps and less cancer. A very current review of the entire world?s literature on the effect of fiber on colon polyps and cancer prevention has shown rather clearly that for every 10 grams of fiber added to the diet, there is a 10% reduction in incidence of colon cancer. So the recommended 30 gram fiber diet would result in a 30% less chance of getting these tumors. There are also substances produced in the colon by the good bacteria that seem to retard certain pre-cancer factors from developing. They are called short-chain fatty acids (SCFA). See above for description of SCFAs. A high fiber diet increases these substances. So, the combination of dietary fiber and the production of short-chain fatty acids have a clear health benefit. Fiber and Diverticulosis Prolonged, vigorous contraction of the colon over a long period of time may result in diverticulosis. This increased pressure causes small and, eventually, larger ballooning pockets to form. These pockets by themselves cause no problem. However, sometimes they become infected (diverticulitis) or even break open (perforate) causing infection or inflammation within the abdomen (peritonitis). A high fiber diet increases the bulk in the stool and thereby reduces the pressure within the colon. By so doing, the formation of pockets may be reduced or possibly even stopped. In the past, many physicians were fearful that seeds as in tomatoes, nuts or berries were harmful and could get inside these pockets and rattle around, causing damage. We now know that this has never been the case and that these foods contain lots of fiber and are actually beneficial for diverticulosis patients. Certain bulking agents such as psyllium are traditional types of bulk producing supplements. Psyllium is a soluble fiber. Combining it with insoluble fiber as in wheat bran or corn bran (no gluten) can enhance this bulking effect even more. A product containing a prebiotic, psyllium and wheat bran is probably a very good combination for bowel regularity. Prebiotin Regularity/Diverticulosis is one such product. Please call if you develop: fevers >101.5 Nausea or Vomiting Abdominal pain that is not transient DAY SURGERY UNIT POST COLONOSCOPY INSTRUCTIONS 1. Because there will be medication in your system for the next 24 hours, you may feel a little sleepy. Your coordination will be affected. Therefore: a. Do not drive or operate dangerous equipment for 24 hours. b. Do not drink alcohol beverages for 24 hours (not even beer). c. Plan to go home and rest for the day. 2. Generally there are no restrictions on your activity after a day or so has gone by, but you may feel a bit fatigued for a few days. 3 After you arrive home you may have a light meal and return to a normal diet as you can tolerate it without feeling sick to your stomach. 4. After surgery, you may feel pain or discomfort. This should be only transient, but if it persists please contact your doctor. 5. If there are any questions regarding the findings of your procedure, please feel free to contact your doctor. 6. If you are unable to contact your doctor with a problem, contact the hospital at [phone]. 7. Continue all your regular medications unless directed otherwise. I understand the above instructions and have no questions. Signature of Patient or Responsible Adult Escort Date/Time Name of Responsible Adult Escort Signature of Nurse Date/Time Activity:: no lifting over 20#'s or strenuous acitivity x 24 hrs Diet:: small light meals x 24 hrs Discharge Orders Discharge Orders: Discharge Order (Routine); Ordered 04/26/20 Ordered By: Negrita Pozo DS: Diagnosis Discharge Diagnosis (1) Hypomagnesemia: Status: Resolved (2) Infectious diarrhea in adult patient: Status: Acute (3) Diverticula of colon: Status: Acute (4) Adenomatous colon polyp: Status: Acute
[2020-04-26 09:51] VITALS: BP 122/66; PULSE 74; RESP 16; TEMP 36.6; O2SAT 100
[2020-04-26 10:24] LABS: Abs Immature Grans 0.01 10^3/uL (0.0-0.06); Absolute Basophil Count 0.05 10^3/uL (0.0-0.2); Absolute Eosinophil Count 0.12 10^3/uL (0.0-0.7); Absolute Lymphocyte Count 2.12 10^3/uL (1.2-3.4); Absolute Monocyte Count 0.39 10^3/uL (0.1-0.8); Absolute Neutrophil Count 3.39 10^3/uL (1.2-6.7); Basophils % 0.8; HCT 29.3 % (36.0-46.0); HGB 9.6 g/dL (11.2-15.7); Immature Grans % 0.2; Lymphocytes % 34.9; MCHC 32.8 % (32.0-36.0); MCV 94.5 fL (80-95); MPV 9.4 fL (8.0-11.0); Monocytes % 6.4; Neutrophils % 55.7; Nucleated RBC 0 %; Platelet Count 282 10^3/uL (130-400); RDW 13.4 % (11.7-14.6); RDW-SD 46.2 fL; WBC 6.08 10^3/uL (4.4-10.8)
== END 2020-04-26 10:49 | disposition home or self-care (01) ==
PROVIDERS: PCP Family Medicine; Visit Provider Surgery
PROC: (CPT 45384; principal; 2020-04-26 07:30)
DX: D50.9 Iron deficiency anemia, unspecified (principal); K31.89 Other diseases of stomach and duodenum; K21.00 Gastro-esophageal reflux disease with esophagitis, without bleeding; K63.5 Polyp of colon; K57.30 Diverticulosis of large intestine without perforation or abscess without bleeding
CPT/HCPCS: 45384; 43239; 80048; 88305; 83735; 85025; J2001; J3475

== ENCOUNTER 2020-05-05 11:30 | Outpatient (RCR) | payer BC, SELFPAY ==
--- OUTSIDE RECORDS SUMMARY | 2020-04-28 01:44 | XMS_ITS ---
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 ? Active ? 701537 RxNorm Augmentin ? ? Active ? Cat Dander ? ? Active ? 875476 RxNorm House Dust ? ? Active ? 317823 RxNorm Mold ? ? Active ? 45670 RxNorm Oxybutynin ? ? Active ? Medications Name Status Start Date Stop Date ? ? albuterol sulfate 2.5 mg/3 mL (0.083 %) Active ? Not available solution for nebulization amoxicillin 500 mg capsule Completed ? 06/13 Anoro Ellipta 62.5 mcg-25 mcg/actuation Completed ? 03/21/2019 powder for inhalation atorvastatin 10 mg tablet Active ? Not av ailable bupropion HCl XL 150 mg 24 hr tablet, extended release Completed ? 06/13/2018 Take 1 tablet every day by oral route. Caltrate with Vitamin D3 600 mg (1,500 mg)-800 unit tablet Activ e ? Not available Take 1 tablet every day by oral route. cetirizine 10 mg tablet Active ? Not avai lable Chantix Continuing Month Box 1 mg Completed ? 01/03/2019 tablet Chantix Starting Month Box 0.5 mg Completed ? 01/03/2019 (11)-1 mg (42) tablets in dose pack clotrimazole-betamethasone 1 %-0.05 % lotion Active ? Not available APPLY TO THE AFFECTED AREA(S) BY TOPICA L ROUTE 2 TIMES PER DAY IN THEMORNING AND EVENING clotrimazole-betamethasone 1 %-0.05 % Completed ? 01/03/2019 topical cream doxycycline hyclate 100 mg capsule Completed ? 06/13/2018 duloxetine 30 mg capsule,delayed Completed ? 11/03/2019 release duloxetine 60 mg capsule,delayed Active ? Not available release estradiol 0.5 mg tablet Active ? Not avai lable fluticasone propionate 50 mcg/actuation Completed ? 01/03/2019 nasal spray,suspension gabapentin 300 mg capsule Completed ? 2019 gabapentin 600 mg tablet Active ? Not jackelyn ilable hydrochlorothiazide 12.5 mg tablet Active ? Not available ibuprofen 800 mg tablet Completed ? 01/04/20 19 losartan 50 mg tablet Active ? Not availa ble losartan 50 mg-hydrochlorothiazide 12.5 Active ? Not available mg tablet meloxicam 15 mg tablet Completed ? 0 methylphenidate 10 mg tablet Active ? Not available metoprolol succinate ER 25 mg Active ? No t available tablet,extended release 24 hr montelukast 10 mg tablet Active ? Not jackelyn ilable nicotine 14 mg/24 hr daily transdermal patch Completed ? 06/13/2018 Apply 1 patch every day by transdermal route. omeprazole 40 mg capsule,delayed Active ? Not available release ondansetron 4 mg disintegrating tablet Active ? Not available ondansetron HCl 4 mg tablet Completed ? 10/06 Nilam Brush [facility] spacer Active ? N ot available oxybutynin chloride ER 10 mg Completed ? tablet,extended release 24 hr penicillin V potassium 500 mg tablet Completed ? 01/03/2019 prednisone 20 mg tablet Completed ? 06/13/19 19 ProAir HFA 90 mcg/actuation aerosol Active ? Not available inhaler ranitidine 300 mg capsule Completed ? 2018 Take 1 capsule every day by oral route at bedtime. ranitidine 300 mg tablet Completed ? 019 Spiriva with HandiHaler 18 mcg and inhalation capsules Completed ? 12/05/2018 Inhale 1 capsule every day by inhalation route. Stiolto Respimat 2.5 mcg-2.5 Active ? Not available mcg/actuation solution for inhalation sulfamethoxazole 800 mg-trimethoprim Active ? Not available 160 mg tablet Symbicort 160 mcg-4.5 mcg/actuation HFA Active ? Not available aerosol inhaler valacyclovir 1 gram tablet Active ? Not a vailable Vitamin D3 50 mcg (2,000 unit) capsule Active ? Not available Take 1 capsule every day by oral route. Problems Name Status Onset Date Source ? Mycosis Active 04/24/2018 ? Vitamin D Deficiency Active 04/24/2018 ? Anemia Active 04/24/2018 ? Major Depressive Disorder Active 04/24/2018 ? Essential Hypertension Active 04/24/2018 ? Allergic Rhinitis Active 04/24/2018 ? Chronic Obstructive Lung Disease Active 04/24/2018 ? Gastritis Active 04/24/2018 ? Obstructive Sleep Apnea Syndrome Active 03/21/2019 ? Procedures Date Name Performed by ? 04/26/2018 LDCT, Chest, for Lung Cancer Xray [facility] [address] [place], [place] [address] ([address]) 02/21/2019 LDCT, Chest, for Lung Cancer Xray [facility] [address] [place], [place] [address] ([facility]) 08/01/2019 CT, Chest, W/o Contrast Xray [facility] [address] [place], [place] [address] ([facility]) 11/03/2019 CT, Chest, W/o Contrast [facility]ray [facility] [address] [place] [address] (Work [facility]) 11/03/2019 CT, Chest, W/o Contrast [facility]ray [facility] [address] [place] [address] (Work Place) 11/13/2019 LDCT, Chest, for Lung Cancer Xray [facility] [address] [place], [place] [address] (Work [address]) Results Lab Results None recorded. Past Encounters 11/13/2019 Chronic Obstructive Lung Disease; Ex-smo ker Katherine Barron MD: [address] [place] [address] Dr eron Robison , [place] [phone], Ph. 11/03/2019 Chronic Obstructive Lung Disease; Obstru ctive Sleep Apnea Syndrome; Tomography - Chest Abnormal Katherine Barron MD: [address] [place] [address] Dr eron Robison , [place] [phone], Ph. 08/01/2019 Chronic Obstructive Lung Disease; Obstru ctive Sleep Apnea Syndrome Katherine Barron MD: [address] [place] [address] Dr eron Robison [address] [place] [phone], Ph. 03/21/2019 Chronic Obstructive Lung Disease; Obstru ctive Sleep Apnea Syndrome Katherine Barron MD: [address] [place] [address] Dr eron Robison [address] [place] [phone], Ph. 02/21/2019 Chronic Obstructive Lung Disease; Obstru ctive Sleep Apnea Syndrome; Ex-smoker Katherine Barron MD: [address] [place] [address] Dr eron Robison [address] [place] [phone], Ph. 01/03/2019 Chronic Obstructive Lung Disease; Obstru ctive Sleep Apnea Syndrome Katherine Barron MD: [address] [place] [address] Dr eron Robison [address] [place] [phone], Ph. Social History Tobacco Smoking Status Former Smoker Notes: quit Vaccine List Vaccine Type influenza, intradermal, quadrivalent, pr eservative free 02/05/2018 pneumococcal polysaccharide PPV23 02/16/2019 Plan of Care Reminders Provider Appointments None ? ? recorded. Lab None ? ? recorded. Referral None ? ? recorded. Procedures None ? ? recorded. Surgeries None ? ? recorded. Imaging None ? ? recorded. Vitals 11/13/2019 01:00PM Office 15 Height Weight BMI 165.1 cm 117 kg 42.9 kg/m2 11/03/2019 11:30AM Office 30 Height Weight BMI Blood Pressure 165.1 cm 117 kg 42.9 kg/m2 144/72 mm[Hg] 08/01/2019 10:15AM Office 15 Height 165.1 cm 03/21/2019 11:15AM Office 15 Height Weight BMI Blood Pressure 165.1 cm 117.5 kg 43.1 kg/m2 130/74 mm[Hg] 02/21/2019 10:15AM Office 30 Height Weight BMI Blood Pressure 165.1 cm 118.3 kg 43.4 kg/m2 140/80 mm[Hg] 01/03/2019 09:30AM Office 30 Height Weight BMI Blood Pressure 165.1 cm 116.9 kg 42.9 kg/m2 118/70 mm[Hg] 06/13/2018 09:30AM Office 30 Height Weight BMI Blood Pressure 165.1 cm 110.6 kg 40.6 kg/m2 128/68 mm[Hg] 04/26/2018 02:45PM New Patient 45 Height Weight BMI Blood Pressure 165.1 cm 106 kg 38.9 kg/m2 138/90 mm[Hg]
[2020-04-28] MEDS: SODIUM FER. GLUC./SUC. 125 MG in Normal Saline 100 ML 110 MG IVPB (11:23)
[2020-04-28] MEDS: Normal Saline Flush 10 ML SYR IVP (11:23)
[2020-05-05] MEDS: SODIUM FER. GLUC./SUC. 125 MG in Normal Saline 100 ML 110 MG IVPB (11:48)
[2020-05-05] MEDS: Normal Saline Flush 10 ML SYR IVP (11:48)
== END 2020-05-06 23:59 | disposition home or self-care (01) ==
LOC: INF 11:30
PROVIDERS: PCP Family Medicine; Visit Provider Family Medicine
DX: D50.9 Iron deficiency anemia, unspecified (principal)
CPT/HCPCS: 96365; J3490

== ENCOUNTER 2020-05-19 04:02 | Outpatient (RCR) | payer BC, SELFPAY ==
[2020-05-12] MEDS: Normal Saline Flush 10 ML SYR IVP (12:02)
[2020-05-12] MEDS: SODIUM FER. GLUC./SUC. 125 MG in Normal Saline 100 ML 110 MG IVPB (12:02)
[2020-05-19] MEDS: Normal Saline Flush 10 ML SYR IVP (11:27)
[2020-05-19] MEDS: SODIUM FER. GLUC./SUC. 125 MG in Normal Saline 100 ML 110 MG IVPB (11:30)
[2020-05-19 12:56] LABS: Abs Immature Grans 0.03 10^3/uL (0.0-0.06); Absolute Basophil Count 0.06 10^3/uL (0.0-0.2); Absolute Eosinophil Count 0.06 10^3/uL (0.0-0.7); Absolute Lymphocyte Count 2.29 10^3/uL (1.2-3.4); Absolute Monocyte Count 0.27 10^3/uL (0.1-0.8); Absolute Neutrophil Count 2.78 10^3/uL (1.2-6.7); Basophils % 1.1; Eosinophils % 1.1; HCT 29.7 % (36.0-46.0); HGB 9.7 g/dL (11.2-15.7); Immature Grans % 0.5; Lymphocytes % 41.7; MCH 30.7 pg (27.0-33.0); MCHC 32.7 % (32.0-36.0); MPV 8.8 fL (8.0-11.0); Monocytes % 4.9; Neutrophils % 50.7; Nucleated RBC 0 %; Platelet Count 218 10^3/uL (130-400); RBC 3.16 10^6/uL (3.93-5.22); RDW 12.9 % (11.7-14.6); RDW-SD 44.5 fL; WBC 5.49 10^3/uL (4.4-10.8)
[2020-05-19 13:11] LABS: Iron 154 ug/dL (50-170)
[2020-05-19 13:25] LABS: Ferritin 225 ng/mL (8-252)
== END 2020-06-06 23:59 | disposition home or self-care (01) ==
LOC: INF 04:02
PROVIDERS: PCP Family Medicine; Visit Provider Family Medicine
DX: D50.9 Iron deficiency anemia, unspecified (principal)
CPT/HCPCS: 36415; 96365; 82728; 83540; 85025; J2916

== ENCOUNTER 2020-09-02 21:48 | Outpatient (REF) | payer BC, SELFPAY ==
[2020-09-02 22:47] LABS: Hemoglobin A1C 5.9 % (<5.7)
[2020-09-02 22:48] LABS: Iron 60 ug/dL (50-170)
[2020-09-02 22:58] LABS: ALT 38 U/L (14-59); AST 20 U/L (15-37); Albumin 4.1 g/dL (3.4-5.0); Alkaline Phosphatase 52 U/L (46-116); BUN 28 mg/dL (7-18); Bilirubin, Total 0.2 mg/dL (0.2-1.0); CREATININE 1.1 mg/dL (0.55-1.02); Calcium 9.3 mg/dL (8.5-10.1); Chloride 102 mmol/L (98-107); Estimated GFR 50.17 (mL/min/1.73m2); Ferritin 237 ng/mL (8-252); Glucose 96 mg/dL (74-106); Sodium 142 mmol/L (136-145); TSH (W/Ref FT4) 2.04 uIU/mL (0.36-3.74); Total Protein 7.8 g/dL (6.4-8.2)
== END 2020-09-02 21:49 | disposition home or self-care (01) ==
LOC: LBN 21:48
PROVIDERS: PCP Family Medicine; Visit Provider Family Medicine
DX: Z00.00 Encounter for general adult medical examination without abnormal findings (principal); D64.9 Anemia, unspecified; D50.9 Iron deficiency anemia, unspecified; E11.9 Type 2 diabetes mellitus without complications; E04.1 Nontoxic single thyroid nodule; E87.6 Hypokalemia
CPT/HCPCS: 80053; 82728; 83036; 83540; 84443

== ENCOUNTER 2020-09-10 16:21 | Outpatient (REF) | payer BC, SELFPAY ==
[2020-09-12 22:55] LABS: Campylobacter PCR Negative (Negative); Salmonella PCR Negative (Negative); Shiga Toxin PCR Negative (Negative); Shigella/Enteroinvasive Ecoli Negative (Negative)
== END 2020-09-10 16:22 | disposition home or self-care (01) ==
LOC: LBN 16:21
PROVIDERS: PCP Family Medicine; Visit Provider Family Medicine
DX: R19.7 Diarrhea, unspecified (principal); A04.5 Campylobacter enteritis
CPT/HCPCS: 87329; 87505

== ENCOUNTER 2020-09-17 04:11 | Outpatient (CLI) | payer BC, SELFPAY ==
--- NOTE | 2020-09-17 11:40 | DI.MAMMO_ITS ---
Exam(s) MAMMO SCREENING EXAM: MAMMO SCREENING CLINICAL HISTORY: screening,z12.39 TECHNIQUE: Mammograms were interpreted according to the usual protocol including computer analysis w [employer] system, tomosynthesis and C-view imaging. COMPARISON: 2010 through 2018 FINDINGS: The breasts are composed of scattered fibroglandular densities, Breast Density category B. Multiple benign-appearing scattered nodules are again noted bilaterally. No suspicious masses or rosa picious microcalcifications are seen. No skin thickening or abnormal axillary lymph nodes are seen. There has been no significant change from prior exams. IMPRESSION: BI-RADS Cat 2 - Benign Findings Yearly screening mammography is recommended. Breast Density - Category B, scattered fibroglandular densities. A negative radiographic report should not delay biopsy if a dominant or clinically suspicious mass is present. Up to ten percent of cancers are not identified on mammography. A negative report may reinforce clinical impression. Adenosis and dense breasts may obscure an underlying neoplasm. False positive reports average 6 to 10%. Patient will receive a letter notifying them of these results.
== END 2020-09-17 04:31 ==
PROVIDERS: PCP Family Medicine; Visit Provider Family Medicine
DX: Z12.31 Encounter for screening mammogram for malignant neoplasm of breast (principal); N63.0 Unspecified lump in unspecified breast
CPT/HCPCS: 77063; 77067

== ENCOUNTER 2020-10-12 16:46 | Outpatient (CLI) | payer BC, SELFPAY ==
--- NOTE | 2020-10-12 16:45 | RT.EKG_ITS ---
APPROVED REPORT Exam: Resting ECG Reason for Exam: tachycardia Patient Location: O HR:198 bpm ECG Measurements Heart Rate 198 AXIS CO [id number] P 0 QRSd 72 QRS 49 QT 268 T 232 QTc 486 Conclusion Supraventricular tachycardia...V-rate>(220-age), QRSd<120 Repolarization abnormality, prob rate related...ST dep, T neg, tachycardia
== END 2020-10-12 16:47 | disposition home or self-care (01) ==
LOC: DI.CM 16:47
PROVIDERS: PCP Family Medicine; Visit Provider Nurse Practitioner Family
DX: R00.0 Tachycardia, unspecified (principal)
CPT/HCPCS: 93010

== ENCOUNTER 2020-10-12 17:28 | Inpatient (IN) | payer BC, SELFPAY ==
[2020-10-12] VITALS (40 sets, daily range): BP systolic 117–142; BP diastolic 62–94; PULSE 64–187; RESP 12–30; TEMP 36–36.2; O2SAT 96–100
--- NOTE | 2020-10-12 17:15 | RT.EKG_ITS ---
APPROVED REPORT Exam: Resting ECG Reason for Exam: palpitations Patient Location: E HR:91 bpm ECG Measurements Heart Rate 91 AXIS NC 143 P 47 QRSd 85 QRS 1 QT 378 T 21 QTc 465 Conclusion Sinus rhythm...normal P axis, V-rate 60- 99 Physician: Sinus rhythm, rate 91, intervals normal, no significant ST elevations or depressions. No evidence of STEMI.
--- NOTE | 2020-10-12 17:30 | DI.CT_ITS ---
Exam(s) CT CHEST PE CTA EXAM: CT CHEST PE CTA CLINICAL HISTORY: svt, fmhx of PE's. TECHNIQUE: Imaging Protocol: Axial CT angiography was performed with multi-slice acquisition and mu lti-planar and/or 3D reconstructions. CONTRAST MATERIAL: Intravenous: Omnipaque 350 Contrast volume:100 mL COMPARISON: CT CT CHEST WO from 11/11/2019 FINDINGS: Tracheobronchial tree: Patent where visualized. Pulmonary parenchyma: No consolidation or dominant measurable mass. [id number] centrilobular em physema. Dependent atelectasis. Pulmonary Arteries: No evidence of filling defect to suggest pulmonary emboli. Mediastinum and Yolanda: No dominant adenopathy or fluid collection. Visualized thyroid gland: There is a 9 mm nodule in the right lobe of the thyroid gland. No further f ollow-up is recommended. Pleura: No effusion or pneumothorax. Heart: The heart is not dilated. No coronary artery calcifications are seen. No pericardial effusion. Aorta: Thoracic aorta non-dilated. Minimal atherosclerosis. No dissection. Upper abdomen: Unremarkable. Soft tissues: Unremarkable. Bones: Findings of partial resection of the right 6th rib are again noted. Degenerative changes are s een in the spine. Old bilateral rib fractures are seen. IMPRESSION: No evidence of pulmonary embolism, thoracic aortic dissection or aneurysm. RADIATION DOSE DELIVERED: 573.84mGy.cm Total DLP DATA REPOSITORY: All CT scans at this facility are submitted to the National Radiology Data Registry (NRDR) Dose Index Registry (DIR) with the [employer] (ACR). RADIATION OPTIMIZATION: All CT scans at this facility use at least one of these dose optimization te chniques: automated exposure control; mA and/or kV adjustment per patient size (includes targeted exa ms where dose is matched to clinical indication); or iterative reconstruction.
[2020-10-12] MEDS: Normal Saline 1,000 ML 1000 ML IV (17:45)
--- NOTE | 2020-10-12 17:45 | RT.EKG_ITS ---
APPROVED REPORT Exam: Resting ECG Reason for Exam: tachycardia Patient Location: E HR:89 bpm ECG Measurements Heart Rate 89 AXIS DE 146 P 50 QRSd 95 QRS 2 QT 387 T 27 QTc 471 Conclusion Sinus rhythm...normal P axis, V-rate 60- 99 Physician: Sinus rhythm, rate 89, intervals normal, no significant ST elevation or depression. Inverted T wave in V1. No evidence of STEMI.
[2020-10-12 17:56] LABS: Abs Immature Grans 0.04 10^3/uL (0.0-0.06); Absolute Basophil Count 0.05 10^3/uL (0.0-0.2); Absolute Eosinophil Count 0.08 10^3/uL (0.0-0.7); Absolute Lymphocyte Count 2.14 10^3/uL (1.2-3.4); Absolute Neutrophil Count 3.83 10^3/uL (1.2-6.7); Basophils % 0.8; Eosinophils % 1.2; HCT 30.8 % (36.0-46.0); HGB 10.2 g/dL (11.2-15.7); Immature Grans % 0.6; Lymphocytes % 32.7; MCH 31.3 pg (27.0-33.0); MCHC 33.1 % (32.0-36.0); MCV 94.5 fL (80-95); MPV 9.1 fL (8.0-11.0); Monocytes % 6.1; Neutrophils % 58.6; Nucleated RBC 0 %; Platelet Count 304 10^3/uL (130-400); RBC 3.26 10^6/uL (3.93-5.22); RDW 12.9 % (11.7-14.6); RDW-SD 44.3 fL; WBC 6.54 10^3/uL (4.4-10.8)
[2020-10-12] MEDS: dilTIAZem 125 MG in Normal Saline 100 ML 10 MG IV (18:00)
[2020-10-12 18:16] LABS: PTT Activated 22.3 sec (21.0-27.5); Prothrombin Time 10.4 sec (9.3-11.0)
[2020-10-12 18:21] LABS: ALT 23 U/L (14-59); AST 15 U/L (15-37); Albumin 4.1 g/dL (3.4-5.0); Alkaline Phosphatase 59 U/L (46-116); Anion Gap 9.5 mmol/L (3-11); BUN 37 mg/dL (7-18); Bilirubin, Total 0.2 mg/dL (0.2-1.0); CO2 30.5 mmol/L (21.0-32.0); CREATININE 1.2 mg/dL (0.55-1.02); Calcium 9.7 mg/dL (8.5-10.1); Chloride 102 mmol/L (98-107); Estimated GFR 45.37 (mL/min/1.73m2); Glucose 149 mg/dL (74-106); NT-proBNP 311 pg/mL (<300); Potassium 3.6 mmol/L (3.5-5.1); Sodium 142 mmol/L (136-145)
[2020-10-12 18:24] LABS: Troponin I < 0.05 ng/mL (<0.06)
[2020-10-12 18:33] LABS: Magnesium 1.4 mg/dL (1.8-2.4)
[2020-10-12] MEDS: Normal Saline 1,000 ML 150 ML IV (18:50)
[2020-10-12] MEDS: Omnipaque 350 MG/ML 100 ML BTL IJ (18:53)
[2020-10-12 19:03] LABS: Bilirubin Negative (Negative); Blood Negative (Negative); Clarity Clear (Clear); Glucose Negative (Negative); Ketones Negative (Negative); Leukocyte Esterase Negative (Negative); Nitrite Negative (Negative); Specific Gravity 1.025 (1.005-1.025); Urobilinogen 0.2 EU/dL (Up TO 0.2); pH 5.5 (5-8)
[2020-10-12] MEDS: Normal Saline - Diluent 50 ML VIAL IV (19:30)
[2020-10-12] MEDS: Normal Saline Flush 10 ML SYR IVP (19:31)
--- NOTE | 2020-10-12 20:23 | W.ED.GENAD ---
Discharge Plan Disposition Patient Disposition: [facility] INPATIENT Condition: Improving Discharge Details Clinical Impression: SVT (supraventricular tachycardia), Hypomagnesemia, Pneumonia Primary Care Provider: Nicole Hubbard ED Provider: Michele Sapp Home Meds and New Rx's Prescriptions: No Action cholecalciferol (vitamin D3) 2,000 unit capsule 2,000 unit PO DAILY RF: 0 atorvastatin [Lipitor] 10 mg tablet 10 mg PO DAILY Qty: 90 RF: 12 budesonide-formoterol [Symbicort] 160-4.5 mcg/actuation HFA aerosol inhaler 2 puff Inhalation BID Qty: 3 RF: 11 duloxetine 60 mg capsule,delayed release(DR/EC) 60 mg PO DAILY Qty: 90 RF: 11 montelukast [Singulair] 10 mg tablet 10 mg PO DAILY Qty: 90 RF: 12 Stiolto Respimat 2.5-2.5 mcg/actuation mist 2 puff INHALATION DAILY Qty: 12 RF: 5 hydrochlorothiazide 12.5 mg tablet 12.5 mg PO DAILY RF: 0 (DME) Aerochamber MV Spacer See Rx Instructions .ROUTE .MEDSUPPLY Qty: 1 RF: 0 losartan 50 mg tablet 50 mg PO DAILY Qty: 90 RF: 5 estradiol [Estrace] 0.5 mg tablet 0.5 mg PO EVERY OTHER DAY Qty: 90 RF: 12 methylphenidate HCl 10 mg tablet 20 mg PO DAILY MDD 2 Qty: 60 RF: 0 metoprolol succinate 25 mg tablet extended release 24 hr 25 mg PO DAILY Qty: 90 RF: 4 estradiol [Yuvafem] 10 mcg tablet 10 mcg vaginal .3 times weekly Qty: 36 RF: 4 (DME) EasiVent Mask Large 1 EACH device 1 ea Miscellaneous DIRECTED RF: 0 calcium carbonate-vitamin D3 [Caltrate with Vitamin D3] 1 EACH tablet 1 tab PO DAILY RF: 0 albuterol sulfate 2.5 mg /3 mL (0.083 %) solution for nebulization 2.5 mg IH QID PRNRF: 0 omeprazole 40 mg capsule,delayed release(DR/EC) 40 mg PO DAILY Qty: 90 RF: 5 folic acid 1 mg tablet 1 mg PO DAILY Qty: 90 RF: 4 valacyclovir [Valtrex] 1 gram tablet 1,000 mg PO DAILY Qty: 90 RF: 12 cetirizine [Zyrtec] 10 mg tablet 10 mg PO DAILY Qty: 90 RF: 11 clotrimazole-betamethasone 1-0.05 % cream 1 applic Topical DAILY PRN (Reason: rash) Qty: 45 RF: 5 magnesium oxide 400 mg (241.3 mg magnesium) tablet 900 mg PO BID RF: 0 Medical Decision Making 64-year-old female with a past medical history of hypomagnesemia, asthma, COPD PD, family history of pulmonary embolism/provoked, hypertension, high cholesterol, and a previous episode of SVT once in the past, who presents today for evaluation of SVT. Patient was feeling well today, felt slightly short of breath, went to see the urgent care and at that time was noted to have a heart rate of 1 90-200, blood pressure was stable. EMS was called. Upon EMS arrival will need a started 150 mg of amiodarone. The patient was then brought to the ER for further management. By the time she arrived in the ER patient's heart rate had normalized. She does admit to chest pain initially when his heart rate was high, and the pain has mildly improved as the rate improved. Currently aside from mild chest pain patient has no other complaints. She denies missing any of her home meds. She denies any other complaints. She denies any long trips surgeries or procedures. She denies any nausea vomiting or diarrhea. No other complaints. On initial assessment on patient arrival patient demonstrated sinus rhythm. Unfortunately shortly after she arrived she again went into SVT, narrow complex. Otherwise regular. Modified Valsalva technique was performed and had complete resolution of her SVT. Unfortunately about 10 minutes after this a repeat episode occurred again getting up into the 180s, and a modified Valsalva technique was again performed and she normalized and her heart rate. A diltiazem drip was started. Differential includes PE, dehydration, idiopathic. We will gently rehydrate, monitor closely, get a CTA, and reassess 8:53pm Patient's laboratory work-up has returned, no significant white count, hemoglobin 10.2. Electrolytes stable. Creatinine 1.2, magnesium is low at 1.4, troponin normal. TSH normal. Urinalysis normal. CTA negative for PE per virtual radiology, questionable atelectasis or pneumonia in the left lower lung base. Patient does admit to a mild cough now on reassessment. Patient has remained stable after we were able to correct the recurrent SVT and to keep her on the diltiazem drip. We are replenishing her magnesium, we will start ceftriaxone and doxycycline. I discussed the case with the hospitalist Dr. Granados, he agrees with the assessment and plan. The patient will be admitted to the ICU. I have extensively reviewed the treatment plan with the patient. I have addressed all patient concerns at this time. I have also discussed the plan with the admitting physician and they agree with the current assessment and plan and have agreed to assume responsibility for the patient. All parties demonstrate verbal understanding and agreement with our assessment and plan at this time. The documentation in this chart was dictated using [employer] dictation software. Please excuse any dictation errors. EKG 17: 37 Sinus rhythm, rate 91, intervals normal, no significant ST elevations or depressions. No evidence of STEMI. EKG 17: 57 Sinus rhythm, rate 89, intervals normal, no significant ST elevation or depression. Inverted T wave in V1. No evidence of STEMI. FINDINGS: Pulmonary arteries: No evidence of pulmonary embolus to the segmental level. Aorta: No aneurysm of the aorta. No dissection of the aorta. Lungs: Mild panlobular emphysematous changes Mild opacities in the left lower lobe may represent atelectasis or pneumonia.. Pleural spaces: Unremarkable. No pneumothorax. No pleural effusion. Heart: Unremarkable. No cardiomegaly. No pericardial effusion. Lymph nodes: Unremarkable. No enlarged lymph nodes. Bones/joints: Healed bilateral rib fractures. Defects in the posterior right ribs may be due to prior surgery Soft tissues: Unremarkable. MPRESSION: 1. No evidence of pulmonary embolus to the segmental level. 2. Mild opacities in the left lower lobe may represent atelectasis or pneumonia.. Thank you for allowing us to participate in the care of your patient. Dictated and Authenticated by: Yesi Collins MD 10/12/2020 8:25 PM Eastern Time ([place] & [place]) HPI General Date/Time Provider Initiated Documentation: 10/12/20 17:36. HPI Narrative: 64-year-old female with a past medical history of hypomagnesemia, asthma, COPD PD, family history of pulmonary embolism/provoked, hypertension, high cholesterol, and a previous episode of SVT once in the past, who presents today for evaluation of SVT. Patient was feeling well today, felt slightly short of breath, went to see the urgent care and at that time was noted to have a heart rate of 1 90-200, blood pressure was stable. EMS was called. Upon EMS arrival will need a started 150 mg of amiodarone. The patient was then brought to the ER for further management. By the time she arrived in the ER patient's heart rate had normalized. She does admit to chest pain initially when his heart rate was high, and the pain has mildly improved as the rate improved. Currently aside from mild chest pain patient has no other complaints. She denies missing any of her home meds. She denies any other complaints. She denies any long trips surgeries or procedures. She denies any nausea vomiting or diarrhea. No other complaints. Related Data Home Medications Medication Instructions Recorded Confirmed EasiVent Mask Large ea 09/18/12 10/12/20 calcium carbonate-vitamin D3 1 tab PO DAILY 09/18/12 10/12/20 [Caltrate with Vitamin D3] cholecalciferol (vitamin D3) 50 2,000 unit PO DAILY 02/05/18 10/12/20 mcg (2,000 unit) capsule albuterol sulfate 2.5 mg IH QID PRN 09/01/19 10/12/20 inhalational spacing device #1 each 09/02/19 10/12/20 metoprolol succinate 25 mg 25 mg PO DAILY #90 tab 02/26/20 10/12/20 tablet,extended release 24 hr atorvastatin 10 mg tablet 10 mg PO DAILY #90 tab-cap 03/25/20 10/12/20 budesonide-formoterol HFA 160 2 puff INHALATION BID #3 inhaler 03/25/20 10/12/20 mcg-4.5 mcg/actuation aerosol inhaler duloxetine 60 mg capsule,delayed 60 mg PO DAILY #90 tab-cap 03/25/20 10/12/20 release montelukast 10 mg tablet 10 mg PO DAILY #90 tab-cap 03/25/20 10/12/20 omeprazole 40 mg capsule,delayed 40 mg PO DAILY #90 cap 03/25/20 10/12/20 release tiotropium 2.5 mcg-olodaterol 2.5 2 puff INHALATION DAILY #12 g 03/25/20 10/12/20 mcg/actuation mist for inhalation hydrochlorothiazide 12.5 mg tablet 12.5 mg PO DAILY 04/14/20 10/12/20 folic acid 1 mg tablet 1 mg PO DAILY #90 tab 04/20/20 10/12/20 valacyclovir 1 gram tablet 1,000 mg PO DAILY #90 tab-cap 04/27/20 10/12/20 cetirizine 10 mg tablet 10 mg PO DAILY #90 tab 06/10/20 10/12/20 estradiol 10 mcg vaginal tablet 10 mcg VAGINAL .3 times weekly #36 06/24/20 10/12/20 tab clotrimazole-betamethasone 1 1 applic TOPICAL DAILY PRN #45 g 07/23/20 10/12/20 %-0.05 % topical cream estradiol 0.5 mg tablet 0.5 mg PO EVERY OTHER DAY #90 09/02/20 10/12/20 tab-cap losartan 50 mg tablet 50 mg PO DAILY #90 tab 09/02/20 10/12/20 methylphenidate HCl 10 mg tablet 20 mg PO DAILY #60 tab MDD 2 09/02/20 10/12/20 magnesium oxide 900 mg PO BID 10/12/20 10/12/20 Previous Rx's Medication Instructions Recorded inhalational spacing device #1 each 09/02/19 metoprolol succinate 25 mg 25 mg PO DAILY #90 tab 02/26/20 tablet,extended release 24 hr atorvastatin 10 mg tablet 10 mg PO DAILY #90 tab-cap 03/25/20 budesonide-formoterol HFA 160 2 puff INHALATION BID #3 inhaler 03/25/20 mcg-4.5 mcg/actuation aerosol inhaler duloxetine 60 mg capsule,delayed 60 mg PO DAILY #90 tab-cap 03/25/20 release montelukast 10 mg tablet 10 mg PO DAILY #90 tab-cap 03/25/20 omeprazole 40 mg capsule,delayed 40 mg PO DAILY #90 cap 03/25/20 release tiotropium 2.5 mcg-olodaterol 2.5 2 puff INHALATION DAILY #12 g 03/25/20 mcg/actuation mist for inhalation folic acid 1 mg tablet 1 mg PO DAILY #90 tab 04/20/20 valacyclovir 1 gram tablet 1,000 mg PO DAILY #90 tab-cap 12/22/20 cetirizine 10 mg tablet 10 mg PO DAILY #90 tab 06/10/20 estradiol 10 mcg vaginal tablet 10 mcg VAGINAL .3 times weekly #36 06/24/20 tab clotrimazole-betamethasone 1 1 applic TOPICAL DAILY PRN #45 g 07/23/20 %-0.05 % topical cream estradiol 0.5 mg tablet 0.5 mg PO EVERY OTHER DAY #90 09/02/20 tab-cap losartan 50 mg tablet 50 mg PO DAILY #90 tab 09/02/20 methylphenidate HCl 10 mg tablet 20 mg PO DAILY #60 tab MDD 2 09/02/20 Allergies Allergy/AdvReac Type Severity Reaction Status Date / Time amoxicillin trihydrate AdvReac Intermediate Gives her Unverified 10/12/20 17:50 [From Augmentin] Yeast infection potassium clavulanate AdvReac Intermediate gives her Unverified 10/12/20 17:50 [From Augmentin] yeast infection oxybutynin AdvReac Dry Unverified 10/12/20 17:50 mouth/mucous membranes General Stated Complaint: Chest Pain YUKI: 1 Review of Systems All systems reviewed & are unremarkable except as noted in HPI and below PFSH Medical History Abnormal mammogram (04/05/06) Abnormal mammogram, unspecified 04/05/06 w/6 mos. F/U per [facility] Achilles tendinitis, right leg (08/18/16) WITH RETROCALCANEAL EXOSOTOSIS AND APOLONIA'S DEFORMITY Achilles tendonitis Adenomatous colon polyp Allergic fungal sinusitis Allergic fungal sinusitis (07/16/13) Anemia Anemia (12/31/12) Annual physical exam (10/25/17) Asthma exacerbation (06/12/16) Bleeding hemorrhoids (08/09/17) Cellulitis of left lower extremity Cellulitis of left lower extremity 12/11/16 Cellulitis of left lower extremity (12/11/16) Cholelithiasis without obstruction s/p cholecystectomy Cholelithiasis without obstruction Chronic diarrhea Chronic iron deficiency anemia Chronic obstructive lung disease FEV 1-72% Chronic respiratory failure with hypoxia COPD (chronic obstructive pulmonary disease) FEV 1- 72% COVID-19 ruled out by laboratory testing Depression Depressive disorder Discharge planning issues Diverticula of colon DVT prophylaxis Essential hypertension (04/09/13) Gastritis Gastritis (04/05/05) per EGD and mild reflux 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 Evans Hiatal hernia Hiatal hernia (04/05/96) small Hormone replacement therapy (postmenopausal) (12/20/11) Hyperlipidemia Hyperlipidemia (12/31/12) Hypertension Hypokalemia Hypokalemia due to excessive gastrointestinal loss of potassium Hypomagnesemia Hypomagnesemia Infectious diarrhea in adult patient Internal hemorrhoids Internal hemorrhoids (02/24/14) SMALL Lumbar disc prolapse with compression radiculopathy Lumbar disc prolapse with compression radiculopathy (08/21/09) Numbness and tingling (01/11/16) Otalgia (05/29/16) Otalgia of both ears Otalgia, unspecified 05/29/16 Pre-op exam 06/08/15 Smoker 200205/06/18-quit again Thyroid nodule 01/19/16 normal thyroid scan 01/20 Vitamin D deficiency Vitamin D deficiency (06/26/16) Surgical History Arthroplasty of knee Arthroscopy Cholecystectomy Colonoscopy - MAC 02/24/1404/25 Debridement, Soft Tissue 11/10/16-DR. VALLECILLO-RIGHT HEEL Dilation and curettage EGD - MAC (02/24/14) 04/25 H/O arthroscopy of knee H/O esophagogastroduodenoscopy (~04/26/20) H/O surgical procedure removal of toenails of great toe-bilateral History of arthroscopy of knee History of bilateral ligation of fallopian tubes History of bilateral tubal ligation History of colonoscopy (~04/26/20) History of esophagogastroduodenoscopy (EGD) (~04/26/20) Hx of biopsy 05/07/11 lip; Dr. Quesada Hysterectomy, Laproscopic (~1996) Ligation of fallopian tube LIP BX (10/05/11) DR. QUESADA LUNG LOBECTOMY (~1991) RLL; ? 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 Grandfather COPD (chronic obstructive pulmonary disease) Grandfather Diabetes Heart disease Grandmother Personal history of malignant neoplasm Pancreatic Grandmother Diabetes Social History Smoking/Tobacco Use Status: Former Tobacco Use Quit Date: 05/07/18 Smoking risk assessment performed?: Yes Alcohol Intake: current Alcohol Intake frequency: a few times a week Drug use: Socially Substance use type: marijuana Details: Pt notes that she takes THC gummies recreationally. Household members: spouse and other Details: 2 current occupation: [employer] Pets and animals: Yes Pets and animals: cat(s) Current gender identity: female What type of physical activity do you participate in: none Louise/Samaritan: Mandaeism Special louise needs: No Do you feel safe at home: Yes Do you feel safe in your relationship?: Yes Exam Narrative Exam Narrative: 1.Const: Well-nourished, Well-developed, appearing stated age 2.Eyes: PERRL, no conjunctival injection, and symmetrical lids. 3.ENT: Atraumatic external nose and ears. Moist MM. Neck: Symmetric, trachea midline, No thyromegaly. 4.CVS: +S1/S2, No murmurs or gallops. Peripheral pulses 2+ and equal in all extremities. Brisk capillary refill in all extremities. 5.RESP: Unlabored respiratory effort. Clear to auscultation bilaterally. No wheezes rales or rhonchi 6.GI: Soft, Nontender/Nondistended, No hepatosplenomegaly. No guarding or rebound. 7.MSK: Normocephalic/Atraumatic, Extremities w/o deformity or ttp No cyanosis or clubbing, Normal movement of all extremities 8.Skin: Warm, Dry. No rashes or lesions. 9.Neuro: field marketing associate II-XII grossly intact. Sensation grossly intact, no focal neurologic deficits. 10.Psych: (AAO) x3. Appropriate mood and affect Course Vital Signs Vital signs: Vital Signs Pulse 101 H 10/12/20 17:34 Respiratory Rate 23 10/12/20 17:34 Blood Pressure 142/83 H 10/12/20 17:34 Pulse Oximetry 99 10/12/20 17:34 Temperature 36.2 C L 10/12/20 17:43 Temperature Source Skin 10/12/20 17:43 Pulse 84 10/12/20 18:16 Pulse 85 10/12/20 18:16 Respiratory Rate 15 10/12/20 18:20 Respiratory Effort Non-Labored 10/12/20 18:20 Respiratory Depth Normal 10/12/20 18:20 Respiratory Pattern Normal 10/12/20 18:20 Blood Pressure 128/77 10/12/20 18:16 Blood Pressure Mean 90 10/12/20 18:16 Blood Pressure Position Supine 10/12/20 17:43 Pulse Oximetry 96 10/12/20 18:20 Oxygen Delivery Method Nasal Cannula 10/12/20 18:20 Oxygen Flow Rate 2 10/12/20 18:20 Pain Level 2 10/12/20 17:43 Lab/Test Results Lab/Test Results: Laboratory Tests Range/Units 10/12/20 10/12/20 10/12/20 15:35 15:35 15:35 WBC (4.4-10.8) 10^3/uL 6.54 RBC (3.93-5.22) 10^6/uL 3.26 L Hgb (11.2-15.7) g/dL 10.2 L Hct (36.0-46.0) % 30.8 L MCV (80-95) fL 94.5 MCH (27.0-33.0) pg 31.3 MCHC (32.0-36.0) % 33.1 RDW (11.7-14.6) % 12.9 Plt Count (130-400) 10^3/uL 304 MPV (8.0-11.0) fL 9.1 Immature Gran % 0.6 Neutrophils % 58.6 Lymphocytes % 32.7 Monocytes % 6.1 Eosinophils % 1.2 Basophils % 0.8 Nucleated RBC % % 0 Absolute Neutrophils (1.2-6.7) 10^3/uL 3.83 Absolute Lymphocytes (1.2-3.4) 10^3/uL 2.14 Absolute Monocytes (0.1-0.8) 10^3/uL 0.40 Absolute Eosinophils (0.0-0.7) 10^3/uL 0.08 Absolute Basophils (0.0-0.2) 10^3/uL 0.05 PT (9.3-11.0) sec INR (0.9-1.1) APTT (21.0-27.5) sec Sodium (136-145) mmol/L 142 Potassium (3.5-5.1) mmol/L 3.6 Chloride (98-107) mmol/L 102 Carbon Dioxide (21.0-32.0) mmol/L 30.5 Anion Gap (3-11) mmol/L 9.5 BUN (7-18) mg/dL 37 H Creatinine (0.55-1.02) mg/dL 1.2 H Estimated GFR/1.73 m2 (mL/min/1.73m2) 45.37 Glucose (74-106) mg/dL 149 H Calcium (8.5-10.1) mg/dL 9.7 Magnesium (1.8-2.4) mg/dL Total Bilirubin (0.2-1.0) mg/dL 0.2 AST (15-37) U/L 15 ALT (14-59) U/L 23 Alkaline Phosphatase (46-116) U/L 59 Troponin I (<0.06) ng/mL < 0.05 NT-Pro-B Natriuret Pep (<300) pg/mL 311 H Total Protein (6.4-8.2) g/dL 8.0 Albumin (3.4-5.0) g/dL 4.1 TSH (0.36-3.74) uIU/mL 3.30 Urine Color (Yellow) Urine Clarity (Clear) Urine pH (5-8) Ur Specific [place] (1.005-1.025) Urine Protein (Negative) mg/dL Urine Ketones (Negative) mg/dL Urine Blood (Negative) Urine Nitrite (Negative) Urine Bilirubin (Negative) Urine Urobilinogen (Up TO 0.2) EU/dL Ur Leukocyte Esterase (Negative) Urine Glucose (Negative) mg/dL Range/Units 10/12/20 10/12/20 10/12/20 15:35 15:35 18:40 WBC (4.4-10.8) 10^3/uL RBC (3.93-5.22) 10^6/uL Hgb (11.2-15.7) g/dL Hct (36.0-46.0) % MCV (80-95) fL MCH (27.0-33.0) pg MCHC (32.0-36.0) % RDW (11.7-14.6) % Plt Count (130-400) 10^3/uL MPV (8.0-11.0) fL Immature Gran % Neutrophils % Lymphocytes % Monocytes % Eosinophils % Basophils % Nucleated RBC % % Absolute Neutrophils (1.2-6.7) 10^3/uL Absolute Lymphocytes (1.2-3.4) 10^3/uL Absolute Monocytes (0.1-0.8) 10^3/uL Absolute Eosinophils (0.0-0.7) 10^3/uL Absolute Basophils (0.0-0.2) 10^3/uL PT (9.3-11.0) sec 10.4 INR (0.9-1.1) 1.0 APTT (21.0-27.5) sec 22.3 Sodium (136-145) mmol/L Potassium (3.5-5.1) mmol/L Chloride (98-107) mmol/L Carbon Dioxide (21.0-32.0) mmol/L Anion Gap (3-11) mmol/L BUN (7-18) mg/dL Creatinine (0.55-1.02) mg/dL Estimated GFR/1.73 m2 (mL/min/1.73m2) Glucose (74-106) mg/dL Calcium (8.5-10.1) mg/dL Magnesium (1.8-2.4) mg/dL 1.4 L Total Bilirubin (0.2-1.0) mg/dL AST (15-37) U/L ALT (14-59) U/L Alkaline Phosphatase (46-116) U/L Troponin I (<0.06) ng/mL NT-Pro-B Natriuret Pep (<300) pg/mL Total Protein (6.4-8.2) g/dL Albumin (3.4-5.0) g/dL TSH (0.36-3.74) uIU/mL Urine Color (Yellow) Yellow Urine Clarity (Clear) Clear Urine pH (5-8) 5.5 Ur Specific [place] (1.005-1.025) 1.025 Urine Protein (Negative) mg/dL Negative Urine Ketones (Negative) mg/dL Negative Urine Blood (Negative) Negative Urine Nitrite (Negative) Negative Urine Bilirubin (Negative) Negative Urine Urobilinogen (Up TO 0.2) EU/dL 0.2 Ur Leukocyte Esterase (Negative) Negative Urine Glucose (Negative) mg/dL Negative Critical Care Time Critical Care Time Critical Care Time: Yes Total Critical Care Time: 45 Attestation: Upon my evaluation, this patient had a high probability of imminent or life-threatening deterioration, which required my direct attention, intervention, and personal management. I have personally provided 45 minutes of critical care time exclusive of time spent on separately billable procedures. Time includes review of laboratory data, radiology results, discussion with consultants, and monitoring for potential decompensation. Interventions were performed as documented.
--- NOTE | 2020-10-12 20:26 | DI.VRAD_ITS ---
PROCEDURE INFORMATION: Exam: CTA Chest With Contrast Exam date and time: 10/12/2020 5:39 PM Age: 64 years old Clinical indication: Patient HX: Svt, fmhx of pe's; Additional info: Chronic obstructive lung disease TECHNIQUE: Imaging protocol: Computed tomographic angiography of the chest with contrast. 3D rendering (Not supervised by radiologist): MIP and/or 3D reconstructed images were created by the technologist. Radiation optimization: All CT scans at this facility use at least one of these dose optimization techniques: automated exposure control; mA and/or kV adjustment per patient size (includes targeted exams where dose is matched to clinical indication); or iterative reconstruction. Contrast material: OMNIPAQUE 350; Contrast volume: 100 ml; Contrast route: INTRAVENOUS (IV); COMPARISON: CT CHEST WO 11/11/2019 2:38 PM FINDINGS: Pulmonary arteries: No evidence of pulmonary embolus to the segmental level. Aorta: No aneurysm of the aorta. No dissection of the aorta. Lungs: Mild panlobular emphysematous changes Mild opacities in the left lower lobe may represent atelectasis or pneumonia.. Pleural spaces: Unremarkable. No pneumothorax. No pleural effusion. Heart: Unremarkable. No cardiomegaly. No pericardial effusion. Lymph nodes: Unremarkable. No enlarged lymph nodes. Bones/joints: Healed bilateral rib fractures. Defects in the posterior right ribs may be due to prior surgery Soft tissues: Unremarkable. IMPRESSION: 1. No evidence of pulmonary embolus to the segmental level. 2. Mild opacities in the left lower lobe may represent atelectasis or pneumonia.. Dictated and Authenticated by: Yesi Collins MD. Ordering:SUZIE Bautista MD
[2020-10-12] MEDS: MAGNESIUM SULFATE 4 GM/100 ML BAG IVPB (20:28)
[2020-10-12] MEDS: cefTRIAXone 2 GM/50 ML BAG IVPB (21:00)
--- NOTE | 2020-10-12 21:07 | W.PM.HP.N ---
Date of service: 10/12/20 Time of Service: 21:07 Assessment and Plan Assessment and plan (1) PSVT (paroxysmal supraventricular tachycardia): Start date: 10/12/20 Status: Acute Assessment and plan: This is a 64-year-old lady admitted for PSVT with s/p 2 modified vagal maneuver and then diltiazem infusion patient at 10 mg/h infusion of diltiazem presently with normal sinus rhythm. She will be admitted for continued IV diltiazem infusion and advancement of her beta-andreia orally hopefully to control recurrent PSVT. Her troponins will be trended and she will have an echocardiogram ordered for the morning. She will have continued respiratory care for her chronic COPD/asthma. She is on O2 supplementation and this will be continued. (2) Pneumonia: Start date: 10/12/20 Status: Acute Assessment and plan: Continue IV Rocephin and doxycycline as initiated in the ED. Follow-up imaging as indicated. Qualifiers: Laterality: left Lung location: lower lobe of lung Pneumonia type: due to unspecified organism Qualified Code(s): J18.9 - Pneumonia, unspecified organism (3) Anemia: Status: Chronic Assessment and plan: Patient does have chronic anemia which does appear stable. Consider evaluation for deficiencies though this can be done as an outpatient. If worsening with observation and follow-up lab consider type and screen. Patient is not having signs or symptoms of heart failure or volume depletion at this time. 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 He has had increased allergy symptoms all of her life. Continue outpatient medical therapy. Lower (5) Essential hypertension: Status: Chronic Assessment and plan: Patient is on several medications for hypertension and will have her metoprolol advance in dosing and hold hydrochlorothiazide for now. Patient may be able to control PSVT with beta-blockade alone. Slowly wean diltiazem overnight. Patient is remained in sinus rhythm with controlled rate. Watch for blood pressure instability and fluid replacement as needed. History of Present Illness History of Present Illness Chief Complaint: Dyspnea with atypical chest discomfort Narrative: This is a 64-year-old female patient who noticed increased dyspnea from her baseline with chronic COPD on O2 at home at 2 L/min per nasal cannula and history of asthma status post right lower lobe lobectomy for recurrent pneumonia since she was a child. This lobectomy was done in the . 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 She did have one episode of PSVT recently and when reporting to a local clinic for evaluation of her dyspnea he was found to have a heart rate around 190 and was found to be in PSVT. He was given amiodarone by the EMS because of interpretation of wide-complex tachycardia but in the ED she had obvious narrow complex PSVT and responded to modified vagal maneuver. This was not completely resolving her recurrent PSVT and she was started on diltiazem and at the time I interviewed the patient she was on 10 mg/hr diltiazem infusion and normal sinus rhythm with sinus arrhythmia at times. Patient offers no other complaints denying any increased peripheral edema with chronic slight peripheral edema or retrosternal chest pain though she did have chest discomfort with her palpitations. He has had no focal neurological complaints. She denies any GI complaints such as nausea or change in bowel habits. She also has no urinary complaints. Review of Systems Narrative: 13 point review of systems otherwise unrevealing or stable. The patient chronically has dyspnea and respiratory symptoms with her COPD and history of chronic tobacco use. She is on chronic O2. [facility] Medical History Abnormal mammogram (04/05/06) Abnormal mammogram, unspecified 04/05/06 w/6 mos. F/U per [facility] Achilles tendinitis, right leg (08/18/16) WITH RETROCALCANEAL EXOSOTOSIS AND APOLONIA'S DEFORMITY Achilles tendonitis Adenomatous colon polyp Allergic fungal sinusitis Allergic fungal sinusitis (07/16/13) Anemia Anemia (12/31/12) Annual physical exam (10/25/17) Asthma exacerbation (06/12/16) Bleeding hemorrhoids (08/09/17) Cellulitis of left lower extremity Cellulitis of left lower extremity 12/11/16 Cellulitis of left lower extremity (12/11/16) Cholelithiasis without obstruction s/p cholecystectomy Cholelithiasis without obstruction Chronic diarrhea Chronic iron deficiency anemia Chronic obstructive lung disease FEV 1-72% Chronic respiratory failure with hypoxia COPD (chronic obstructive pulmonary disease) FEV 1- 72% COVID-19 ruled out by laboratory testing Depression Depressive disorder Discharge planning issues Diverticula of colon DVT prophylaxis Essential hypertension (04/09/13) Gastritis Gastritis (04/05/05) per EGD and mild reflux 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 Evans Hiatal hernia Hiatal hernia (04/05/96) small Hormone replacement therapy (postmenopausal) (12/20/11) Hyperlipidemia Hyperlipidemia (12/31/12) Hypertension Hypokalemia Hypokalemia due to excessive gastrointestinal loss of potassium Hypomagnesemia Hypomagnesemia Infectious diarrhea in adult patient Internal hemorrhoids Internal hemorrhoids (02/24/14) SMALL Lumbar disc prolapse with compression radiculopathy Lumbar disc prolapse with compression radiculopathy (08/21/09) Numbness and tingling (01/11/16) Otalgia (05/29/16) Otalgia of both ears Otalgia, unspecified 05/29/16 Pre-op exam 06/08/15 Smoker 200205/06/18-quit again SVT (supraventricular tachycardia) Thyroid nodule 01/19/16 normal thyroid scan 01/20 Vitamin D deficiency Vitamin D deficiency (06/26/16) Surgical History Arthroplasty of knee Arthroscopy Cholecystectomy Colonoscopy - MAC 02/24/1404/25 Debridement, Soft Tissue 11/10/16-DR. VALLECILLO-RIGHT HEEL Dilation and curettage EGD - MAC (02/24/14) 04/25 H/O arthroscopy of knee H/O esophagogastroduodenoscopy (~04/26/20) H/O surgical procedure removal of toenails of great toe-bilateral History of arthroscopy of knee History of bilateral ligation of fallopian tubes History of bilateral tubal ligation History of colonoscopy (~04/26/20) History of esophagogastroduodenoscopy (EGD) (~04/26/20) Hx of biopsy 05/07/11 nael; Dr. Quesada Hysterectomy, Laproscopic (~1996) Ligation of fallopian tube LIP BX (10/05/11) DR. QUESADA LUNG LOBECTOMY (~1991) RLL; ? 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 Grandfather COPD (chronic obstructive pulmonary disease) Grandfather Diabetes Heart disease Grandmother Personal history of malignant neoplasm Pancreatic Grandmother Diabetes Social History Smoking/Tobacco Use Status: Former Tobacco Use Quit Date: 05/07/18 Smoking risk assessment performed?: Yes Alcohol Intake: current Alcohol Intake frequency: a few times a week Drug use: Socially Substance use type: marijuana Details: Pt notes that she takes THC gummies recreationally. 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 Special louise needs: No Do you feel safe at home: Yes Do you feel safe in your relationship?: Yes Meds Allergies and Home Medications Allergies Allergy/AdvReac Type Severity Reaction Status Date / Time amoxicillin trihydrate AdvReac Intermediate Gives her Unverified 10/12/20 17:50 [From Augmentin] Yeast infection potassium clavulanate AdvReac Intermediate gives her Unverified 10/12/20 17:50 [From Augmentin] yeast infection oxybutynin AdvReac Dry Unverified 10/12/20 17:50 mouth/mucous membranes Home Medications Medication Instructions Recorded Confirmed Type EasiVent Mask Large ea 09/18/12 10/12/20 History calcium carbonate-vitamin D3 1 tab PO DAILY 09/18/12 10/12/20 History [Caltrate with Vitamin D3] cholecalciferol (vitamin D3) 50 2,000 unit PO DAILY 02/05/18 10/12/20 History mcg (2,000 unit) capsule albuterol sulfate 2.5 mg IH QID PRN 09/01/19 10/12/20 History inhalational spacing device #1 each 09/02/19 10/12/20 Rx metoprolol succinate 25 mg 25 mg PO DAILY #90 tab 02/26/20 10/12/20 Rx tablet,extended release 24 hr atorvastatin 10 mg tablet 10 mg PO DAILY #90 tab-cap 03/25/20 10/12/20 Rx budesonide-formoterol HFA 160 2 puff INHALATION BID #3 inhaler 03/25/20 10/12/20 Rx mcg-4.5 mcg/actuation aerosol inhaler duloxetine 60 mg capsule,delayed 60 mg PO DAILY #90 tab-cap 03/25/20 10/12/20 Rx release montelukast 10 mg tablet 10 mg PO DAILY #90 tab-cap 03/25/20 10/12/20 Rx omeprazole 40 mg capsule,delayed 40 mg PO DAILY #90 cap 03/25/20 10/12/20 Rx release tiotropium 2.5 mcg-olodaterol 2.5 2 puff INHALATION DAILY #12 g 03/25/20 10/12/20 Rx mcg/actuation mist for inhalation hydrochlorothiazide 12.5 mg tablet 12.5 mg PO DAILY 04/14/20 10/12/20 History folic acid 1 mg tablet 1 mg PO DAILY #90 tab 04/20/20 10/12/20 Rx valacyclovir 1 gram tablet 1,000 mg PO DAILY #90 tab-cap 04/27/20 10/12/20 Rx cetirizine 10 mg tablet 10 mg PO DAILY #90 tab 06/10/20 10/12/20 Rx estradiol 10 mcg vaginal tablet 10 mcg VAGINAL .3 times weekly #36 06/24/20 10/12/20 Rx tab clotrimazole-betamethasone 1 1 applic TOPICAL DAILY PRN #45 g 07/23/20 10/12/20 Rx %-0.05 % topical cream estradiol 0.5 mg tablet 0.5 mg PO EVERY OTHER DAY #90 09/02/20 10/12/20 Rx tab-cap losartan 50 mg tablet 50 mg PO DAILY #90 tab 09/02/20 10/12/20 Rx methylphenidate HCl 10 mg tablet 20 mg PO DAILY #60 tab MDD 2 09/02/20 10/12/20 Rx magnesium oxide 900 mg PO BID 10/12/20 10/12/20 History Exam Narrative Exam Narrative: General: Patient appears older than stated age, in no acute distress and alert and oriented x3. She is slightly disheveled. HEENT: Normocephalic, coarsened facial features, eyes with pupils equal and reactive light symmetrically, extraocular movement intact and sclera anicteric. Oropharynx with moist mucosa. Neck: Supple without JVD. Back: Stooped posture without CVA tenderness. Lungs: Bronchovesicular breath sounds diffusely with fair aeration and slight increased expiratory phase with no expiratory wheeze. Diffuse coarse crackles worse on the left and rhonchi especially with cough. Decreased aeration right base. Breast: Exam deferred. Heart: Regular rate and rhythm with no gallops or rubs appreciated. Quite systolic murmur over left sternal border without radiation. Abdomen: Obese contour, soft nontender to palpation without palpable hepatosplenomegaly. Genitalia/rectal: Exam deferred. Extremities: Nonpitting edema over lower extremities with no clubbing or cyanosis. Peripheral pulses intact. Joints have decreased range of motion but no acute swelling. Skin: Pale, warm and dry. Neuro: Cranial nerves II to XII grossly intact, no focalizing motor deficits. Psych: Normal mood and affect, no abnormal thought processes. Remote and recent memory intact. Results Imaging Imaging Studies: Exam: CTA Chest With Contrast Exam date and time: 10/12/2020 5:39 PM Age: 64 years old Clinical indication: Patient HX: Svt, fmhx of pe's; Additional info: Chronic obstructive lung disease TECHNIQUE: Imaging protocol: Computed tomographic angiography of the chest with contrast. 3D rendering (Not supervised by radiologist): MIP and/or 3D reconstructed images were created by the technologist. Radiation optimization: All CT scans at this facility use at least one of these dose optimization techniques: automated exposure control; mA and/or kV adjustment per patient size (includes targeted exams where dose is matched to clinical indication); or iterative reconstruction. Contrast material: OMNIPAQUE 350; Contrast volume: 100 ml; Contrast route: INTRAVENOUS (IV); COMPARISON: CT CHEST WO 11/11/2019 2:38 PM FINDINGS: Pulmonary arteries: No evidence of pulmonary embolus to the segmental level. Aorta: No aneurysm of the aorta. No dissection of the aorta. Lungs: Mild panlobular emphysematous changes Mild opacities in the left lower lobe may represent atelectasis or pneumonia.. Pleural spaces: Unremarkable. No pneumothorax. No pleural effusion. Heart: Unremarkable. No cardiomegaly. No pericardial effusion. Lymph nodes: Unremarkable. No enlarged lymph nodes. Bones/joints: Healed bilateral rib fractures. Defects in the posterior right ribs may be due to prior surgery Soft tissues: Unremarkable. IMPRESSION: 1. No evidence of pulmonary embolus to the segmental level. 2. Mild opacities in the left lower lobe may represent atelectasis or pneumonia. Labs Result diagrams: 10/12/20 15:35 10/12/20 15:35 Labs: Laboratory Results - last 24 hr 10/12/20 10/12/20 10/12/20 15:35 15:35 15:35 WBC 6.54 RBC 3.26 L Hgb 10.2 L Hct 30.8 L MCV 94.5 MCH 31.3 MCHC 33.1 RDW 12.9 Plt Count 304 MPV 9.1 Immature Gran % 0.6 Neutrophils % 58.6 Lymphocytes % 32.7 Monocytes % 6.1 Eosinophils % 1.2 Basophils % 0.8 Nucleated RBC % 0 Absolute Neutrophils 3.83 Absolute Lymphocytes 2.14 Absolute Monocytes 0.40 Absolute Eosinophils 0.08 Absolute Basophils 0.05 PT INR APTT Sodium 142 Potassium 3.6 Chloride 102 Carbon Dioxide 30.5 Anion Gap 9.5 BUN 37 H Creatinine 1.2 H Estimated GFR/1.73 m2 45.37 Glucose 149 H Calcium 9.7 Magnesium Total Bilirubin 0.2 AST 15 ALT 23 Alkaline Phosphatase 59 Troponin I < 0.05 NT-Pro-B Natriuret Pep 311 H Total Protein 8.0 Albumin 4.1 TSH 3.30 Urine Color Urine Clarity Urine pH Ur Specific [place] Urine Protein Urine Ketones Urine Blood Urine Nitrite Urine Bilirubin Urine Urobilinogen Ur Leukocyte Esterase Urine Glucose 10/12/20 10/12/20 10/12/20 15:35 15:35 18:40 WBC RBC Hgb Hct MCV MCH MCHC RDW Plt Count MPV Immature Gran % Neutrophils % Lymphocytes % Monocytes % Eosinophils % Basophils % Nucleated RBC % Absolute Neutrophils Absolute Lymphocytes Absolute Monocytes Absolute Eosinophils Absolute Basophils PT 10.4 INR 1.0 APTT 22.3 Sodium Potassium Chloride Carbon Dioxide Anion Gap BUN Creatinine Estimated GFR/1.73 m2 Glucose Calcium Magnesium 1.4 L Total Bilirubin AST ALT Alkaline Phosphatase Troponin I NT-Pro-B Natriuret Pep Total Protein Albumin TSH Urine Color Yellow Urine Clarity Clear Urine pH 5.5 Ur Specific [place] 1.025 Urine Protein Negative Urine Ketones Negative Urine Blood Negative Urine Nitrite Negative Urine Bilirubin Negative Urine Urobilinogen 0.2 Ur Leukocyte Esterase Negative Urine Glucose Negative Last Vital Signs Temp 36.2 C L 10/12/20 17:43 Pulse 84 10/12/20 18:16 Resp 15 10/12/20 18:20 BP 128/77 10/12/20 18:16 Pulse Ox 96 10/12/20 18:20 COVID-19 Screening Have you, or household traveled for leisure in last 14 days?: No Had IN PERSON contact w/suspected or confirmed C-19 person: No
[2020-10-12 21:14] LABS: Troponin I < 0.05 ng/mL (<0.06)
[2020-10-12 21:34] LABS: Source Nasal/Nares
[2020-10-12] MEDS: Normal Saline 1,000 ML 125 ML IV (22:46)
[2020-10-12] MEDS: DOXYCYCLINE 100 MG in Normal Saline 100 ML IVPB (23:25)
[2020-10-12] MEDS: Atorvastatin 10 MG TAB PO (23:55)
[2020-10-12] MEDS: Metoprolol 25 MG TAB PO (23:55)
[2020-10-12] MEDS: Enoxaparin 40 MG/0.4 ML SYR SC (23:56)
[2020-10-13] VITALS (74 sets, daily range): BP systolic 100–150; BP diastolic 46–104; PULSE 52–80; RESP 12–27; TEMP 35.6–36.5; O2SAT 94–99
[2020-10-13 01:29] LABS: Troponin I < 0.05 ng/mL (<0.06)
[2020-10-13] MEDS: Acetaminophen 325 MG TAB 650 MG PO (02:42)
[2020-10-13 06:48] LABS: Abs Immature Grans 0.04 10^3/uL (0.0-0.06); Absolute Basophil Count 0.06 10^3/uL (0.0-0.2); Absolute Eosinophil Count 0.16 10^3/uL (0.0-0.7); Absolute Lymphocyte Count 3.32 10^3/uL (1.2-3.4); Absolute Monocyte Count 0.46 10^3/uL (0.1-0.8); Absolute Neutrophil Count 3.09 10^3/uL (1.2-6.7); Basophils % 0.8; Eosinophils % 2.2; HCT 27.1 % (36.0-46.0); Immature Grans % 0.6; Lymphocytes % 46.6; MCH 30.7 pg (27.0-33.0); MCHC 32.8 % (32.0-36.0); MCV 93.4 fL (80-95); MPV 9.1 fL (8.0-11.0); Monocytes % 6.5; Neutrophils % 43.3; Nucleated RBC 0 %; Platelet Count 298 10^3/uL (130-400); RDW 13.3 % (11.7-14.6); RDW-SD 45.3 fL; WBC 7.13 10^3/uL (4.4-10.8)
[2020-10-13 07:13] LABS: HGB 8.9 g/dL (11.2-15.7)
[2020-10-13 07:22] LABS: ALT 24 U/L (14-59); AST 18 U/L (15-37); Albumin 3.5 g/dL (3.4-5.0); Alkaline Phosphatase 50 U/L (46-116); Anion Gap 5.7 mmol/L (3-11); BUN 27 mg/dL (7-18); Bilirubin, Total 0.1 mg/dL (0.2-1.0); CO2 28.3 mmol/L (21.0-32.0); CREATININE 0.9 mg/dL (0.55-1.02); Calcium 8.8 mg/dL (8.5-10.1); Chloride 101 mmol/L (98-107); Glucose 117 mg/dL (74-106); Potassium 3.6 mmol/L (3.5-5.1); Sodium 135 mmol/L (136-145)
[2020-10-13 07:25] LABS: Iron 73 ug/dL (50-170)
[2020-10-13 07:28] LABS: Troponin I < 0.05 ng/mL (<0.06)
[2020-10-13 07:52] LABS: Ferritin 272 ng/mL (8-252)
[2020-10-13] MEDS: Montelukast 10 MG TAB PO (09:01)
[2020-10-13] MEDS: Folic Acid 1 MG TAB PO (09:01)
[2020-10-13] MEDS: Metoprolol 25 MG TAB PO ×2 (09:01→17:21)
[2020-10-13] MEDS: Cholecalciferol (Vitamin D3) 1,000 UNIT TAB 2000 UNITS PO (09:01)
[2020-10-13] MEDS: Magnesium Oxide 400 MG TAB 900 MG PO ×2 (09:01→19:54)
[2020-10-13] MEDS: valACYclovir 1,000 MG TAB 1000 MG PO (09:02)
[2020-10-13] MEDS: Omeprazole 20 MG CAPCR 40 MG PO (09:02)
[2020-10-13] MEDS: Cetirizine 10 MG TAB PO (09:02)
[2020-10-13] MEDS: Losartan 50 MG TAB PO (09:02)
[2020-10-13] MEDS: Budesonide/Formoterol 160/4.5 6 GM 60 PUFF INH IH ×2 (09:02→19:55)
[2020-10-13] MEDS: DULoxetine 30 MG CAP 60 MG PO (09:02)
--- NOTE | 2020-10-13 09:02 | RESPIRATORY ---
Pt uses [employer] for home use and reports 2L at rest and 4-5L w/ ambulation. is able to bring a tank in at discharge for pt to get home.
--- NOTE | 2020-10-13 09:23 | PDOC.CMIN ---
- If Service Date Differs Date of service: 10/13/20 Time of Service: 09:23 Care Management Initial Assess REASON FOR HOSPITALIZATION:: PSVT, HTN, Asthma PAST MEDICAL HISTORY/PAST SURGICAL HISTORY:: Medical History. Abnormal mammogram (04/05/06). Abnormal mammogram, unspecified. 04/05/06 w/6 mos. F/U per [facility]. Achilles tendinitis, right leg (08/18/16). WITH RETROCALCANEAL EXOSOTOSIS AND APOLONIA'S DEFORMITY. Achilles tendonitis. Adenomatous colon polyp. Allergic fungal sinusitis. Allergic fungal sinusitis (07/16/13). Anemia. Anemia (12/31/12). Annual physical exam (10/25/17). Asthma exacerbation (06/12/16). Bleeding hemorrhoids (08/09/17). Cellulitis of left lower extremity. Cellulitis of left lower extremity. 12/11/16. Cellulitis of left lower extremity (12/11/16). Cholelithiasis. without obstruction s/p cholecystectomy. Cholelithiasis without obstruction. Chronic diarrhea. Chronic iron deficiency anemia. Chronic obstructive lung disease. FEV 1-72%. Chronic respiratory failure with hypoxia. COPD (chronic obstructive pulmonary disease). FEV 1- 72%. COVID-19 ruled out by laboratory testing. Depression. Depressive disorder. Discharge planning issues. Diverticula of colon. DVT prophylaxis. Essential hypertension (04/09/13). Gastritis. Gastritis (04/05/05). per EGD and mild reflux. 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 suspression TX by Dr. Evans. Hiatal hernia. Hiatal hernia (04/05/96). small. Hormone replacement therapy (postmenopausal) (12/20/11). Hyperlipidemia. Hyperlipidemia (12/31/12). Hypertension. Hypokalemia. Hypokalemia due to excessive gastrointestinal loss of potassium. Hypomagnesemia. Hypomagnesemia. Infectious diarrhea in adult patient. Internal hemorrhoids. Internal hemorrhoids (02/24/14). SMALL. Lumbar disc prolapse with compression radiculopathy. Lumbar disc prolapse with compression radiculopathy (08/21/09). Numbness and tingling (01/11/16). Otalgia (05/29/16). Otalgia of both ears. Otalgia, unspecified. 05/29/16. Pre-op exam. 06/08/15. Smoker. 2002. 05/06/18-quit again. SVT (supraventricular tachycardia). Thyroid nodule. 01/19/16 normal thyroid scan 01/20. Vitamin D deficiency. Vitamin D deficiency (06/26/16). Surgical History. Arthroplasty of knee. Arthroscopy. Cholecystectomy. Colonoscopy - MAC. 02/24/14. 04/25. Debridement, Soft Tissue. 11/10/16-DR. VALLECILLO-RIGHT HEEL. Dilation and curettage. EGD - MAC (02/24/14). 04/25. H/O arthroscopy of knee. H/O esophagogastroduodenoscopy (~04/26/20). H/O surgical procedure. removal of toenails of great toe-bilateral. History of arthroscopy of knee. History of bilateral ligation of fallopian tubes. History of bilateral tubal ligation. History of colonoscopy (~04/26/20). History of esophagogastroduodenoscopy (EGD) (~04/26/20). Hx of biopsy. 05/07/11 lip; Dr. Quesada. Hysterectomy, Laproscopic (~1996). Ligation of fallopian tube. LIP BX (10/05/11). DR. QUESADA. LUNG LOBECTOMY (~1991). RLL; ? congential defect. RHINOPLASTY (~2001). S/P cholecystectomy. S/P dilatation and curettage. S/P laparoscopic hysterectomy. 05/07/96. S/P lobectomy of lung. 05/07/91 RLL; congenital defect. S/P rhinoplasty. 05/07/01. Status post cholecystectomy. Status post dilation and curettage. Status post laparoscopic hysterectomy. Status post lobectomy of lung. Status post rhinoplasty. TOE NAIL REMOVAL. bilaterally of her large toenails PREVIOUS FUNCTIONAL STATUS/SOCIAL/FAMILY SUPPORTS:: Joselyn lives with her spouse in their own home. 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 She is indepdent with ADL's, although she wears her oxygen at all times and has a CPAP at home. CURRENT FUNCTIONAL STATUS:: CM attempted to visit with Joselyn today unsuccessfully, as she was resting. Per RN, her H&H dropped from her admission to today, and she was very tired. She had an echo this morning. Per report, she remains at ICU level of care. CM will continue to follow. ADVANCE DIRECTIVES:: On file at [facility]. Has patient been provided with info about the portal/API?: Yes Did the patient sign up for the portal?: Yes (active) CODE STATUS:: Full Code INSURANCE COVERAGE / FINANCIAL ISSUES:: BCBS CURRENT HOME/COMMUNITY SERVICES/EQUIPMENT:: Home O2 and CPAP PRIMARY CARE PHYSICIAN:: Dr. Hubbard POTENTIAL DISCHARGE NEEDS:: Follow up with primary care as directed. PATIENT/FAMILY EDUCATION NEEDS:: Discharge education, limitations and follow up plan of care including ask me three and self management. ANTICIPATED BARRIERS TO DISCHARGE:: None identified. TRANSPORTATION:: Via private car with spouse at time of discharge PLAN:: Joselyn is being monitored at ICU level of care. Anticipate she will return home once medically cleared by MD. Her will drive her home via private vehicle. She will follow up with her PCP and discharge plan of care. CM will continue to follow.
[2020-10-13] MEDS: Tiotropium/Olodaterol 10 PUFF INHALER 2 PUFF IH (11:28)
[2020-10-13] MEDS: DOXYCYCLINE 100 MG in Normal Saline 100 ML IVPB (13:04)
--- NOTE | 2020-10-13 13:23 | PHA.REVIEW ---
Pharmacy Admission Review - Admission Clinical Review (Last Reviewed 10/12/20 @ 21:26 by Srinath Granados) Hypomagnesemia (Acute) Pneumonia (Acute) PSVT (paroxysmal supraventricular tachycardia) (Acute) amoxicillin trihydrate [From Augmentin] Adverse Reaction (Intermediate, Unverified 10/12/20 17:50) Gives her Yeast infection potassium clavulanate [From Augmentin] Adverse Reaction (Intermediate, Unverified 10/12/20 17:50) gives her yeast infection oxybutynin Adverse Reaction (Unverified 10/12/20 17:50) Dry mouth/mucous membranes Resuscitation Status Full Code Height 5 ft 4 in Weight 108.862 kg - Renal Dosing Renal Dosing: BUN 27 mg/dL (7-18) H D 10/13/20 06:10 Creatinine 0.9 mg/dL (0.55-1.02) 10/13/20 06:10 Medications needing adjustments: Reviewed List of meds needing interventions: eCrCl 55 ml/min - orders ok - Anticoagulation Anticoagulation: Hgb 8.9 g/dL (11.2-15.7) L 10/13/20 06:10 Hct 27.1 % (36.0-46.0) L 10/13/20 06:10 Plt Count 298 10^3/uL (130-400) 10/13/20 06:10 INR 1.0 (0.9-1.1) 10/12/20 15:35 Creatinine 0.9 mg/dL (0.55-1.02) 10/13/20 06:10 DVT Prohphylaxis: Reviewed Medications: Enoxaparin - Opiate Usage Evaluate Pain Scale/Pains Meds: N/A - Relevant Labs Sodium 135 mmol/L (136-145) L 10/13/20 06:10 Potassium 3.6 mmol/L (3.5-5.1) 10/13/20 06:10 Chloride 101 mmol/L (98-107) 10/13/20 06:10 Magnesium 2.0 mg/dL (1.8-2.4) 10/13/20 06:10 Electrolytes, C-Reactive P, ESR: Reviewed (4 grams of mag sulfate given in the ED) - DM Control DM Control: Glucose 117 mg/dL (74-106) H 10/13/20 06:10 Insulin Dosing: Reviewed - Heart Failure/OH Heart Failure/OH: Troponin I < 0.05 ng/mL (<0.06) 10/13/20 06:10 NT-Pro-B Natriuret Pep 311 pg/mL (<300) H 10/12/20 15:35 EF%, JANENE's, B-Blockers, Diuretics: Reviewed - BP Control BP Control: Blood Pressure 125/65 Blood Pressure 128/66 Blood Pressure 124/76 Blood Pressure 115/78 Blood Pressure 125/76 Blood Pressure 123/75 Blood Pressure 125/104 Blood Pressure 126/71 Blood Pressure 116/75 Blood Pressure 133/68 Blood Pressure 115/65 Blood Pressure 146/75 Blood Pressure 120/72 Blood Pressure 134/83 Blood Pressure 126/74 Blood Pressure 107/61 Blood Pressure 107/63 Blood Pressure 125/74 Blood Pressure 126/66 Blood Pressure 125/73 Blood Pressure 100/46 Blood Pressure 127/67 Blood Pressure 116/68 Blood Pressure 123/62 If elevated: Reviewed - Qtc Review List meds needing interventions: QTc 465 on admission - IV to PO Switch IV Medications: Reviewed (dilt gtt stopped, orals) - Home Meds Home Med List reviewed: Reviewed Relevent Home Meds Not ordered & why?: Not ordered: estradiol, methyplphenidate, note: MagOx is prescribed as 800 mg TID but may have been reduced per pt fill hx (180 tabs roughly every 60 days) - Current meds Current Medication Order Review: Reviewed (metoprolol tartrate 25 q8h active, succinate to restart tomorrow AM)
[2020-10-13] MEDS: Normal Saline Flush 10 ML SYR IVP ×3 (13:25→14:35)
[2020-10-13 13:58] LABS: HGB 8.9 g/dL (11.2-15.7)
[2020-10-13 15:22] LABS: COVID-19 PCR Negative (Negative)
--- NOTE | 2020-10-13 15:54 | PGE_ITS ---
Date of Service Date of service: 10/13/20 Time of Service: 15:54 Assessment and Plan Assessment and plan (1) PSVT (paroxysmal supraventricular tachycardia): Status: Acute Assessment and plan: resume her Toprol XL, suggest 14 day event recorder upon discharge to assess stability of her PSVT. I also suggest that she follow up w/ cardiology. 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 I think that if her ALEXX is controlled, and her meds are optimized then she still has recurrent PSVT then she ought to consider EP study and ablation. (2) Pneumonia: Status: Acute Assessment and plan: Continue IV Rocephin and doxycycline as initiated in the ED. CT of her chest did not show infiltrates. She may just have AECOPD w/ bronchitis. I will add prednisone and discharge her home on 7 days of antibiotics w/ Cefpodoxime 200 mg bid. Qualifiers: Pneumonia type: due to unspecified organism Laterality: left Lung location: lower lobe of lung Qualified Code(s): J18.9 - Pneumonia, unspecified organism (3) Anemia: Status: Chronic Assessment and plan: Patient does have chronic anemia which does appear stable. Consider evaluation for deficiencies though this can be done as an outpatient. If worsening with observation and follow-up lab consider type and screen. Patient is not having signs or symptoms of heart failure or volume depletion at this time. 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 He has had increased allergy symptoms all of her life. Continue outpatient medical therapy. Lower (5) Essential hypertension: Status: Chronic Assessment and plan: cont. Toprol XL. losartan. HCTZ on hold. Subjective Subjective Interval history since last seen: Patient's PSVT resolved overnight w/ iv diltiazem. She has been off diltiazem since 06:25 am. She was bradycardic in the 50's. She is now NSR in the 60's. She was also dx w/ pneumonia but her CT did not bear that out. She has a moist cough but no fever. She is on her baseline oxygen of 2 LPM. SPO2 is 96 to 97%. I reviewed with the patient extensively the causes for PSVT and the pathophysiology of COPD and PHTN and causality for PAF and PSVT. She has multiple risks for atrial dysrhythmias including COPD, ALEXX, chronic use of stimulants (Ritalin which she says she takes for depression). As her HR is under good control and she is now back on NSR, I think that she can be moved out of the ICU. I told her that tomorrow she can be discharged home on 5 to 7 days of oral antibiotics. Exam Narrative Exam Narrative: Obese female alert and oriented x 3. No respiratory distress or discomfort, talking in complete paragraphs w/out dyspnea Lungs w/ fine end expiratory wheezing Heart: regular, no murmur Abdomen: obese, soft, nontender Legs: no edema Objective Last Vital Signs Temp 36.5 C 10/13/20 15:03 Pulse 62 10/13/20 15:01 Resp 21 10/13/20 15:01 BP 125/67 10/13/20 15:01 Pulse Ox 97 10/13/20 15:01 Laboratory Results - last 24 hr 10/12/20 10/12/20 10/12/20 15:35 15:35 15:35 WBC 6.54 RBC 3.26 L Hgb 10.2 L Hct 30.8 L MCV 94.5 MCH 31.3 MCHC 33.1 RDW 12.9 Plt Count 304 MPV 9.1 Immature Gran % 0.6 Neutrophils % 58.6 Lymphocytes % 32.7 Monocytes % 6.1 Eosinophils % 1.2 Basophils % 0.8 Nucleated RBC % 0 Absolute Neutrophils 3.83 Absolute Lymphocytes 2.14 Absolute Monocytes 0.40 Absolute Eosinophils 0.08 Absolute Basophils 0.05 PT INR APTT Sodium 142 Potassium 3.6 Chloride 102 Carbon Dioxide 30.5 Anion Gap 9.5 BUN 37 H Creatinine 1.2 H Estimated GFR/1.73 m2 45.37 Glucose 149 H Calcium 9.7 Magnesium Iron Ferritin Total Bilirubin 0.2 AST 15 ALT 23 Alkaline Phosphatase 59 Troponin I < 0.05 NT-Pro-B Natriuret Pep 311 H Total Protein 8.0 Albumin 4.1 TSH 3.30 Urine Color Urine Clarity Urine pH Ur Specific [place] Urine Protein Urine Ketones Urine Blood Urine Nitrite Urine Bilirubin Urine Urobilinogen Ur Leukocyte Esterase Urine Glucose COVID-19 Source SARS-CoV-2 (PCR) 10/12/20 10/12/20 10/12/20 15:35 15:35 18:40 WBC RBC Hgb Hct MCV MCH MCHC RDW Plt Count MPV Immature Gran % Neutrophils % Lymphocytes % Monocytes % Eosinophils % Basophils % Nucleated RBC % Absolute Neutrophils Absolute Lymphocytes Absolute Monocytes Absolute Eosinophils Absolute Basophils PT 10.4 INR 1.0 APTT 22.3 Sodium Potassium Chloride Carbon Dioxide Anion Gap BUN Creatinine Estimated GFR/1.73 m2 Glucose Calcium Magnesium 1.4 L Iron Ferritin Total Bilirubin AST ALT Alkaline Phosphatase Troponin I NT-Pro-B Natriuret Pep Total Protein Albumin TSH Urine Color Yellow Urine Clarity Clear Urine pH 5.5 Ur Specific [place] 1.025 Urine Protein Negative Urine Ketones Negative Urine Blood Negative Urine Nitrite Negative Urine Bilirubin Negative Urine Urobilinogen 0.2 Ur Leukocyte Esterase Negative Urine Glucose Negative COVID-19 Source SARS-CoV-2 (PCR) 10/12/20 10/12/20 10/13/20 20:20 21:25 00:50 WBC RBC Hgb Hct MCV MCH MCHC RDW Plt Count MPV Immature Gran % Neutrophils % Lymphocytes % Monocytes % Eosinophils % Basophils % Nucleated RBC % Absolute Neutrophils Absolute Lymphocytes Absolute Monocytes Absolute Eosinophils Absolute Basophils PT INR APTT Sodium Potassium Chloride Carbon Dioxide Anion Gap BUN Creatinine Estimated GFR/1.73 m2 Glucose Calcium Magnesium Iron Ferritin Total Bilirubin AST ALT Alkaline Phosphatase Troponin I < 0.05 < 0.05 NT-Pro-B Natriuret Pep Total Protein Albumin TSH Urine Color Urine Clarity Urine pH Ur Specific [place] Urine Protein Urine Ketones Urine Blood Urine Nitrite Urine Bilirubin Urine Urobilinogen Ur Leukocyte Esterase Urine Glucose COVID-19 Source Nasal/nares SARS-CoV-2 (PCR) Negative 10/13/20 10/13/20 10/13/20 06:10 06:10 06:10 WBC 7.13 RBC 2.90 L Hgb 8.9 L Hct 27.1 L MCV 93.4 MCH 30.7 MCHC 32.8 RDW 13.3 Plt Count 298 MPV 9.1 Immature Gran % 0.6 Neutrophils % 43.3 Lymphocytes % 46.6 Monocytes % 6.5 Eosinophils % 2.2 Basophils % 0.8 Nucleated RBC % 0 Absolute Neutrophils 3.09 Absolute Lymphocytes 3.32 Absolute Monocytes 0.46 Absolute Eosinophils 0.16 Absolute Basophils 0.06 PT INR APTT Sodium 135 L Potassium 3.6 Chloride 101 Carbon Dioxide 28.3 Anion Gap 5.7 BUN 27 H D Creatinine 0.9 Estimated GFR/1.73 m2 >= 60.00 Glucose 117 H Calcium 8.8 Magnesium 2.0 Iron 73 Ferritin 272 H Total Bilirubin 0.1 L AST 18 ALT 24 Alkaline Phosphatase 50 Troponin I < 0.05 NT-Pro-B Natriuret Pep Total Protein 7.0 Albumin 3.5 TSH Urine Color Urine Clarity Urine pH Ur Specific [place] Urine Protein Urine Ketones Urine Blood Urine Nitrite Urine Bilirubin Urine Urobilinogen Ur Leukocyte Esterase Urine Glucose COVID-19 Source SARS-CoV-2 (PCR) 10/13/20 13:53 WBC RBC Hgb 8.9 L Hct 27.0 L MCV MCH MCHC RDW Plt Count MPV Immature Gran % Neutrophils % Lymphocytes % Monocytes % Eosinophils % Basophils % Nucleated RBC % Absolute Neutrophils Absolute Lymphocytes Absolute Monocytes Absolute Eosinophils Absolute Basophils PT INR APTT Sodium Potassium Chloride Carbon Dioxide Anion Gap BUN Creatinine Estimated GFR/1.73 m2 Glucose Calcium Magnesium Iron Ferritin Total Bilirubin AST ALT Alkaline Phosphatase Troponin I NT-Pro-B Natriuret Pep Total Protein Albumin TSH Urine Color Urine Clarity Urine pH Ur Specific [place] Urine Protein Urine Ketones Urine Blood Urine Nitrite Urine Bilirubin Urine Urobilinogen Ur Leukocyte Esterase Urine Glucose COVID-19 Source SARS-CoV-2 (PCR)
[2020-10-13] MEDS: Atorvastatin 10 MG TAB PO (19:54)
[2020-10-13] MEDS: cefTRIAXone 1 GM/50 ML BAG IVPB (19:54)
[2020-10-14] VITALS (13 sets, daily range): BP systolic 133–145; BP diastolic 60–89; PULSE 60–73; RESP 15–18; TEMP 35.8; O2SAT 95–98
[2020-10-14] MEDS: DOXYCYCLINE 100 MG in Normal Saline 100 ML IVPB (00:19)
[2020-10-14] MEDS: predniSONE 20 MG TAB 40 MG PO (08:10)
[2020-10-14] MEDS: valACYclovir 1,000 MG TAB 1000 MG PO (08:10)
[2020-10-14] MEDS: Magnesium Oxide 400 MG TAB 900 MG PO (08:10)
[2020-10-14] MEDS: Cetirizine 10 MG TAB PO (08:11)
[2020-10-14] MEDS: DULoxetine 30 MG CAP 60 MG PO (08:11)
[2020-10-14] MEDS: Folic Acid 1 MG TAB PO (08:11)
[2020-10-14] MEDS: Omeprazole 20 MG CAPCR 40 MG PO (08:11)
[2020-10-14] MEDS: Montelukast 10 MG TAB PO (08:11)
[2020-10-14] MEDS: Metoprolol CR 25 MG TABCR PO (08:11)
[2020-10-14] MEDS: Cholecalciferol (Vitamin D3) 1,000 UNIT TAB 2000 UNITS PO (08:11)
--- NOTE | 2020-10-14 08:18 | DSE_ITS ---
DS: Diagnosis Discharge Diagnosis (1) PSVT (paroxysmal supraventricular tachycardia): Status: Chronic Asessment and Plan: patient has hx of recurrent paroxysmal atrial fibrillation. Prior episodes have been associated w/ hypokalemia and hypomagnesemia. However this admission was not associated w/ electrolyte abnormalities. She has multiple risk factors for recurrent PSVT including ALEXX, COPD, and use of stimulant medications (Ritalin). Patient reports compliance w/ her CPAP. She quickly responded to iv diltiazem and converted to sinus bradycardia. She has been resumed on her home dose of Toprol XL. A 14 day cardiac event recorder has been ordered but will need prior authorization from her PCP. It is recommended that she be referred to EP senior information developer to optimize her meds. It is also recommended that her Ritalin be discontinued, however earl ent should discuss this w/ her PCP to seek alternative medications that are not stimulants. It is also recommended that a review of her CPAP use be done. Patient informs me that she has been compliant. Verification w/ her machine data should be done. If she is compliant w/ her use of her CPAP then she may need a repeat CPAP titration study to ensure that her oxygen levels are being achieved during her sleep. TFT's have been checked and no evidence for hyperthyroidism was found. Repeat echo was done and no significant valvular nor any RV or LV dysfunction was seen. (2) Pneumonia: Status: Ruled-out Asessment and Plan: Patient presented w/ cough productive of clear to white mucous consistent w/ acute COPD exacerbation w/ bronchitis but CT chest did not demonstrate any pulmonary infiltrates and she never had any fevers or leukocytosis and she did not have any increased oxygen requirements over her baseline. She was treated w/ ceftriaxone and doxycycline. She is being discharged on azithromycin Z-pack and prednisone for acute bronchitis. 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 (5) Essential hypertension: Status: Chronic Asessment and Plan: no change in her BP meds was made (6) Tick bite of back: Status: Acute Asessment and Plan: patient was treated w/ iv doxycycline for presumptive pneumonia. On the day of discharge a tick was found on her back and removed and patient was given additional oral dose of doxycycline 200 mg for post exposure prophylaxis. Discharge Plan Disposition Patient Disposition: HOME Condition: Improving Discharge Details Reason For Visit: PSVT,HTN,ASTHMA Admit Date/Time: 10/12/20 20:37 Admit Provider: Srinath Granados Attending Provider: Srinath Granados Primary Care Provider: Nicole Hubbard Hospital Course Hospital Course: This is a 64-year-old female patient who noticed increased dyspnea from her baseline with chronic COPD on O2 at home at 2 L/min per nasal cannula and history of asthma status post right lower lobe lobectomy for recurrent pneumonia since she was a child. This lobectomy was done in the . She did have one episode of PSVT recently and when reporting to a local clinic for evaluation of her dyspnea he was found to have a heart rate around 190 and was found to be in PSVT. She was given amiodarone by the EMS because of interpretation of wide- complex tachycardia but in the ED she had obvious narrow complex PSVT and responded to modified vagal maneuver. This was not completely resolving her recurrent PSVT and she was started on diltiazem and at the time I interviewed the patient she was on 10 mg/hr diltiazem infusion and normal sinus rhythm with sinus arrhythmia at times. Patient offers no other complaints denying any increased peripheral edema with chronic slight peripheral edema or retrosternal chest pain though she did have chest discomfort with her palpitations. Patient was started on diltiazem drip and overnight her PSVT resolved and she converted to sinus bradycardia w/ HR in the 50's. She was put on lopressor but upon discharge was resumed on her usual dose of Toprol XL. She was initially diagnosed w/ pneumonia but CTA of the chest was performed and did not show any PE nor any parenchymal infiltrates. She has centrilobular emphysema and bilateral basilar atelectasis. Echocardiogram was performed and was technically difficult study (patient still had pacer/defibrillator pad on). She has normal size LV and RV w/ normal LV and RV systolic function and mild concentric LVH. LVEF is 75%. She has mild aoritic insufficiency (+1/4) but no aortic stenosis. Pulmonary pressures could not be calculated as there was not sufficienct tricuspic regurgitant jet to perform the calculations. Compared to her echo from 02/18/2020 there has been no significant changes. Patient was empirically started on Rocephin and doxycycline intravenously for what was believed to be a pneumonia. At discharge she was sent home on azithromycin Z pack and prednisone. At the time of discharge a tick was discovered on her back and removed. She was given an additional oral dose of doxycycline 200 mg on the morning of discharge as prophylaxis for her tick exposure. Home Meds and New Rx's Prescriptions: New azithromycin 250 mg tablet See Rx Instructions .ROUTE .COMPLEX Qty: 6 RF: 0 prednisone 20 mg tablet 40 mg PO DAILY 5 Days Qty: 10 RF: 0 Continued cholecalciferol (vitamin D3) 2,000 unit capsule 2,000 unit PO DAILY RF: 0 atorvastatin [Lipitor] 10 mg tablet 10 mg PO DAILY Qty: 90 RF: 12 budesonide-formoterol [Symbicort] 160-4.5 mcg/actuation HFA aerosol inhaler 2 puff Inhalation BID Qty: 3 RF: 11 duloxetine 60 mg capsule,delayed release(DR/EC) 60 mg PO DAILY Qty: 90 RF: 11 montelukast [Singulair] 10 mg tablet 10 mg PO DAILY Qty: 90 RF: 12 Stiolto Respimat 2.5-2.5 mcg/actuation mist 2 puff INHALATION DAILY Qty: 12 RF: 5 hydrochlorothiazide 12.5 mg tablet 12.5 mg PO DAILY RF: 0 (DME) Aerochamber MV Spacer See Rx Instructions .ROUTE .MEDSUPPLY Qty: 1 RF: 0 losartan 50 mg tablet 50 mg PO DAILY Qty: 90 RF: 5 estradiol [Estrace] 0.5 mg tablet 0.5 mg PO EVERY OTHER DAY Qty: 90 RF: 12 methylphenidate HCl 10 mg tablet 20 mg PO DAILY MDD 2 Qty: 60 RF: 0 metoprolol succinate 25 mg tablet extended release 24 hr 25 mg PO DAILY Qty: 90 RF: 4 estradiol [Yuvafem] 10 mcg tablet 10 mcg vaginal .3 times weekly Qty: 36 RF: 4 (DME) EasiVent Mask Large 1 EACH device 1 ea Miscellaneous DIRECTED RF: 0 calcium carbonate-vitamin D3 [Caltrate with Vitamin D3] 1 EACH tablet 1 tab PO DAILY RF: 0 albuterol sulfate 2.5 mg /3 mL (0.083 %) solution for nebulization 2.5 mg IH QID PRNRF: 0 omeprazole 40 mg capsule,delayed release(DR/EC) 40 mg PO DAILY Qty: 90 RF: 5 folic acid 1 mg tablet 1 mg PO DAILY Qty: 90 RF: 4 valacyclovir [Valtrex] 1 gram tablet 1,000 mg PO DAILY Qty: 90 RF: 12 cetirizine [Zyrtec] 10 mg tablet 10 mg PO DAILY Qty: 90 RF: 11 clotrimazole-betamethasone 1-0.05 % cream 1 applic Topical DAILY PRN (Reason: rash) Qty: 45 RF: 5 magnesium oxide 400 mg (241.3 mg magnesium) tablet 900 mg PO BID RF: 0 Discharge Instructions Instructions: Chronic Bronchitis (DC), Chronic Lung Disease and Infection Prevention (DC) Additional Instructions: Take your prednisone as directed. Take it w/ a meal to prevent gastritis. Take your azithromycin until completed. Use your rescue inhaler (albuterol) as needed for wheezing or shortness of breath. Talke w/ your PCP about referral to an E.P. (electrophysiology) senior information developer to evaluate your recurrent atrial arrhythmia (paroxysmal supraventricular tachycardia). Also talk w/ your PCP about weaning off your Ritalin as this can exacerbate your heart arrythmia. Talk with your PCP about changing your GERD (acid reflux) medicine to either an H2 andreia or to carafate, as your omeprazole (Prilosec) is probably contributing to your recurrent low magnesium levels. Activity:: Activity as Tolerated Equipment/Supplies:: No Equipment Needed Diet:: Normal Diet Discharge Orders Discharge Orders: Discharge Order (Routine); Ordered 10/14/20 Ordered By: Hector Berman Other Ambulatory Orders: 14 Day Activated Sludge Attendant (Routine) Timeframe: 1 Week Facility: [facility] - Location: Respiratory Therapy Ordered By: Hector Berman DS: Summary Time Spent with Patient providing and/or coordinating discharge services: Less than 30 minutes Status at Discharge Functional status at discharge: independent ambulation Overall status at discharge: patient is back to baseline Mental Status: mental status grossly normal Speech and Movement: speech and movement normal Mood: congruent mood Affect: normal affect Exam Narrative Exam Narrative: Pleasant obese female who just woke up. She slept better last night. She is not dyspneic. She has non-productive cough. No fevers overnight. No arrhythmias. She remains in sinus rhythm in the 60's Lungs w/ end expiratory wheeze after forceful exhalations but no wheezing w/ quiet respirations. No rhonchi or rales Heart is RRR, no murmur Psych Mental Status: mental status grossly normal Speech and Movement: speech and movement normal Mood: congruent mood Affect: normal affect DS: Data Vitals/I&O Vitals and I&O: Vital Signs Temperature 35.8 C L 10/14/20 04:20 Temperature Source Temporal Artery Scan 10/14/20 04:20 Pulse 63 10/14/20 06:01 Pulse Rhythm Regular 10/14/20 04:20 Pulse 65 10/14/20 06:01 Respiratory Rate 15 10/14/20 04:20 Respiratory Effort 10/14/20 04:20 Respiratory Depth Normal 10/14/20 04:20 Respiratory Pattern Normal 10/14/20 04:20 Blood Pressure 145/89 H 10/14/20 06:01 Blood Pressure Mean 100 10/14/20 06:01 Blood Pressure Position Supine 10/13/20 21:15 Pulse Oximetry 97 10/14/20 06:01 Oxygen Delivery Method Nasal Cannula 10/14/20 04:20 Oxygen Flow Rate 2 10/14/20 04:20 Pain Level 0 10/14/20 04:20 Intake & Output 10/13/20 10/13/20 10/14/20 11:59 23:59 11:59 Intake Total 1239.833 / 1979.833 740 / 1979.833 100 / 100 Output Total 1650 / 2600 950 / 2600 400 / 400 Balance -410.167 / -620.167 -210 / -620.167 -300 / -300 Weight 110.2 kg Intake: IV 399.833 / 559.833 160 / 559.833 100 / 100 Oral 840 / 1420 580 / 1420 Output: Urine 1650 / 2600 950 / 2600 400 / 400 Other: Urine Color Yellow Yellow Yellow Urine Appearance Clear Clear Clear Urine Odor None None None Comment from stress Stool Size Moderate Stool Characteristics Formed Data Completed and Pending Labs on day of discharge: Labs from last 24 hours 10/13/20 10/12/20 13:53 21:25 Hgb 8.9 L Hct 27.0 L SARS-CoV-2 (PCR) Negative [facility] Medical History Abnormal mammogram (04/05/06) Abnormal mammogram, unspecified 04/05/06 w/6 mos. F/U per [facility] Achilles tendinitis, right leg (08/18/16) WITH RETROCALCANEAL EXOSOTOSIS AND APOLONIA'S DEFORMITY Achilles tendonitis Adenomatous colon polyp Allergic fungal sinusitis Allergic fungal sinusitis (07/16/13) Anemia Anemia (12/31/12) Annual physical exam (10/25/17) Asthma exacerbation (06/12/16) Bleeding hemorrhoids (08/09/17) Cellulitis of left lower extremity Cellulitis of left lower extremity 12/11/16 Cellulitis of left lower extremity (12/11/16) Cholelithiasis without obstruction s/p cholecystectomy Cholelithiasis without obstruction Chronic diarrhea Chronic iron deficiency anemia Chronic obstructive lung disease FEV 1-72% Chronic respiratory failure with hypoxia COPD (chronic obstructive pulmonary disease) FEV 1- 72% COVID-19 ruled out by laboratory testing Depression Depressive disorder Discharge planning issues Diverticula of colon DVT prophylaxis Essential hypertension (04/09/13) Gastritis Gastritis (04/05/05) per EGD and mild reflux 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 Evans Hiatal hernia Hiatal hernia (04/05/96) small Hormone replacement therapy (postmenopausal) (12/20/11) Hyperlipidemia Hyperlipidemia (12/31/12) Hypertension Hypokalemia Hypokalemia due to excessive gastrointestinal loss of potassium Hypomagnesemia Hypomagnesemia Infectious diarrhea in adult patient Internal hemorrhoids Internal hemorrhoids (02/24/14) SMALL Lumbar disc prolapse with compression radiculopathy Lumbar disc prolapse with compression radiculopathy (08/21/09) Numbness and tingling (01/11/16) Otalgia (05/29/16) Otalgia of both ears Otalgia, unspecified 05/29/16 Pre-op exam 06/08/15 Smoker 200205/06/18-quit again SVT (supraventricular tachycardia) Thyroid nodule 01/19/16 normal thyroid scan 01/20 Vitamin D deficiency Vitamin D deficiency (06/26/16) Surgical History Arthroplasty of knee Arthroscopy Cholecystectomy Colonoscopy - MAC 10/21/14 12/20 Debridement, Soft Tissue 11/10/16-DR. VALLECILLO-RIGHT HEEL Dilation and curettage EGD - MAC (02/24/14) 04/25 H/O arthroscopy of knee H/O esophagogastroduodenoscopy (~04/26/20) H/O surgical procedure removal of toenails of great toe-bilateral History of arthroscopy of knee History of bilateral ligation of fallopian tubes History of bilateral tubal ligation History of colonoscopy (~04/26/20) History of esophagogastroduodenoscopy (EGD) (~04/26/20) Hx of biopsy 05/07/11 lip; Dr. Quesada Hysterectomy, Laproscopic (~1996) Ligation of fallopian tube LIP BX (10/05/11) DR. QUESADA LUNG LOBECTOMY (~1991) RLL; ? 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 Grandfather COPD (chronic obstructive pulmonary disease) Grandfather Diabetes Heart disease Grandmother Personal history of malignant neoplasm Pancreatic Grandmother Diabetes Social History Smoking/Tobacco Use Status: Former Tobacco Use Quit Date: 05/07/18 Smoking risk assessment performed?: Yes Alcohol Intake: current Alcohol Intake frequency: a few times a week Drug use: Socially Substance use type: marijuana Details: Pt notes that she takes THC gummies recreationally. Household members: spouse and other Details: 2 current occupation: [employer] Pets and animals: Yes Pets and animals: cat(s) Current gender identity: female What type of physical activity do you participate in: none Louise/Christian: Latter-Day Special louise needs: No Do you feel safe at home: Yes Do you feel safe in your relationship?: Yes
[2020-10-14] MEDS: Doxycycline Hyclate 100 MG CAP 200 MG PO (08:59)
[2020-10-14] MEDS: Losartan 50 MG TAB PO (08:59)
--- NOTE | 2020-10-14 12:19 | PDOC.CMDIS ---
- If Service Date Differs Date of service: 10/14/20 Time of Service: 12:19 LACE Index Scoring Tool - Questions: Length of Stay (in days): 2 Acuity (Admit via E.D.?): Yes Comorbidities: Chronic Pulmonary Disease E.D. Visits: 2 - Answers: Total Score: 9 Risk of Readmission: Low Risk Care Management Discharge Reason for Hospitalization: PSVT, HTN, Asthma Discharge Plan: Joselyn returned home today with no additional services at this time. Her transported via private vehicle. She will follow up with her PCP and discharge plan of care. Patient/Family Education Needs: Review discharge instructions, discussion of self care needs including ask me three.
== END 2020-10-14 11:10 | disposition home or self-care (01) | DRG 309 ==
LOC: ER 20:58 → ICU 21:43
PROVIDERS: Internal Medicine; Physician Assistant; Admitting Provider Family Medicine; Emergency Provider Student in an Organized Health Care Education/Training Program; PCP Family Medicine; Visit Provider Family Medicine
DX: I47.1 Supraventricular tachycardia (principal); J96.11 Chronic respiratory failure with hypoxia; Z68.41 Body mass index [BMI] 40.0-44.9, adult; J44.0 Chronic obstructive pulmonary disease with (acute) lower respiratory infection; D50.8 Other iron deficiency anemias; I10 Essential (primary) hypertension; K52.9 Noninfective gastroenteritis and colitis, unspecified; Z20.822 Contact with and (suspected) exposure to COVID-19; F32.9 Major depressive disorder, single episode, unspecified; E78.5 Hyperlipidemia, unspecified; E55.9 Vitamin D deficiency, unspecified; G47.33 Obstructive sleep apnea (adult) (pediatric); E66.9 Obesity, unspecified; J20.9 Acute bronchitis, unspecified; S30.860A Insect bite (nonvenomous) of lower back and pelvis, initial encounter; Z79.51 Long term (current) use of inhaled steroids; Z90.2 Acquired absence of lung [part of]; Z87.891 Personal history of nicotine dependence
CPT/HCPCS: 36415; 71275; 80053; 87635; 93005; 94640; 96361; 96365; 96366; 96368; 99291; J1650; 81003; 82728; 83540; 83735; 83880; 84443; 84484; 85014; 85018; 85025; 85610; 85730; 93010; 93306; 99223; 99232; 99238; J0696; J3475; J3490; J7512

== ENCOUNTER 2020-10-18 04:26 | Outpatient (CLI) | payer BC, SELFPAY ==
--- NOTE | 2020-11-01 09:34 | ZIOP_ITS ---
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 ?The patient was in normal sinus rhythm for the majority the recording with an average heart rate of 77 bpm. ?There were 5 episodes of supraventricular tachycardia the longest lasting 50 seconds. There were rare PACs. ?There were 2 episodes of ventricular tachycardia with the longest lasting 11 beats. There were rare PVCs. ?There were no episodes of atrial fibrillation, no pauses gram 3 seconds and no evidence of high degree heart block. ?There were 4 patient triggered events 1 of which was associated with SVT the others associated with sinus tachycardia or sinus rhythm.
== END 2020-10-18 04:27 | disposition home or self-care (01) ==
LOC: RT 04:26
PROVIDERS: PCP Family Medicine; Visit Provider Family Medicine
DX: I47.1 Supraventricular tachycardia (principal); I47.2 Ventricular tachycardia
CPT/HCPCS: 93246

== ENCOUNTER 2020-10-29 17:10 | Emergency (ER) | payer BC, SELFPAY ==
[2020-10-29] VITALS (24 sets, daily range): BP systolic 114–137; BP diastolic 70–79; PULSE 87–161; RESP 15–23; TEMP 36.1; O2SAT 97–100
--- NOTE | 2020-10-29 17:00 | RT.EKG_ITS ---
APPROVED REPORT Exam: Resting ECG Reason for Exam: svt Patient Location: E HR:98 bpm ECG Measurements Heart Rate 98 AXIS KS 147 P 48 QRSd 76 QRS 15 QT 360 T 28 QTc 460 Conclusion Sinus rhythm...normal P axis, V-rate 60- 99 Probable left atrial enlargement...P >50mS, <-0.10mV V1 no acute changes from prior ekg
--- NOTE | 2020-10-29 17:24 | W.ED.GENAD ---
Discharge Plan Disposition Patient Disposition: HOME Condition: Stable Discharge Details Clinical Impression: Fatigue, Headache, SVT (supraventricular tachycardia) Primary Care Provider: Nicole Hubbard ED Provider: Ham Poole Home Meds and New Rx's Prescriptions: Continued cholecalciferol (vitamin D3) 2,000 unit capsule 2,000 unit PO DAILY RF: 0 atorvastatin [Lipitor] 10 mg tablet 10 mg PO DAILY Qty: 90 RF: 12 budesonide-formoterol [Symbicort] 160-4.5 mcg/actuation HFA aerosol inhaler 2 puff Inhalation BID Qty: 3 RF: 11 duloxetine 60 mg capsule,delayed release(DR/EC) 60 mg PO DAILY Qty: 90 RF: 11 montelukast [Singulair] 10 mg tablet 10 mg PO DAILY Qty: 90 RF: 12 Stiolto Respimat 2.5-2.5 mcg/actuation mist 2 puff INHALATION DAILY Qty: 12 RF: 5 (DME) Aerochamber MV Spacer See Rx Instructions .ROUTE .MEDSUPPLY Qty: 1 RF: 0 losartan 50 mg tablet 50 mg PO DAILY Qty: 90 RF: 5 estradiol [Estrace] 0.5 mg tablet 0.5 mg PO EVERY OTHER DAY Qty: 90 RF: 12 metoprolol succinate 25 mg tablet extended release 24 hr 25 mg PO DAILY Qty: 90 RF: 4 estradiol [Yuvafem] 10 mcg tablet 10 mcg vaginal .3 times weekly Qty: 36 RF: 4 omeprazole 20 mg capsule,delayed release(DR/EC) 20 mg PO DAILY Qty: 90 RF: 4 hydrochlorothiazide 12.5 mg tablet 12.5 mg PO DAILY Qty: 90 RF: 5 (DME) EasiVent Mask Large 1 EACH device 1 ea Miscellaneous DIRECTED RF: 0 calcium carbonate-vitamin D3 [Caltrate with Vitamin D3] 1 EACH tablet 1 tab PO DAILY RF: 0 albuterol sulfate 2.5 mg /3 mL (0.083 %) solution for nebulization 2.5 mg IH QID PRNRF: 0 omeprazole 40 mg capsule,delayed release(DR/EC) 40 mg PO DAILY Qty: 90 RF: 5 folic acid 1 mg tablet 1 mg PO DAILY Qty: 90 RF: 4 valacyclovir [Valtrex] 1 gram tablet 1,000 mg PO DAILY Qty: 90 RF: 12 cetirizine [Zyrtec] 10 mg tablet 10 mg PO DAILY Qty: 90 RF: 11 clotrimazole-betamethasone 1-0.05 % cream 1 applic Topical DAILY PRN (Reason: rash) Qty: 45 RF: 5 fluconazole [Diflucan] 150 mg tablet 150 mg PO ONCE Qty: 2 RF: 1 magnesium oxide 400 mg (241.3 mg magnesium) tablet 900 mg PO BID RF: 0 Discharge Instructions Additional Instructions: your cat scan showed sinusitis, you declined to have antibiotics, please discuss starting antibiotics with your primary care provider within a week you can increase your metoprolol to 50mg daily if you feel more ill, have chest pain or difficulty breathing return to the emergency department Medical Decision Making 64 yo female with hx of copd on home o2, svt, htn, hld, who comes in with chief complaint of fatigue for a week and tonight felt palpitations and thought she may be in svt so came here. Her palpitiations resolved prior to arrival. She also noted an hour or so ago a mild to moderate frontal headache. She continues to have intermittent upper back pain and was admitted here earlier this month for svt with hypomagnesemia and had similar pain and had a cta of the chest that showed no acute findings. She states she has general fatigue and will get episodes of feeling lightheaded not assoicated with exertion and has no loc. She has no palpitations or chest pain now. No focal neuro deficits and speaking in full sentences on exam. Is in sinus rhythm now, has a ziopatch on and will see if we can get a reading performed. Given the recent negative cta doubt dissection or PE and has no evidence of dvt on exam. Given the new headache, though it is not severe and doubt sah, will obtain ct to evaluate for possible sdh. 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 Will also evaluate for nstemi and electrolyte abnormalities. labs show no significant abnormalities from baseline and remains stable feels much better after tylenol. CT head read as sinus disease otherwise unremarkable and xray unremarkable as well and remains in sinus rhythm on the monitor. Discussed antibiotics for her sinusitis but she declines at this time and has capacity to make her own decisions and would want to discuss with her pcp prior to starting antibiotics. Discussed risks of worsening sinus disease including worsening infection and possible brain abscess leading to potential or permanent disability and she still declines antibiotics until she can see her pcp. she is willing to have delta troponin and ecg and if this is negative feel she can be d/c'd home and f/u with cardiology. Awaiting report from zio patch monitor. pt remains stable, had one run of svt that terminated after about 3 seconds without intervention. outpatient heart monitor report reviewed and shows no vtach does have 5 episodes of svt longest episode being 50 seconds. Second ekg and troponin unchanged. Discussed with pt and she is comfortable with d/c, will have her increase her metoprolol to 50mg from 25mg and will have her f/u with pcp and singer back tender and return precautions given Differential Diagnosis Differential Diagnosis: svt, electrolyte abnormality, nstemi Medical Records Medical records reviewed: Yes I reviewed the patient's medical records. Imaging Data Radiologic Study: Attestation: I personally reviewed and interpreted this imaging study as follows: Imaging: CT Scan Radiologist's impression: PROCEDURE INFORMATION: Exam: CT Head Without Contrast Exam date and time: 10/29/2020 5:38 PM Age: 64 years old Clinical indication: Pain; Headache not specified TECHNIQUE: Imaging protocol: Computed tomography of the head without contrast. COMPARISON: CT HEAD AND CSPINE W/O CONTRAST 12/09/2016 1:22 AM FINDINGS: Brain: Cerebral sulci show bilateral symmetry with no supratentorial mass or mass effect detected. Brainstem and cerebellum are normal in appearance. There is no evidence of acute intracranial hemorrhage. Cerebral ventricles: Ventricular and cisternal spaces are normal in size and configuration and there is no midline shift or hydrocephalus seen. Paranasal sinuses: Bilateral lobular mucosal disease involves the inferior margins of both maxillary sinuses and there have been previous bilateral nasal/antral window surgical procedures. Minimal opacification of a few scattered bilateral ethmoid air cells noted with other paranasal sinuses clear. Mastoid air cells: Normally pneumatized and clear bilaterally. Bones/joints: Bony calvarium and skull base are intact and no acute fractures are detected. Soft tissues: Unremarkable. IMPRESSION: Unremarkable noncontrast head CT with no evidence of an acute intracranial process. Maxilloethmoidal sinus disease noted as above. Radiologic Study #2: Attestation: I personally reviewed and interpreted this imaging study as follows: Imaging: X-Ray Radiologist's impression: IMPRESSION: Minimal scarring versus subsegmental atelectasis at the lung bases with no other evidence of an acute cardiopulmonary process detected. Lab Data Lab results reviewed: Yes I reviewed the patient's lab results. ECG Data Attestation: I personally reviewed and interpreted this ECG (s) as follows: Prior ECG tracings: available for review Interpretation: sinus rhythm, rate of 98, pr 147 no acute changes compared to prior ekg 2nd ekg sinus rhythm, rate of 92, pr 145, no acute st twave ischemic changes HPI General Date/Time Provider Initiated Documentation: 10/29/20 17:11. Limitations to Documentation: no limitations. Information obtained by: patient. History of Present Illness 64 year old F presents to the emergency department with the chief complaint of fatigue, described as moderate, Patient started experiencing this week(s) (1) and it has been constant. No relieving factors improve symptom(s), No exacerbating factors reported . Patient notes other (palpitations). Patient did receive the following treatments prior to arrival, none Related Data Home Medications Medication Instructions Recorded Confirmed EasiVent Mask Large ea 09/18/12 10/21/20 calcium carbonate-vitamin D3 1 tab PO DAILY 09/18/12 10/29/20 [Caltrate with Vitamin D3] cholecalciferol (vitamin D3) 50 2,000 unit PO DAILY 02/05/18 10/29/20 mcg (2,000 unit) capsule albuterol sulfate 2.5 mg IH QID PRN 09/01/19 10/29/20 inhalational spacing device #1 each 09/02/19 10/21/20 metoprolol succinate 25 mg 25 mg PO DAILY #90 tab 02/26/20 10/29/20 tablet,extended release 24 hr atorvastatin 10 mg tablet 10 mg PO DAILY #90 tab-cap 03/25/20 10/29/20 budesonide-formoterol HFA 160 2 puff INHALATION BID #3 inhaler 03/25/20 10/29/20 mcg-4.5 mcg/actuation aerosol inhaler duloxetine 60 mg capsule,delayed 60 mg PO DAILY #90 tab-cap 03/25/20 10/29/20 release montelukast 10 mg tablet 10 mg PO DAILY #90 tab-cap 03/25/20 10/29/20 omeprazole 40 mg capsule,delayed 40 mg PO DAILY #90 cap 03/25/20 10/29/20 release tiotropium 2.5 mcg-olodaterol 2.5 2 puff INHALATION DAILY #12 g 03/25/20 10/29/20 mcg/actuation mist for inhalation folic acid 1 mg tablet 1 mg PO DAILY #90 tab 04/20/20 10/29/20 valacyclovir 1 gram tablet 1,000 mg PO DAILY #90 tab-cap 04/27/20 10/29/20 cetirizine 10 mg tablet 10 mg PO DAILY #90 tab 06/10/20 10/29/20 estradiol 10 mcg vaginal tablet 10 mcg VAGINAL .3 times weekly #36 06/24/20 10/29/20 tab clotrimazole-betamethasone 1 1 applic TOPICAL DAILY PRN #45 g 07/23/20 10/29/20 %-0.05 % topical cream estradiol 0.5 mg tablet 0.5 mg PO EVERY OTHER DAY #90 09/02/20 10/29/20 tab-cap losartan 50 mg tablet 50 mg PO DAILY #90 tab 09/02/20 10/29/20 magnesium oxide 900 mg PO BID 10/12/20 10/29/20 hydrochlorothiazide 12.5 mg tablet 12.5 mg PO DAILY #90 tab 10/21/20 10/29/20 omeprazole 20 mg capsule,delayed 20 mg PO DAILY #90 cap 10/21/20 10/21/20 release fluconazole 150 mg tablet 150 mg PO ONCE #2 tab 10/28/20 10/29/20 Previous Rx's Medication Instructions Recorded inhalational spacing device #1 each 09/02/19 metoprolol succinate 25 mg 25 mg PO DAILY #90 tab 02/26/20 tablet,extended release 24 hr atorvastatin 10 mg tablet 10 mg PO DAILY #90 tab-cap 03/25/20 budesonide-formoterol HFA 160 2 puff INHALATION BID #3 inhaler 03/25/20 mcg-4.5 mcg/actuation aerosol inhaler duloxetine 60 mg capsule,delayed 60 mg PO DAILY #90 tab-cap 03/25/20 release montelukast 10 mg tablet 10 mg PO DAILY #90 tab-cap 03/25/20 omeprazole 40 mg capsule,delayed 40 mg PO DAILY #90 cap 03/25/20 release tiotropium 2.5 mcg-olodaterol 2.5 2 puff INHALATION DAILY #12 g 03/25/20 mcg/actuation mist for inhalation folic acid 1 mg tablet 1 mg PO DAILY #90 tab 04/20/20 valacyclovir 1 gram tablet 1,000 mg PO DAILY #90 tab-cap 04/27/20 cetirizine 10 mg tablet 10 mg PO DAILY #90 tab 06/10/20 estradiol 10 mcg vaginal tablet 10 mcg VAGINAL .3 times weekly #36 06/24/20 tab clotrimazole-betamethasone 1 1 applic TOPICAL DAILY PRN #45 g 07/23/20 %-0.05 % topical cream estradiol 0.5 mg tablet 0.5 mg PO EVERY OTHER DAY #90 09/02/20 tab-cap losartan 50 mg tablet 50 mg PO DAILY #90 tab 09/02/20 hydrochlorothiazide 12.5 mg tablet 12.5 mg PO DAILY #90 tab 10/21/20 omeprazole 20 mg capsule,delayed 20 mg PO DAILY #90 cap 10/21/20 release fluconazole 150 mg tablet 150 mg PO ONCE #2 tab 10/28/20 Allergies Allergy/AdvReac Type Severity Reaction Status Date / Time amoxicillin trihydrate AdvReac Intermediate Gives her Unverified 10/29/20 17:22 [From Augmentin] Yeast infection potassium clavulanate AdvReac Intermediate gives her Unverified 10/29/20 17:22 [From Augmentin] yeast infection oxybutynin AdvReac Dry Unverified 10/29/20 17:22 mouth/mucous membranes General Stated Complaint: Palpitatns YUKI: 3 Review of Systems All systems reviewed & are unremarkable except as noted in HPI and below Constitutional Constitutional: Denies chills and Denies fever(s) ENT Ears, Nose, Mouth, and Throat: Denies change in voice Cardiovascular Cardiovascular: Denies chest pain and Denies dyspnea Respiratory Respiratory: Denies cough and Denies dyspnea Gastrointestinal Gastrointestinal: Denies abdominal pain, Denies nausea and Denies vomiting Musculoskeletal Musculoskeletal: Denies joint swelling [facility] Medical History Abnormal mammogram (04/05/06) Abnormal mammogram, unspecified 04/05/06 w/6 mos. F/U per [facility] Achilles tendinitis, right leg (08/18/16) WITH RETROCALCANEAL EXOSOTOSIS AND APOLONIA'S DEFORMITY Achilles tendonitis Adenomatous colon polyp Allergic fungal sinusitis Allergic fungal sinusitis (07/16/13) Anemia Anemia (12/31/12) Annual physical exam (10/25/17) Asthma exacerbation (06/12/16) Bleeding hemorrhoids (08/09/17) Cellulitis of left lower extremity Cellulitis of left lower extremity 12/11/16 Cellulitis of left lower extremity (12/11/16) Cholelithiasis without obstruction s/p cholecystectomy Cholelithiasis without obstruction Chronic diarrhea Chronic iron deficiency anemia Chronic obstructive lung disease FEV 1-72% Chronic respiratory failure with hypoxia COPD (chronic obstructive pulmonary disease) FEV 1- 72% COVID-19 ruled out by laboratory testing Depression Depressive disorder Discharge planning issues Diverticula of colon DVT prophylaxis Essential hypertension (04/09/13) Gastritis Gastritis (04/05/05) per EGD and mild reflux 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 Evans Hiatal hernia Hiatal hernia (04/05/96) small Hormone replacement therapy (postmenopausal) (12/20/11) Hyperlipidemia Hyperlipidemia (12/31/12) Hypertension Hypokalemia Hypokalemia due to excessive gastrointestinal loss of potassium Hypomagnesemia Hypomagnesemia Infectious diarrhea in adult patient Internal hemorrhoids Internal hemorrhoids (02/24/14) SMALL Lumbar disc prolapse with compression radiculopathy Lumbar disc prolapse with compression radiculopathy (08/21/09) Numbness and tingling (01/11/16) Otalgia (05/29/16) Otalgia of both ears Otalgia, unspecified 05/29/16 Pre-op exam 06/08/15 Smoker 200205/06/18-quit again SVT (supraventricular tachycardia) Thyroid nodule 01/19/16 normal thyroid scan 01/20 Vitamin D deficiency Vitamin D deficiency (06/26/16) Surgical History Arthroplasty of knee Arthroscopy Cholecystectomy Colonoscopy - MAC 02/24/1404/25 Debridement, Soft Tissue 11/10/16-DR. VALLECILLO-RIGHT HEEL Dilation and curettage EGD - MAC (02/24/14) 04/25 H/O arthroscopy of knee H/O esophagogastroduodenoscopy (~04/26/20) H/O surgical procedure removal of toenails of great toe-bilateral History of arthroscopy of knee History of bilateral ligation of fallopian tubes History of bilateral tubal ligation History of colonoscopy (~04/26/20) History of esophagogastroduodenoscopy (EGD) (~04/26/20) Hx of biopsy 05/07/11 nael; Dr. Quesada Hysterectomy, Laproscopic (~1996) Ligation of fallopian tube LIP BX (10/05/11) DR. QUESADA LUNG LOBECTOMY (~1991) RLL; ? 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 Grandfather COPD (chronic obstructive pulmonary disease) Grandfather Diabetes Heart disease Grandmother Personal history of malignant neoplasm Pancreatic Grandmother Diabetes Social History Smoking/Tobacco Use Status: Former Tobacco Use Quit Date: 05/07/18 Smoking risk assessment performed?: Yes Alcohol Intake: current Alcohol Intake frequency: a few times a week Drug use: Socially Substance use type: marijuana Details: Pt notes that she takes THC gummies recreationally. Household members: spouse and other Details: 2 current occupation: [employer] Pets and animals: Yes Pets and animals: cat(s) Current gender identity: female What type of physical activity do you participate in: none Louise/Caodaism: Jehovah'S Witness Special louise needs: No Do you feel safe at home: Yes Do you feel safe in your relationship?: Yes Exam Const General: no acute distress Orientation: alert HENVA Head: normal to inspection Ears: external ears normal General nose exam: external nose normal Mouth: moist mucous membranes Eyes General: appearance normal, both eyes and all related structures Neck Neck: normal visual inspection Resp Effort & Inspection: normal respiratory effort and able to speak in complete sentences Cardio Rate: regular rate GI Palpation: soft and nontender Skin General skin exam: no rashes or lesions noted Neuro General: patient alert and patient oriented x3 Extrem General: normal to inspection Psych Mental Status: mental status grossly normal Course Vital Signs Vital signs: Vital Signs Temperature 36.1 C L 10/29/20 17:14 Pulse 108 H 10/29/20 17:14 Respiratory Rate 15 10/29/20 17:14 Blood Pressure 129/79 10/29/20 17:14 Pulse Oximetry 100 10/29/20 17:14 Temperature 36.1 C L 10/29/20 17:14 Temperature Source Skin 10/29/20 17:14 Pulse 108 H 10/29/20 17:14 Respiratory Rate 15 10/29/20 17:14 Blood Pressure 129/79 10/29/20 17:14 Blood Pressure Position Sitting 10/29/20 17:14 Pulse Oximetry 100 10/29/20 17:14 Oxygen Delivery Method Nasal Cannula 10/29/20 17:14 Oxygen Flow Rate 2 10/29/20 17:14 Pain Level 4 10/29/20 17:14
--- NOTE | 2020-10-29 17:30 | DI.CT_ITS ---
Exam(s) CT HEAD WO EXAM: CT HEAD WO CLINICAL HISTORY: headache. TECHNIQUE: Imaging Protocol: Axial computed tomography images with coronal and sagittal reformatted images were created and reviewed COMPARISON: CT CT sinus wo from 07/11/2018 FINDINGS: There are no skull fractures. However, there is significant mucosal thickening in the maxillary sin uses. There is sparing of the sphenoid sinuses and frontal sinuses and non involvement of the model air cells. There is a defect on the medial wall of each maxillary sinus, consistent with prior surgi gayle procedure. Mastoid air cells are clear. There is no evidence of intracranial hemorrhage, mass effect, or shift of midline structures. There are no extra-axial fluid collections. The ventricles are not enlarged or shifted and there is no blo od within the ventricular system nor within the basal cisterns. IMPRESSION: No acute intracranial findings on this noninfused CT scan of the brain. Paranasal sinus disease in both maxillary sinuses as described above and there is evidence of previou s bilateral surgical procedures on the medial krueger of the maxillary sinuses. RADIATION DOSE DELIVERED: 841.66mGy.cm Total DLP DATA REPOSITORY: All CT scans at this facility are submitted to the National Radiology Data Registry (NRDR) Dose Index Registry (DIR) with the [employer] (ACR). RADIATION OPTIMIZATION: All CT scans at this facility use at least one of these dose optimization te chniques: automated exposure control; mA and/or kV adjustment per patient size (includes targeted exa ms where dose is matched to clinical indication); or iterative reconstruction.
--- NOTE | 2020-10-29 17:35 | DI.RAD_ITS ---
Exam(s) XR CHEST 2V PA LATERAL EXAM: XR CHEST 2V PA LATERAL CLINICAL HISTORY: palpitations. TECHNIQUE: 2D digital imaging was performed. COMPARISON: CR,XR XR PORTABLE CHEST AP from 02/18/2020 FINDINGS: Heart size upper normal mediastinum is not widened. Left lung is clear. Healed lower left rib fract ure noted. Mild increased markings in the right lung base are noted. These are unchanged from 02 18 20 No pleural effusions. No pulmonary edema. No pneumothorax. IMPRESSION: Mild increased markings in the right lower lung minimal if any significant change when compared to pr ior study of February 18, 2020. DATA REPOSITORY: RADIATION DOSE DELIVERED:
[2020-10-29 17:36] LABS: Abs Immature Grans 0.06 10^3/uL (0.0-0.06); Absolute Basophil Count 0.05 10^3/uL (0.0-0.2); Absolute Eosinophil Count 0.09 10^3/uL (0.0-0.7); Absolute Lymphocyte Count 3.29 10^3/uL (1.2-3.4); Absolute Monocyte Count 0.79 10^3/uL (0.1-0.8); Absolute Neutrophil Count 7.58 10^3/uL (1.2-6.7); Basophils % 0.4; Eosinophils % 0.8; HCT 34.9 % (36.0-46.0); HGB 11.2 g/dL (11.2-15.7); Immature Grans % 0.5; Lymphocytes % 27.7; MCH 30.7 pg (27.0-33.0); MCHC 32.1 % (32.0-36.0); MCV 95.6 fL (80-95); MPV 9.3 fL (8.0-11.0); Monocytes % 6.7; Neutrophils % 63.9; Nucleated RBC 0 %; Platelet Count 351 10^3/uL (130-400); RBC 3.65 10^6/uL (3.93-5.22); RDW 13.2 % (11.7-14.6); RDW-SD 46.1 fL; WBC 11.86 10^3/uL (4.4-10.8)
[2020-10-29 17:52] LABS: ALT 34 U/L (14-59); AST 17 U/L (15-37); Alkaline Phosphatase 84 U/L (46-116); Anion Gap 11.5 mmol/L (3-11); BUN 29 mg/dL (7-18); Bilirubin, Total 0.3 mg/dL (0.2-1.0); CO2 30.5 mmol/L (21.0-32.0); CREATININE 1.2 mg/dL (0.55-1.02); Calcium 10.6 mg/dL (8.5-10.1); Chloride 99 mmol/L (98-107); Estimated GFR 45.37 (mL/min/1.73m2); Glucose 113 mg/dL (74-106); Magnesium 1.6 mg/dL (1.8-2.4); Potassium 3.5 mmol/L (3.5-5.1); Sodium 141 mmol/L (136-145); Total Protein 9.1 g/dL (6.4-8.2); Troponin I < 0.05 ng/mL (<0.06)
[2020-10-29] MEDS: Acetaminophen 500 MG TAB 1000 MG PO (18:14)
--- NOTE | 2020-10-29 18:14 | RESPIRATORY ---
Addendum entered by Sunday Rodriguez 10/29/20 20:11: Report available on [employer] website, printed and handed off to ED provider Dr Poole. Original Note: RT removed pt's 14 day panel monitor in the ED (she was on day 11 of recording when removed), imported and uploaded information to [employer]. RT called [employer] to ask them about getting a read off of monitor, [employer] senior patient account representative advised that he could see the uploaded information and was sending it to be read expedited. RT was not given a time frame of when report would be available in patient's chart.
--- NOTE | 2020-10-29 18:21 | DI.VRAD_ITS ---
PROCEDURE INFORMATION: Exam: CT Head Without Contrast Exam date and time: 10/29/2020 5:38 PM Age: 64 years old Clinical indication: Pain; Headache not specified TECHNIQUE: Imaging protocol: Computed tomography of the head without contrast. COMPARISON: CT HEAD AND CSPINE W/O CONTRAST 12/09/2016 1:22 AM FINDINGS: Brain: Cerebral sulci show bilateral symmetry with no supratentorial mass or mass effect detected. Brainstem and cerebellum are normal in appearance. There is no evidence of acute intracranial hemorrhage. Cerebral ventricles: Ventricular and cisternal spaces are normal in size and configuration and there is no midline shift or hydrocephalus seen. Paranasal sinuses: Bilateral lobular mucosal disease involves the inferior margins of both maxillary sinuses and there have been previous bilateral nasal/antral window surgical procedures. Minimal opacification of a few scattered bilateral ethmoid air cells noted with other paranasal sinuses clear. Mastoid air cells: Normally pneumatized and clear bilaterally. Bones/joints: Bony calvarium and skull base are intact and no acute fractures are detected. Soft tissues: Unremarkable. IMPRESSION: Unremarkable noncontrast head CT with no evidence of an acute intracranial process. Maxilloethmoidal sinus disease noted as above. Dictated and Authenticated by: Chris Guajardo MD. Ordering:JUVE Cheek MD
[2020-10-29 18:24] LABS: FREE T4 0.93 ng/dL (0.76-1.46)
--- NOTE | 2020-10-29 18:25 | DI.VRAD_ITS ---
PROCEDURE INFORMATION: Exam: XR Chest Exam date and time: 10/29/2020 5:44 PM Age: 64 years old Clinical indication: Other: Palpitations TECHNIQUE: Imaging protocol: XR of the chest. Views: 2 views. COMPARISON: CT CHEST PE CTA 10/12/2020 7:25 PM FINDINGS: Lungs: Minimal stranded densities at the lung bases could represent scarring or subsegmental atelectasis with no other mass or consolidation detected. Pleural spaces: No pneumothorax or large pleural effusion seen. Chronic posttraumatic deformity of the posterolateral segment of the left 9th rib. Heart/Mediastinum: Heart size is normal and vessel margins are sharply defined. Bones/joints: There is chronic posttraumatic deformity of the posterolateral left 9th rib related to old fracture with surgical absence of the posterior segment of the right 6th rib also again evident and no acute osseous lesions detected osseous lesions detected. IMPRESSION: Minimal scarring versus subsegmental atelectasis at the lung bases with no other evidence of an acute cardiopulmonary process detected. Dictated and Authenticated by: Chris Guajardo MD. Ordering:JUVE Cheek MD
--- NOTE | 2020-10-29 19:45 | RT.EKG_ITS ---
APPROVED REPORT Exam: Resting ECG Reason for Exam: palpitations Patient Location: E HR:92 bpm ECG Measurements Heart Rate 92 AXIS HI 145 P 48 QRSd 79 QRS 19 QT 375 T 18 QTc 466 Conclusion Sinus rhythm...normal P axis, V-rate 60- 99
[2020-10-29 20:14] LABS: Troponin I < 0.05 ng/mL (<0.06)
== END 2020-10-29 21:25 | disposition home or self-care (01) ==
PROVIDERS: Emergency Provider Emergency Medicine; PCP Family Medicine
DX: I47.1 Supraventricular tachycardia (principal); R53.83 Other fatigue; R51.9 Headache, unspecified
CPT/HCPCS: 36415; 80053; 93005; 99285; 70450; 71046; 83735; 84439; 84443; 84484; 85025; 93010; 99283

== ENCOUNTER 2020-11-30 00:48 | Emergency (ER) | payer BC, SELFPAY ==
[2020-11-30] VITALS (69 sets, daily range): BP systolic 87–149; BP diastolic 46–85; PULSE 65–105; RESP 12–24; TEMP 36.1; O2SAT 97–100
--- NOTE | 2020-11-30 00:30 | RT.EKG_ITS ---
APPROVED REPORT Exam: Resting ECG Reason for Exam: svt Patient Location: E HR:71 bpm ECG Measurements Heart Rate 71 AXIS MN 157 P 34 QRSd 79 QRS 7 QT 457 T 24 QTc 496 Conclusion Sinus rhythm...normal P axis, V-rate 60- [address] [place] [address]-T changes No STEMI
--- NOTE | 2020-11-30 00:42 | ED.GENADUL_ITS ---
Discharge Plan Disposition Patient Disposition: HOSPITAL, NON-SPECIFIC Condition: Stable Discharge Details Clinical Impression: Ventricular tachycardia Primary Care Provider: Nicole Hubbard ED Provider: Manuel Salguero [place] Meds and New Rx's Prescriptions: No Action cholecalciferol (vitamin D3) 2,000 unit capsule 2,000 unit PO DAILY RF: 0 atorvastatin [Lipitor] 10 mg tablet 10 mg PO DAILY Qty: 90 RF: 12 budesonide-formoterol [Symbicort] 160-4.5 mcg/actuation HFA aerosol inhaler 2 puff Inhalation BID Qty: 3 RF: 11 duloxetine 60 mg capsule,delayed release(DR/EC) 60 mg PO DAILY Qty: 90 RF: 11 montelukast [Singulair] 10 mg tablet 10 mg PO DAILY Qty: 90 RF: 12 Stiolto Respimat 2.5-2.5 mcg/actuation mist 2 puff INHALATION DAILY Qty: 12 RF: 5 (DME) Aerochamber MV Spacer See Rx Instructions .ROUTE .MEDSUPPLY Qty: 1 RF: 0 losartan 50 mg tablet 50 mg PO DAILY Qty: 90 RF: 5 estradiol [Estrace] 0.5 mg tablet 0.5 mg PO EVERY OTHER DAY Qty: 90 RF: 12 estradiol [Yuvafem] 10 mcg tablet 10 mcg vaginal .3 times weekly Qty: 36 RF: 4 omeprazole 20 mg capsule,delayed release(DR/EC) 20 mg PO DAILY Qty: 90 RF: 4 hydrochlorothiazide 12.5 mg tablet 12.5 mg PO DAILY Qty: 90 RF: 5 (DME) EasiVent Mask Large 1 EACH device 1 ea Miscellaneous DIRECTED RF: 0 calcium carbonate-vitamin D3 [Caltrate with Vitamin D3] 1 EACH tablet 1 tab PO DAILY RF: 0 albuterol sulfate 2.5 mg /3 mL (0.083 %) solution for nebulization 2.5 mg IH QID PRNRF: 0 omeprazole 40 mg capsule,delayed release(DR/EC) 40 mg PO DAILY Qty: 90 RF: 5 folic acid 1 mg tablet 1 mg PO DAILY Qty: 90 RF: 4 valacyclovir [Valtrex] 1 gram tablet 1,000 mg PO DAILY Qty: 90 RF: 12 cetirizine [Zyrtec] 10 mg tablet 10 mg PO DAILY Qty: 90 RF: 11 clotrimazole-betamethasone 1-0.05 % cream 1 applic Topical DAILY PRN (Reason: rash) Qty: 45 RF: 5 metoprolol succinate 25 mg tablet extended release 24 hr 50 mg PO DAILY RF: 0 magnesium oxide 400 mg (241.3 mg magnesium) tablet 900 mg PO BID RF: 0 Medical Decision Making Patient presenting with frequent episodes of palpitations associated with chest pain and shortness of breath. Now having persistent chest pressure despite lack of palpitations though these can continue. Previous work-up include nuclear stress testing in February 2020 which was negative. Recent Holter monitor and Zio patch monitor with SVT and short runs of V. tach. Unable to see cardiology until January. Did have her metoprolol increased by PCP. Received aspirin and nitroglycerin from EMS and reports improvement. EMS reported narrow complex tachycardia lasting less than a minute. She has had a couple of episodes of SVT here as well. However she has had a total of 3 runs of ventricular tachycardia now 2 of which were prolonged 20 beats and 33 beats. Initially had ordered Lopressor but with a wide-complex tachycardia this was held. Given her multiple episodes as well as her complaints of chest pain I am going to load her with amiodarone and begin infusion. Her magnesium is low and this will need to be replaced as well. This is a chronic problem for her. She has chronic anemia. Also chronic kidney disease which is stable. First troponin negative. Case discussed with [facility] cardiology, Dr. Quiroz. Amiodarone load of 150 is in and the infusion of 1 mg/min is going. V. tach has certainly slowed since this. However she has had 2 episodes of fairly prolonged SVT that eventually responded to vagal maneuvers. Recommendation from Dr. Quiroz to start heparin and load with Plavix on the chance that this is related to ischemia given the episodes of chest pain. Also does not feel that the [facility] They, however, do not have beds. [facility] and [facility] are also still closed. I did speak with the patient and she understands that she is likely to be transferred further away. Was able to speak to Dr. Us from [facility] cardiology. She has agreed to accept the patient to the CCU there at [facility]. We will need to wait for bed confirmation and then arrange for transport. She will be transferred with amiodarone and heparin running. Patient second troponin is negative. Her Covid swab is negative. She has stabilized out on the amiodarone infusion at this point. Now has a bed at [facility] and will be transferred by [facility] crew ground. Medical Records Medical records reviewed: Yes I reviewed the patient's medical records. Lab Data Lab results reviewed: Yes I reviewed the patient's lab results. ECG Data Attestation: I personally reviewed and interpreted this ECG (s) as follows: Prior ECG tracings: available for review Interpretation: see EKG HPI General Mode of arrival: EMS . Date/Time Provider Initiated Documentation: 11/30/20 00:52 . Limitations to Documentation: no limitations . Information obtained by: patient, RN notes reviewed and old records reviewed . HPI Narrative: Patient presents to ED with episodes of palpitations, chest pain, shortness of breath. She has had previous work-up including a Zio patch which revealed episodes of SVT as well as episodes of VT. She has not been able to get into see cardiology. Primary care did increase her metoprolol dose from 25-50. The last couple of days have been stressful. She also had a fair amount of cleaning up today as her just had hip replacement surgery and she has been caring for him. Today she has had multiple episodes of palpitations. She has had almost persistent chest pressure. She has shortness of breath when she has the palpitations. She has not been ill otherwise. There is no fever, cough, vomiting, abdominal pain. She is supposed to be on CPAP nightly but again because of taking care of her and staying downstairs she has not been using it. Discomfort has been more pronounced tonight so she called EMS. She did receive aspirin and nitroglycerin with improvement of discomfort. She had multiple episodes of narrow complex tachycardia for EMS. Related Data Home Medications Medication Instructions Recorded Confirmed EasiVent Mask Large ea 09/18/12 10/21/20 calcium carbonate-vitamin D3 1 tab PO DAILY 09/18/12 10/29/20 [Caltrate with Vitamin D3] cholecalciferol (vitamin D3) 50 2,000 unit PO DAILY 02/05/18 10/29/20 mcg (2,000 unit) capsule albuterol sulfate 2.5 mg IH QID PRN 09/01/19 10/29/20 inhalational spacing device #1 each 09/02/19 10/21/20 atorvastatin 10 mg tablet 10 mg PO DAILY #90 tab-cap 03/25/20 10/29/20 budesonide-formoterol HFA 160 2 puff INHALATION BID #3 inhaler 03/25/20 10/29/20 mcg-4.5 mcg/actuation aerosol inhaler duloxetine 60 mg capsule,delayed 60 mg PO DAILY #90 tab-cap 03/25/20 10/29/20 release montelukast 10 mg tablet 10 mg PO DAILY #90 tab-cap 03/25/20 11/30/20 omeprazole 40 mg capsule,delayed 40 mg PO DAILY #90 cap 03/25/20 11/30/20 release tiotropium 2.5 mcg-olodaterol 2.5 2 puff INHALATION DAILY #12 g 03/25/20 10/29/20 mcg/actuation mist for inhalation folic acid 1 mg tablet 1 mg PO DAILY #90 tab 04/20/20 11/30/20 valacyclovir 1 gram tablet 1,000 mg PO DAILY #90 tab-cap 04/27/20 11/30/20 cetirizine 10 mg tablet 10 mg PO DAILY #90 tab 06/10/20 10/29/20 estradiol 10 mcg vaginal tablet 10 mcg VAGINAL .3 times weekly #36 06/24/20 11/30/20 tab clotrimazole-betamethasone 1 1 applic TOPICAL DAILY PRN #45 g 07/23/20 10/29/20 %-0.05 % topical cream estradiol 0.5 mg tablet 0.5 mg PO EVERY OTHER DAY #90 09/02/20 11/30/20 tab-cap losartan 50 mg tablet 50 mg PO DAILY #90 tab 09/02/20 11/30/20 magnesium oxide 900 mg PO BID 10/12/20 11/30/20 hydrochlorothiazide 12.5 mg tablet 12.5 mg PO DAILY #90 tab 10/21/20 11/30/20 omeprazole 20 mg capsule,delayed 20 mg PO DAILY #90 cap 10/21/20 11/30/20 release metoprolol succinate 50 mg PO DAILY 11/30/20 11/30/20 Previous Rx's Medication Instructions Recorded inhalational spacing device #1 each 09/02/19 atorvastatin 10 mg tablet 10 mg PO DAILY #90 tab-cap 03/25/20 budesonide-formoterol HFA 160 2 puff INHALATION BID #3 inhaler 03/25/20 mcg-4.5 mcg/actuation aerosol inhaler duloxetine 60 mg capsule,delayed 60 mg PO DAILY #90 tab-cap 03/25/20 release montelukast 10 mg tablet 10 mg PO DAILY #90 tab-cap 03/25/20 omeprazole 40 mg capsule,delayed 40 mg PO DAILY #90 cap 03/25/20 release tiotropium 2.5 mcg-olodaterol 2.5 2 puff INHALATION DAILY #12 g 03/25/20 mcg/actuation mist for inhalation folic acid 1 mg tablet 1 mg PO DAILY #90 tab 04/20/20 valacyclovir 1 gram tablet 1,000 mg PO DAILY #90 tab-cap 04/27/20 cetirizine 10 mg tablet 10 mg PO DAILY #90 tab 06/10/20 estradiol 10 mcg vaginal tablet 10 mcg VAGINAL .3 times weekly #36 06/24/20 tab clotrimazole-betamethasone 1 1 applic TOPICAL DAILY PRN #45 g 07/23/20 %-0.05 % topical cream estradiol 0.5 mg tablet 0.5 mg PO EVERY OTHER DAY #90 09/02/20 tab-cap losartan 50 mg tablet 50 mg PO DAILY #90 tab 09/02/20 hydrochlorothiazide 12.5 mg tablet 12.5 mg PO DAILY #90 tab 10/21/20 omeprazole 20 mg capsule,delayed 20 mg PO DAILY #90 cap 10/21/20 release Allergies Allergy/AdvReac Type Severity Reaction Status Date / Time amoxicillin trihydrate AdvReac Intermediate Gives her Unverified 11/30/20 01:13 [From Augmentin] Yeast infection potassium clavulanate AdvReac Intermediate gives her Unverified 11/30/20 01:13 [From Augmentin] yeast infection oxybutynin AdvReac Dry Unverified 11/30/20 01:13 mouth/mucous membranes General YUKI: 3 Review of Systems Narrative: 02/17 Review of Systems completed and is negative except as stated above in HPI (Systems reviewed: Const, Eyes, ENT, Resp, CV, GI, , MSK, Skin, Neuro) [facility] Medical History Abnormal mammogram, unspecified 04/05/06 w/6 mos. 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 Evans Hiatal hernia (04/05/96) small Hormone replacement therapy (postmenopausal) (12/20/11) Hyperlipidemia (12/31/12) Hypokalemia due to excessive gastrointestinal loss of potassium Hypomagnesemia Internal hemorrhoids (02/24/14) SMALL Lumbar disc prolapse with compression radiculopathy (08/21/09) SVT (supraventricular tachycardia) Thyroid nodule 01/19/16 normal thyroid scan 01/20 Vitamin D deficiency (06/26/16) Surgical History Arthroplasty of knee Arthroscopy Cholecystectomy Colonoscopy - MAC 02/24/1404/25 Debridement, Soft Tissue 11/10/16-DR. VALLECILLO-RIGHT HEEL Dilation and curettage EGD - MAC (02/24/14) 04/25 H/O esophagogastroduodenoscopy (~04/26/20) H/O surgical procedure removal of toenails of great toe-bilateral Hysterectomy, Laproscopic (~1996) LIP BX (10/05/11) DR. ACEVEDO LUNG LOBECTOMY (~1991) RLL; ? congential defect RHINOPLASTY (~2001) Family History Mother Essential hypertension Asthma Father Diabetes Personal history of malignant neoplasm Prostate/METS Sister Asthma Sister Asthma Brother No problems noted. Grandfather COPD (chronic obstructive pulmonary disease) Grandfather Diabetes Heart disease Grandmother Personal history of malignant neoplasm Pancreatic Grandmother Diabetes Social History Smoking/Tobacco Use Status: Former Tobacco Use Quit Date: 05/07/18 Smoking risk assessment performed?: Yes Alcohol Intake: current Alcohol Intake frequency: a few times a week Drug use: Socially Substance use type: marijuana Details: Pt notes that she takes THC gummies recreationally. Household members: spouse and other Details: 2 current occupation: [employer] Pets and animals: Yes Pets and animals: cat(s) Current gender identity: female What type of physical activity do you participate in: none Louise/Yarsani: Rastafari Special louise needs: No Do you feel safe at home: Yes Do you feel safe in your relationship?: Yes Exam Narrative Exam Narrative: Const: Obese female in NAD. HEENT: NC/AT. Normal facial exam. Eyes: Normal conjunctiva and sclera. Neck: Supple. Trachea midline. Lungs: Normal respiratory effort. Lungs are clear. Cor: RRR without murmur/gallop. Good radial pulses. GI: Soft. NT/ND. No guarding or rebound. Neuro: A+O x 3. Normal speech, mentation, gait. Cranial nerves II - XII grossly intact. No gross motor or sensory deficit. Ext: No C/C/E. Skin: Warm and dry without rash. Critical Care Time Critical Care Time Critical Care Time: Yes Total Critical Care Time: 90 Attestation: Upon my evaluation, this patient had a high probability of imminent or life-threatening deterioration, which required my direct attention, in tervention, and personal management. I have personally provided 90 minutes of critical care time exclusive of time spent on separately billable procedures. Time includes review of laboratory data, radiology results, discussion with consultants, and monitoring for potential decompensation. Interventions were performed as documented above.
--- NOTE | 2020-11-30 01:00 | RT.EKG_ITS ---
APPROVED REPORT Exam: Resting ECG Reason for Exam: svt Patient Location: E HR:172 bpm ECG Measurements Heart Rate 172 AXIS VA 149 P 238 QRSd 167 QRS -50 QT 307 T 255 QTc 520 Conclusion Extreme tachycardia with wide complex, no further rhythm analysis attempted I have reviewed and interpreted ECG and agree with software generated interpretation.
--- NOTE | 2020-11-30 01:00 | RT.EKG_ITS ---
APPROVED REPORT Exam: Resting ECG Reason for Exam: svt Patient Location: E HR:178 bpm ECG Measurements Heart Rate 178 AXIS [place] 136 P 245 QRSd 179 QRS -57 QT 312 T 256 QTc 538 Conclusion Extreme tachycardia with wide complex, no further rhythm analysis attempted VTACH
[2020-11-30 01:32] LABS: Abs Immature Grans 0.02 10^3/uL (0.0-0.06); Absolute Basophil Count 0.04 10^3/uL (0.0-0.2); Absolute Lymphocyte Count 3.48 10^3/uL (1.2-3.4); Absolute Monocyte Count 0.68 10^3/uL (0.1-0.8); Absolute Neutrophil Count 3.26 10^3/uL (1.2-6.7); Basophils % 0.5; Eosinophils % 1.3; Immature Grans % 0.3; Lymphocytes % 45.9; MCH 30.8 pg (27.0-33.0); MCHC 32.3 % (32.0-36.0); MCV 95.4 fL (80-95); MPV 9.1 fL (8.0-11.0); Nucleated RBC 0 %; Platelet Count 215 10^3/uL (130-400); RBC 3.25 10^6/uL (3.93-5.22); RDW 13.6 % (11.7-14.6); RDW-SD 47.3 fL; WBC 7.58 10^3/uL (4.4-10.8)
[2020-11-30 01:50] LABS: ALT 21 U/L (14-59); AST 14 U/L (15-37); Albumin 4.1 g/dL (3.4-5.0); Alkaline Phosphatase 41 U/L (46-116); Anion Gap 7.5 mmol/L (3-11); BUN 29 mg/dL (7-18); Bilirubin, Total 0.2 mg/dL (0.2-1.0); CO2 33.5 mmol/L (21.0-32.0); CREATININE 1.2 mg/dL (0.55-1.02); Calcium 9.4 mg/dL (8.5-10.1); Chloride 101 mmol/L (98-107); Estimated GFR 45.23 (mL/min/1.73m2); Glucose 128 mg/dL (74-106); Magnesium 1.4 mg/dL (1.8-2.4); Potassium 3.5 mmol/L (3.5-5.1); Sodium 142 mmol/L (136-145); Total Protein 7.6 g/dL (6.4-8.2); Troponin I < 0.05 ng/mL (<0.06)
--- NOTE | 2020-11-30 02:15 | RT.EKG_ITS ---
APPROVED REPORT Exam: Resting ECG Reason for Exam: dysrhythmia Patient Location: E HR:124 bpm ECG Measurements Heart Rate 124 AXIS AR [id number] P [id number] QRSd 88 QRS 30 QT [id number] T 118 QTc 0 Conclusion Atrial fibrillation...? atrial activity Ventricular tachycardia, unsustained...sequence of 3 or more V complexes I have reviewed and interpreted ECG and agree with software generated interpretation.
[2020-11-30] MEDS: Amiodarone 150 MG/3 ML VIAL IVP (03:00)
[2020-11-30] MEDS: MAGNESIUM SULFATE 2 GM/50 ML BAG IVPB (03:08)
[2020-11-30] MEDS: Clopidogrel 300 MG TAB PO (04:11)
[2020-11-30] MEDS: Heparin 5,000 UNITS/ML VIAL 5000 UNITS (04:12)
[2020-11-30 04:33] LABS: PTT Activated 21.8 sec (21.0-27.5)
[2020-11-30 04:54] LABS: Troponin I < 0.05 ng/mL (<0.06)
[2020-11-30 05:42] LABS: COVID-19 PCR Negative (Negative)
[2020-11-30] MEDS: Sucralfate 1 GM TAB PO (07:06)
== END 2020-11-30 07:46 | disposition short-term general hospital (02) ==
PROVIDERS: Emergency Provider Emergency Medicine; PCP Family Medicine
DX: I47.2 Ventricular tachycardia (principal); R07.9 Chest pain, unspecified; R06.02 Shortness of breath; E83.42 Hypomagnesemia; Z03.818 Encounter for observation for suspected exposure to other biological agents ruled out
CPT/HCPCS: 36415; 80053; 87635; 93005; 96365; 96366; 96368; 96375; 96376; 99291; 99292; 83735; 84484; 85025; 85730; 93010; J0282; J1644; J3490

== ENCOUNTER 2021-03-01 21:23 | Outpatient (REF) | payer BC, SELFPAY ==
[2021-03-03 10:35] LABS: COVID-19 RT-PCR UVMMC Result Negative (Negative)
== END 2021-03-01 21:24 | disposition home or self-care (01) ==
LOC: LBN 21:23
PROVIDERS: PCP Family Medicine; Visit Provider Nurse Practitioner Family
DX: Z20.822 Contact with and (suspected) exposure to COVID-19 (principal); J30.89 Other allergic rhinitis
CPT/HCPCS: U0003

== ENCOUNTER 2021-05-11 14:47 | Outpatient (CLI) | payer BC, SELFPAY ==
--- NOTE | 2021-05-11 14:45 | RT.EKG_ITS ---
APPROVED REPORT Exam: Resting ECG Reason for Exam: SVT, Ventricular tachycardia, on sotalol therapy Patient Location: O HR:66 bpm ECG Measurements Heart Rate 66 AXIS CO 150 P 43 QRSd 99 QRS 2 QT 426 T 55 QTc 447 Conclusion Sinus rhythm...normal P axis, V-rate 50- 99 Probable left atrial enlargement...P >50mS, <-0.10mV V1 Otherwise normal
== END 2021-05-11 14:48 | disposition home or self-care (01) ==
LOC: DI.CARD 14:47
PROVIDERS: PCP Family Medicine; Visit Provider Internal Medicine Cardiovascular Disease
DX: I47.1 Supraventricular tachycardia (principal); I47.2 Ventricular tachycardia; Z79.899 Other long term (current) drug therapy
CPT/HCPCS: 93010

== ENCOUNTER 2021-05-24 21:48 | Emergency (ER) | payer BC, SELFPAY ==
[2021-05-24] VITALS (17 sets, daily range): BP systolic 131–187; BP diastolic 77–99; PULSE 66–106; RESP 15–28; TEMP 36.5; O2SAT 96–99
--- NOTE | 2021-05-24 21:45 | RT.EKG_ITS ---
APPROVED REPORT Exam: Resting ECG Reason for Exam: chest pain Patient Location: E HR:85 bpm ECG Measurements Heart Rate 85 AXIS [place] 164 P 31 QRSd 81 QRS 15 QT 390 T 29 QTc 465 Conclusion Sinus rhythm...normal P axis, V-rate 60- 99
--- NOTE | 2021-05-24 22:00 | DI.CT_ITS ---
Exam(s) CT THORAX CTA EXAM: CT THORAX CTA CLINICAL HISTORY: chest and upper back pain. TECHNIQUE: Imaging Protocol: Axial CT angiography was performed with multi-slice acquisition and mu lti-planar and/or 3D reconstructions. CONTRAST MATERIAL: Intravenous: Omnipaque 350 Contrast volume:structured data in ml COMPARISON: CT CT CHEST PE CTA from 10/12/2020 FINDINGS: CT angiography of the chest was performed with intravenous infusion of 100 cc of Omnipaque 350. There are moderate to severe central lobular pulmonary emphysematous changes. There is a presumed pr ior right lower lobe resection. No acute consolidation identified.. No pleural effusion. Tracheobro nchial tree appears intact. No evidence of pulmonary embolic disease. Thoracic aorta is of normal diameter, no thoracic aortic an eurysm or dissection, major branch vessels appear intact. No mediastinal or hilar adenopathy. Images obtained through the upper abdomen show unremarkable appearance of the visualized portions of the liver, spleen, pancreas, adrenals, and kidneys. IMPRESSION: Negative CT angiogram of the chest. No evidence of pulmonary embolic disease. RADIATION DOSE DELIVERED: 638.91mGy.cm Total DLP 638.91mGy.cm Total DLP 17.95mGy CTDIvol DATA REPOSITORY: All CT scans at this facility are submitted to the National Radiology Data Registry (NRDR) Dose Index Registry (DIR) with the [employer] (A[employer]). RADIATION OPTIMIZATION: All CT scans at this facility use at least one of these dose optimization te chniques: automated exposure control; mA and/or kV adjustment per patient size (includes targeted exa ms where dose is matched to clinical indication); or iterative reconstruction.
--- NOTE | 2021-05-24 22:10 | ED.GENADUL_ITS ---
Discharge Plan Disposition Patient Disposition: HOME Condition: Stable Discharge Details Clinical Impression: Shortness of breath, Chest pain, Palpitations Primary Care Provider: Nicole Hubbard ED Provider: Ham Poole Home Meds and New Rx's Prescriptions: Continued cholecalciferol (vitamin D3) 2,000 unit capsule 2,000 unit PO DAILY RF: 0 (DME) Aerochamber MV Spacer See Rx Instructions .ROUTE .MEDSUPPLY Qty: 1 RF: 0 estradiol [Estrace] 0.5 mg tablet 0.5 mg PO EVERY OTHER DAY Qty: 90 RF: 12 magnesium oxide 400 mg magnesium tablet 400 mg PO BID Qty: 180 RF: 4 omeprazole 20 mg capsule,delayed release(DR/EC) 20 mg PO DAILY Qty: 90 RF: 4 sotalol 80 mg tablet 40 mg PO BID RF: 0 cetirizine [Zyrtec] 10 mg tablet 10 mg PO BID Qty: 180 RF: 4 flu vac qs 2020-(6 ms up) CD 60 mcg (15 mcg x 4)/0.5 mL suspension 0.5 ml IM ONCE Qty: 0.5 RF: 0 (DME) EasiVent Mask Large 1 EACH device 1 ea Miscellaneous DIRECTED RF: 0 calcium carbonate-vitamin D3 [Caltrate with Vitamin D3] 1 EACH tablet 1 tab PO DAILY RF: 0 albuterol sulfate 2.5 mg /3 mL (0.083 %) solution for nebulization 2.5 mg IH QID PRNRF: 0 clotrimazole-betamethasone 1-0.05 % cream 1 applic Topical DAILY PRN (Reason: rash) Qty: 45 RF: 5 montelukast [Singulair] 10 mg tablet 10 mg PO DAILY Qty: 90 RF: 12 atorvastatin [Lipitor] 10 mg tablet 10 mg PO DAILY Qty: 90 RF: 12 budesonide-formoterol [Symbicort] 160-4.5 mcg/actuation HFA aerosol inhaler 2 puff Inhalation BID Qty: 3 RF: 11 folic acid 1 mg tablet 1 mg PO DAILY Qty: 90 RF: 4 Stiolto Respimat 2.5-2.5 mcg/actuation mist 2 puff INHALATION DAILY Qty: 12 RF: 5 valacyclovir [Valtrex] 1 gram tablet 1,000 mg PO DAILY Qty: 90 RF: 12 fluticasone propionate [Flonase Allergy Relief] 50 mcg/actuation spray,suspension 1 spray intranasal DAILY Qty: 16 RF: 0 sertraline 50 mg tablet 50 mg PO DAILY Qty: 90 RF: 4 Discharge Instructions Additional Instructions: Your cat scan, lab work, ekg and monitoring here did not show significant abnormal findings you should be contacted by cardiology for follow up if you feel more ill, have severe worsening pain or difficulty breathing return to the emergency department Medical Decision Making 65 yo female with history of svt, vtach, copd on home o2, htn, hld, who comes in with cc of feeling her heart racing starting about an hour ago. She states she has had been feeling well during the day other than upper back pain she states she has been having for weeks and has been seeing chiropractor for this. She denies fevers, chills, had some shortness of breath when she had the feeling of her heart fluttering as well. She states she had a home o2 meter and was registering heart rates from 140-180. Arrives in stable condition in sinus rhythm rates in the 80's and no ischemic findings on ekg. She is 98% on 2L [place] which is her home o2 rate per patient. She currently has no chest pain but does have upper back pain. She has no murmurs, clear lungs, no abdomen tenderness. Suspect she could have been in vtach vs svt but will evaluate for nstemi vs dissection with labs and cta and monitor. labs show mag of 1.3 otherwise benign labs and cta shows no acute findings, she remains stable without chest pain or dyspnea, still in sinus rhythm. When she was at [facility] this summer after having episodes of vtach she had negative catheterization and negative mri of her heart per cardiology f/u note. Will consult with cardiology at [facility] [place] for recs on management given her reported elevated heart rate at home. spoke with Dr. Pat from cardiology at [facility] [place] and reviewed labs and workup here, had no recommendations other than if delta troponin is negative can be discharged with cardiology f/u. Discussed with pt and she agrees with plan pt remains stable, no chest pain or dyspnea still in sinus with no arrythmia. She states she has no ride home and can't drive in the dark so will observe until the morning pt remained stable and no episodes of any arrythmia, stable for d/c and will f/u with cardiology and return precautions were given Differential Diagnosis Differential Diagnosis: nstemi, vtach, svt, dissection Imaging Data Radiologic Study: Attestation: I personally reviewed and interpreted this imaging study as follows: Imaging: CT Scan Radiologist's impression: IMPRESSION: 1. Negative for pulmonary embolism. 2. No significant pneumonia. 3. Postoperative changes right chest. 4. Chronic lung disease. Lab Data Lab results reviewed: Yes I reviewed the patient's lab results. ECG Data Attestation: I personally reviewed and interpreted this ECG (s) as follows: Prior ECG tracings: available for review Interpretation: sinus rhythm, rate of 85, no acute st t wave ischemic findings HPI General Mode of arrival: ambulatory . Date/Time Provider Initiated Documentation: 05/24/21 21:52 . Limitations to Documentation: no limitations . Information obtained by: patient . History of Present Illness 65 year old F presents to the emergency department with the chief complaint of chest fluttering, described as moderate, Patient started experiencing this hour(s) (1) and it has been now resolved. No relieving factors improve symptom(s), No exacerbating factors reported . Patient notes chest pain. Patient did receive the following treatments prior to arrival, none Related Data Home Medications Medication Instructions Recorded Confirmed EasiVent Mask Large ea 09/18/12 05/13/21 calcium carbonate-vitamin D3 1 tab PO DAILY 09/18/12 05/13/21 [Caltrate with Vitamin D3] cholecalciferol (vitamin D3) 50 2,000 unit PO DAILY 02/05/18 05/13/21 mcg (2,000 unit) capsule albuterol sulfate 2.5 mg IH QID PRN 09/01/19 05/13/21 inhalational spacing device #1 each 09/02/19 05/13/21 clotrimazole-betamethasone 1 1 applic TOPICAL DAILY PRN #45 g 07/23/20 05/13/21 %-0.05 % topical cream estradiol 0.5 mg tablet 0.5 mg PO EVERY OTHER DAY #90 09/02/20 05/13/21 tab-cap omeprazole 20 mg capsule,delayed 20 mg PO DAILY #90 cap 10/21/20 05/13/21 release cetirizine 10 mg tablet 10 mg PO BID #180 tab 12/07/20 05/13/21 sotalol 80 mg tablet 40 mg PO BID tab 12/07/20 05/13/21 magnesium oxide 400 mg PO BID #180 tab 01/03/21 05/13/21 montelukast 10 mg tablet 10 mg PO DAILY #90 tab-cap 04/01/21 05/13/21 atorvastatin 10 mg tablet 10 mg PO DAILY #90 tab-cap 05/09/21 05/13/21 budesonide-formoterol HFA 160 2 puff INHALATION BID #3 inhaler 05/09/21 05/13/21 mcg-4.5 mcg/actuation aerosol inhaler folic acid 1 mg tablet 1 mg PO DAILY #90 tab 05/09/21 05/13/21 tiotropium 2.5 mcg-olodaterol 2.5 2 puff INHALATION DAILY #12 g 05/09/21 05/13/21 mcg/actuation mist for inhalation valacyclovir 1 gram tablet 1,000 mg PO DAILY #90 tab-cap 05/09/21 05/13/21 fluticasone propionate 50 1 spray INTRANASAL DAILY #16 g 05/13/21 05/13/21 mcg/actuation nasal spray,suspension sertraline 50 mg tablet 50 mg PO DAILY #90 tab 05/13/21 05/13/21 Previous Rx's Medication Instructions Recorded inhalational spacing device #1 each 09/02/19 clotrimazole-betamethasone 1 1 applic TOPICAL DAILY PRN #45 g 07/23/20 %-0.05 % topical cream estradiol 0.5 mg tablet 0.5 mg PO EVERY OTHER DAY #90 09/02/20 tab-cap omeprazole 20 mg capsule,delayed 20 mg PO DAILY #90 cap 10/21/20 release cetirizine 10 mg tablet 10 mg PO BID #180 tab 12/07/20 magnesium oxide 400 mg PO BID #180 tab 01/03/21 montelukast 10 mg tablet 10 mg PO DAILY #90 tab-cap 04/01/21 atorvastatin 10 mg tablet 10 mg PO DAILY #90 tab-cap 05/09/21 budesonide-formoterol HFA 160 2 puff INHALATION BID #3 inhaler 05/09/21 mcg-4.5 mcg/actuation aerosol inhaler folic acid 1 mg tablet 1 mg PO DAILY #90 tab 05/09/21 tiotropium 2.5 mcg-olodaterol 2.5 2 puff INHALATION DAILY #12 g 05/09/21 mcg/actuation mist for inhalation valacyclovir 1 gram tablet 1,000 mg PO DAILY #90 tab-cap 05/09/21 fluticasone propionate 50 1 spray INTRANASAL DAILY #16 g 05/13/21 mcg/actuation nasal spray,suspension sertraline 50 mg tablet 50 mg PO DAILY #90 tab 05/13/21 Allergies Allergy/AdvReac Type Severity Reaction Status Date / Time amoxicillin trihydrate AdvReac Intermediate Gives her Unverified 03/10/21 11:49 [From Augmentin] Yeast infection potassium clavulanate AdvReac Intermediate gives her Unverified 03/10/21 11:49 [From Augmentin] yeast infection oxybutynin AdvReac Dry Unverified 03/10/21 11:49 mouth/mucous membranes General Stated Complaint: Chest Pain YUKI: 3 Review of Systems All systems reviewed & are unremarkable except as noted in HPI and below Constitutional Constitutional: Denies chills, Denies fever(s) and Denies weakness Cardiovascular Cardiovascular: Denies dyspnea Respiratory Respiratory: Denies cough and Denies dyspnea Gastrointestinal Gastrointestinal: Denies abdominal pain, Denies nausea and Denies vomiting Musculoskeletal Musculoskeletal: Denies joint swelling Neurologic Neurologic: Denies weakness PFSH All Active Problems (Updated 05/25/21 @ 01:48 by Ham Poole MD) Shortness of breath (Acute) Chest pain (Acute) Palpitations (Acute) Folate deficiency (Acute) Ventricular tachycardia (Chronic) on zio patch Headache (Acute) SVT (supraventricular tachycardia) (Chronic) Tick bite of back (Acute) 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) Hypomagnesemia (Acute) Campylobacter gastroenteritis (Acute) Adenomatous colon polyp (Acute) Diverticula of colon (Acute) Infectious diarrhea in adult patient (Acute) Annual physical exam (Acute) Thyroid nodule (Acute 01/19/16) Anemia (Chronic 12/31/12) Fatigue (Acute) PSVT (paroxysmal supraventricular tachycardia) (Chronic) ALEXX on CPAP (Chronic) Back pain (Acute) Abdominal pain (Acute) Abnormal thyroid blood test (Acute) Chronic diarrhea (Acute) Hypokalemia due to excessive gastrointestinal loss of potassium (Acute) Chronic iron deficiency anemia (Acute) Chronic respiratory failure with hypoxia (Chronic) Vitamin D deficiency (Chronic 06/26/16) Lumbar disc prolapse with compression radiculopathy (Chronic 08/21/09) Hyperlipidemia (Chronic 12/31/12) Gastritis (Chronic 04/05/05) per EGD and mild reflux Essential hypertension (Chronic 04/09/13) Depressive disorder (Chronic) Chronic obstructive lung disease (Chronic) FEV 1-72% Asthma exacerbation (Chronic 06/12/16) Allergic fungal sinusitis (Chronic 07/16/13) Achilles tendinitis, right leg (Chronic 08/18/16) WITH RETROCALCANEAL EXOSOTOSIS AND APOLONIA'S DEFORMITY Medical History Abnormal mammogram, unspecified 04/05/06 w/6 mos. 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 Evans Hiatal hernia (04/05/96) small Hormone replacement therapy (postmenopausal) (12/20/11) Hyperlipidemia (12/31/12) Hypokalemia due to excessive gastrointestinal loss of potassium Hypomagnesemia Internal hemorrhoids (02/24/14) SMALL Lumbar disc prolapse with compression radiculopathy (08/21/09) SVT (supraventricular tachycardia) Thyroid nodule 01/19/16 normal thyroid scan 01/20 Vitamin D deficiency (06/26/16) Surgical History Arthroplasty of knee Arthroscopy Cholecystectomy Colonoscopy - MAC 02/24/1404/25 Debridement, Soft Tissue 11/10/16-DR. VALLECILLO-RIGHT HEEL Dilation and curettage EGD - MAC (02/24/14) 04/25 H/O esophagogastroduodenoscopy (~04/26/20) H/O surgical procedure removal of toenails of great toe-bilateral Hysterectomy, Laproscopic (~1996) LIP BX (10/05/11) DR. ACEVEDO LUNG LOBECTOMY (~1991) RLL; ? congential defect RHINOPLASTY (~2001) Family History Mother Essential hypertension Asthma Father Diabetes Personal history of malignant neoplasm Prostate/METS Sister Asthma Sister Asthma Brother No problems noted. Grandfather COPD (chronic obstructive pulmonary disease) Grandfather Diabetes Heart disease Grandmother Personal history of malignant neoplasm Pancreatic Grandmother Diabetes Social History Smoking/Tobacco Use Status: Former Tobacco Use Quit Date: 05/07/18 Smoking risk assessment performed?: Yes Alcohol Intake: current Alcohol Intake frequency: a few times a week Drug use: Socially Substance use type: marijuana Details: Pt notes that she takes THC gummies recreationally. Household members: spouse and other Details: 2 current occupation: [employer] Pets and animals: Yes Pets and animals: cat(s) Current gender identity: female What type of physical activity do you participate in: none Louise/Denominational: Anabaptist Special louise needs: No Do you feel safe at home: Yes Do you feel safe in your relationship?: Yes Exam Const General: no acute distress Orientation: alert HENMT Head: normal to inspection Ears: external ears normal General nose exam: external nose normal Mouth: moist mucous membranes Eyes General: appearance normal, both eyes and all related structures Neck Neck: normal visual inspection Resp Effort & Inspection: normal respiratory effort and able to speak in complete sentences Cardio Rate: regular rate GI Palpation: soft and nontender Back/Spine/Pelvis Back: no CVA tenderness Skin General skin exam: no rashes or lesions noted Neuro General: patient alert and patient oriented x3 Extrem General: normal to inspection Psych Mental Status: mental status grossly normal Course Vital Signs Vital signs: Vital Signs Temperature 36.5 C 05/24/21 21:53 Pulse 96 H 05/24/21 21:53 Respiratory Rate 18 05/24/21 21:53 Blood Pressure 187/92 H 05/24/21 21:53 Pulse Oximetry 98 05/24/21 21:53 Temperature 36.5 C 05/24/21 21:53 Temperature Source Temporal Artery Scan 05/24/21 21:53 Pulse 96 H 05/24/21 21:53 Respiratory Rate 18 05/24/21 21:53 Respiratory Effort Short of Breath 05/24/21 21:57 Respiratory Depth Normal 05/24/21 21:57 Respiratory Pattern Normal 05/24/21 21:57 Blood Pressure 187/92 H 05/24/21 21:53 Blood Pressure Position Supine 05/24/21 21:53 Pulse Oximetry 98 05/24/21 21:53 Oxygen Delivery Method Nasal Cannula 05/24/21 21:53 Oxygen Flow Rate 4 05/24/21 21:53 Pain Level 3 05/24/21 21:53
[2021-05-24 22:18] LABS: Source Nasal/Nares
[2021-05-24 22:23] LABS: Abs Immature Grans 0.03 10^3/uL (0.0-0.06); Absolute Basophil Count 0.05 10^3/uL (0.0-0.2); Absolute Eosinophil Count 0.07 10^3/uL (0.0-0.7); Absolute Lymphocyte Count 2.32 10^3/uL (1.2-3.4); Absolute Neutrophil Count 3.01 10^3/uL (1.2-6.7); Basophils % 0.9; Eosinophils % 1.2; HCT 31.3 % (36.0-46.0); HGB 10.2 g/dL (11.2-15.7); Immature Grans % 0.5; Lymphocytes % 39.5; MCH 30.4 pg (27.0-33.0); MCHC 32.6 % (32.0-36.0); MCV 93.2 fL (80-95); MPV 8.9 fL (8.0-11.0); Monocytes % 6.8; Neutrophils % 51.1; Nucleated RBC 0 %; Platelet Count 213 10^3/uL (130-400); RBC 3.36 10^6/uL (3.93-5.22); RDW 12.5 % (11.7-14.6); RDW-SD 43.1 fL; WBC 5.88 10^3/uL (4.4-10.8)
[2021-05-24] MEDS: Omnipaque 350 MG/ML 100 ML BTL IJ (22:45)
[2021-05-24] MEDS: Normal Saline Flush 10 ML SYR IVP (22:46)
[2021-05-24 22:49] LABS: ALT 23 U/L (14-59); AST 12 U/L (15-37); Albumin 4.2 g/dL (3.4-5.0); Alkaline Phosphatase 42 U/L (46-116); Anion Gap 7.6 mmol/L (3-11); BUN 24 mg/dL (7-18); Bilirubin, Total 0.2 mg/dL (0.2-1.0); CO2 29.4 mmol/L (21.0-32.0); CREATININE 0.8 mg/dL (0.55-1.02); Calcium 9.1 mg/dL (8.5-10.1); Chloride 104 mmol/L (98-107); Glucose 118 mg/dL (74-106); Magnesium 1.3 mg/dL (1.8-2.4); NT-proBNP 188 pg/mL (<300); Potassium 3.7 mmol/L (3.5-5.1); Sodium 141 mmol/L (136-145); TSH (W/Ref FT4) 4.92 uIU/mL (0.36-3.74); Total Protein 8.1 g/dL (6.4-8.2)
[2021-05-24 22:50] LABS: Troponin I < 50 ng/L (<or=60)
[2021-05-24 22:56] LABS: COVID-19 PCR Negative (Negative)
--- NOTE | 2021-05-24 23:01 | DI.VRAD_ITS ---
PROCEDURE INFORMATION: Exam: CTA Chest With Contrast Exam date and time: 05/24/2021 10:08 PM Age: 65 years old Clinical indication: Other: Chest and upper back pain TECHNIQUE: Imaging protocol: Computed tomographic angiography of the chest with contrast. 3D rendering (Not supervised by radiologist): MIP and/or 3D reconstructed images were created by the technologist. Radiation optimization: All CT scans at this facility use at least one of these dose optimization techniques: automated exposure control; mA and/or kV adjustment per patient size (includes targeted exams where dose is matched to clinical indication); or iterative reconstruction. Contrast material: OMNI 350; Contrast volume: 100 ml; Contrast route: INTRAVENOUS (IV); COMPARISON: CT CHEST PE CTA 10/12/2020 7:25 PM FINDINGS: Pulmonary arteries: Normal. No pulmonary emboli. Aorta: Unremarkable. No aortic aneurysm. No aortic dissection. Lungs: Emphysematous changes noted in the lungs. No significant consolidation or ground-glass opacity. The right lower lobe is surgically absent. Bands of pleuroparenchymal scar noted in both lung bases. Pleural spaces: Pleural thickening noted on the right. No significant pleural effusion or pneumothorax. Heart: Unremarkable. No cardiomegaly. No pericardial effusion. Lymph nodes: Unremarkable. No enlarged lymph nodes. Bones/joints: Old rib fractures are noted posteriorly on the right, likely from previous thoracotomy. Old fractures with callus are also noted at the posterolateral 9th, 10th, and 11th ribs. Negative for compression fracture. Disc space narrowing and osteophyte formation are noted. Soft tissues: No significant chest wall hematoma or fluid collection. IMPRESSION: 1. Negative for pulmonary embolism. 2. No significant pneumonia. 3. Postoperative changes right chest. 4. Chronic lung disease. Dictated and Authenticated by: Ham Gutierrez MD. Ordering:JUVE Cheek MD
[2021-05-24 23:07] LABS: FREE T4 0.75 ng/dL (0.76-1.46)
[2021-05-24] MEDS: Magnesium Oxide 400 MG TAB 800 MG PO (23:13)
[2021-05-24] MEDS: MAGNESIUM SULFATE 1 GM/100 ML BAG IVPB (23:13)
[2021-05-25] VITALS (58 sets, daily range): BP systolic 115–152; BP diastolic 41–125; PULSE 58–82; RESP 14–23; O2SAT 95–100
[2021-05-25 01:12] LABS: Troponin I < 50 ng/L (<or=60)
--- NOTE | 2021-05-25 11:57 | NUR.NOTE ---
relayed patient's negative covid results to her after verifying identity.
== END 2021-05-25 06:20 | disposition home or self-care (01) ==
PROVIDERS: Emergency Provider Emergency Medicine; PCP Family Medicine
DX: R06.02 Shortness of breath (principal); R07.9 Chest pain, unspecified; R00.2 Palpitations; M54.89 Other dorsalgia; I47.1 Supraventricular tachycardia; Z99.81 Dependence on supplemental oxygen; E83.42 Hypomagnesemia
CPT/HCPCS: 36415; 71275; 80053; 87635; 93005; 96365; 96366; 99285; 83735; 83880; 84439; 84443; 84484; 85025; 93010; 99284; J3475; J3490

== ENCOUNTER 2021-05-26 02:04 | Outpatient (CLI) | payer BC, SELFPAY ==
[2021-05-26 17:02] LABS: Folate > 20.0 ng/mL (8.6-20.0)
== END 2021-05-26 02:05 | disposition home or self-care (01) ==
LOC: LBO 02:04
PROVIDERS: PCP Family Medicine; Visit Provider Internal Medicine Cardiovascular Disease
DX: E53.8 Deficiency of other specified B group vitamins (principal)
CPT/HCPCS: 36415; 82746

== ENCOUNTER 2021-05-26 02:13 | Outpatient (CLI) | payer BC, SELFPAY ==
[2021-05-26] MEDS: Albuterol HFA 18 GM 200 PUFF INH IH (16:25)
[2021-05-26] MEDS: Inhaler, Assist Device 1 EACH MC (16:26)
--- NOTE | 2021-05-27 13:46 | W.PFT ---
Date of service: 05/26/21 Time of Service: 15:09 Pulmonary Function Test Result Requesting Provider Nicole Hubbard Indications: Worsening FULTON Interpretation Spirometry: There is severe airflow limitation. There technically is no significant bronchodilator response, however the FEV1% increased by 15% Lung Volumes: There is mild restriction Diffusion Capacity: The diffusion is reduced Airway Pressure: There is elevated airways resistance Impression Severe obstructive lung disease with a likely significant bronchodilator response. There is also a mild restrictive process with a reduced diffusion. Note: When compared to 12/13/09, there a reduction in FVC, FEV1, TLC and DLCO that is not accounted for by aging. Clinical Correlation therefore is recommended.
== END 2021-05-26 02:14 | disposition home or self-care (01) ==
LOC: RT 02:13
PROVIDERS: PCP Family Medicine; Visit Provider Family Medicine
DX: R06.09 Other forms of dyspnea (principal); J44.9 Chronic obstructive pulmonary disease, unspecified; R94.2 Abnormal results of pulmonary function studies; Z87.891 Personal history of nicotine dependence
CPT/HCPCS: 94060; 94726; 94729

== ENCOUNTER 2021-06-08 11:37 | Outpatient (CLI) | payer BC, SELFPAY ==
--- NOTE | 2021-06-08 11:30 | RT.EKG_ITS ---
APPROVED REPORT Exam: Resting ECG Reason for Exam: SVT Patient Location: O HR:62 bpm ECG Measurements Heart Rate 62 AXIS ID 143 P 53 QRSd 84 QRS 24 QT 451 T 36 QTc 458 Conclusion Sinus rhythm...normal P axis, V-rate 50- 99 Borderline T abnormalities, anterior leads...T flat or neg, V2-V4 Minimal ST elevation, inferior leads...ST >0.06mV, II III aVF Baseline wander in lead(s) I,II,III,aVR,aVL,aVF,V1,V2,V3,V6
== END 2021-06-08 11:38 | disposition home or self-care (01) ==
LOC: DI.CARD 11:41
PROVIDERS: PCP Family Medicine; Visit Provider Internal Medicine Cardiovascular Disease
DX: I47.1 Supraventricular tachycardia (principal); R07.89 Other chest pain
CPT/HCPCS: 93010

== ENCOUNTER 2021-08-08 14:51 | Outpatient (REF) | payer BC, SELFPAY ==
[2021-08-10 11:33] LABS: COVID-19 RT-PCR UVMMC Result Negative (Negative)
== END 2021-08-08 14:52 | disposition home or self-care (01) ==
LOC: NCHCN 14:51
PROVIDERS: PCP Family Medicine; Visit Provider Nurse Practitioner Family
DX: Z20.822 Contact with and (suspected) exposure to COVID-19 (principal)
CPT/HCPCS: U0003

== ENCOUNTER 2021-09-07 01:31 | Outpatient (CLI) | payer BC, SELFPAY | END 2021-09-07 01:32 | disposition home or self-care (01) | LOC: LBO 01:32 | PROVIDERS: PCP Family Medicine; Visit Provider Family Medicine ==

== ENCOUNTER 2021-09-12 01:36 | Outpatient (CLI) | payer BC, SELFPAY ==
[2021-09-12 13:23] LABS: Anion Gap 5.7 mmol/L (3-11); BUN 21 mg/dL (7-18); CO2 32.3 mmol/L (21.0-32.0); CREATININE 0.8 mg/dL (0.55-1.02); Calcium 8.9 mg/dL (8.5-10.1); Chloride 101 mmol/L (98-107); Glucose 103 mg/dL (74-106); Potassium 4.3 mmol/L (3.5-5.1); Sodium 139 mmol/L (136-145)
[2021-09-12 13:32] LABS: TSH (W/Ref FT4) 2.95 uIU/mL (0.36-3.74)
== END 2021-09-12 01:37 | disposition home or self-care (01) ==
LOC: LBO 01:36
PROVIDERS: Internal Medicine Cardiovascular Disease; PCP Family Medicine; Visit Provider Family Medicine
DX: I47.1 Supraventricular tachycardia (principal); R79.89 Other specified abnormal findings of blood chemistry
CPT/HCPCS: 36415; 80048; 84443

== ENCOUNTER → 2021-11-11 00:04 | Outpatient (CLI) | payer BC, SELFPAY ==
--- NOTE | 2021-11-11 10:49 | DI.DEXA_ITS ---
Exam(s) XR DEXA BONE DENSITY W/WO CHI EXAM: XR DEXA BONE DENSITY W/WO CHI CLINICAL HISTORY: osteoporosis,81.0 TECHNIQUE: Druva C densitometer analysis of left hip, lumbar spine and left forearm. COMPARISON: 2008 FINDINGS: Lateral view of the thoracic and lumbar spine shows no evidence of compression fractures. Bone mineral density measurements of the lumbar spine correspond to a total T-score of -0.3, in the n ormal range. This represents a 9.0 percent decrease compared with 2008. Bone mineral density measurements of the left hip correspond to a total T-score of 1.7. The femoral neck T-score is -0.4, in the normal range. This represents an 8 percent increase compared with 2008 . . The left forearm bone mineral density measurements correspond to a T-score of the distal 3rd of 0.4, in the normal range. Forearm was not analyzed on the prior exam.. IMPRESSION: Normal bone mineral density.
== END ==
PROVIDERS: PCP Family Medicine; Visit Provider Family Medicine
DX: M81.0 Age-related osteoporosis without current pathological fracture (principal)
CPT/HCPCS: 77080

== ENCOUNTER 2021-12-24 13:38 | Outpatient (REF) | payer MEDICARE, OTHER, SELFPAY ==
[2021-12-24 15:52] LABS: Bilirubin Negative (Negative); Blood Large (Negative); Clarity Clear (Clear); Glucose Negative (Negative); Ketones Negative (Negative); Leukocyte Esterase Small (Negative); Nitrite Negative (Negative); Specific Gravity 1.025 (1.005-1.025); Urobilinogen 0.2 EU/dL (Up TO 0.2)
[2021-12-24 16:00] LABS: Epithelial Cells Moderate HPF (Negative); RBC 20-50 HPF (0-2); WBC >50 HPF (0-5)
[2021-12-24 16:01] LABS: Bacteria Many HPF (Negative); C & S Indicated? No/Sq. Contamination; Casts Negative LPF (Negative); Crystals Negative HPF (Negative); Mucus Negative (Negative)
== END 2021-12-24 13:39 | disposition home or self-care (01) ==
LOC: NCHCN 13:38
PROVIDERS: PCP Family Medicine; Visit Provider Nurse Practitioner Family
DX: N39.0 Urinary tract infection, site not specified (principal)
CPT/HCPCS: 81003; 81015

== ENCOUNTER 2022-01-11 09:39 | Outpatient (CLI) | payer MEDICARE, OTHER, SELFPAY ==
--- NOTE | 2022-01-11 09:30 | RT.EKG_ITS ---
APPROVED REPORT Exam: Resting ECG Reason for Exam: dysrythmias Patient Location: O HR:58 bpm ECG Measurements Heart Rate 58 AXIS MT 150 P 35 QRSd 93 QRS 6 QT 454 T 26 QTc 446 Conclusion Sinus rhythm...normal P axis, V-rate 50- 99 Borderline low voltage, extremity leads...all extremity leads <0.6mV Baseline wander in lead(s) V1,V2,V3,V4,V6
== END 2022-01-11 09:40 | disposition home or self-care (01) ==
LOC: DI.CARD 09:40
PROVIDERS: PCP Family Medicine; Visit Provider Internal Medicine Cardiovascular Disease
DX: I47.1 Supraventricular tachycardia (principal); I47.2 Ventricular tachycardia
CPT/HCPCS: 93010

== ENCOUNTER → 2022-01-11 11:08 | Outpatient (BNVA) | payer MEDICARE, OTHER, SELFPAY | PROVIDERS: PCP Family Medicine; Referring Provider Family Medicine; Visit Provider Internal Medicine Cardiovascular Disease | DX: I47.1 Supraventricular tachycardia (principal); I47.2 Ventricular tachycardia | CPT/HCPCS: 93005; 99213 ==

== ENCOUNTER 2022-01-25 14:51 | Outpatient (CLI) | payer MEDICARE, OTHER, SELFPAY ==
--- NOTE | 2022-01-25 14:45 | RT.EKG_ITS ---
APPROVED REPORT Exam: Resting ECG Reason for Exam: chest pressure. Patient Location: O HR:75 bpm ECG Measurements Heart Rate 75 AXIS HI 149 P 46 QRSd 95 QRS -4 QT 415 T 43 QTc 464 Conclusion Sinus rhythm...normal P axis, V-rate 50- 99 RSR' in V1 or V2, probably normal variant...small R' only Baseline wander in lead(s) V4 Normal Electrocardiogram
== END 2022-01-25 14:52 | disposition home or self-care (01) ==
LOC: DI.CM 14:52
PROVIDERS: PCP Family Medicine; Visit Provider Nurse Practitioner Family
DX: R07.89 Other chest pain (principal)
CPT/HCPCS: 93010

== ENCOUNTER 2022-01-25 15:47 | Emergency (ER) | payer MEDICARE, OTHER, SELFPAY ==
[2022-01-25] VITALS (17 sets, daily range): BP systolic 88–147; BP diastolic 58–101; PULSE 61–87; RESP 15–25; TEMP 36.2; O2SAT 95–98
--- NOTE | 2022-01-25 15:45 | RT.EKG_ITS ---
APPROVED REPORT Exam: Resting ECG Reason for Exam: chest pain Patient Location: E HR:70 bpm ECG Measurements Heart Rate 70 AXIS SC 149 P 32 QRSd 86 QRS 7 QT 419 T 41 QTc 453 Conclusion Sinus rhythm...normal P axis, V-rate 60- 99 Probable left atrial enlargement...P >50mS, <-0.10mV V1
--- NOTE | 2022-01-25 16:30 | DI.RAD_ITS ---
Exam(s) XR PORTABLE CHEST AP EXAM: XR PORTABLE CHEST AP CLINICAL HISTORY: chest pain. TECHNIQUE: 2D digital imaging was performed. COMPARISON: CR,XR XR CHEST 2V PA LATERAL from 10/29/2020 FINDINGS: Single AP portable view. Heart size is upper normal. The mediastinum is not widened. There is infiltrate in the left lower lobe. Mild increased markings in the right lung base also note d. Subtle suggestion of lucency subjacent to the right hemidiaphragm. This may indicate free intrap eritoneal air. IMPRESSION: Lung base infiltrates. No obvious pleural effusions. Possible free intraperitoneal air. Recommend nonportable upright PA and lateral views when clinically possible, or alternatively CT scan. DATA REPOSITORY: RADIATION DOSE DELIVERED:
--- NOTE | 2022-01-25 16:42 | ED.GENADUL_ITS ---
Discharge Plan Disposition Patient Disposition: HOME Condition: Stable Discharge Details Clinical Impression: Sinusitis, Chest pain Primary Care Provider: Nicole Hubbard ED Provider: Ham Poole [place] Meds and New Rx's Prescriptions: New amoxicillin-pot clavulanate 875-125 mg tablet 1 tab PO BID Qty: 14 0RF fluconazole 150 mg tablet 150 mg PO Q3D Qty: 2 0RF Continued cholecalciferol (vitamin D3) 2,000 unit capsule 2,000 unit PO DAILY (DME) Aerochamber MV Spacer See Rx Instructions .ROUTE .MEDSUPPLY Qty: 1 0RF Rx Instructions: As directed sotalol 80 mg tablet 40 mg PO BID cetirizine [Zyrtec] 10 mg tablet 10 mg PO BID Qty: 180 4RF magnesium 200 mg tablet 400 mg PO BID levalbuterol HCl 1.25 mg/0.5 mL solution for nebulization 1.25 mg inhalation Q4H PRN Qty: 30 8RF Rx Instructions: must dilute for administration (DME) Oxygen Tank See Rx Instructions .Route Qty: 1 0RF Rx Instructions: Use 2Lpm with exertion as directed (DME) EasiVent Mask Large 1 EACH device 1 ea Miscellaneous DIRECTED calcium carbonate-vitamin D3 [Caltrate with Vitamin D3] 1 EACH tablet 1 tab PO DAILY clotrimazole-betamethasone 1-0.05 % cream 1 applic Topical DAILY PRN (Reason: rash) Qty: 45 5RF Rx Instructions: 45 gm tube montelukast [Singulair] 10 mg tablet 10 mg PO DAILY Qty: 90 12RF atorvastatin [Lipitor] 10 mg tablet 10 mg PO DAILY Qty: 90 12RF folic acid 1 mg tablet 1 mg PO DAILY Qty: 90 4RF valacyclovir [Valtrex] 1 gram tablet 1,000 mg PO DAILY Qty: 90 12RF sertraline 50 mg tablet 50 mg PO DAILY Qty: 90 4RF estradiol [Estrace] 0.5 mg tablet 0.5 mg PO .every 3rd day Qty: 90 2RF diltiazem HCl 120 mg capsule,extended release 24 hr 120 mg PO DAILY Qty: 90 3RF Breztri Aerosphere 160-9-4.8 mcg/actuation HFA aerosol inhaler 2 inh inhalation BID Qty: 32.1 1RF levalbuterol tartrate 45 mcg/actuation HFA aerosol inhaler 2 inh inhalation Q6H Qty: 45 1RF omeprazole 20 mg capsule,delayed release(DR/EC) 20 mg PO DAILY Qty: 90 3RF fluticasone propionate [Flonase Allergy Relief] 50 mcg/actuation spray,suspension 1 spray intranasal DAILY Qty: 48 8RF Rx Instructions: administer into each nostril Discharge Instructions Instructions: Chest Pain (ED), Sinusitis (ED) Additional Instructions: follow up with your primary care provider within 1 week if you feel more ill, have severe worsening pain or difficulty breathing return to the emergency department Medical Decision Making 66 yo female with hx of svt, copd on home o2, htn, who comes in with constant chest pressure since Sunday. She also has had sinus pressure and congesiton for 4-5 days, denies vision changes or fevers. She localizes the pain to the anterior chest, states it is nonradiating, no pain with exertion, no diaphoresis or n/v. She appears in no distress on exam speaking in full sentences.Has clear lung sounds, no murmurs, no jvd no calf tenderness, stable vitals. Unclear etiology for her pain will obtain ecg and troponin. No abdominal pain or tenderness on exam so doubt pancreatitis, cholecystitis or other surgical pathology. No tachycardia or evidence of dvt on exam and no pleuritic chest pain so doubt PE. No tearing back paina nd normal distal pulses so doubt dissection pt stable in no distress on repeat exam, labs show no acute changes or findings. She denies cough or fevers, xray read as atelectasis and less likely pneumonia and clinical picture not consistent with pneumonia. Given 3 days of symptoms do not feel delta troponin indicated, she will f/u with her pcp for potential stress testing. She has had sinusitis symptoms for almost a week, will treat with augmentin and gave fluconazole as well as she states she gets frequent yeast infections. Return precautions given Differential Diagnosis Differential Diagnosis: chest wall pain, esophageal spasm, nstemi Medical Records Medical records reviewed: Yes I reviewed the patient's medical records. Imaging Data Radiologic Study: Attestation: I personally reviewed and interpreted this imaging study as follows: Imaging: X-Ray Radiologist's impression: IMPRESSION: Infiltrate in the lateral right lung base.Left lung is clear.? There are no pleural effusions. Lab Data Lab results reviewed: Yes I reviewed the patient's lab results. ECG Data Attestation: I personally reviewed and interpreted this ECG (s) as follows: Prior ECG tracings: available for review Interpretation: sinus rhythm, rate of 70, no acute st t wave ischemic findings HPI General Mode of arrival: ambulatory . Date/Time Provider Initiated Documentation: 01/25/22 16:31 . Limitations to Documentation: no limitations . Information obtained by: patient . History of Present Illness 66 year old F presents to the emergency department with the chief complaint of chest pressure, described as moderate, Patient started experiencing this day(s) (3) and it has been constant. No relieving factors improve symptom(s), No exacerbating factors reported . Patient notes no other symptoms.. Patient did receive the following treatments prior to arrival, none Related Data Home Medications Medication Instructions Recorded Confirmed calcium carbonate 600 mg-vitamin 1 tab PO DAILY 09/18/12 01/25/22 D3 20 mcg (800 unit) tablet (Caltrate with Vitamin D3) inhaler,assist devices,access 09/18/12 01/25/22 (EasiVent Mask Large) cholecalciferol (vitamin D3) 50 2,000 unit PO DAILY 02/05/18 01/25/22 mcg (2,000 unit) capsule inhalational spacing device #1 ea 09/02/19 01/25/22 (Aerochamber MV spacer) clotrimazole-betamethasone 1 1 applic topical DAILY PRN rash 07/23/20 01/25/22 %-0.05 % topical cream #45 grams cetirizine 10 mg tablet (Zyrtec) 10 mg PO BID #180 tabs 12/07/20 01/25/22 sotalol 80 mg tablet 40 mg PO BID 12/07/20 01/25/22 montelukast 10 mg tablet 10 mg PO DAILY #90 tab-caps 04/01/21 01/25/22 (Singulair) atorvastatin 10 mg tablet (Lipitor) 10 mg PO DAILY #90 tab-caps 05/09/21 01/25/22 folic acid 1 mg tablet 1 mg PO DAILY #90 tabs 05/09/21 01/25/22 valacyclovir 1 gram tablet 1,000 mg PO DAILY #90 tab-caps 05/09/21 01/25/22 (Valtrex) sertraline 50 mg tablet 50 mg PO DAILY #90 tabs 05/13/21 01/25/22 levalbuterol HCl 1.25 mg/0.5 mL 1.25 mg (0.5 mL) inhalation Q4H 06/14/21 01/25/22 solution for nebulization PRN #30 ea magnesium 200 mg tablet 400 mg PO BID 09/12/21 01/25/22 estradiol 0.5 mg tablet (Estrace) 0.5 mg PO .every 3rd day #90 09/24/21 01/25/22 tab-caps diltiazem HCl 120 mg capsule,24 120 mg PO DAILY #90 caps 10/06/21 01/25/22 hr,extended release budesonide 160 mcg-glycopyr 9 2 inh inhalation BID #32.1 grams 10/28/21 01/25/22 mcg-formot 4.8 mcg/actuation HFA inhaler (Breztri [employer]) levalbuterol tartrate 45 2 inh inhalation Q6H #45 grams 10/28/21 01/25/22 mcg/actuation aerosol inhaler Oxygen #1 ea 11/25/21 01/25/22 omeprazole 20 mg capsule,delayed 20 mg PO DAILY #90 caps 11/30/21 01/25/22 release fluticasone propionate 50 1 spray intranasal DAILY #48 grams 12/06/21 01/25/22 mcg/actuation nasal spray,suspension (Flonase Allergy Relief) amoxicillin 875 mg-potassium 1 tab PO BID #14 tabs 01/25/22 clavulanate 125 mg tablet fluconazole 150 mg tablet 150 mg PO Q3D 2 doses #2 tabs 01/25/22 Previous Rx's Medication Instructions Recorded inhalational spacing device #1 ea 09/02/19 (Aerochamber MV spacer) clotrimazole-betamethasone 1 1 applic topical DAILY PRN rash 07/23/20 %-0.05 % topical cream #45 grams cetirizine 10 mg tablet (Zyrtec) 10 mg PO BID #180 tabs 12/07/20 montelukast 10 mg tablet 10 mg PO DAILY #90 tab-caps 04/01/21 (Singulair) atorvastatin 10 mg tablet (Lipitor) 10 mg PO DAILY #90 tab-caps 05/09/21 folic acid 1 mg tablet 1 mg PO DAILY #90 tabs 05/09/21 valacyclovir 1 gram tablet 1,000 mg PO DAILY #90 tab-caps 05/09/21 (Valtrex) sertraline 50 mg tablet 50 mg PO DAILY #90 tabs 05/13/21 levalbuterol HCl 1.25 mg/0.5 mL 1.25 mg (0.5 mL) inhalation Q4H 06/14/21 solution for nebulization PRN #30 ea estradiol 0.5 mg tablet (Estrace) 0.5 mg PO .every 3rd day #90 09/24/21 tab-caps diltiazem HCl 120 mg capsule,24 120 mg PO DAILY #90 caps 10/06/21 hr,extended release budesonide 160 mcg-glycopyr 9 2 inh inhalation BID #32.1 grams 10/28/21 mcg-formot 4.8 mcg/actuation HFA inhaler (Breztri Aerosphere) levalbuterol tartrate 45 2 inh inhalation Q6H #45 grams 10/28/21 mcg/actuation aerosol inhaler Oxygen #1 ea 11/25/21 omeprazole 20 mg capsule,delayed 20 mg PO DAILY #90 caps 11/30/21 release fluticasone propionate 50 1 spray intranasal DAILY #48 grams 12/06/21 mcg/actuation nasal spray,suspension (Flonase Allergy Relief) amoxicillin 875 mg-potassium 1 tab PO BID #14 tabs 01/25/22 clavulanate 125 mg tablet fluconazole 150 mg tablet 150 mg PO Q3D 2 doses #2 tabs 01/25/22 Allergies Allergy/AdvReac Type Severity Reaction Status Date / Time amoxicillin trihydrate AdvReac Intermediate Gives her Verified 01/25/22 14:41 [From Augmentin] Yeast infection potassium clavulanate AdvReac Intermediate gives her Verified 01/25/22 14:41 [From Augmentin] yeast infection oxybutynin AdvReac Dry Verified 01/25/22 14:41 mouth/mucous membranes General Stated Complaint: Chest Pain YUKI: 2 Review of Systems All systems reviewed & are unremarkable except as noted in HPI and below Constitutional Constitutional: Denies chills, Denies fever(s) and Denies weakness Eyes Eyes: Denies loss of vision Cardiovascular Cardiovascular: Denies dyspnea Respiratory Respiratory: Denies cough and Denies dyspnea Gastrointestinal Gastrointestinal: Denies abdominal pain, Denies nausea and Denies vomiting Musculoskeletal Musculoskeletal: Denies joint swelling Neurologic Neurologic: Denies loss of vision and Denies weakness PFSH All Active Problems (Updated 01/25/22 @ 18:06 by Ham Poole MD) Sinusitis (Acute) Chest pain (Acute) Chest pressure (Acute) Osteoporosis (Chronic) Chronic sinus infection (Acute) History of lobectomy of lung (Acute) Extralobar bronchopulmonary sequestration (Acute) Tracheobronchomalacia (Acute) Personal history of nicotine dependence (Acute) Asthma-COPD overlap syndrome (Acute) Low thyroxine (T4) level (Acute) Folate deficiency (Acute) Ventricular tachycardia (Chronic) on zio patch Headache (Acute) SVT (supraventricular tachycardia) (Chronic) Tick bite of back (Acute) Hypomagnesemia (Acute) Campylobacter gastroenteritis (Acute) Adenomatous colon polyp (Acute) Diverticula of colon (Acute) Infectious diarrhea in adult patient (Acute) Annual physical exam (Acute) Thyroid nodule (Acute 01/19/16) Anemia (Chronic 12/31/12) Fatigue (Acute) PSVT (paroxysmal supraventricular tachycardia) (Chronic) ALEXX on CPAP (Chronic) Back pain (Acute) Abdominal pain (Acute) Abnormal thyroid blood test (Acute) Chronic diarrhea (Acute) Hypokalemia due to excessive gastrointestinal loss of potassium (Acute) Chronic iron deficiency anemia (Acute) Chronic respiratory failure with hypoxia (Chronic) Vitamin D deficiency (Chronic 06/26/16) Lumbar disc prolapse with compression radiculopathy (Chronic 08/21/09) Hyperlipidemia (Chronic 12/31/12) Gastritis (Chronic 04/05/05) per EGD and mild reflux Essential hypertension (Chronic 04/09/13) Depressive disorder (Chronic) Asthma exacerbation (Chronic 06/12/16) Allergic fungal sinusitis (Chronic 07/16/13) Achilles tendinitis, right leg (Chronic 08/18/16) WITH RETROCALCANEAL EXOSOTOSIS AND APOLONIA'S DEFORMITY Medical History (Updated 01/25/22 @ 18:06 by Ham Poole MD) Abnormal mammogram, unspecified 04/05/06 w/6 mos. 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 Evans Hiatal hernia (04/05/96) small Hormone replacement therapy (postmenopausal) (12/20/11) Hypomagnesemia Internal hemorrhoids (02/24/14) SMALL Shortness of breath SVT (supraventricular tachycardia) Thyroid nodule 01/19/16 normal thyroid scan 01/20 Surgical History (Updated 10/04/21 @ 07:16 by William Quesada MD) Arthroplasty of knee Arthroscopy Cholecystectomy Colonoscopy - MAC 02/24/1404/25 Debridement, Soft Tissue 11/10/16-DR. VALLECILLO-RIGHT HEEL Dilation and curettage EGD - MAC (02/24/14) 04/25 H/O esophagogastroduodenoscopy (~04/26/20) H/O nasal septoplasty With inferior turbinoplasty, 2001 H/O sinus surgery Bilateral gris bullosa excision, bilateral maxillary antrostomy, 2011 H/O surgical procedure removal of toenails of great toe-bilateral Hysterectomy, Laproscopic (~1996) LIP BX (10/05/11) DR. QUESADA LUNG LOBECTOMY (~1991) RLL; ? congential defect Family History Mother Essential hypertension Asthma Father Diabetes Personal history of malignant neoplasm Prostate/METS Sister Asthma Sister Asthma Brother No problems noted. Grandfather COPD (chronic obstructive pulmonary disease) Grandfather Diabetes Heart disease Grandmother Personal history of malignant neoplasm Pancreatic Grandmother Diabetes Social History (Updated 09/15/21 @ 11:03 by Lian Peacock) Smoking/Tobacco Use Status: Former Tobacco Use tobacco type: cigarettes Quit Date: 05/07/18 Second Hand Exposure: Yes Smoking risk assessment performed?: Yes Alcohol Intake: current Alcohol Intake frequency: a few times a month Alcohol type: wine and hard liquor Drug use: Socially Substance use type: marijuana Details: Pt notes that she takes THC gummies recreationally. Household members: spouse Housing: house Communication Needs: None Do you need help understanding health information?: Rarely current occupation: [employer] Pets and animals: Yes Pets and animals: cat(s) Do you think of yourself as: straight/heterosexual Current gender identity: female What is your relationship status?: How often do you talk on the phone with friends or family?: three or more times per week How often do you get together with friends or relatives?: once per week Panel score (0-1 are the most socially isolated patients): 2 What type of physical activity do you participate in: none Louise/Hindu: Scientology Special louise needs: No Do you feel safe at home: Yes Do you feel safe in your relationship?: Yes Exam Const General: no acute distress Orientation: alert HENMT Head: normal to inspection Ears: external ears normal General nose exam: external nose normal Mouth: moist mucous membranes Eyes General: appearance normal, both eyes and all related structures Neck Neck: normal visual inspection Chest Chest: normal inspection of the chest Resp Effort & Inspection: normal respiratory effort and able to speak in complete sentences Cardio Rate: regular rate GI Palpation: soft and nontender Skin General skin exam: no rashes or lesions noted Neuro General: patient alert and patient oriented x3 Extrem General: normal to inspection Psych Mental Status: mental status grossly normal Course Vital Signs Vital signs: Vital Signs Temperature 36.2 C L 01/25/22 15:54 Pulse 61 01/25/22 15:54 Respiratory Rate 20 01/25/22 15:54 Blood Pressure 147/77 H 01/25/22 15:54 Pulse Oximetry 98 01/25/22 15:54 Temperature 36.2 C L 01/25/22 15:54 Pulse 61 01/25/22 15:54 Respiratory Rate 20 01/25/22 15:54 Respiratory Effort Non-Labored 01/25/22 15:57 Blood Pressure 147/77 H 01/25/22 15:54 Blood Pressure Position Sitting 01/25/22 15:54 Pulse Oximetry 98 01/25/22 15:54 Oxygen Delivery Method Nasal Cannula 01/25/22 15:54 Oxygen Flow Rate 2 01/25/22 15:54 Pain Level 6 01/25/22 15:54
[2022-01-25 17:08] LABS: Abs Immature Grans 0.04 10^3/uL (0.0-0.06); Absolute Basophil Count 0.04 10^3/uL (0.0-0.2); Absolute Eosinophil Count 0.08 10^3/uL (0.0-0.7); Absolute Lymphocyte Count 1.87 10^3/uL (1.2-3.4); Absolute Monocyte Count 0.47 10^3/uL (0.1-0.8); Absolute Neutrophil Count 4.23 10^3/uL (1.2-6.7); Basophils % 0.6; Eosinophils % 1.2; HCT 32.2 % (36.0-46.0); HGB 10.4 g/dL (11.2-15.7); Immature Grans % 0.6; Lymphocytes % 27.8; MCH 30.8 pg (27.0-33.0); MCHC 32.3 % (32.0-36.0); MCV 95 fL (80-95); MPV 9.5 fL (8.0-11.0); Neutrophils % 62.8; Platelet Count 238 10^3/uL (130-400); RBC 3.38 10^6/uL (3.93-5.22); RDW-SD 45.4 fL; WBC 6.73 10^3/uL (4.4-10.8)
[2022-01-25 17:32] LABS: ALT 28 U/L (14-59); AST 14 U/L (15-37); Albumin 3.8 g/dL (3.4-5.0); Alkaline Phosphatase 50 U/L (46-116); Anion Gap 6.5 mmol/L (3-11); BUN 24 mg/dL (7-18); Bilirubin, Total 0.2 mg/dL (0.2-1.0); CO2 32.5 mmol/L (21.0-32.0); CREATININE 0.7 mg/dL (0.55-1.02); Calcium 9.3 mg/dL (8.5-10.1); Chloride 101 mmol/L (98-107); Estimated GFR 95.92 (mL/min/1.73m2); Glucose 109 mg/dL (74-106); Magnesium 1.4 mg/dL (1.8-2.4); Potassium 3.9 mmol/L (3.5-5.1); Sodium 140 mmol/L (136-145); Total Protein 7.8 g/dL (6.4-8.2)
[2022-01-25 17:34] LABS: Troponin I < 50 ng/L (<or=60)
--- NOTE | 2022-01-25 17:58 | DI.VRAD_ITS ---
PROCEDURE INFORMATION: Exam: XR Chest Exam date and time: 01/25/2022 17:08 Age: 66 years old Clinical indication: Other: Chest pain TECHNIQUE: Imaging protocol: Radiologic exam of the chest. Views: 1 view. COMPARISON: CR XR CHEST 2V PA LATERAL 10/29/2020 17:54 FINDINGS: Lungs: Patchy bibasilar opacities are predominantly linear in configuration and more pronounced. Pleural spaces: No pleural effusion. No pneumothorax. Heart/Mediastinum: No cardiomegaly. Bones/joints: Chronic mid right posterior rib osteotomy and old rib fractures. IMPRESSION: Increasing bibasilar opacities as above favoring compressive atelectasis over pneumonia however please correlate with the clinical picture. Dictated and Authenticated by: Francine Haynes MD. Ordering:JUVE Cheek MD
== END 2022-01-25 18:30 | disposition home or self-care (01) ==
PROVIDERS: Emergency Provider Emergency Medicine; PCP Family Medicine
DX: J32.9 Chronic sinusitis, unspecified (principal); R07.89 Other chest pain; I10 Essential (primary) hypertension; J44.9 Chronic obstructive pulmonary disease, unspecified; Z79.51 Long term (current) use of inhaled steroids; Z87.891 Personal history of nicotine dependence
CPT/HCPCS: 80053; 93005; 99283; 71045; 83735; 84484; 85025; 93010; 99285

== ENCOUNTER 2022-03-15 03:35 | Outpatient (CLI) | payer MEDICARE, SELFPAY ==
[2022-03-15 12:31] LABS: Anion Gap 4.1 mmol/L (3-11); BUN 20 mg/dL (7-18); CO2 36.9 mmol/L (21.0-32.0); CREATININE 0.8 mg/dL (0.55-1.02); Calcium 9.3 mg/dL (8.5-10.1); Chloride 98 mmol/L (98-107); Estimated GFR 81.72 (mL/min/1.73m2); Glucose 111 mg/dL (74-106); Potassium 4.2 mmol/L (3.5-5.1); Sodium 139 mmol/L (136-145)
== END 2022-03-15 03:36 | disposition home or self-care (01) ==
LOC: LBO 03:35
PROVIDERS: PCP Family Medicine; Visit Provider Internal Medicine Cardiovascular Disease
DX: I47.1 Supraventricular tachycardia (principal); I10 Essential (primary) hypertension
CPT/HCPCS: 36415; 80048

== ENCOUNTER 2022-05-19 00:41 | Outpatient (CLI) | payer MEDICARE, SELFPAY ==
--- NOTE | 2022-05-19 08:00 | DI.CTLCSR_ITS ---
Exam(s) CT CHEST LUNG CANCER SCREEN EXAM: CT CHEST LUNG CANCER SCREEN CLINICAL HISTORY: Screening for lung cancer,former smoker, z87.891 TECHNIQUE: Imaging Protocol: Axial computed tomography images with coronal and sagittal reformatted images were created and reviewed COMPARISON: CT CT THORAX CTA from 05/24/2021 FINDINGS: Tracheobronchial tree: Patent where visualized. Pulmonary parenchyma: Emphysematous changes are present in the lungs. No architectural distortion. Lung Nodules: None. Mediastinum and Yolanda: No dominant adenopathy or fluid collection. The esophagus is unremarkable. Thyroid gland: Unremarkable. Lymph nodes: Unremarkable. Pleura: No effusion or pneumothorax. Heart: The heart is not dilated. Mild coronary artery calcification is present. No pericardial effus ion. Aorta: Thoracic aorta non-dilated.Atherosclerosis is present. Upper abdomen: Unremarkable. Soft Tissues: Unremarkable. Bones: Within normal limits. There are old bilateral rib fractures. IMPRESSION: No pulmonary nodules. Lung RADS Cat 1 - Negative: No nodules and definitely benign nodules Lung-RADS 1.0 CATEGORIES: Category 0 - Prior chest CT exam(s) being located for comparison. Category 1 - Annual screening in 12 months. No nodules or definitely benign nodules. Category 2 - Annual screening in 12 months. Benign appearance. Nodules with low likelihood of becomin g active cancer. Category 3 - 6-month follow-up. Probably benign. Short-term follow-up suggested. Nodules with low lik elihood of becoming active cancer. Category 4A - 3-month follow-up and CT/PET if >8 mm in size. Suspicious finding. Findings which requi re additional testing. Category 4B - Findings which require additional testing and tissue sampling. Suspicious finding. Category 4X - Category 3 or 4 nodules with additional features or imaging findings that increases the suspicion of malignancy. Modifier S- Potentially clinically significant finding. (Non lung cancer) RADIATION DOSE DELIVERED: 83.13mGy.cm Total DLP 83.13mGy.cmTotal DLP DATA REPOSITORY: All CT scans at this facility are submitted to the National Radiology Data Registry (NRDR) Dose Index Registry (DIR) with the [employer] (ACR). RADIATION OPTIMIZATION: All CT scans at this facility use at least one of these dose optimization te chniques: automated exposure control; mA and/or kV adjustment per patient size (includes targeted exa ms where dose is matched to clinical indication); or iterative reconstruction.
== END 2022-05-19 01:01 ==
LOC: DI 00:41
PROVIDERS: PCP Family Medicine; Visit Provider Student in an Organized Health Care Education/Training Program
DX: Z87.891 Personal history of nicotine dependence (principal); Z12.2 Encounter for screening for malignant neoplasm of respiratory organs
CPT/HCPCS: 71271

== ENCOUNTER 2022-10-11 08:48 | Outpatient (CLI) | payer MEDICARE, SELFPAY ==
--- NOTE | 2022-10-11 08:45 | RT.EKG_ITS ---
APPROVED REPORT Exam: Resting ECG Reason for Exam: SVT Patient Location: O HR:55 bpm ECG Measurements Heart Rate 55 AXIS NV 163 P 27 QRSd 93 QRS -6 QT 482 T 13 QTc 461 Conclusion Sinus rhythm...normal P axis, V-rate 50- 99
== END 2022-10-11 08:49 | disposition home or self-care (01) ==
LOC: DI.CARD 08:49
PROVIDERS: PCP Family Medicine; Visit Provider Internal Medicine Cardiovascular Disease
DX: I47.1 Supraventricular tachycardia (principal)
CPT/HCPCS: 93010

== ENCOUNTER → 2022-10-11 11:33 | Outpatient (BNVA) | payer MEDICARE, SELFPAY | PROVIDERS: PCP Family Medicine; Visit Provider Internal Medicine Cardiovascular Disease | DX: I47.1 Supraventricular tachycardia (principal) | CPT/HCPCS: 93005; 99213 ==

== ENCOUNTER 2022-10-18 03:37 | Outpatient (CLI) | payer MEDICARE, SELFPAY ==
[2022-10-18 12:50] LABS: BUN 23 mg/dL (7-18); CO2 32.4 mmol/L (21.0-32.0); CREATININE 0.8 mg/dL (0.55-1.02); Calcium 9.5 mg/dL (8.5-10.1); Estimated GFR 81.72 (mL/min/1.73m2); Glucose 116 mg/dL (74-106); Potassium 4.1 mmol/L (3.5-5.1); Sodium 135 mmol/L (136-145)
[2022-10-18 12:54] LABS: Anion Gap 1.6 mmol/L (3-11); Chloride 101 mmol/L (98-107)
== END 2022-10-18 03:38 | disposition home or self-care (01) ==
LOC: LBO 03:37
PROVIDERS: PCP Family Medicine; Visit Provider Internal Medicine Cardiovascular Disease
DX: I47.1 Supraventricular tachycardia (principal); Z51.81 Encounter for therapeutic drug level monitoring
CPT/HCPCS: 36415; 80048

== ENCOUNTER 2022-11-30 16:05 | Outpatient (REF) | payer MEDICARE, SELFPAY ==
[2022-11-30 20:24] LABS: Bilirubin Small (Negative); Blood Negative (Negative); Clarity Clear (Clear); Glucose Negative (Negative); Ketones Negative (Negative); Leukocyte Esterase Negative (Negative); Nitrite Negative (Negative); Specific Gravity 1.025 (1.005-1.025); Urobilinogen 0.2 mg/dL (Up to 0.2); pH 5.5 (5-8)
[2022-11-30 20:27] LABS: Bacteria Rare HPF (Negative); C & S Indicated? No; Casts Negative LPF (Negative); Crystals Moderate Amorphous HPF (Negative); Epithelial Cells Rare HPF (Negative); Mucus Negative (Negative); RBC Negative HPF (0-2); WBC Negative HPF (0-5)
== END 2022-11-30 16:06 | disposition home or self-care (01) ==
LOC: LBN 16:05
PROVIDERS: PCP Family Medicine; Visit Provider Family Medicine
DX: R82.998 Other abnormal findings in urine (principal); R10.2 Pelvic and perineal pain
CPT/HCPCS: 81003; 81015

== ENCOUNTER → 2022-12-11 01:30 | Outpatient (CLI) | payer MEDICARE, SELFPAY ==
--- NOTE | 2022-12-11 12:05 | DI.MAMMO_ITS ---
Exam(s) MAMMO SCREENING EXAM: MAMMO SCREENING CLINICAL HISTORY: screening, Z12.39 TECHNIQUE: Mammograms were interpreted according to the usual protocol including computer analysis w [employer] CAD system, tomosynthesis and C-view imaging. COMPARISON: 2012 through 2020 FINDINGS: The breasts are composed of scattered fibroglandular densities, Breast Density category B. No suspicious masses or suspicious microcalcifications are seen. Multiple benign-appearing nodules a gain. No skin thickening or abnormal axillary lymph nodes are seen. There has been no significant change from prior exams. IMPRESSION: BI-RADS Cat 2 - Benign Findings Yearly screening mammography is recommended. Breast Density - Category B, scattered fibroglandular densities. A negative radiographic report should not delay biopsy if a dominant or clinically suspicious mass is present. Up to ten percent of cancers are not identified on mammography. A negative report may reinforce clinical impression. Adenosis and dense breasts may obscure an underlying neoplasm. False positive reports average 6 to 10%. Patient will receive a letter notifying them of these results.
== END ==
PROVIDERS: PCP Family Medicine; Visit Provider Family Medicine
DX: Z12.31 Encounter for screening mammogram for malignant neoplasm of breast (principal)
CPT/HCPCS: 77063; 77067

== ENCOUNTER 2022-12-11 02:28 | Outpatient (CLI) | payer MEDICARE, SELFPAY ==
[2022-12-11 12:50] LABS: HCT 32.9 % (36.0-46.0); HGB 10.7 g/dL (11.2-15.7); MCH 30.1 pg (27.0-33.0); MCHC 32.5 % (32.0-36.0); MCV 93 fL (80-95); MPV 9.1 fL (8.0-11.0); Platelet Count 327 10^3/uL (130-400); RBC 3.55 10^6/uL (3.93-5.22); RDW 13.1 % (11.7-14.6); RDW-SD 44.2 fL; WBC 8.92 10^3/uL (4.4-10.8)
[2022-12-11 13:26] LABS: ALT 22 U/L (14-59); AST 15 U/L (15-37); Albumin 3.8 g/dL (3.4-5.0); Alkaline Phosphatase 59 U/L (46-116); Anion Gap 5.4 mmol/L (3-11); BUN 22 mg/dL (7-18); Bilirubin, Total 0.2 mg/dL (0.2-1.0); CO2 32.6 mmol/L (21.0-32.0); CREATININE 0.8 mg/dL (0.55-1.02); Calcium 9.7 mg/dL (8.5-10.1); Chloride 99 mmol/L (98-107); Estimated GFR 81.21 (mL/min/1.73m2); Glucose 106 mg/dL (74-106); Potassium 4.2 mmol/L (3.5-5.1); Sodium 137 mmol/L (136-145); TSH (W/Ref FT4) 2.96 uIU/mL (0.36-3.74); Total Protein 7.9 g/dL (6.4-8.2)
[2022-12-11 13:30] LABS: Hemoglobin A1C 6.2 % (<5.7)
== END 2022-12-11 02:29 | disposition home or self-care (01) ==
LOC: LBO 02:28
PROVIDERS: PCP Family Medicine; Visit Provider Family Medicine
DX: D50.9 Iron deficiency anemia, unspecified (principal); E11.9 Type 2 diabetes mellitus without complications; I10 Essential (primary) hypertension; R94.6 Abnormal results of thyroid function studies
CPT/HCPCS: 36415; 80053; 85027; 83036; 84443

== ENCOUNTER → 2023-04-26 12:52 | Outpatient (BNVA) | payer MEDICARE, SELFPAY | PROVIDERS: PCP Family Medicine; Referring Provider Family Medicine; Visit Provider Physician Assistant Surgical | DX: J44.9 Chronic obstructive pulmonary disease, unspecified (principal); J39.8 Other specified diseases of upper respiratory tract; Q33.2 Sequestration of lung; Z90.2 Acquired absence of lung [part of]; Z87.891 Personal history of nicotine dependence | CPT/HCPCS: 99214 ==

== ENCOUNTER → 2023-05-24 02:41 | Outpatient (CLI) | payer MEDICARE, SELFPAY ==
--- NOTE | 2023-05-24 08:45 | DI.CTLCSR_ITS ---
Exam(s) CT CHEST LUNG CANCER SCREEN EXAM: CT CHEST LUNG CANCER SCREEN CLINICAL HISTORY: Screening for lung cancer Z87.891 HX NICOTINE DEPENDENCE TECHNIQUE: Imaging Protocol: Axial computed tomography images with coronal and sagittal reformatted images were created and reviewed. Low dose screening protocol. COMPARISON: CT CT CHEST LUNG CANCER SCREEN from 05/19/2022 FINDINGS: Tracheobronchial tree: No bronchiectasis or mucus plugging.. Mediastinum and Yolanda: No dominant adenopathy or fluid collection. Pulmonary parenchyma: Minimal scarring or atelectasis at the left lung base. No consolidation or dom inant measurable mass. Mild emphysematous changes. Lung Nodules: None. Pleura: No effusion. No pneumothorax. Heart: The heart is not dilated. Mild coronary artery calcifications are seen. Aorta: Thoracic aorta non-dilated. Upper abdomen: Unremarkable. Bones: Prominent endplate osteophytes in the spine. Soft Tissues: Unremarkable. IMPRESSION: No suspicious pulmonary nodules. Lung RADS Cat 1 - Negative: No nodules and definitely benign nodules Lung-RADS 1.0 CATEGORIES: Category 0 - Prior chest CT exam(s) being located for comparison. Category 1 - Annual screening in 12 months. No nodules or definitely benign nodules. Category 2 - Annual screening in 12 months. Benign appearance. Nodules with low likelihood of becomin g active cancer. Category 3 - 6-month follow-up. Probably benign. Short-term follow-up suggested. Nodules with low lik elihood of becoming active cancer. Category 4A - 3-month follow-up and CT/PET if >8 mm in size. Suspicious finding. Findings which requi re additional testing. Category 4B - Findings which require additional testing and tissue sampling. Category 4X - Category 3 or 4 nodules with additional features or imaging findings that increases the suspicion of malignancy. Modifier S- Potentially clinically significant findings (non lung cancer) RADIATION DOSE DELIVERED: 82.94mGy.cm Total DLP DATA REPOSITORY: All CT scans at this facility are submitted to the National Radiology Data Registry (NRDR) Dose Index Registry (DIR) with the [employer] (ACR). RADIATION OPTIMIZATION: All CT scans at this facility use at least one of these dose optimization te chniques: automated exposure control; mA and/or kV adjustment per patient size (includes targeted exa ms where dose is matched to clinical indication); or iterative reconstruction.
== END ==
PROVIDERS: PCP Family Medicine; Visit Provider Physician Assistant Surgical
DX: Z87.891 Personal history of nicotine dependence (principal); Z12.2 Encounter for screening for malignant neoplasm of respiratory organs
CPT/HCPCS: 71271

== ENCOUNTER 2023-07-16 15:53 | Outpatient (REF) | payer MEDICARE, SELFPAY ==
[2023-07-16 21:29] LABS: Abs Immature Grans 0.07 10^3/uL (0.0-0.06); Absolute Basophil Count 0.07 10^3/uL (0.0-0.2); Absolute Eosinophil Count 0.23 10^3/uL (0.0-0.7); Absolute Lymphocyte Count 3.37 10^3/uL (1.2-3.4); Absolute Neutrophil Count 5.61 10^3/uL (1.2-6.7); Basophils % 0.7; Eosinophils % 2.2; HCT 36.3 % (36.0-46.0); HGB 11.9 g/dL (11.2-15.7); Immature Grans % 0.7; Lymphocytes % 32.6; MCH 30.8 pg (27.0-33.0); MCHC 32.8 % (32.0-36.0); MCV 94 fL (80-95); MPV 9.6 fL (8.0-11.0); Monocytes % 9.7; Neutrophils % 54.1; Platelet Count 398 10^3/uL (130-400); RBC 3.86 10^6/uL (3.93-5.22); RDW 13.3 % (11.7-14.6); RDW-SD 45.6 fL; WBC 10.35 10^3/uL (4.4-10.8)
[2023-07-16 21:45] LABS: ALT 96 U/L (14-59); AST 33 U/L (15-37); Albumin 3.6 g/dL (3.4-5.0); Alkaline Phosphatase 111 U/L (46-116); Anion Gap 9.1 mmol/L (3-11); BUN 27 mg/dL (7-18); Bilirubin, Total 0.4 mg/dL (0.2-1.0); CO2 30.9 mmol/L (21.0-32.0); CREATININE 0.9 mg/dL (0.55-1.02); Calcium 9.8 mg/dL (8.5-10.1); Chloride 102 mmol/L (98-107); Estimated GFR 70.51 (mL/min/1.73m2); Glucose 117 mg/dL (74-106); Potassium 4.5 mmol/L (3.5-5.1); Sodium 142 mmol/L (136-145); Total Protein 7.5 g/dL (6.4-8.2)
== END 2023-07-16 15:54 | disposition home or self-care (01) ==
LOC: LBN 15:53
PROVIDERS: PCP Family Medicine; Visit Provider Nurse Practitioner Family
DX: R10.32 Left lower quadrant pain (principal); R79.89 Other specified abnormal findings of blood chemistry; R79.82 Elevated C-reactive protein (CRP)
CPT/HCPCS: 80053; 85025; 86140

== ENCOUNTER → 2023-07-18 03:03 | Outpatient (CLI) | payer MEDICARE, SELFPAY ==
--- NOTE | 2023-07-18 | DI.CT_ITS ---
Exam(s) CT ABDOMEN PELVIS W EXAM: CT ABDOMEN PELVIS W CLINICAL HISTORY: LLQ PAIN,R10.32 TECHNIQUE: Imaging Protocol: Axial computed tomography images with coronal and sagittal reformatted images were created and reviewed. CONTRAST MATERIAL: Intravenous: Omnipaque 350 Contrast volume:100 mL Oral: Yes COMPARISON: CT CT ABDOMEN PELVIS W from 09/23/[address] CHEST PE CTA from 10/12/[address] THORAX CTA from 05/24/[address] CHEST LUNG CANCER SCREEN from 05/24/2023 FINDINGS: ABDOMEN: Lung Bases: Atelectasis in the lung bases. Liver: Normal density. There is a tiny hypodensity in the right lobe of the liver. It is too small f or further characterization but likely reflects a small cyst. No suspicious hepatic masses are seen. Portal, Superior Mesenteric, and Splenic Veins: Unremarkable. Gallbladder and Biliary Tract: Status post cholecystectomy. No significant biliary ductal dilatation . Pancreas: Normal density, no abnormal calcifications or inflammatory process. Spleen: Normal. Adrenals: There is again seen a right adrenal nodule measuring 1.4 x 1.2 cm. This compares to 1.2 x 1.1 on the prior examination from 2019. The left adrenal gland is unremarkable. Kidneys: Normal size, contour and axis. No radiodense stones or obstructive uropathy. There are bilat eral simple renal cysts. No follow-up is recommended. Abdominal Aorta: Abdominal portion non-dilated. Atherosclerotic calcification. Bowel: There is diverticulosis of the colon. There is inflammatory stranding seen around the mid sig moid colon suspicious for acute diverticulitis. There is a 2 cm peripherally enhancing fluid collect ion at the inferior aspect of the mid sigmoid colon with in the area of inflammation. This may repre sent a small abscess versus a diverticulum. (Series 7, image 63). There is no evidence of bowel obs truction. Appendix is unremarkable. Peritoneal Cavity: No ascites. No free air. Lymph Nodes: Within normal limits. Bones: Within normal limits for the patient's age. Bilateral healing and nonunited old rib fractures . Soft Tissues: Unremarkable. PELVIS: Bladder: The urinary bladder is incompletely distended limiting evaluation. Reproductive Organs: Status post hysterectomy. Lymph Nodes: Within normal limits. Bones: Within normal limits for the patient's age. IMPRESSION: 1. Findings consistent with acute sigmoid diverticulitis. There is a 2 cm peripherally enhancing flu id collection at the inferior aspect of the mid sigmoid colon within the area of inflammation. This may represent an inflamed diverticulum or small abscess. No pneumoperitoneum. RADIATION DOSE DELIVERED: Total DLP DATA REPOSITORY: All CT scans at this facility are submitted to the National Radiology Data Registry (NRDR) Dose Index Registry (DIR) with the [employer] (ACR). RADIATION OPTIMIZATION: All CT scans at this facility use at least one of these dose optimization te chniques: automated exposure control; mA and/or kV adjustment per patient size (includes targeted exa ms where dose is matched to clinical indication); or iterative reconstruction.
[2023-07-18] MEDS: Omnipaque 350 MG/ML 100 ML BTL IJ (10:37)
[2023-07-18] MEDS: Normal Saline - Diluent 50 ML VIAL IJ (10:38)
== END ==
PROVIDERS: PCP Family Medicine; Visit Provider Nurse Practitioner Family
DX: K57.32 Diverticulitis of large intestine without perforation or abscess without bleeding (principal)
CPT/HCPCS: 74177; J3490

== ENCOUNTER 2023-08-08 11:25 | Outpatient (CLI) | payer MEDICARE, SELFPAY ==
--- NOTE | 2023-08-08 11:15 | RT.EKG_ITS ---
APPROVED REPORT Exam: Resting ECG Reason for Exam: Follow up EKG Patient Location: O HR:54 bpm ECG Measurements Heart Rate 54 AXIS NE 161 P 56 QRSd 99 QRS 41 QT 483 T 59 QTc 458 Conclusion Sinus rhythm...normal P axis, V-rate 50- 99 Borderline low voltage, extremity leads...all extremity leads <0.6mV Abnormal R-wave progression, early transition...QRS area>0 in V2
== END 2023-08-08 11:26 | disposition home or self-care (01) ==
LOC: DI.CARD 11:30
PROVIDERS: PCP Family Medicine; Visit Provider Internal Medicine Cardiovascular Disease
DX: J44.9 Chronic obstructive pulmonary disease, unspecified (principal); I47.10 Supraventricular tachycardia, unspecified; R53.83 Other fatigue
CPT/HCPCS: 93010

== ENCOUNTER → 2023-08-08 11:25 | Outpatient (BNVA) | payer MEDICARE, SELFPAY | PROVIDERS: PCP Family Medicine; Visit Provider Internal Medicine Cardiovascular Disease | DX: I47.10 Supraventricular tachycardia, unspecified (principal) | CPT/HCPCS: 93005; 99213 ==

== ENCOUNTER → 2023-11-01 15:01 | Outpatient (BNVA) | payer MEDICARE, SELFPAY | PROVIDERS: PCP Family Medicine; Referring Provider Family Medicine; Visit Provider Physician Assistant Surgical | DX: J44.9 Chronic obstructive pulmonary disease, unspecified (principal); Z87.891 Personal history of nicotine dependence; J39.8 Other specified diseases of upper respiratory tract; Q33.2 Sequestration of lung; Z90.2 Acquired absence of lung [part of] | CPT/HCPCS: 99214 ==

== ENCOUNTER 2024-02-06 11:24 | Outpatient (CLI) | payer MEDICARE, SELFPAY ==
--- NOTE | 2024-02-06 11:30 | RT.EKG_ITS ---
APPROVED REPORT Exam: Resting ECG Reason for Exam: svt Patient Location: O HR:59 bpm ECG Measurements Heart Rate 59 AXIS UT 156 P 38 QRSd 92 QRS 7 QT 454 T 31 QTc 450 Conclusion Sinus rhythm...normal P axis, V-rate 50- 99 Borderline T abnormalities, anterior leads...T flat or neg, V2-V4 Baseline wander in lead(s) III,aVF,V6
== END 2024-02-06 11:25 | disposition home or self-care (01) ==
LOC: DI.CARD 11:32
PROVIDERS: PCP Family Medicine; Visit Provider Internal Medicine Cardiovascular Disease
DX: I47.29 Other ventricular tachycardia (principal)
CPT/HCPCS: 93010

== ENCOUNTER → 2024-02-06 11:24 | Outpatient (BNVA) | payer MEDICARE, SELFPAY | PROVIDERS: PCP Family Medicine; Referring Provider Family Medicine; Visit Provider Internal Medicine Cardiovascular Disease | DX: I47.10 Supraventricular tachycardia, unspecified (principal) | CPT/HCPCS: 93005; 99214 ==

== ENCOUNTER 2024-03-14 18:02 | Outpatient (REF) | payer MEDICARE, SELFPAY ==
--- OUTSIDE RECORDS SUMMARY | 2024-03-14 18:04 | XMS_ITS | Encounter Summary ---
[place] [address] Care Team Providers Care Machine Pecan Picker Name Role Phone Nicole Hubbard MD Primary Care Provider [phone] Encounter Details Date Type Department Care Team (Late st Contact Info) Description 09/17/2012 1:19 PM EDT Anesthesia [place] [address] MD [facility] [place] [address] Anesthesia Record Procedure Summary Procedure Name Responsible Anesthesiologist Anesthesia Start Time Anesthesia Stop Time BRONCHOSCOPY (WRVU 2.53) (Chest) Jonn Street MD 09/17/12 1319 09/17/12 1337 Events Date Time Event Comment 09/17/2012 1315 1319 Start 1320 An Start Data 1323 Quick Note Airway topicali zed by pulm fellow. Sedation admin by RN. On standby for airway monitoring and induction to follow. 1326 AN Verify 1326 An Induction 1337 an stop data 1337 Stop Meds Name Total sodium chloride 0.9% 300 mL * Agents Name O2 Air * Blood No blood administrations on file. Lines, Drains, and Airways Type Details Placement Removal (RETIRED) Peripheral IV Line - Single Lumen 09/17/12; 1238; 09/17/12; 1452 09/17/12 1238 by Andrew Ghotra RN 09/17/12 1452 by Senait Christy RN documented in this encounter Social History Tobacco Use Types Packs/Day Years Used Date Smoking Tobacco: Former Cigarettes 1 28 Alcohol Use Standard Drinks/Week Comments Yes 17.5 (1 standard drink = 0.6 oz pure alcohol) Sex and Gender Information Value Date Recorded Sex Assigned at Not on file Gender Identity Not on file Sexual Orientation Not on file documented as of this encounter OR Notes * Anesthesia Preprocedure Evaluation - Jonn Street MD - 09/17/2012 1:14 PM EDT Pre-Anesthesia Evaluation for: Joselyn Sheets a 56 y.o. female. Procedure(s): BRONCHOSCOPY There are no active problems to display for this patient. No past medical history on file. No past surgical history on file. History Substance Use Topics ??? Smoking status: Former Smoker -- 1.0 packs/day for 28 years Types: Cigarettes ??? Smokeless tobacco: Not on file ??? Alcohol Use: 10.5 oz/week 21 drink(s) per week Allergies Allergen Reactions ??? House Dust CIS - sneezing,runny nose , congestion ??? Mold Extracts CIS - sneezing, runny nose, congestion Medications: MAR and/or home medications have been reviewed. Physical Exam: There were no vitals filed for this visit. There is no height or weight on file to calculate BMI. Airway Assessment: Mallampati: II TM distance: >3 FB Neck ROM: full Cardiovascular Assessment: Rhythm: regular Rate: normal cardiovascular exam normal Pulmonary Assessment: breath sounds clear to auscultation pulmonary exam normal Dental Assessment: Misc Assessment: Patient is wearing No contact(s). IV access: Peripheral line Anesthesia Plan: ASA 2 general and MAC, with a(n) intravenous induction Region - Other Informed Consent: Anesthetic plan and risks discussed with patient. Use of blood products discussed with whom consented to blood products. Plan discussed with WOOD PATTERNMAKER. Misc. Assessment: documented in this encounter Plan of Treatment Not on file documented as of this encounter Visit Diagnoses Not on filedocumented in this encounter Administered Medications Inactive Administered Medications - up to 3 most recent administrations Medication Order MAR Action Action Date Dose Rate Site sodium chloride 0.9% infusion CONTINUOUS PRN, Starting on Sun09/17/12 at 1315, Until Sun09/17/12 at 1337, Anesthesia Intra-op New Bag 09/17/2012 1:15 PM EDT mL documented in this encounter Care Teams Machine Pecan Picker Relationship Specialty Start Date End Date Nicole Hubbard MD [address] [place] [address] [address] [facility] [address] [place] [address] PCP - General 03/29/10 documented as of this encounter
--- OUTSIDE RECORDS SUMMARY | 2024-03-14 18:04 | XMS_ITS | Encounter Summary ---
[place] [address] Care Team Providers Care Sheet Folder Name Role Phone Nicole Hubbard MD Primary Care Provider Reason for Visit * Consultation (Urgent) - Closed Specialty Diagnoses / Procedures Referred By Contact Referred To Contact Electrophysiology / Cardiology Diagnoses Supraventricular tachycardia Ventricular tachycardia Non-urgent with EP attending to consider ablation for SVT. ?? Nicole Hubbard MD [address] [place] [address] [address] [place] [address] [facility] [address] [address] [place] [id number] Referral ID Status Reason Start Date Expiration Date V isits Requested Visits Authorized [id number] Closed Consult, [facility] PCP Updated and/or Approved 11/05/2020 11/05/2021 6 6 Encounter Details Date Type Department Care Team (Late st Contact Info) Description 12/16/2020 1:00 PM EDT Office Visit Cardiology at [address] [phone] Adam Roberts MD [facility] [place] [address] Keila Jarquin MD [facility] [place] [address] SVT (supraventricular tachycardia); Ventricular tachycardia Social History Tobacco Use Types Packs/Day Years Used Date Smoking Tobacco: Former Cigarettes 1 28 Smokeless Tobacco: Never Alcohol Use Standard Drinks/Week Comments Yes 17.5 (1 standard drink = 0.6 oz pure alcohol) Sex and Gender Information Value Date Recorded Sex Assigned at Not on file Gender Identity Not on file Sexual Orientation Not on file documented as of this encounter Last Filed Vital Signs Vital Sign Reading Time Taken Comments Blood Pressure 120/73 12/16/2020 1:15 PM EDT Pulse 58 12/16/2020 1:15 PM EDT Temperature - - Respiratory Rate - - Oxygen Saturation 100% 12/16/2020 1:1 5 PM EDT 2L NC Inhaled Oxygen Concentration - - Weight 107.7 kg (237 lb 6.4 oz) 12/16/2020 1:15 PM EDT Height 162.6 cm (5' 4) 12/16/2020 1:15 PM EDT patient reported Body Mass Index 40.75 12/16/2020 1:15 PM EDT documented in this encounter Progress Notes * Keila Jarquin MD - 12/16/2020 1:00 PM EDT Images from the original note were not included. [facility] REFERRING PROVIDER: Nicole Hubbard Md [facility] [place] [address] PRIMARY CARE PROVIDER: Nicole Hubbard MD [facility] [place] [address] PATIENT PROFILE: Joselyn Sheets is a 65 y.o. female who presents today for evaluation of ventricular tachycardia. PROBLEM LIST: Patient Active Problem List Diagnosis Code ??? SVT (supraventricular tachycardia) I47.1 ALLERGIES: Allergies Allergen Reactions ??? House Dust CIS - sneezing,runny nose , congestion ??? Mold Extracts CIS - sneezing, runny nose, congestion MEDICATIONS: Current Outpatient Medications Medication Sig Dispense Refill ??? omalizumab (XOLAIR) 150 mg Recon Soln Inject 300 mg subcutaneously every 14 days. 4 each 5 ??? budesonide-formoterol (SYMBICORT) 160-4.5 mcg/actuation HFA Aerosol Inhaler Inhale 2 puffs intothe lungs 2 times daily. ??? hydroCHLOROthiazide (MICROZIDE) 12.5 mg Capsule Take 12.5 mg by mouth daily. ??? aspirin 81 mg Tablet, Delayed Release (E.C.) Take 81 mg by mouth daily. ??? MAGNESIUM HYDROXIDE (MAGNESIA ORAL) Take 84 mg by mouth. ??? montelukast (SINGULAIR) 10 mg Tablet Take 10 mg by mouth nightly. ??? nicotine (NICODERM CQ) 14 mg/[address] 1 patch onto the skin every 24 hours. ??? inhalational spacing device Spacer by [facility].(Non-Drug; Combo Route) route. ??? cetirizine (ZYRTEC) 10 mg Tablet Take 1 tablet by mouth 2 times daily. 60 tablet 11 ??? ranitidine (ZANTAC) 150 mg Tablet Take 1 tablet by mouth 2 times daily. 60 tablet 11 ??? DULoxetine (CYMBALTA) 60 mg capsule Take 60 mg by mouth daily. ??? estradiol (ESTRACE) 1 mg tablet Take 0.5 mg by mouth every other day. ??? omeprazole (PRILOSEC) 20 mg capsule Take 40 mg by mouth daily. ??? tiotropium (SPIRIVA) 18 mcg inhalation capsule Inhale 18 mcg into the lungs daily. ??? albuterol (PROVENTIL HFA;VENTOLIN HFA) 90 mcg/actuation inhaler Inhale 2 puffs into the lungs every 4 hours as needed. Use with spacer ??? zolpidem (AMBIEN) 5 mg tablet Take 6.25 mg by mouth nightly as needed. ??? acetaminophen (TYLENOL) 500 mg tablet Take 1,000 mg by mouth every 6 hours as needed. ??? CIS Free Text Med - Calcium 600 with Vitamin D ??? MULTIVITAMIN ORAL ??? atorvastatin (LIPITOR) 10 mg tablet 10mg, PO, Once daily ??? valACYclovir (VALTREX) 1 g tablet ??? ibuprofen (ADVIL;MOTRIN) 200 mg tablet No current facility-administered medications for this visit. HISTORY OF PRESENT ILLNESS: Joselyn Sheets is a 65 y.o. female with a history of COPD on 2L, HTN, HLD, who has been referred for evaluation and management of VT. Ms. Burnette was initially referred to us for evaluation of SVT. Prior to making it to this appointment, she unfortunately had an [facility]. She was started on amiodarone drip and transferred down to [facility]. The initially called our institution but we were full on beds which was transferred down there. To remain hospitalized for several days in late November 2020. Based on the cardiology consult note from [facility], they agree that she had indeed ventricular tachycardia. She was started on sotalol 80 mg twice daily after the amiodarone IV was stopped. The total load of amiodarone is unknown. Echocardiogram was overall unremarkable with EF of 60%. She had a heart catheterization which showed mildly ectatic coronaries but overall almost no coronary disease. Cardiac MRI was also done, but that result was not available at the time of discharge. Her QTc on discharge was 478. Symptomatically, the patient reports that starting in February 2020 she started having palpitations.She did a long-term Holter monitor which showed intermittent episodes of SVT as well as VT, none lasting more than 5-10 beats. She denies any syncope. Symptomatically, the episodes occurred with stress and were associated with low Mg (proven by lab results). She was admitted twice over the past year with SVT, once in Feb 2020 and once in July 2020, each time 1-2 days requiring metoprolol. She eventually broke out of it, adenosine was not mentioned as part of her plan. In November 30, he Mg was 1.4per patient records.[facility], it was 1.8 but this was after being at [facility]. Since Feb 2020, she has started several medication lorazepam, metoprolol) but none with clear QT prolonging tendencies. Since starting sotalol, she reports no palpitations and overall feeling well. He BP is also normal,whereas prior it was higher. Her HCTZ was stopped at [facility] as well. Today her BP is normal. Evaluation of ECG below, which was one of her presenting ECGs at [facility] shows a long short wide initiation sequence, consistent with early appendectomy depolarization dependent VT. Her precordial leads show negative concordance with a superior rightward access. Her inferior leads are quite negative. Difficult to say where the etiology of her VT is, but potentially apical right side closer to the inferior wall. QRS onset is abrupt, implying endocardial origin. REVIEW OF SYSTEMS: A 10-point review of systems was completed. Outside of the items noted in the history of present illness, the ROS was negative/. PAST SURGICAL HISTORY: Past Surgical History: Procedure Laterality Date ??? LUNG REMOVAL, PARTIAL ??? PRO BRONCHOSCOPY, DIAGNOSTIC 09/17/2012 BRONCHOSCOPY performed by Toni Truong MD at [facility] ??? SINUS SURGERY FAMILY HISTORY: Family History Problem Relation Age of Onset ??? Asthma Mother ??? Allergic Rhinitis Mother ??? Allergic Rhinitis Sister SOCIAL HISTORY: Social History Socioeconomic History ??? Marital status: Spouse name: Not on file ??? Number of children: Not on file ??? Years of education: Not on file ??? Highest education level: Not on file Occupational History ??? Not on file Tobacco Use ??? Smoking status: Current Every Day Smoker Packs/day: 1.00 Years: 28.00 Pack years: 28.00 Types: Cigarettes ??? Smokeless tobacco: Never Used Substance and Sexual Activity ??? Alcohol use: Yes Alcohol/week: 17.5 standard drinks Types: 21 Standard drinks or equivalent per week ??? Drug use: Yes Types: Marijuana ??? Sexual activity: Not on file Other Topics Concern ??? Not on file Social History Narrative ??? Not on file Social Determinants of Health Financial Resource Strain: ??? Difficulty of Paying Living Expenses: Not on file Food Insecurity: ??? Worried About Running Out of Food in the Last Year: Not on file ??? Ran Out of Food in the Last Year: Not on file Transportation Needs: ??? Lack of Transportation (Medical): Not on file ??? Lack of Transportation (Non-Medical): Not on file Physical Activity: ??? Days of Exercise per Week: Not on file ??? Minutes of Exercise per Session: Not on file PHYSICAL EXAM: Vital Signs: There were no vitals taken for this visit. General appearance: She appears well, in no apparent distress Neurological: alert, oriented, normal speech, no focal findings or movement disorder noted Lungs: clear to auscultation, no wheezes, rales or rhonchi, symmetric air entry CV: normal rate, regular rhythm, normal S1, S2, no murmurs, rubs, clicks or gallops. Abdomen: soft, nontender, nondistended, no masses or organomegaly Musculoskeletal: Moves all extremities. Ambulates without Difficulty Extremities: peripheral pulses normal, no pedal edema, no clubbing or cyanosis ACCESSORY CLINICAL FINDINGS: 12 lead EKG today demonstrated The intervals were as follows: W[place] 150, QRS duration 78, and corrected QT 459 msec. Echocardiography (TTE) demonstrated normal left ventricular function with an LVEF of 60%. The left atrial diameter was normal. Laboratory Data: Lab Results Component Value Date WBC 8.8 01/31/2016 HGB 11.4 (L) 01/31/2016 HCT 33.9 (L) 01/31/2016 MCV 94.4 01/31/2016 Lab Results Component Value Date NA 141 01/31/2016 K 3.9 01/31/2016 CL 103 01/31/2016 CO2 23 01/31/2016 BUN 17 01/31/2016 CREATININE 0.79 01/31/2016 GLUCOSE 109 01/31/2016 CALCIUM 9.1 01/31/2016 ESTGFR >60 01/31/2016 No results found for: TSH No results found for: INR IMPRESSION: Ms. Sheets is a 65-year-old female with a history of COPD, hypertension, hyperlipidemia who presents to us for evaluation of ventricular tachycardia in the setting of a structurally normal heart. Differential includes ARVC and moderator band VT. Based on review of her ECGs from last month she appears to have been a monomorphic VT. In terms of potential causative factors, she has recurrent low magnesium and she was also on sertraline at that time, both of which could exacerbate ventricular tachycardia/prolong QTc. Namely, her ECG on admission to [facility] shows a QTC of approximately 600 ms, although this is in the setting of amiodarone drip which could complicate the overall picture. Nonetheless, since the initiation of sotalol, her ventricular tachycardia has significantly improved and she overall feels well with no palpitations overthe past several weeks. From the SVT perspective, which she definitely has based on her Zio patch, the etiology is difficult to say but I suspect it is likely to be a multifocal atrial tachycardia given that she has longstanding COPD. Either way, the initiation of sotalol has helped with both SVT and VT and have overall improved her symptoms. Her QTC today is 453. At this point, her management is appropriate and we agree with continuation of sotalol 40 mg twice daily. She should have her ECGs checked at least every 3 months, which she angel her PCP or she can visit us. In terms of next steps, we discussed it was essential for her to continue checking her magnesium, which can be done through her PCP in order to ensure that it stays within normal range. Her antidepressant has been changed around, although all antidepressants have a tendency towards QTC prolongation. At this time her QTC is stable. Although she does have COPD, if necessary amiodarone can be used to help suppress her VT if it becomes refractory to multiple treatments. Ablation is an option in refractory VT. -Request cardiac MRI results -Refilled sotalol 40 mg bid Discussed with Dr. Roberts. RTC in 3 months. I met with the patient today and independently confirmed the history, physical exam, and testing. Ipersonally reviewed and interpreted the available ECGs and additional cardiac testing (echo), as well as the labs. I agree with the detailed management plan as written in the fellow note today. I discussed this plan with the patient, who is also in agreement. ? Dr. Adam Roberts, electrophysiology attending ([id number]) documented in this encounter Plan of Treatment Not on file documented as of this encounter Procedures Procedure Name Priority Date/Time Associated Diagnosis Comments EKG 12-LEAD Routine 12/16/2020 1:20 PM EDT SVT (supraventricular tachycardia) documented in this encounter Results * EKG 12 Lead (12/16/2020 1:20 PM EDT) Ventricular rate 56 BPM MUSE SYSTEM Atrial Rate 56 BPM MUSE SYSTEM P-R Interval 150 ms MUSE SYSTEM QRS Duration 78 ms MUSE SYSTEM Q-T Interval 476 ms MUSE SYSTEM QTC Calculated (Bezet) 459 ms MUSE SYSTEM Calculated P [place] 43 degrees MUSE SYSTEM Calculated R [place] 26 degrees MUSE SYSTEM Calculated T [place] 47 degrees MUSE SYSTEM INTERPRETATION Sinus bradycardia Otherwise normal ECG When compared with ECG of 16-MAR-1992 13:11, No significant change was found Confirmed by MD Isra, Nilo Sibley ([id number]) on 12/16/2020 1:47:11 PM MUSE SYSTEM 12/16/2020 1:20 PM EDT 12/16/2020 1:47 PM EDT Adam Roberts MD ECG ORDERABLES MUSE SYSTEM documented in this encounter Visit Diagnoses Diagnosis SVT (supraventricular tachycardia) Other specified cardiac dysrhythmias Ventricular tachycardia Paroxysmal ventricular tachycardia documented in this encounter Care Teams Sheet Folder Relationship Specialty Start Date End Date Nicole Hubbard MD [address] [place] [address] PCP - General 03/29/10 documented as of this encounter
--- OUTSIDE RECORDS SUMMARY | 2024-03-14 18:04 | XMS_ITS | Encounter Summary ---
Author Organization [facility] [place] [address] Care Team Providers Care Laborer Filter Plant Name Role Phone Nicole Hubbard MD Primary Care Provider [phone] Encounter Details Date Type Department Care Team (Late st Contact Info) Description 03/01/2016 [place] [address] Jocelyn Santos MD [facility] [address] [place] [address] Social History Tobacco Use Types Packs/Day Years Used Date Smoking Tobacco: Every Day Cigarettes 1 28 Smokeless Tobacco: Never Alcohol Use Standard Drinks/Week Comments Yes 17.5 (1 standard drink = 0.6 oz pure alcohol) Sex and Gender Information Value Date Recorded Sex Assigned at Not on file Gender Identity Not on file Sexual Orientation Not on file documented as of this encounter Miscellaneous Notes * Telephone Encounter - Jocelyn Santos MD - 03/01/2016 3:54 PM EDT Spoke with patient about results. IgE elevated but most allergy tests were negative with exception of cat. Discussed that we can get approval for Xolair based on this to help manage her asthma. Discussed risks and benefits - likely pt would be injections twice a month. Most common reaction is injection site reaction, anaphylaxis is possible but rare and patient must carry epipen on day of shot. Early studies showed possible increased risk of cancer and stroke but follow up studies in larger groups haven't shown this. Informed her the med is usually very well-tolerated and we can trial it for 6 months and if she improves, continue, but if not, stop it. Patient states she is interested in this and would like to discuss with PCP. I will send her paperwork to sign if she would like to proceed. Once she decides on proceeding, will get PA. Pt due to see me again in Apr, so likely this can coincide with her first injection. Jocelyn Santos MD * Telephone Encounter - Jocelyn Santos MD - 03/01/2016 9:55 AM EDT Called to discuss results, LMTCO - ELR 03/01/2016 9:57 AM documented in this encounter Plan of Treatment Not on file documented as of this encounter Visit Diagnoses Not on filedocumented in this encounter Care Teams Laborer Filter Plant Relationship Specialty Start Date End Date Nicole Hubbard MD [address] [facility] 1 [place] [address] PCP - General 03/29/10 documented as of this encounter
--- OUTSIDE RECORDS SUMMARY | 2024-03-14 18:04 | XMS_ITS | Encounter Summary ---
[place] [address] Care Team Providers Care Computer System Validation Specialist Name Role Phone Nicole Hubbard MD Primary Care Provider [phone] Encounter Details Date Type Department Care Team (Late st Contact Info) Description 12/17/2020 Telephone Cardiology at [address] [phone] Samira Fernandez Social History Tobacco Use Types Packs/Day Years [...] encounter Miscellaneous Notes * Telephone Encounter - Samira Fernandez - 12/17/2020 11:40 AM EDT MRI results requested from [facility], [place], [place]. Records request faxed to [phone]. Samira BENJAMIN Scheduling documented in this encounter Plan of Treatment Not on file documented as of this encounter Visit Diagnoses Not on filedocumented in this encounter Care Teams Computer System Validation Specialist Relationship Specialty Start Date End Date Nicole Hubbard MD [address] [place] [address] PCP - General 03/29/10 documented as of this encounter
--- OUTSIDE RECORDS SUMMARY | 2024-03-14 18:04 | XMS_ITS | Encounter Summary ---
Author Organization [facility] [place] [address] Care Team Providers Care Waist Cutter Name Role Phone Nicole Hubbard MD Primary Care Provider Encounter Details Date Type Department Care Team (Late st Contact Info) Description 04/25/2016 [place] [address] Jocelyn Santos MD [facility] [address] [place] [address] Social History Tobacco Use Types Packs/Day Years [...] encounter Miscellaneous Notes * Telephone Encounter - Aliza Whiteside LPN - 04/25/2016 8:33 AM EST Left message on identified voicemail. Let patient know that her insurance will not pay for Xolair because she currently smokes. * Telephone Encounter - Aliza Whiteside LPN - 04/25/2016 8:33 AM EST ----- Message from Jocelyn Santos MD sent at 04/24/2016 2:04 PM EST ----- Regarding: denial of Xolair Please let the patient know Xolair was denied because she is a current smoker. documented in this encounter Plan of Treatment Not on file documented as of this encounter Visit Diagnoses Not on filedocumented in this encounter Care Teams Waist Cutter Relationship Specialty Start Date End Date Nicole Hubbard MD [address] [place] [address] PCP - General 03/29/10 documented as of this encounter
--- OUTSIDE RECORDS SUMMARY | 2024-03-14 18:04 | XMS_ITS | Encounter Summary ---
[place] [address] Care Team Providers Care Dot Net Architect Name Role Phone Nicole Hubbard MD Primary Care Provider [phone] Encounter Details Date Type Department Care Team (Late st Contact Info) Description 11/30/2020 External [place] [phone] Social History Tobacco Use Types Packs/Day Years Used Date Smoking Tobacco: Every Day Cigarettes 1 28 Smokeless Tobacco: Never Alcohol Use Standard Drinks/Week Comments Yes 17.5 (1 standard drink = 0.6 oz pure alcohol) Sex and Gender Information Value Date Recorded Sex Assigned at Not on file Gender Identity Not on file Sexual Orientation Not on file documented as of this encounter Plan of Treatment Not on file documented as of this encounter Procedures Procedure Name Priority Date/Time Associated Diagnosis Comments ECG SCAN Routine 11/30/2020 documented in this encounter Results * Scan Doc: ECG (11/30/2020) Historical Provider MEDIA MGR SCAN EX T ORDR/RSLT documented in this encounter Visit Diagnoses Not on filedocumented in this encounter Care Teams Dot Net Architect Relationship Specialty Start Date End Date Nicole Hubbard MD [address] [place] [address] PCP - General 03/29/10 documented as of this encounter
--- OUTSIDE RECORDS SUMMARY | 2024-03-14 18:04 | XMS_ITS | Encounter Summary ---
Author Organization [facility] [place] [address] Care Team Providers Care Partner Manager Name Role Phone Nicole Hubbard MD Primary Care Provider [phone] Encounter Details Date Type Department Care Team (Late st Contact Info) Description 06/08/2021 Orders Only Cardiology at [address] [phone] Adam Roberts MD [facility] [place] [address] SVT (supraventricular tachycardia) Social History Tobacco Use Types Packs/Day Years [...] documented as of this encounter Visit Diagnoses Diagnosis SVT (supraventricular tachycardia) Other specified cardiac dysrhythmias documented in this encounter Care Teams Partner Manager Relationship Specialty Start Date End Date Nicole Hubbard MD [address] [place], [place] [id number] PCP - General 03/29/10 documented as of this encounter
--- OUTSIDE RECORDS SUMMARY | 2024-03-14 18:04 | XMS_ITS | Encounter Summary ---
Author Organization [facility] [place] [address] Care Team Providers Care Rim Roller Operator Name Role Phone Nicole Hubbard MD Primary Care Provider [phone] Encounter Details Date Type Department Care Team (Late st Contact Info) Description 09/17/2012 1:00 PM EDT - 09/17/2012 2:30 PM EDT [place] [phone] Toni Lui MD [facility] [place] [address] BRONCHOSCOPY (WRVU 2.53) Social History Tobacco Use Types Packs/Day Years [...] Sign Reading Time Taken Comments Blood Pressure 149/93 09/17/2012 12:07 PM EDT Pulse 90 09/17/2012 12:07 PM EDT Temperature - - Respiratory Rate 24 09/17/2012 12:07 PM EDT Oxygen Saturation 96% 09/17/2012 12:07 PM EDT Inhaled Oxygen Concentration - - Weight - - Height - - Body Mass Index - - documented in this encounter Discharge Instructions * Discharge Instructions* Senait Christy RN - 09/17/2012 2:07 PM EDT Bronchoscopy What to expect at home This care sheet gives you a general idea of what to expect after the test Activity Because of the sedation that you received Your judgement and reaction time are affected ?? Go home and continue to rest for the next 1 or 2 days. Avoid strenuous activities. You may resume normal activities in 48 hours. ?? Change from one position to the next slowly. You may lose your balance unexpectedly. ?? Be careful on stairs as you may be unsteady on your feet. FOR THE NEXT 24 HRS ?? DO NOT DRIVE OR OPERATE ANY MACHINERY ?? DO NOT DRINK ALCOHOLIC BEVERAGES ?? DO NOT SIGN LEGAL DOCUMENTS ?? If you are a smoker: DO NOT SMOKE WHILE YOU ARE ALONE Diet ?? Continue on liquids for the next 2 hours then you can resume your normal diet ?? If it is painful to swallow, start out with cold drinks, popsicles, and ice cream. Next, try soft foods like pudding, yogurt, canned or cooked fruit, scrambled eggs, and mashed potatoes. Avoid eating hard or scratchy foods like chips or raw vegetables. Avoid orange or tomato juice and other acidic foods that can sting the throat. Medicines ?? You may notice a sore throat, this should resolve on it's own. You may use ice chips, popsicles or lozenges to help control the discomfort Other Instructions ?? You may cough up small amounts of blood, this should resolve on it's own. IV SITE may get red or tender this is normal. You may use warm compresses 20 minutes at a time on and off for the next day or so. If the tenderness +/or redness increases or foul drainage and a red streak occurs, please contact your PCP When should you call for help? Call 911 anytime you think you may need Emergency care. For example You passed out ( lost consciousness) You have sudden chest pain or shortness of breath You cough up large amounts of bright red blood You have severe pain in your chest You have severe trouble breathing Call your Doctor now or seek medical attention You cough up more than 1/2 cup blood You have pain that does not get better after you take pain medicine You have a fever over 100 F or chills that last over eight (8) hrs and is not relieved with Tylenoltablets every 4 hours ( not to exceed 2 extra-strength or 1000 mg at a time) You still sound hoarse after a few days You have bubbles under the skin around the collarbone. These may crackle and pop when you press on them. Watch closely for changes in your health, and be sure to contact your Doctor if you have any problems Contact Numbers Sunday - [facility] [phone] 8a-5p Same Day Endoscopy [phone]-[phone] Otherwise call [facility] and ask to speak to the Pulmonary Doctor conductor freight [phone] Discharge instructions reviewed with patient who expresses understanding documented in this encounter Medications at Time of Discharge Medication Sig Dispensed Refills Start Date End Date DULoxetine (CYMBALTA) 60 mg capsule Take 60 mg by mouth daily. estradiol (ESTRACE) 1 mg tablet Take 0.25 mg by mouth every other day. 0.5 of 0.5 mg every 3 days, per patient omeprazole (PRILOSEC) 20 mg capsule Take 20 mg by mouth daily. tiotropium (SPIRIVA) 18 mcg inhalation capsule Inhale 18 mcg into the lungs daily. albuterol (PROVENTIL HFA;VENTOLIN HFA) 90 mcg/actuation inhaler Inhale 2 puffs into the lungs every 4 hours as needed. Use with spacer zolpidem (AMBIEN) 5 mg tablet Take 6.25 mg by mouth nightly as needed. acetaminophen (TYLENOL) 500 mg tablet Take 1,000 mg by mouth every 6 hours as needed. CIS Free Text Med - Calcium 600 with Vitamin D 10/08/2009 MULTIVITAMIN ORAL 10/08/2009 atorvastatin (LIPITOR) 10 mg tablet 10mg, PO, Once daily 10/08/2009 valACYclovir (VALTREX) 1 g tablet 10/08/2009 ibuprofen (ADVIL;MOTRIN) 200 mg tablet 10/08/2009 fluticasone-salmeterol (ADVAIR) 500-50 mcg/dose diskus inhaler Inhale 1 puff into the lungs daily. 01/31/2016 MOMETASONE FUROATE (NASONEX NASL) by Nasal route. 01/31/2016 VITAMIN B COMPLEX (B COMPLEX VITAMINS ORAL) 10/08/200901/30 GLUCOSAMINE SULFATE ORAL 10/08/2009 Flaxseed Oil 1,000 mg Cap 10/08/2009 01/31/2016 documented as of this encounter H&P Notes * Ivan Loja MD - 09/17/2012 10:35 AM EDT Pulmonary Pre-Procedure History & Physical Procedure: Bronchoscopy See consult/clinic note. A/P: Proceed with bronchoscopy. Risks and benefits of the procedure explained to the patient. Consent signed. documented in this encounter Miscellaneous Notes * Miscellaneous - Provider, Scanning - 09/18/2012 9:26 PM EDT * Miscellaneous - Provider, Scanning - 09/18/2012 9:21 PM EDT * Miscellaneous - Provider, Scanning - 09/17/2012 2:56 PM EDT documented in this encounter Plan of Treatment Not on file documented as of this encounter Procedures Procedure Name Priority Date/Time Associated Diagnosis Comments BRONCHOSCOPY (WRVU 2.53) 09/17/2012 1:20 PM EDT SOB (shortness of breath) BRONCHOSCOPY Routine 09/17/2012 12:37 PM EDT documented in this encounter Results * BRONCHOSCOPY (09/17/2012 12:37 PM EDT) BRONCHOSCOPY [facility] Bronchoscopy Patient Name: Joselyn Sheets ? Procedure Date: 09/17/2012 12:37 PM ? Age: 56 ? Procedure: ?Bronchoscopy Indications: ?Left mainstem compression Providers: ?Toni Lui MD, Ivan Jones ?MD Freedom (Fellow), Aliza Ramey ?AMANDA Soria, Lacie Rojas, Hoist Worker Referring MD: ? Nicole Hubbard MD Requesting Physician: Katherine Barron MD (Requesting ?Physician) Medicines: ?Albuterol/xyloc marlon neb 3 mg, ?Lidocaine 4% applied to cords 8 mL, ?Lidocaine 4% subglottic space 8 mL, ?Lidocaine 4% 6 mL, Midazolam 2 mg ?IV, Fentanyl 100 mcg IV Complications: ?None. Procedure: ?After obtaining informed consent, ?and performing a timeout during ?which the patient's identity was ?confirmed, the lack of need for ?antibiotics was confirmed, and the ?procedure to be performed was ?confirmed, the bronchoscope was ?placed orally and airway inspection ?was undertaken. ?The oropharynx appears normal. The ?larynx appears normal. The vocal ?cords move normally with phonation ?and breathing. The subglottic space ?is normal. The trachea is of normal ?caliber. The timmy is sharp. The ?tracheobronchia l tree was examined ?to at least the first subsegmental ?level. Bronchial anatomy is normal ?on the left. On the right, the ?suture line of the known right lower ?lobectomy was identified. The ?bronchial mucosa appears slightly ?injected bilaterally. ?With cough and expiration, the left ?mainstem bronchus posterior membrane ?collapsed, with resulting an ?estimated patency of 25% cross ?sectional area. The right mainstem ?and bronchus intermedius collapsed ?similarly, but less severely, to 35% ?patency. The trachea compessed only ?slightly with cough to approximately ?80% of normal. See images. There was ?no other extrinsic compression of ?the airways. ?The procedure was accomplished ?without difficulty. Findings: ? As above. Impression: ? As above. Recommendation: ? -No stent or bronchoplasty necessary ?- see my note and discussion. ?-I will obtain the patient's PSG and ?prescribe NIPPV. Pt may require ?repeat PSG. ?-Weight loss is imperative. _ Toni Lui MD 09/17/2012 6:08 PM This report has been signed electronically. __ Ivan Loja MD 09/17/2012 2:00 PM Number of Addenda: 0 Note Initiated On: 09/17/2012 12:37 PM PROVATION 09/17/2012 12:3 7 PM EDT Nicole SANTASUVIKTORIYA ORDERS NO PO STOP PAIN QUESTION PROVATION documented in this encounter Visit Diagnoses Diagnosis SOB (shortness of breath) Shortness of breath documented in this encounter Administered Medications Inactive Administered Medications - up to 3 most recent administrations Medication Order MAR Action Action Date Dose Rate Site fentaNYL 50mcg/mL injection ONCE PRN, Starting on Sun09/17/12 at 1324, Until Sun09/17/12 at 2127, Pain, Intra-Operative (Intra-Procedure), Routine Given 09/17/2012 1:28 PM EDT 50 mcg Left Arm Given 09/17/2012 1:24 PM EDT 50 mcg Le ft Arm midazolam (VERSED) injection ONCE PRN, Starting on Sun09/17/12 at 1324, Until Sun09/17/12 at 2127, Sleep, Intra-Operative (Intra-Procedure), Routine Given 09/17/2012 1:28 PM EDT 1 mg Left Arm Given 09/17/2012 1:24 PM EDT 1 mg Le ft Arm documented in this encounter Active and Recently Administered Medications Times are shown in EDT. PRN Medication Order 09/15/2012 09/16/2012 09/17/2012 fentaNYL 50mcg/mL injection (CANCELED) ONCE PRN, Starting on Sun09/17/12 at 1324, Until Sun09/17/12 at 8, Pain, Intra-Operative (Intra-Procedure), Routine 1324 (Given - Provid er: Aliza Soria RN - Comment: starting sedation)1328 (Given - Provider: Aliza Soria RN - Comment: continuing dsedation) midazolam (VERSED) injection (CANCELED) ONCE PRN, Starting on Sun09/17/12 at 1324, Until Sun09/17/12 at 8, Sleep, Intra-Operative (Intra-Procedure), Routine 1324 (Given - Provid er: Aliza Soria RN - Comment: starting sedation)1328 (Given - Provider: Aliza Soria RN - Comment: continuing sedation) documented in this encounter Care Teams Rim Roller Operator Relationship Specialty Start Date End Date Nicole Hubbard MD [address] [place] [address] 1 [place] [address] PCP - General 03/29/10 documented as of this encounter
--- OUTSIDE RECORDS SUMMARY | 2024-03-14 18:04 | XMS_ITS | Encounter Summary ---
[place] [address] Care Team Providers Care Sulfuric Acid Plant Operator Name Role Phone Nicole Hubbard MD Primary Care Provider [phone] Encounter Details Date Type Department Care Team (Late st Contact Info) Description 05/24/2021 External Results [place] [phone] Social History Tobacco Use Types Packs/Day Years [...] Date/Time Associated Diagnosis Comments ECG SCAN Routine 05/24/2021 documented in this encounter Results * Scan Doc: ECG (05/24/2021) Historical Provider MD URIBE MGR SCAN EX T ORDR/RSLT documented in this encounter Visit Diagnoses Not on filedocumented in this encounter Care Teams Sulfuric Acid Plant Operator Relationship Specialty Start Date End Date Nicole Hubbard MD [address] [place], [place] [id number] PCP - General 03/29/10 documented as of this encounter
--- OUTSIDE RECORDS SUMMARY | 2024-03-14 18:04 | XMS_ITS | Encounter Summary ---
Author Organization [facility] [place] [address] Care Team Providers Care Health And Safety Consultant Name Role Phone Nicole Hubbard MD Primary Care Provider [phone] Encounter Details Date Type Department Care Team (Late st Contact Info) Description 2018 Ancillary Procedure Radiology at [facility] [address] [place] [address] Sheila Nicolas MD Social History Tobacco Use Types Packs/Day Years [...] Procedure Name Priority Date/Time Associated Diagnosis Comments FILM LIBRARY STORAGE ONLY MR SPINE Routine 2018 12:00 AM EDT documented in this encounter Results * Film Library- Storage Only MR Spine (2018 12:00 AM EDT) Narrative [facility] RAD - 12/24/2018 9:45 AM EDT This exam is auto-finalizing. It's purpose is for storage only. Sheila Nicolas MD IMG FILM LIBRARY OR DERABLES [facility] [place] documented in this encounter Visit Diagnoses Not on filedocumented in this encounter Care Teams Health And Safety Consultant Relationship Specialty Start Date End Date Nicole Hubbard MD [address] [place] [address] PCP - General 03/29/10 documented as of this encounter
--- OUTSIDE RECORDS SUMMARY | 2024-03-14 18:04 | XMS_ITS | Encounter Summary ---
Author Organization [facility] [place] [address] Care Team Providers Care Crop Puller Name Role Phone Nicole Hubbard MD Primary Care Provider [phone] Encounter Details Date Type Department Care Team (Late st Contact Info) Description 01/01/2023 Telephone Cardiology at [address] [address] Adam Roberts MD [facility] [place] [address] Social History Tobacco Use Types Packs/Day Years [...] encounter Miscellaneous Notes * Telephone Encounter - Adam Roberts MD - 01/01/2023 9:13 AM EDT I called Ms. Sheets to relay her zio patch results, which are unremarkable. I left a voicemail withplan to see her in clinic in about 4 months. Adam Roberts MD [facility] Cardiac Electrophysiology 01/01/2023 9:13 AM documented in this encounter Plan of Treatment Not on file documented as of this encounter Visit Diagnoses Not on filedocumented in this encounter Care Teams Crop Puller Relationship Specialty Start Date End Date Nicole Hubbard MD [address] [facility] 1 [place] [address] PCP - General 03/29/10 documented as of this encounter
--- OUTSIDE RECORDS SUMMARY | 2024-03-14 18:04 | XMS_ITS | Encounter Summary ---
[place] [address] Care Team Providers Care Airport Ramp Agent Name Role Phone Nicole Hubbard MD Primary Care Provider [phone] Encounter Details Date Type Department Care Team (Late st Contact Info) Description 03/03/2016 [place] [phone] Sofie Bustamante RN Social History Tobacco Use Types Packs/Day Years [...] encounter Miscellaneous Notes * Telephone Encounter - Sofie Bustamante RN - 03/03/2016 6:11 PM EDT Mailed Xolair Statement of Medical Necessity (SMN) form, partially completed, and letter to Ms. Sheets requesting her to sign where indicated and mail the forms back to Allergy Dept in order to process xolair prescription for her as prescribed by Dr. Jocelyn Santos. Addressed envelope provided for her to mail back to Desk 6M. documented in this encounter Plan of Treatment Not on file documented as of this encounter Visit Diagnoses Not on filedocumented in this encounter Care Teams Airport Ramp Agent Relationship Specialty Start Date End Date Nicole Hubbard MD [address] [place], [place] [address]Y [facility] 1 [place] [address] PCP - General 03/29/10 documented as of this encounter
--- OUTSIDE RECORDS SUMMARY | 2024-03-14 18:04 | XMS_ITS | Encounter Summary ---
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] Sign Reading Time Taken Comments Blood Pressure 130/80 01/31/2016 1:52 PM EDT Pulse 93 01/31/2016 1:52 PM EDT Temperature - - Respiratory Rate 20 01/31/2016 1:52 PM EDT Oxygen Saturation 98% 01/31/2016 1:52 PM EDT Inhaled Oxygen Concentration - - Weight 99.8 kg (220 lb) 01/31/2016 1:52 PM EDT Height 164.5 cm (5' 4.75) 01/31/2016 1:52 PM ED T Body Mass Index 36.89 01/31/2016 1:52 PM EDT documented in this encounter Patient Instructions * Patient Instructions* Jocelyn Santos MD - 01/31/2016 2:00 PM EDT Obtain lab tests today. Will discuss results over the phone - may take a few weeks to come back. Return in 3 months for a visit. documented in this encounter Progress Notes * Jocelyn Santos MD - 01/31/2016 2:00 PM EDT CC: allergies HPI: Joselyn Sheets is a 60 y.o. female with a PMH of lung lobectomy, asthma/COPD, current smoker presenting for evaluation of allergies at the request of Nicole Hubbard. Patient is here for evaluation of allergies. She reports that she has had allergies her whole life, but the past year it has been worse. She complains of sneezing and generalized pruritus over her whole body. No hives. The most problematic areas are her fingers, arms and legs. She has a history of chronic sinusitis characterized by clear drainage and postnasal drip. She is status post sinus surgery earlier this year, had polyps removed and a turbinate reduction. She has had antibiotics 1-2 times a year for sinus infections. She denies a history of hemoptysis, but admits to occasional nosebleeds with a small amount of blood from her nose. She has tried Janeth she thinks, nasal sprays, nasal rinses. She did not feel that the medications were helpful, but the nasal rinses have been helpful. She has a history of COPD and asthma. 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 She uses albuterol as needed which comes out to about 6 times a month when she feels chest tightness. She is not sure what triggers her to need albuterol and has not noticed any major patterns. Since her right lower lobe lobectomy, she has had a couple episodes of pneumonia since then. She has had prednisone once over the past year, but in the past required it 2-3 times per year for flares of her breathing. She states that currently her breathing is pretty good. As far as other infections, she denies any other infections and has had 1 ear infection this year. No other major infections or IV antibiotics. She is on aspirin which she takes daily for the past 3 weeks without any noticeable problems. Her review of systems, it is per HPI plus admits to fatigue, itchy dry eyes, ringing in her ears, congestion, postnasal drip, discharge, sneezing, facial pain, heartburn, reflux, cough, wheeze, shortness of breath, snoring, itching without rash, depression, thyroid problems, easy bruising, and anemia. Detailed review of systems is otherwise negative. Past Medical History Diagnosis Date ??? Allergic fungal sinusitis ??? Asthma ??? COPD (chronic obstructive pulmonary disease) ??? GERD (gastroesophageal reflux disease) ??? Herpes simplex virus type 1 (HSV-1) dermatitis ??? Hiatal hernia ??? HLD (hyperlipidemia) ??? HTN (hypertension) Past Surgical History Procedure Laterality Date ??? Pro bronchoscopy, diagnostic 09/17/2012 BRONCHOSCOPY performed by Toni Truong MD at [facility] ENDOSCOPY ??? Sinus surgery ??? Lung removal, partial Outpatient Prescriptions Marked as Taking for the 01/31/16 encounter (Office Visit) with Delmy Santos MD Medication Sig Dispense Refill ??? budesonide-formoterol (SYMBICORT) 160-4.5 mcg/actuation HFA Aerosol [...] Take 10 mg by mouth nightly. ??? inhalational spacing device Spacer by [facility].(Non-Drug; Combo Route) route. ??? DULoxetine (CYMBALTA) 60 mg capsule Take 60 mg by mouth daily. ??? estradiol (ESTRACE) 1 mg tablet Take 0.5 mg by mouth every other day. ??? omeprazole (PRILOSEC) 20 mg capsule Take 40 mg by mouth daily. ??? tiotropium (SPIRIVA) 18 mcg inhalation capsule Inhale 18 mcg into the lungs daily. ??? zolpidem (AMBIEN) 5 mg tablet Take 6.25 mg by mouth nightly as needed. ??? CIS Free Text Med - Calcium 600 with Vitamin D ??? MULTIVITAMIN ORAL ??? atorvastatin (LIPITOR) 10 mg tablet 10mg, PO, Once daily ??? valACYclovir (VALTREX) 1 g tablet ??? [DISCONTINUED] Flaxseed Oil 1,000 mg Cap Allergies Allergen Reactions ??? House Dust CIS - sneezing,runny nose , congestion ??? Mold Extracts CIS - sneezing, runny nose, congestion Family History Problem Relation Age of Onset ??? Asthma Mother ??? Allergic Rhinitis Mother ??? Allergic Rhinitis Sister Social History Social History ??? Marital status: Spouse name: N/A ??? Number of children: N/A ??? Years of education: N/A Occupational History ??? Not on file. Social History Main Topics ??? Smoking status: Current Every Day Smoker Packs/day: 1.00 Years: 28.00 Types: Cigarettes ??? Smokeless tobacco: Never Used ??? Alcohol use 10.5 oz/week 21 Standard drinks or equivalent per week ??? Drug use: Yes Special: Marijuana ??? Sexual activity: Not on file Other Topics Concern ??? 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 There is no central a/c. There is not a woodstove. The patient has seen no pests around the home. There is no known mold or mildew. The patient does not live [place]. The patient is not exposed to farm animals. Pets: 3 cats that go in and out PHYSICAL EXAM: BP 130/80 Pulse 93 Resp 20 Ht 164.5 cm (5' 4.75) Wt 99.8 kg (220 lb) SpO2 98% BMI 36.89 kg/m2 Gen: AAOx3, no acute distress HEENT: Tympanic membranes clear, no lesions, erythema, or drainage. Conjunctiva not injected. Nasalpassages show pale, enlarged turbinates bilaterally. OP clear without erythema or cobblestoning. NECK: supple, no lymphadenopathy CVS: RRR, no m/r/g LUNGS: bilateral expiratory wheezing diffusely ABD: soft, non-tender, non-distended SKIN: diffuse excoriations on UE and LE bilat with open sores EXTREMITIES: warm and well-perfused, no edema SPIROMETRY: Bedside spirometry was performed today, which I personally reviewed. It was abnormal and with evidence of both obstruction and restriction. FVC 61% pred FEV1 45% pred FEV1/FVC 72% RECORD REVIEW: c/w pt history No skin testing done today due to diffuse wheezing and very poor lung function on spirometry (FEV 45%). PREVIOUS LABS: - normal CBC/d, IgG/M/A in 2012. Elevated IgE of 261, Aspergillus fumigatus neg ASSESSMENT AND PLAN: 60 yo F with generalized pruritis without hives, chronic sinusitis and asthma/COPD. Due to poor lung function skin testing was deferred today. To eval allergies, will send inhalant panel IgE testing. Due to poorly controlled asthma/COPD, will also send eval for ABPA (aspergillus precipitants, IgE).May be candidate for Xolair or mepolizumab if IgE still elevated or eos elevated. Due to recurrent infections, will complete work up for PID (begun in 2012) with repeat IgG/M/A, strep pneumo, tetanus, and diphtheria titers, and CH50. For pruritis, sent tryptase, CMP, CBC/d, ANCA, KEESHA, ESR to screen for medical problems, autoimmune,mast cell dz. Recommend zantac 150mg BID, zyrtec 10mg BID, singulair daily. Pending results above, will call patient with additional recs if necessary. RTO 3 mos. * Jocelyn Santos MD - 01/31/2016 2:00 PM EDT LAB ADDENDUM: Inhalant panel only positive to cat, and very mildly so. Molds, trees, weeds, grass, and dust mite negative. Aspergillus precipitans and A. Fumigatus IgE negative. Total IgE 693 (candidate for Xolair). Eos 100 (not candidate for mepolizumab). Immunoglobulins WNL and pt has adequate titers to strep pneumo and normal CH50. For pruritis, tryptase, CBC/diff, CMP, ANCA, KEESHA unremarkable. Called pt to discuss results: LMTCO. Jocelyn Santos MD 02/24/2016 7:23 PM documented in this encounter Plan of Treatment Not on file documented as of this encounter Procedures Procedure Name Priority Date/Time Associated Diagnosis Comments PFT SCAN 03/01/2016 12:00 AM EDT MISCELLANEOUS LAB REQUEST Routine 01/31/2016 3:33 PM EDT Chronic sinusitis, unspecified location Frequent infections Severe persistent asthma, uncomplicated ALTERNARIA TENUIS, IGE Routine 6 3:33 PM EDT Chronic sinusitis, unspecified location IMMUNOGLOBULIN E (IGE) Routine 6 3:33 PM EDT Chronic sinusitis, unspecified location Itching Frequent infections Severe persistent asthma, uncomplicated HOUSE DUST MITES/D.F., IGE Routine 01/31/2016 3:33 PM EDT Chronic sinusitis, unspecified location HOUSE DUST MITES/D.P., IGE Routine 01/31/2016 3:33 PM EDT Chronic sinusitis, unspecified location WALNUT TREE IGE Routine 01/31/2016 3:33 PM EDT IMMUNOGLOBULINS, QUANTITATIVE Routine 01/31/2016 3:33 PM EDT Chronic sinusitis, unspecified location Itching Frequent infections CYTOPLASMIC NEUTROPHILIC AB Routine 01/31/2016 3:33 PM EDT PROTEINASE-3 ANTIBODY Routine 01/31/2016 3:33 PM EDT Itching MYELOPEROXIDASE AB Routine 01/31/2016 3: 33 PM EDT Itching ANNIKA GRASS IGE Routine 01/31/2016 3:33 PM EDT FUSARIUM MONILIFORME IGE Routine 01/31/2016 3:33 PM EDT HEMOGRAM Routine 01/31/2016 3:33 PM EDT Itching Frequent infections DIFFERENTIAL, AUTOMATED Routine 01/31/20 16 3:33 PM EDT Itching Frequent infections S PNEUMONIAE ANTIBODY IGG, 23 SEROTYPES Routine 01/31/2016 3:33 PM EDT OAK IGE Routine 01/31/2016 3:33 PM EDT Chronic sinusitis, unspecified location TRYPTASE Routine 01/31/2016 3:33 PM EDT Itching PENICILLIUM IGE Routine 01/31/2016 3:33 PM EDT Chronic sinusitis, unspecified location ORCHARD GRASS IGE Routine 01/31/2016 3:3 3 PM EDT ELM IGE Routine 01/31/2016 3:33 PM EDT Chronic sinusitis, unspecified location CLADOSPORIUM IGE Routine 01/31/2016 3:33 PM EDT Chronic sinusitis, unspecified location BIRCH, SILVER IGE Routine 01/31/2016 3:3 3 PM EDT Chronic sinusitis, unspecified location ASPERGILLUS FUMIGATUS IGE Routine 01/31/2016 3:33 PM EDT Chronic sinusitis, unspecified location CAT EPITHELIUM IGE Routine 01/31/2016 3: 33 PM EDT Chronic sinusitis, unspecified location RAGWEED, SHORT/ COMMON IGE Routine 01/31/2016 3:33 PM EDT Chronic sinusitis, unspecified location MUGWORT IGE Routine 01/31/2016 3:33 PM EDT Chronic sinusitis, unspecified location STONE'S QUARTER IGE Routine 01/31/2016 3: 33 PM EDT CHRISTOPH GRASS IGE Routine 01/31/2016 3:3 3 PM EDT Chronic sinusitis, unspecified location RYE GRASS IGE Routine 01/31/2016 3:33 PM EDT MAPLE / BOX ELDER IGE Routine 01/31/2016 3:33 PM EDT Chronic sinusitis, unspecified location SEDIMENTATION RATE Routine 01/31/2016 3: 33 PM EDT Itching CBC (WITH DIFF) Routine 01/31/2016 3:33 PM EDT Itching Frequent infections COMPLEMENT, TOTAL Routine 01/31/2016 3:3 3 PM EDT Frequent infections KEESHA ANTIBODY SCREEN Routine 01/31/2016 3 :33 PM EDT Itching COMPREHENSIVE METABOLIC PANEL Routine 01/31/2016 3:33 PM EDT Itching Frequent infections [facility] Routine 01/31/2016 3 :30 PM EDT documented in this encounter Results * SCAN DOC: PFT (03/01/2016 12:00 AM EDT) Scanning Provider MEDIA MGR SCAN EXT O RDR/RSLT * [place] Tree IgE (01/31/2016 3:33 PM EDT) [place], IgE <0.35 kU/L [facility] Comment: Class 0 (Negative <0.35) Test Performed by: [place] [address] Pipe Layer: Charlie Calderon II, M.D., Ph.D. Blood specimen (specimen) Venous Draw / Unknown 01/31/2016 3:33 PM EDT 02/08/2016 3:37 PM EDT Narrative Resulting Agency Comment Spec In Lab Jocelyn Santos MD IMMUNOLOGY ORDERABLE S [facility] [place] [address] * S pneumoniae Antibody IgG, 23 serotypes (01/31/2016 3:33 PM EDT) S Pneumo IgG 23 (MAY) Test ?Result ?Flag ??Unit ?RefValue ------ S. pneumoniae IgG Ab,23 serotypes,S ??Serotype 1 (1) ?1.3 ? mcg/mL ??>=2.3 ??Serotype 2(2) ? 1.6 ? mcg/mL ??>=1.0 ??Serotype 3 (3) ?0.7 ? mcg/mL ??>=1.8 ??Serotype 4 (4) ?0.5 ? mcg/mL ??>=0.6 ??Serotype 5 (5) ?1.2 ? mcg/mL ??>=10.7 ??Serotype 8 (8) ?26.9 ?mcg/mL ??>=2.9 ??Serotype 9N (9) ? 5.3 ? mcg/mL ??>=9.2 ??Serotype 12F (12) ? 5.3 ? mcg/mL ??>=0.6 ??Serotype 14 (14) ?4.6 ? mcg/mL ??>=7.0 ??Serotype 17F (17) ? SEE COMMENTS ?mcg/mL ??>=7.8 No result available due to non-linear dilution response for this serotype. See Interpretation. ??Serotype 19F (19) ? 28.0 ?mcg/mL ??>=15.0 ??Serotype 20 (20) ?1.3 ? mcg/mL ??>=1.3 ??Serotype 22F (22) ? 9.8 ? mcg/mL ??>=7.2 ??Serotype 23F (23) ? 7.2 ? mcg/mL ??>=8.0 ??Serotype 6B (26) ?2.1 ? mcg/mL ??>=4.7 ??Serotype 10A (34) ? 0.7 ? mcg/mL ??>=2.9 ??Serotype 11A (43) ? 1.1 ? mcg/mL ??>=2.4 ??Serotype 7F (51) ?4.1 ? mcg/mL ??>=3.2 ??Serotype 15B (54) ? 6.3 ? mcg/mL ??>=3.3 ??Serotype 18C (56) ? 0.4 ? mcg/mL ??>=3.3 ??Serotype 19A (57) ? 17.0 ?mcg/mL ??>=17.1 ??Serotype 9V (68) ?4.0 ? mcg/mL ??>=2.6 ??Serotype 33F (70) ? 1.0 ? mcg/mL ??>=1.7 Unable to quantitate serotype 17F (17) due to nonlinear dilution response of patient sample. ??Overall interpretation of pneumococcal antibody serology panel can be based on the reported 22 serotypes. Either of the two following conditions would be consistent with a normal response to Streptococcus pneumoniae vaccination: Antibody concentrations greater than or equal to the reference value for at least 50% of serotypes in either a pre- or post-vaccination sample. Antibody concentrations increased by 2-fold or greater for at least 50% of serotypes when comparing the pre- to the post-vaccination results. Optimal cut-offs (reference values) were derived by measuring serotype-specific IgG antibody levels in an adult cohort of 100 healthy individuals (previously unvaccinated) before and after pneumococcal vaccination and identifying the antibody level for each serotype that included the largest number of individuals with a negative response (below cut-off) pre-vaccination and a positive response (above cut-off) post-vaccination. -ADDITIONAL INFORMATION------- All 23 serotypes assessed by this assay are included in the Pneumovax 23 vaccine. IgG antibody concentrations following Pneumovax 23 administration are a reflection of an individual's humoral immune response to polysaccharide antigens. Serotypes 1, 3, 4, 5, 6A (6), 14, 19F (19), 23F (23), 6B (26), 7F (51), 18C (56), 19A (57) and 9V (68) are included in the Prevnar-13 conjugate vaccine. Antibody concentrations following Prevnar-13 administration are a reflection of an individual's response to protein-conjugated antigens. Serotypes 2, 8, 9N (9), 12F (12), 17F (17), 20, 22F (22), 10A (34), 11A (43), 15B (54) and 33F (70) are present only in the Pneumovax 23 vaccine and not in Prevnar-13. Responses to these 11 serotypes are a reflection of an individual's response to polysaccharide antigens. Serotype 6A is only present in Prevnar-13. This test was developed and its performance characteristics determined by [facility] in a manner consistent with CLIA requirements. This test has not been cleared or approved by the U.S. Food and Drug Administration. Test Performed by: [place] [address] Pipe Layer: Charlie Calderon II, M.D., Ph.D. [facility] Blood specimen (specimen) Venous Draw / Unknown 01/31/2016 3:33 PM EDT 02/08/2016 3:37 PM EDT Narrative Resulting Agency Comment Spec In Lab Jocelyn Santos MD LAB SEND OUT ORDERAB LES Performing Organization Address City/State/[facility] Co de Phone Number [facility] [place] [address] * Eve Yi IgE (01/31/2016 3:33 PM EDT) Eve Yi, IgE <0.35 kU/L [facility] Comment: Class 0 (Negative <0.35) Test Performed by: [address] [address] Pipe Layer: Charlie Calderon II, M.D., Ph.D. Blood specimen (specimen) Venous Draw / Unknown 01/31/2016 3:33 PM EDT 02/08/2016 3:37 PM EDT Narrative Resulting Agency Comment Spec In Lab Jocelyn Santos MD IMMUNOLOGY ORDERABLE S Performing Organization Address [facility] Co de Phone Number [facility] [place] [address] * Fusarium Moniliforme IgE (01/31/2016 3:33 PM EDT) F Moniliforme Ige (SEPTEMBER) <0.35 kU/L [facility] Comment: Class 0 (Negative <0.35) Test Performed by: [place] [address] Pipe Layer: Charlie Calderon II, M.D., Ph.D. Blood specimen (specimen) Venous Draw / Unknown 01/31/2016 3:33 PM EDT 02/08/2016 3:37 PM EDT Narrative Resulting Agency Comment Spec In Lab Jocelyn Santos MD LAB SEND OUT ORDERAB LES Performing Organization Address City/[facility]/ZIP Co de Phone Number [facility] [place] [address] * Cytoplasmic Neutrophilic Ab (01/31/2016 3:33 PM EDT) C-Anca (SEPTEMBER) Negative Negative [facility] Comment: Test Performed by: [place] [address] Pipe Layer: Charlie Calderon II, M.D., Ph.D. P-Anca (SEPTEMBER) Negative Negative [facility] Comment: Negative for cANCA and pANCA patterns by immunofluorescence. ADDITIONAL INFORMATION This test was developed and its performance characteristics determined by [facility] in a manner consistent with CLIA requirements. This test has not been cleared or approved by the U.S. Food and Drug Administration. Test Performed by: [address] [place] [address] Pipe Layer: Charlie Calderon II, M.D., Ph.D. Blood specimen (specimen) Venous Draw / Unknown 01/31/2016 3:33 PM EDT 02/08/2016 3:37 PM EDT Narrative Resulting Agency Comment Spec In Lab Jocelyn Santos MD LAB SEND OUT ORDERAB LES Performing Organization Address City/[facility] Co de Phone Number [facility] [place] [address] * Annika Yi IgE (01/31/2016 3:33 PM EDT) October IgE <0.35 kU/L [facility] Comment: Class 0 (Negative <0.35) Test Performed by: [place] [address] Pipe Layer: Charlie Calderon II, M.D., Ph.D. Blood specimen (specimen) Venous Draw / Unknown 01/31/2016 3:33 PM EDT 02/08/2016 3:37 PM EDT Narrative Resulting Agency Comment Spec In Lab Jocelyn Santos MD IMMUNOLOGY ORDERABLE S Performing Organization Address City/[facility] Co de Phone Number [facility] [place] [address] * Dawson Grass IgE (01/31/2016 3:33 PM EDT) Dawson Grass Ige (SEPTEMBER) <0.35 kU/L [facility] Comment: Class 0 (Negative <0.35) Test Performed by: [place] [address] Pipe Layer: Charlie Calderon II, M.D., Ph.D. Blood specimen (specimen) Venous Draw / Unknown 01/31/2016 3:33 PM EDT 02/08/2016 3:37 PM EDT Narrative Resulting Agency Comment Spec In Lab Jocelyn Santos MD LAB SEND OUT ORDERAB LES Performing Organization Address City/[facility]/ZIP Co de Phone Number [facility] [place] [address] * [place] IgE (01/31/2016 3:33 PM EDT) [place], IgE <0.35 kU/L [facility] Comment: Class 0 (Negative <0.35) Test Performed by: [place] [address] Pipe Layer: Charlie Calderon II, M.D., Ph.D. Blood specimen (specimen) Venous Draw / Unknown 01/31/2016 3:33 PM EDT 02/08/2016 3:37 PM EDT Narrative Resulting Agency Comment Spec In Lab Jocelyn Santos MD IMMUNOLOGY ORDERABLE S Performing Organization Address [facility]/ZIP Co de Phone Number [facility] [place] [address] * Differential, Automated (01/31/2016 3:33 PM EDT) [facility] Neutrophil % 59.0 % [facility] Neutrophil Absolute 5.19 1.70 - 6.10 x10(3)/[facility] Lymph % 33.3 % [facility] Lymphocytes Abs 2.9 0.9 - 3.2 x10(3)/[facility] Monocyte % 5.5 % [facility] Monocyte Abs 0.5 0.3 - 0.9 x10(3)/[facility] Eos % 1.4 % [facility] Eosinophils Abs 0.1 0.0 - 0.4 x10(3)/[facility] Basophil % 0.7 % [facility] Baso Absolute 0.1 0.0 - 0.1 x10(3)/[facility] Immature Gran % 0.10 % [facility] Comment: Immature granulocytes(IG's)percentage and absolute count will include metamyelocytes, myelocytes, and promyelocytes. Blood smears from CBCs yielding IG's will be scanned manually for concordance. If this scan disagrees with the automated IG or if promyelocytes are noted, a manual differential will be performed. Immature Gran Absolute 0.01 0.00 - 0.04 x10(3)/mcL [facility] Blood specimen (specimen) 01/31/2016 3:33 PM EDT 01/31/2016 3:40 PM EDT Narrative Resulting Agency Comment Spec In Lab Jocelyn Santos MD HEMATOLOGY ORDERABLE S [facility] [place] [address] * (ABNORMAL) Hemogram (01/31/2016 3:33 PM EDT) White Blood Cell 8.8 4.0 - 9.5 x10(3)/mc L [facility] Red Blood Cell 3.59(L) 4.00 - 5.21 x10(6)/mc L [facility] Hemoglobin 11.4(L) 11.7 - 15.5 gm/dL [facility] Hematocrit 33.9(L) 35.7 - 45.8 % [facility] Mean Cell Volume 94.4 82.6 - 94.4 fL [facility] Mean Cell Hemoglobin 31.8 27.1 - 32.0 pg [facility] Mean Cell Hemoglobin Concentration 33.6 31.7 - 35.0 gm/dL [facility] Platelet 301 145 - 357 x10(3)/mc L [facility] RDW Standard Deviation 45.2 37.0 - 46.0 fL [facility] RDW coefficient of variation 13.1 11.5 - 14.1 % [facility] Mean Platelet Volume 9.2 7.6 - 12.9 fL [facility] NRBC% auto 0.0 % [facility] NRBC Absolute 0.000 0.000 - 0.000 x10(3)/mc L [facility] Blood specimen (specimen) 01/31/2016 3:33 PM EDT 01/31/2016 3:40 PM EDT Narrative Resulting Agency Comment Spec In Lab Jocelyn Santos MD HEMATOLOGY ORDERABLE S Performing Organization Address City/[facility]/ZIP Co de Phone Number [facility] [place] [address] * Tryptase (01/31/2016 3:33 PM EDT) Tryptase 5.2 <11.5 ng/mL [facility] Comment: Test Performed by: [place] [address] Pipe Layer: Charlie Calderon II, M.D., Ph.D. Blood specimen (specimen) 01/31/2016 3:33 PM EDT 02/01/2016 9:05 AM EDT Narrative Resulting Agency Comment Spec In Lab Jocelyn Santos MD CHEMISTRY ORDERABLES Performing Organization Address [facility] Co de Phone Number [facility] [place] [address] * Cat Epithelium IgE (01/31/2016 3:33 PM EDT) Cat Epithel, IgE 0.38 kU/L [facility] Comment: Reference Ranges <0.35 kU/L Class 0: ??Normal 0.35-0.69 kU/L Class 1: ??Low level of allergy, indicative of ongoing sensitization 0.70-3.49 kU/L Class 2: ??Moderate level of allergy, indicative of stronger ongoing sensitization 3.50-17.49 kU/L Class 3: ??High level of allergy, indicative of high level sensitization 17.5-49.9 kU/L Class 4: Very high level of allergy, indicative of very high level sensitization 50.0-100 kU/L Class 5: Very high level of allergy, indicative of very high level sensitization >100 kU/L Class 6: Very high level of allergy, indicative of very high level sensitization Blood specimen (specimen) 01/31/2016 3:33 PM EDT 02/01/2016 8:05 AM EDT Narrative Resulting Agency Comment Spec In Lab Jocelyn Santos MD IMMUNOLOGY ORDERABLE S [facility] [place] [address] * House Dust Mites/D.P., IgE (01/31/2016 3:33 PM EDT) House Dust Mites/DP, IgE <0.35 kU/L [facility] Comment: Reference Ranges <0.35 kU/L Class 0: ??Normal 0.35-0.69 kU/L Class 1: ??Low level of allergy, indicative of ongoing sensitization 0.70-3.49 kU/L Class 2: ??Moderate level of allergy, indicative of stronger ongoing sensitization 3.50-17.49 kU/L Class 3: ??High level of allergy, indicative of high level sensitization 17.5-49.9 kU/L Class 4: Very high level of allergy, indicative of very high level sensitization 50.0-100 kU/L Class 5: Very high level of allergy, indicative of very high level sensitization >100 kU/L Class 6: Very high level of allergy, indicative of very high level sensitization Blood specimen (specimen) 01/31/2016 3:33 PM EDT 02/01/2016 8:05 AM EDT Narrative Resulting Agency Comment Spec In Lab Jocelyn Santos MD IMMUNOLOGY ORDERABLE S Performing Organization Address City/[facility]/ZIP Co de Phone Number [facility] [place] [address] * House Dust Mites/D.F., IgE (01/31/2016 3:33 PM EDT) Mites/D.F. IgE <0.35 kU/L [facility] Comment: Reference Ranges <0.35 kU/L Class 0: ??Normal 0.35-0.69 kU/L Class 1: ??Low level of allergy, indicative of ongoing sensitization 0.70-3.49 kU/L Class 2: ??Moderate level of allergy, indicative of stronger ongoing sensitization 3.50-17.49 kU/L Class 3: ??High level of allergy, indicative of high level sensitization 17.5-49.9 kU/L Class 4: Very high level of allergy, indicative of very high level sensitization 50.0-100 kU/L Class 5: Very high level of allergy, indicative of very high level sensitization >100 kU/L Class 6: Very high level of allergy, indicative of very high level sensitization Blood specimen (specimen) 01/31/2016 3:33 PM EDT 02/01/2016 8:05 AM EDT Narrative Resulting Agency Comment Spec In Lab Jocelyn Santos MD IMMUNOLOGY ORDERABLE S Performing Organization Address [facility]/ZIP Co de Phone Number [facility] [place] [address] * Sedimentation rate (01/31/2016 3:33 PM EDT) Sedimentation Rate Automated 10 0 - 20 mm/hr [facility] Blood specimen (specimen) 01/31/2016 3:33 PM EDT 01/31/2016 3:40 PM EDT Narrative Resulting Agency Comment Spec In Lab Jocelyn Santos MD HEMATOLOGY ORDERABLE S Performing Organization Address City/[facility]/ZIP Co de Phone Number [facility] [place] [address] * KEESHA (01/31/2016 3:33 PM EDT) KEESHA Neg Neg [facility] Blood specimen (specimen) 01/31/2016 3:33 PM EDT 02/01/2016 8:06 AM EDT Narrative Resulting Agency Comment Spec In Lab Jocelyn Santos MD LAB SEND OUT ORDERAB LES Performing Organization Address City/[facility]/ZIP Co de Phone Number [facility] [place] [address] * Christoph Grass IgE (01/31/2016 3:33 PM EDT) Christoph Grass, IgE <0.35 kU/L [facility] Comment: Reference Ranges <0.35 kU/L Class 0: ??Normal 0.35-0.69 kU/L Class 1: ??Low level of allergy, indicative of ongoing sensitization 0.70-3.49 kU/L Class 2: ??Moderate level of allergy, indicative of stronger ongoing sensitization 3.50-17.49 kU/L Class 3: ??High level of allergy, indicative of high level sensitization 17.5-49.9 kU/L Class 4: Very high level of allergy, indicative of very high level sensitization 50.0-100 kU/L Class 5: Very high level of allergy, indicative of very high level sensitization >100 kU/L Class 6: Very high level of allergy, indicative of very high level sensitization Blood specimen (specimen) 01/31/2016 3:33 PM EDT 02/01/2016 8:05 AM EDT Narrative Resulting Agency Comment Spec In Lab Jocelyn Santos MD IMMUNOLOGY ORDERABLE S [facility] [place] [address] * Chester IgE (01/31/2016 3:33 PM EDT) Chester, IgE <0.35 kU/L [facility] Comment: Reference Ranges <0.35 kU/L Class 0: ??Normal 0.35-0.69 kU/L Class 1: ??Low level of allergy, indicative of ongoing sensitization 0.70-3.49 kU/L Class 2: ??Moderate level of allergy, indicative of stronger ongoing sensitization 3.50-17.49 kU/L Class 3: ??High level of allergy, indicative of high level sensitization 17.5-49.9 kU/L Class 4: Very high level of allergy, indicative of very high level sensitization 50.0-100 kU/L Class 5: Very high level of allergy, indicative of very high level sensitization >100 kU/L Class 6: Very high level of allergy, indicative of very high level sensitization Blood specimen (specimen) 01/31/2016 3:33 PM EDT 02/01/2016 8:05 AM EDT Narrative Resulting Agency Comment Spec In Lab Jocelyn Santos MD IMMUNOLOGY ORDERABLE S Performing Organization Address City/[facility]/ZIP Co de Phone Number [facility] [place] [address] * Mugwort IgE (01/31/2016 3:33 PM EDT) Mugwort, IgE <0.35 kU/L [facility] Comment: Reference Ranges <0.35 kU/L Class 0: ??Normal 0.35-0.69 kU/L Class 1: ??Low level of allergy, indicative of ongoing sensitization 0.70-3.49 kU/L Class 2: ??Moderate level of allergy, indicative of stronger ongoing sensitization 3.50-17.49 kU/L Class 3: ??High level of allergy, indicative of high level sensitization 17.5-49.9 kU/L Class 4: Very high level of allergy, indicative of very high level sensitization 50.0-100 kU/L Class 5: Very high level of allergy, indicative of very high level sensitization >100 kU/L Class 6: Very high level of allergy, indicative of very high level sensitization Blood specimen (specimen) 01/31/2016 3:33 PM EDT 02/01/2016 8:05 AM EDT Narrative Resulting Agency Comment Spec In Lab Jocelyn Santos MD IMMUNOLOGY ORDERABLE S Performing Organization Address City/[facility]/ZIP Co de Phone Number [facility] [place] [address] * Maple / [place] IgE (01/31/2016 3:33 PM EDT) Boxelder-Maple, IgE <0.35 kU/L [facility] Comment: Reference Ranges <0.35 kU/L Class 0: ??Normal 0.35-0.69 kU/L Class 1: ??Low level of allergy, indicative of ongoing sensitization 0.70-3.49 kU/L Class 2: ??Moderate level of allergy, indicative of stronger ongoing sensitization 3.50-17.49 kU/L Class 3: ??High level of allergy, indicative of high level sensitization 17.5-49.9 kU/L Class 4: Very high level of allergy, indicative of very high level sensitization 50.0-100 kU/L Class 5: Very high level of allergy, indicative of very high level sensitization >100 kU/L Class 6: Very high level of allergy, indicative of very high level sensitization Blood specimen (specimen) 01/31/2016 3:33 PM EDT 02/01/2016 8:05 AM EDT Narrative Resulting Agency Comment Spec In Lab Jocelyn Santos [place] [address] * Ragweed, short/ common IgE (01/31/2016 3:33 PM EDT) Short Ragweed, IgE <0.35 kU/L [facility] Comment: Reference Ranges <0.35 kU/L Class 0: ??Normal 0.35-0.69 kU/L Class 1: ??Low level of allergy, indicative of ongoing sensitization 0.70-3.49 kU/L Class 2: ??Moderate level of allergy, indicative of stronger ongoing sensitization 3.50-17.49 kU/L Class 3: ??High level of allergy, indicative of high level sensitization 17.5-49.9 kU/L Class 4: Very high level of allergy, indicative of very high level sensitization 50.0-100 kU/L Class 5: Very high level of allergy, indicative of very high level sensitization >100 kU/L Class 6: Very high level of allergy, indicative of very high level sensitization Blood specimen (specimen) 01/31/2016 3:33 PM EDT 02/01/2016 8:05 AM EDT Narrative Resulting Agency Comment Spec In Lab Jocelyn Santos MD IMMUNOLOGY ORDERABLE S Performing Organization Address City/[facility]/ZIP Co de Phone Number [facility] [place] [address] * Elm IgE (01/31/2016 3:33 PM EDT) Elm, IgE <0.35 kU/L [facility] Comment: Reference Ranges <0.35 kU/L Class 0: ??Normal 0.35-0.69 kU/L Class 1: ??Low level of allergy, indicative of ongoing sensitization 0.70-3.49 kU/L Class 2: ??Moderate level of allergy, indicative of stronger ongoing sensitization 3.50-17.49 kU/L Class 3: ??High level of allergy, indicative of high level sensitization 17.5-49.9 kU/L Class 4: Very high level of allergy, indicative of very high level sensitization 50.0-100 kU/L Class 5: Very high level of allergy, indicative of very high level sensitization >100 kU/L Class 6: Very high level of allergy, indicative of very high level sensitization Blood specimen (specimen) 01/31/2016 3:33 PM EDT 02/01/2016 8:05 AM EDT Narrative Resulting Agency Comment Spec In Lab Jocelyn Santos MD IMMUNOLOGY ORDERABLE S Performing Organization Address [facility]/ZIP Co de Phone Number [facility] [place] [address] * bishop Cristobal IgE (01/31/2016 3:33 PM EDT) Bishop Cristobal, IgE <0.35 kU/L [facility] Comment: Reference Ranges <0.35 kU/L Class 0: ??Normal 0.35-0.69 kU/L Class 1: ??Low level of allergy, indicative of ongoing sensitization 0.70-3.49 kU/L Class 2: ??Moderate level of allergy, indicative of stronger ongoing sensitization 3.50-17.49 kU/L Class 3: ??High level of allergy, indicative of high level sensitization 17.5-49.9 kU/L Class 4: Very high level of allergy, indicative of very high level sensitization 50.0-100 kU/L Class 5: Very high level of allergy, indicative of very high level sensitization >100 kU/L Class 6: Very high level of allergy, indicative of very high level sensitization Blood specimen (specimen) 01/31/2016 3:33 PM EDT 02/01/2016 8:05 AM EDT Narrative Resulting Agency Comment Spec In Lab Jocelyn Santos MD IMMUNOLOGY ORDERABLE S Performing Organization Address City/[facility]/ZIP Co de Phone Number [facility] [place] [address] * Proteinase-3 Antibody (01/31/2016 3:33 PM EDT) Proteinase 3 Antibody 9.7 <=20.0 unit(s) [facility] Blood specimen (specimen) 01/31/2016 3:33 PM EDT 02/01/2016 8:35 AM EDT Narrative Resulting Agency Comment Spec In Lab Jocelyn Santos MD IMMUNOLOGY ORDERABLE S Performing Organization Address [facility] Co de Phone Number [facility] [place] [address] * Myeloperoxidase Ab (01/31/2016 3:33 PM EDT) Myeloperoxidase Antibody <2.0 <=20.0 unit(s) [facility] Blood specimen (specimen) 01/31/2016 3:33 PM EDT 02/01/2016 8:35 AM EDT Narrative Resulting Agency Comment Spec In Lab Jocelyn Santos MD IMMUNOLOGY ORDERABLE S Performing Organization Address City/[facility] Co de Phone Number [facility] [place] [address] * Penicillium IgE (01/31/2016 3:33 PM EDT) Penicillium, IgE <0.35 kU/L [facility] Comment: Reference Ranges <0.35 kU/L Class 0: ??Normal 0.35-0.69 kU/L Class 1: ??Low level of allergy, indicative of ongoing sensitization 0.70-3.49 kU/L Class 2: ??Moderate level of allergy, indicative of stronger ongoing sensitization 3.50-17.49 kU/L Class 3: ??High level of allergy, indicative of high level sensitization 17.5-49.9 kU/L Class 4: Very high level of allergy, indicative of very high level sensitization 50.0-100 kU/L Class 5: Very high level of allergy, indicative of very high level sensitization >100 kU/L Class 6: Very high level of allergy, indicative of very high level sensitization Blood specimen (specimen) 01/31/2016 3:33 PM EDT 02/01/2016 8:05 AM EDT Narrative Resulting Agency Comment Spec In Lab Jocelyn Santos MD IMMUNOLOGY ORDERABLE S [facility] [place] [address] * Cladosporium IgE (01/31/2016 3:33 PM EDT) Cladosporium, IgE <0.35 kU/L [facility] Comment: Reference Ranges <0.35 kU/L Class 0: ??Normal 0.35-0.69 kU/L Class 1: ??Low level of allergy, indicative of ongoing sensitization 0.70-3.49 kU/L Class 2: ??Moderate level of allergy, indicative of stronger ongoing sensitization 3.50-17.49 kU/L Class 3: ??High level of allergy, indicative of high level sensitization 17.5-49.9 kU/L Class 4: Very high level of allergy, indicative of very high level sensitization 50.0-100 kU/L Class 5: Very high level of allergy, indicative of very high level sensitization >100 kU/L Class 6: Very high level of allergy, indicative of very high level sensitization Blood specimen (specimen) 01/31/2016 3:33 PM EDT 02/01/2016 8:05 AM EDT Narrative Resulting Agency Comment Spec In Lab Jocelyn Santos MD IMMUNOLOGY ORDERABLE S Performing Organization Address [facility]/ZIP Co de Phone Number [facility] [place] [address] * Alternaria Tenuis, IgE (01/31/2016 3:33 PM EDT) Alt Tenuis IgE <0.35 kU/L [facility] Comment: Reference Ranges <0.35 kU/L Class 0: ??Normal 0.35-0.69 kU/L Class 1: ??Low level of allergy, indicative of ongoing sensitization 0.70-3.49 kU/L Class 2: ??Moderate level of allergy, indicative of stronger ongoing sensitization 3.50-17.49 kU/L Class 3: ??High level of allergy, indicative of high level sensitization 17.5-49.9 kU/L Class 4: Very high level of allergy, indicative of very high level sensitization 50.0-100 kU/L Class 5: Very high level of allergy, indicative of very high level sensitization >100 kU/L Class 6: Very high level of allergy, indicative of very high level sensitization Blood specimen (specimen) 01/31/2016 3:33 PM EDT 02/01/2016 8:05 AM EDT Narrative Resulting Agency Comment Spec In Lab Jocelyn Santos MD IMMUNOLOGY ORDERABLE S Performing Organization Address City/[facility]/ZIP Co de Phone Number [facility] [place] [address] * Aspergillus fumigatus IgE (01/31/2016 3:33 PM EDT) Aspergillus Fumigatus, IgE <0.35 kU/L [facility] Comment: Reference Ranges <0.35 kU/L Class 0: ??Normal 0.35-0.69 kU/L Class 1: ??Low level of allergy, indicative of ongoing sensitization 0.70-3.49 kU/L Class 2: ??Moderate level of allergy, indicative of stronger ongoing sensitization 3.50-17.49 kU/L Class 3: ??High level of allergy, indicative of high level sensitization 17.5-49.9 kU/L Class 4: Very high level of allergy, indicative of very high level sensitization 50.0-100 kU/L Class 5: Very high level of allergy, indicative of very high level sensitization >100 kU/L Class 6: Very high level of allergy, indicative of very high level sensitization Blood specimen (specimen) 01/31/2016 3:33 PM EDT 02/01/2016 8:05 AM EDT Narrative Resulting Agency Comment Spec In Lab Jocelyn Santos MD IMMUNOLOGY ORDERABLE S Performing Organization Address [facility]/ZIP Co de Phone Number [facility] [place] [address] * Miscellaneous Lab request (01/31/2016 3:33 PM EDT) Label Request received in lab. [facility] Blood specimen (specimen) 01/31/2016 3:33 PM EDT 01/31/2016 3:40 PM EDT Narrative Resulting Agency Comment Spec In Lab Jocelyn Santos MD LAB SEND OUT ORDERAB LES Performing Organization Address [facility] Co de Phone Number [facility] [place] [address] * Complement, Total (01/31/2016 3:33 PM EDT) Complement, Total 64 30 - 75 unit/mL [facility] Comment: Test Performed by: [facility] - [address] [address] Pipe Layer: Charlie Calderon II, M.D., Ph.D. Blood specimen (specimen) 01/31/2016 3:33 PM EDT 02/01/2016 9:05 AM EDT Narrative Resulting Agency Comment Spec In Lab Jocelyn Santos MD CHEMISTRY ORDERABLES Performing Organization Address [facility]/ZIP Co de Phone Number [facility] [place] [address] * (ABNORMAL) Immunoglobulin E (IgE) (01/31/2016 3:33 PM EDT) Pathologist [facility] IgE, Total 693(H) <=101 kU/L [facility] Comment: Pediatric age-specific reference ranges are reflected in result ranges. Adult reference ranges: <25 kU/L ??Normal 25-100 kU/L Equivocal >100 kU/L ??Elevated Blood specimen (specimen) 01/31/2016 3:33 PM EDT 02/01/2016 8:05 AM EDT Narrative Resulting Agency Comment Spec In Lab Jocelyn Santos MD IMMUNOLOGY ORDERABLE S Performing Organization Address [facility]/ZIP Co de Phone Number [facility] [place] [address] * Immunoglobulins, Quantitative (01/31/2016 3:33 PM EDT) [facility] Immunoglobulin G 959 700 - 1,600 mg/dL [facility] IgA 111 70 - 400 mg/dL [facility] IgM 88 40 - 230 mg/dL [facility] Blood specimen (specimen) 01/31/2016 3:33 PM EDT 01/31/2016 3:40 PM EDT Narrative Resulting Agency Comment Spec In Lab Jocelyn Santos MD CHEMISTRY ORDERABLES Performing Organization Address [facility]/ZIP Co de Phone Number [facility] [place] [address] * Comprehensive metabolic panel (non-fasting) (01/31/2016 3:33 PM EDT) [facility] Glucose 109 65 - 199 mg/dL [facility] Comment:Diabetes: >=200 mg/d L plus symptoms Blood Urea Nitrogen 17 8 - 18 mg/dL [facility] Creatinine 0.79 0.70 - 1.20 mg/dL [facility] Comment: Please note that the pediatric reference intervals supplied above were not validated at [facility]. Results from pediatric patients should be interpreted in conjunction to the patient's age, height and muscle mass. Sodium 141 135 - 145 mmol/L [facility] Potassium 3.9 3.5 - 5.0 mmol/L [facility] Comment: Please note: ??Patients with WBC >100,000 may have falsely elevated Potassium levels. ??For accurate Potassium quantification in these patients send serum separator tube (gold top) for subsequent determinations. ??Contact the Clinical Chemistry Laboratory if there are any questions. Chloride 103 98 - 107 mmol/L [facility] Carbon Dioxide 23 22 - 31 mmol/L [facility] Anion Gap 15 5 - 15 mmol/L [facility] Calcium 9.1 8.5 - 10.5 mg/dL [facility] Protein, Total 7.0 6.1 - 8.0 gm/dL [facility] Albumin 4.5 3.2 - 5.2 gm/dL [facility] Aspartate Aminotransferase 14 0 - 30 unit/L [facility] Alanine Aminotransferase 18 0 - 30 unit/L [facility] Alkaline Phosphatase 41 40 - 104 unit/L [facility] Bilirubin, Total 0.2 0.2 - 1.3 mg/dL [facility] Bilirubin, Direct 0.1 0.0 - 0.3 mg/dL [facility] Est Glomerular Filtration Rate >60 >=60 [facility] Comment: This estimated GFR (eGFR) value was calculated using the MDRD equation which has been validated on patients between the ages of 18 and 70. The MDRD should not be used to assess kidney function in patients < 18 years of age or in patients with extremes of body mass, or in patients with acute kidney failure. This value should be multiplied by 1.2 for patients. For further information please copy and paste the following links into your internet browser. [email or web address] [email or web address] Blood specimen (specimen) 01/31/2016 3:33 PM EDT 01/31/2016 3:40 PM EDT Narrative Resulting Agency Comment Spec In Lab Jocelyn Santos MD CHEMISTRY ORDERABLES Performing Organization Address [facility] Co de Phone Number [facility] [place] [address] * [facility] Test-Dennis (01/31/2016 3:30 PM EDT) [facility] Dennis Test ? Result ?? Flag ??Unit ??RefValue Aspergillus Antibodies, Serum ??Aspergillus flavus Ab ?NEGATIVE ??Aspergillus niger Ab ? NEGATIVE ??Aspergillus fumigatus Ab ? NEGATIVE REFERENCE RANGE: NEGATIVE INTERPRETIVE CRITERIA: ? Negative: Antibody not detected ? Positive: Antibody detected A positive result is represented by 1 or more precipitin bands, and may indicate fungus ball, allergic bronchopulmonary aspergillosis (LEÓN) or invasive aspergillosis. ??Generally, the appearance of 3-4 bands indicates either fungus ball or LEÓN. Test Performed by: [employer] [id number] [place] [address] LABORATORY Blood specimen (specimen) Venous Draw / Unknown 01/31/2016 3:30 PM EDT 02/01/2016 3:59 PM EDT Narrative Resulting Agency Comment Spec In Lab Jocelyn Santos MD LAB SEND OUT ORDERAB LES Performing Organization Address [facility] Co de Phone Number [facility] [place] [address] documented in this encounter Visit Diagnoses Diagnosis Chronic sinusitis, unspecified location Itching Unspecified pruritic disorder Frequent infections Chronic obstructive pulmonary disease, unspecified COPD type Severe persistent asthma, uncomplicated Unspecified asthma documented in this encounter Care Teams Horticultural Farmer Relationship Specialty Start Date End Date Nicole Hubbard MD [address] [facility] [address] [place] [address] PCP - General 03/29/10 documented as of this encounter
--- OUTSIDE RECORDS SUMMARY | 2024-03-14 18:04 | XMS_ITS | Encounter Summary ---
[place] [address] Care Team Providers Care Telecommunication Systems Designer Name Role Phone Nicole Hubbard MD Primary Care Provider [phone] Reason for Referral * Diagnostic Test (Routine) - Closed Specialty Diagnoses / Procedures Referred By Contac t Referred To Contact Cardiology Diagnoses Chronic obstructive pulmonary disease, unspecified COPD type SOB (shortness of breath) Hypertension, unspecified type PSVT (paroxysmal supraventricular tachycardia) Procedures Mobile Echo Srinath Granados MD [address] [place] [address] [facility] [place] [address] Referral ID Status Reason Start Date Expiration Date V isits Requested Visits Authorized [id number] Closed Specialty Service Requested 10/13/2020 10/13/2021 1 1 Reason for Visit * Diagnostic Test (Routine) - Closed Specialty Diagnoses / Procedures Referred By Contac t Referred To Contact Cardiology Diagnoses Chronic obstructive pulmonary disease, unspecified COPD type SOB (shortness of breath) Hypertension, unspecified type PSVT (paroxysmal supraventricular tachycardia) Procedures Mobile Srinath Ruelas MD [address] [place] [address] [facility] [place] [address] Referral ID Status Reason Start Date Expiration Date V isits Requested Visits Authorized [id number] Closed Specialty Service Requested 10/13/2020 10/13/2021 1 1 Encounter Details Date Type Department Care Team (Latest Contact Info) Description 10/13/2020 11:10 AM EDT - 10/13/2020 11:59 PM EDT Hospital Encounter [place] [address] Srinath Granados MD [address] [place] [phone] Chronic obstructive pulmonary disease, unspecified COPD type; SOB (shortness of breath); Hypertension, unspecified type; PSVT (paroxysmal supraventricular tachycardia) Discharge Disposition: Home Social History Tobacco Use Types Packs/Day Years Used Date Smoking Tobacco: Every Day Cigarettes 1 28 Smokeless Tobacco: Never Alcohol Use Standard Drinks/Week Comments Yes 17.5 (1 standard drink = 0.6 oz pure alcohol) Sex and Gender Information Value Date Recorded Sex Assigned at Not on file Gender Identity Not on file Sexual Orientation Not on file documented as of this encounter Medications at Time of Discharge Medication Sig Dispensed Refills Start Date End Date budesonide-formotero l (SYMBICORT) 160-4.5 mcg/actuation HFA Aerosol Inhaler Inhale 2 puffs into the lungs 2 times daily. 09/23/2015 aspirin 81 mg Tablet, Delayed Release (E.C.) Take 81 mg by mouth daily. MAGNESIUM HYDROXIDE (MAGNESIA ORAL) Take 1,200 mg by mouth 2 times daily. montelukast (SINGULAIR) 10 mg Tablet Take 10 mg by mouth nightly. nicotine (NICODERM CQ) 14 mg/[address] 1 patch onto the skin every 24 hours. inhalational spacing device Spacer by [facility].(Non-Drug; Combo Route) route. cetirizine (ZYRTEC) 10 mg Tablet Take 1 tablet by mouth 2 times daily. 60 tablet 11 01/31/2016 ranitidine (ZANTAC) 150 mg Tablet Take 1 tablet by mouth 2 times daily. 60 tablet 11 01/31/2016 DULoxetine (CYMBALTA) 60 mg capsule Take 60 [...] 10/08/2009 ibuprofen (ADVIL;MOTRIN) 200 mg tablet 10/08/2009 omalizumab (XOLAIR) 150 mg Recon Soln Inject 300 mg subcutaneously every 14 days. 4 each 5 04/06/2016 12/16/2020 hydroCHLOROthiazide (MICROZIDE) 12.5 mg Capsule Take 12.5 mg by mouth daily. 12/16/2020 documented as of this encounter Plan of Treatment Not on file documented as of this encounter Procedures Procedure Name Priority Date/Time Associated Diagnosis Comments ECHO COMPLETE Routine 10/13/2020 11:43 AM EDT Chronic obstructive pulmonary disease, unspecified COPD type SOB (shortness of breath) Hypertension, unspecified type PSVT (paroxysmal supraventricular tachycardia) documented in this encounter Results * ECHO COMPLETE (10/13/2020 11:43 AM EDT) EF 75 HEARTArtimi SYSTEM Anatomical Region Laterality Modality Other 10/13/2020 Narrative 10/13/2020 1:00 PM EDT Procedure: ?Transthoracic Echocardiogram Patient: ?Sudeep Francoce Iron . ? (Age): 1955(64y) Med Rec#: ? [id number] ?Sex: ?F ? Site Loc: ? [facility] ??Ht / Wt: ??162.56(cm)/108. Pt. Loc: ?BSA: ?2.11 Study Date: ?? 10/13/2020 ?Pt. Type: Tape: ? Referring: CAS Reading: Srinath Figueroa ([id number]) Weights And Measures Inspector: HARRY Weights And Measures Inspector: HARRY Weights And Measures Inspector: HARRY Diagnosis: *Shortness of breath (R06.02) BP: ? 107/63 SUMMARY: 1. Technically difficult study. 2. The left ventricular chamber size is normal. Borderline concentric left ventricular hypertrophy is observed. ??There are no left ventricular segmental wall motion abnormalities. Global left ventricular systolic function appears hyperdynamic. ??Ejection fraction is estimated to be 75%. There is no evidence of LVOT obstruction. 3. The right ventricle is normal in size. Right ventricular global systolic function is normal. 4. The aortic valve is probably tricuspid. The aortic valve leaflets are mildly thickened. There is no evidence of aortic valve stenosis. Mild (1+/4+) aortic valve regurgitation is present. 5. Pulmonary artery hypertension could not be assessed due to inadequate tricuspid regurgitation jet. 6. See remainder of report for additional findings. Findings ? : Left Ventricle: ? The left ventricular chamber size is normal. ?Borderline concentric left ventricular hypertrophy is observed. ?There is no evidence of LVOT obstruction. ?Global left ventricular systolic function appears hyperdynamic. Ejection fraction is estimated to be 75%. ?There are no left ventricular segmental wall motion abnormalities. Left Atrium: ? The left atrium is normal in size. Right Ventricle: ? The right ventricle is normal in size. ?Right ventricular global systolic function is normal. ?Pulmonary artery hypertension could not be assessed due to inadequate tricuspid regurgitation jet. Right Atrium: ? The right atrium is normal in size. Aortic Valve: ? The aortic valve is probably tricuspid. ?The aortic valve leaflets are mildly thickened. ?Systolic excursion of the aortic valve is normal. ?There is no evidence of aortic valve stenosis. ?Mild (1+/4+) aortic valve regurgitation is present. Mitral Valve: ? The mitral valve leaflets appear normal. ?There is mitral annular calcification. ?There is trace mitral regurgitation present. Tricuspid Valve: ? The tricuspid valve leaflets are morphologically normal. ?There is trace tricuspid regurgitation present. Pulmonic Valve: ? The pulmonic valve is not well visualized. Pericardium: ? The pericardium appears normal and there is no evidence of a pericardial effusion. Aorta: ? There is mild dilatation of the aortic root. 3.7cm ?The ascending aorta was not well visualized. Pulmonary Artery: ? The main pulmonary artery is not well visualized. Venous: ? The inferior vena cava appears normal in size. ?There is a greater than 50% respiratory change in the inferior vena cava dimension. Misc: ? Technically difficult study. ?Two-dimensional echo, spectral Doppler and color Doppler performed. Chambers 2D ?Value ?Units (Range) ? IVSd (2D) ? 1.17 ? cm ? LVPWd (2D) ?1.15 ? cm ? IVS:LVPW ratio (2D) 1.01 ? ratio ? LVIDd (2D) ?4.86 ? cm ? LVIDs (2D) ?3.21 ? cm ? LV FS (2D) ?34.05 ?% ? EF Teichholz (2D) ?? 62.84 ?% ? Ao root diameter (2D3.7 ?cm (2.1 - 3.6) ? Volumes/Mass ?Value ?Units (Range) ? LA ESV BP (A/L) inde29.55 ?ml/m2 ? LV ESV SP 4CH (MOD) 36.62 ?ml ? LV ESV SP 2CH (MOD) 47.71 ?ml ? LV EDV BP ? 109.92 ? ml ? LV ESV BP ? 42.01 ?ml ? BP EF (MOD) ? 61.78 ?% ? Diastolic/Systolic Function ?Value ?Units (Range) ? MV E-wave Vmax ?0.81 ? m/sec ? MV deceleration [id number] ? msec ? MV A-wave Vmax ?0.84 ? m/sec ? MV E:A ratio ?0.96 ? ratio ? LV septal e' Vmax ?? 0.13 ? m/sec ? LV lateral e' Vmax ??0.1 ?m/sec ? LV E:e' septal ratio6.13 ? ratio ? LV E:e' lateral rati8.28 ? ratio ? Aortic Valve ?Value ?Units (Range) ? AV Vmax ? 2.12 ? m/sec ? AV VTI ?43.64 ?cm ? AV peak gradient ?17.95 ?mmHg ? AV mean gradient ?10.25 ?mmHg ? LVOT diameter ? 2.07 ? cm ? LVOT Vmax ? 1.23 ? m/sec ? LVOT VTI ?28.51 ?cm ? CO LVOT ? 5.56 ? l/min ? RUBY (continuity Vmax1.95 ? cm2 ? RUBY (continuity Vmax0.92 ? cm2/m2 ? RUBY (continuity VTI)1.04 ? cm2/m2 ? AR PHT ?701.26 ? msec ? Mitral Valve ?Value ?Units (Range) ? MV VTI ?45.77 ?cm ? MV annulus VTI ?46.86 ?cm ? MV PHT ?70.9 ? msec ? MVA (PHT) ? 3.1 ?cm2 ? Tricuspid Valve ?Value ?Units (Range) ? TR Vmax ? 1.98 ? m/sec ? TR peak gradient ?15.6 ? mmHg ? RAP ? 3 ?mmHg ? Pulmonic Valve/Qp:Qs ?Value ?Units (Range) ? PV Vmax ? 0.89 ? m/sec ? PV VTI ?19.94 ?cm ? PV peak gradient ?3.2 ?mmHg ? PV mean gradient ?2.07 ? mmHg ? RVOT Vmax ? 0.29 ? m/sec ? RVOT VTI ?5.11 ? cm ? RVOT peak gradient ??0.34 ? mmHg ? PV acceleration time74.59 ?msec ? PV ejection time ?290.07 ? msec ? PV AT:ET ?0.26 ? ratio ? This report has been electronically signed by: Srinath Figueroa MD ? 10/13/2020 12:59:45 Images reviewed and interpretation verified [facility] Cardiac Ultrasound Laboratory Procedure Note Srinath Figueroa MD - 10/13/2020 Procedure: Transthoracic Echocardiogram Patient: Sudeep Snow DOB(Age): 1955(64y) Med Rec#: [id number] Sex: F Site Loc: [facility] Ht / Wt: 162.56(cm)/108. Pt. Loc: BSA: 2.11 Study Date: 10/13/2020 Pt. Type: Tape: Referring: CAS Reading: JuliaSrinath drew ([id number]) Weights And Measures Inspector: HARRY Weights And Measures Inspector: HARRY Weights And Measures Inspector: HARRY Diagnosis: *Shortness of breath (R06.02) BP: 107/63 SUMMARY: 1. Technically difficult study. 2. The left ventricular chamber size is normal. Borderline concentric left ventricular hypertrophy is observed. There are no left ventricular segmental wall motion abnormalities. Global left ventricular systolic function appears hyperdynamic. Ejection fraction is estimated to be 75%. There is no evidence of LVOT obstruction. 3. The right ventricle is normal in size. Right ventricular global systolic function is normal. 4. The aortic valve is probably tricuspid. The aortic valve leaflets are mildly thickened. There is no evidence of aortic valve stenosis. Mild (1+/4+) aortic valve regurgitation is present. 5. Pulmonary artery hypertension could not be assessed due to inadequate tricuspid regurgitation jet. 6. See remainder of report for additional findings. Findings : Left Ventricle: The left ventricular chamber size is normal. Borderline concentric left ventricular hypertrophy is observed. There is no evidence of LVOT obstruction. Global left ventricular systolic function appears hyperdynamic. Ejection fraction is estimated to be 75%. There are no left ventricular segmental wall motion abnormalities. Left Atrium: The left atrium is normal in size. Right Ventricle: The right ventricle is normal in size. Right ventricular global systolic function is normal. Pulmonary artery hypertension could not be assessed due to inadequate tricuspid regurgitation jet. Right Atrium: The right atrium is normal in size. Aortic Valve: The aortic valve is probably tricuspid. The aortic valve leaflets are mildly thickened. Systolic excursion of the aortic valve is normal. There is no evidence of aortic valve stenosis. Mild (1+/4+) aortic valve regurgitation is present. Mitral Valve: The mitral valve leaflets appear normal. There is mitral annular calcification. There is trace mitral regurgitation present. Tricuspid Valve: The tricuspid valve leaflets are morphologically normal. There is trace tricuspid regurgitation present. Pulmonic Valve: The pulmonic valve is not well visualized. Pericardium: The pericardium appears normal and there is no evidence of a pericardial effusion. Aorta: There is mild dilatation of the aortic root. 3.7cm The ascending aorta was not well visualized. Pulmonary Artery: The main pulmonary artery is not well visualized. Venous: The inferior vena cava appears normal in size. There is a greater than 50% respiratory change in the inferior vena cava dimension. Misc: Technically difficult study. Two-dimensional echo, spectral Doppler and color Doppler performed. Chambers 2D Value Units (Range) IVSd (2D) 1.17 cm LVPWd (2D) 1.15 cm IVS:LVPW ratio (2D) 1.01 ratio LVIDd (2D) 4.86 cm LVIDs (2D) 3.21 cm LV FS (2D) 34.05 % EF Teichholz (2D) 62.84 % Ao root diameter (2D3.7 cm (2.1 - 3.6) Volumes/Mass Value Units (Range) LA ESV BP (A/L) inde29.55 ml/m2 LV ESV SP 4CH (MOD) 36.62 ml LV ESV SP 2CH (MOD) 47.71 ml LV EDV BP 109.92 ml LV ESV BP 42.01 ml BP EF (MOD) 61.78 % Diastolic/Systolic Function Value Units (Range) MV E-wave Vmax 0.81 m/sec MV deceleration ufvb463.49 msec MV A-wave Vmax 0.84 m/sec MV E:A ratio 0.96 ratio LV septal e' Vmax 0.13 m/sec LV lateral e' Vmax 0.1 m/sec LV E:e' septal ratio6.13 ratio LV E:e' lateral rati8.28 ratio Aortic Valve Value Units (Range) AV Vmax 2.12 m/sec AV VTI 43.64 cm AV peak gradient 17.95 mmHg AV mean gradient 10.25 mmHg LVOT diameter 2.07 cm LVOT Vmax 1.23 m/sec LVOT VTI 28.51 cm CO LVOT 5.56 l/min RUBY (continuity Vmax1.95 cm2 RUBY (continuity Vmax0.92 cm2/m2 RUBY (continuity VTI)1.04 cm2/m2 AR PHT 701.26 msec Mitral Valve Value Units (Range) MV VTI 45.77 cm MV annulus VTI 46.86 cm MV PHT 70.9 msec MVA (PHT) 3.1 cm2 Tricuspid Valve Value Units (Range) TR Vmax 1.98 m/sec TR peak gradient 15.6 mmHg RAP 3 mmHg Pulmonic Valve/Qp:Qs Value Units (Range) PV Vmax 0.89 m/sec PV VTI 19.94 cm PV peak gradient 3.2 mmHg PV mean gradient 2.07 mmHg RVOT Vmax 0.29 m/sec RVOT VTI 5.11 cm RVOT peak gradient 0.34 mmHg PV acceleration time74.59 msec PV ejection time 290.07 msec PV AT:ET 0.26 ratio This report has been electronically signed by: Srinath Figueroa MD 10/13/2020 12:59:45 Images reviewed and interpretation verified [facility] Cardiac Ultrasound Laboratory Srinath Granados MD ECHO ORDERABLES documented in this encounter Visit Diagnoses Diagnosis Chronic obstructive pulmonary disease, unspecified COPD type SOB (shortness of breath) Shortness of breath Hypertension, unspecified type PSVT (paroxysmal supraventricular tachycardia) Paroxysmal supraventricular tachycardia documented in this encounter Care Teams Telecommunication Systems Designer Relationship Specialty Start Date End Date Nicole Hubbard MD [address] [facility] [address] [place] [address] PCP - General 03/29/10 documented as of this encounter
--- OUTSIDE RECORDS SUMMARY | 2024-03-14 18:04 | XMS_ITS | Encounter Summary ---
[place] [address] Care Team Providers Care Automotive Center Manager Name Role Phone Nicole Hubbard MD Primary Care Provider [phone] Encounter Details Date Type Department Care Team (Late st Contact Info) Description 12/13/2020 Telephone Cardiology at [address] [phone] Samira Fernandez Social History Tobacco Use Types [...] Miscellaneous Notes * Telephone Encounter - Samira Owusu - 12/13/2020 3:27 PM EDT Records request faxed to [facility] - [phone]. Samira Owusu EP Scheduling documented in this encounter Plan of Treatment Not on file documented as of this encounter Visit Diagnoses Not on filedocumented in this encounter Care Teams Automotive Center Manager Relationship Specialty Start Date End Date Nicole Hubbard MD [address] [place] [address] [address] [place] [address] PCP - General 03/29/10 documented as of this encounter
--- OUTSIDE RECORDS SUMMARY | 2024-03-14 18:04 | XMS_ITS | Clinical Summary ---
[place] [address] Care Team Providers Care Operator Vacuum Name Role Phone Nicole Hubbard MD Primary Care Provider [phone] Allergies Active Allergy Reactions Criticality Noted Date Comments Amoxicillin Medium 11/30/2020 Other reaction(s): Gives her Yeast infection Amoxicillin-Pot Clavulanate 12/17/19 21 Cat Dander 12/16/2020 House Dust CIS - sneezing,runny nose , congestion Mold Extracts CIS - sneezing, runny nose, congestion Oxybutynin 11/30/2020 Other reaction(s): Dry mouth/mucous membranes Potassium Clavulanate Medium 11/30/2020 Other reaction(s): gives her yeast infection Medications Medication Sig Dispensed Refills Start Date End Date Status CIS Free Text Med - Calcium 600 with Vitamin D 10/08/2009 Active MULTIVITAMIN ORAL 10/08/2009 Active atorvastatin (LIPITOR) 10 mg tablet 10mg, PO, Once daily 10/08/2009 Active valACYclovir (VALTREX) 1 g tablet 10/08/2009 Active ibuprofen (ADVIL;MOTRIN) 200 mg tablet 10/08/2009 Active DULoxetine (CYMBALTA) 60 mg capsule Take 60 mg by mouth daily. Active estradiol (ESTRACE) 1 mg tablet Take 0.25 mg by mouth every other day. 0.5 of 0.5 mg every 3 days, per patient Active omeprazole (PRILOSEC) 20 mg capsule Take 20 mg by mouth daily. Active tiotropium (SPIRIVA) 18 mcg inhalation capsule Inhale 18 mcg into the lungs daily. Active albuterol (PROVENTIL HFA;VENTOLIN HFA) 90 mcg/actuation inhaler Inhale 2 puffs into the lungs every 4 hours as needed. Use with spacer Active zolpidem (AMBIEN) 5 mg tablet Take 6.25 mg by mouth nightly as needed. Active acetaminophen (TYLENOL) 500 mg tablet Take 1,000 mg by mouth every 6 hours as needed. Active budesonide-formoter ol (SYMBICORT) 160-4.5 mcg/actuation HFA Aerosol Inhaler Inhale 2 puffs into the lungs 2 times daily. 09/23/2015 Active aspirin 81 mg Tablet, Delayed Release (E.C.) Take 81 mg by mouth daily. Active MAGNESIUM HYDROXIDE (MAGNESIA ORAL) Take 1,200 mg by mouth 2 times daily. Active montelukast (SINGULAIR) 10 mg Tablet Take 10 mg by mouth nightly. Active nicotine (NICODERM CQ) 14 mg/[address] 1 patch onto the skin every 24 hours. Active inhalational spacing device Spacer by [facility]Non-Drug; Combo Route) route. Active cetirizine (ZYRTEC) 10 mg Tablet Take 1 tablet by mouth 2 times daily. 60 tablet 11 01/31/2016 Active ranitidine (ZANTAC) 150 mg Tablet Take 1 tablet by mouth 2 times daily. 60 tablet 01/31/2016 Active Additional Information Patient not taking.Reported on 12/16/2020 calcium carbonate-vitamin D3 600 mg(1,500mg) -800 unit Tablet Daily. Active clotrimazole-betame thasone (LOTRISONE) 1-0.05 % Lotion clotrimazole-betam ethasone 1 %-0.05 % lotion APPLY TO THE AFFECTED AREA(S) BY TOPICAL ROUTE 2 TIMES PER DAY IN THEMORNING AND EVENING Active escitalopram (Lexapro) 10 mg Tablet TAKE ONE TABLET BY MOUTH EVERY DAY 12/06/2020 Active fluconazole (Diflucan) 150 mg Tablet TAKE 1 TABLET BY MOUTH ONCE A SINGLE DOSE. MAY REPEAT IN 3 DAYS IF NEEDED. 10/28/2020 Active folic acid (Folvite) 1 mg Tablet TAKE ONE TABLET BY MOUTH EVERY DAY 10/21/2020 Active sotaloL (Betapace) 80 mg Tablet TAKE 1/2 (HALF) TABLET BY MOUTH TWO TIMES A DAY 12/04/2020 Active Stiolto Respimat 2.5-2.5 mcg/actuation Mist INHALE 2 PUFFS BY MOUTH ONCE DAILY 10/20/2020 Active estradioL (VAGIFEM) [address] 10 mcg vaginally daily. Active sotaloL (Betapace) 80 mg TabletIndications:S VT (supraventricular tachycardia),Ventri cular tachycardia Take 0.5 tablets by mouth 2 times daily. 90 tablet 3 12/16/2020 Active dilTIAZem (TIAZAC) 120 mg Capsule,Sustained Action 24 hrIndications:SVT (supraventricular tachycardia) Take 1 capsule by mouth daily. 30 capsule 3 06/08/2021 Active Active Problems Problem Noted Date Diagnosed Date SVT (supraventricular tachycardia) 12/15/2020 Family History Medical History Relation Comments Allergic Rhinitis Mother Asthma Mother Allergic Rhinitis Sister Relation Status Comments Mother Sister Social History Tobacco Use Types Packs/Day Years Used Date Smoking Tobacco: Former Cigarettes 1 28 Smokeless Tobacco: Never Alcohol Use Standard Drinks/Week Comments Yes 17.5 (1 standard drink = 0.6 oz pure alcohol) Sex and Gender Information Value Date Recorded Sex Assigned at Not on file Gender Identity Not on file Sexual Orientation Not on file Last Filed Vital Signs Vital Sign Reading Time Taken Comments Blood Pressure 120/73 12/16/2020 1:15 PM EDT Pulse 58 12/16/2020 1:15 PM EDT Temperature 36.4 ??C (97.5 ??F) 09/17/2012 9 :17 AM EDT Respiratory Rate 20 01/31/2016 1:52 PM EDT Oxygen Saturation 100% 12/16/2020 1:1 5 PM EDT 2L NC Inhaled Oxygen Concentration - - Weight 107.7 kg (237 lb 6.4 oz) 12/16/2020 1:15 PM EDT Height 162.6 cm (5' 4) 12/16/2020 1:15 PM EDT patient reported Body Mass Index 40.75 12/16/2020 1:15 PM EDT Plan of Treatment Health Maintenance Due Date Last Done Comments CT Colonography 1955 Colonoscopy 1955 Colorectal Cancer Screening 1955 FIT DNA 1955 FIT 1955 Sigmoidoscopy (10 year) with FIT yearly 1955 Sigmoidoscopy 1955 Pneumoccocal Vaccine: 65+ (1 of 2 - PCV) 1962 Hepatitis C Screening 1974 Tetanus/Diphtheria/Pertussis Vaccines (1 - Tdap) 11/20 Breast Cancer Share Decision Needed 1996 Breast Cancer screening 1996 Zoster vaccine (1 of 2) 2006 Advance Directive 11/21/2011 Bone Density Scan 2021 Covid-19 Vaccine (1 - 2023- season) 2024 Influenza (Flu) vaccine (1 o f 1 - Influenza standard series) 01/06/2024 Diabetes Screening (HgbA1C or Glucose) Discontinued Procedures Procedure Name Priority Date/Time Associated Diagnosis Comments COMPREHENSIVE METABOLIC PANEL Routine 01/31/2016 3:33 PM EDT Itching Frequent infections from Last 3 Months or Most Recently Relevant to Health Maintenance Results * Comprehensive metabolic panel (non-fasting) (01/31/2016 3:33 PM EDT) Glucose 109 65 - 199 mg/dL [facility] Comment:Diabetes: >=200 mg/d L plus symptoms Blood Urea Nitrogen 17 8 - 18 mg/dL [facility] Creatinine 0.79 0.70 - 1.20 mg/dL [facility] Comment: Please note that the pediatric reference intervals supplied above were not validated at [facility]. Results from pediatric patients should be interpreted in conjunction to the patient's age, height and muscle mass. Sodium 141 135 - 145 mmol/L [facility] Potassium 3.9 3.5 - 5.0 mmol/L [facility] Comment: Please note: ??Patients with WBC >100,000 may have falsely elevated Potassium levels. ??For accurate Potassium quantification in these patients send serum separator tube (gold top) for subsequent determinations. ??Contact the Clinical Chemistry Laboratory if there are any questions. Chloride 103 98 - 107 mmol/L [facility] Carbon Dioxide 23 22 - 31 mmol/L [facility] Anion Gap 15 5 - 15 mmol/L [facility] Calcium 9.1 8.5 - 10.5 mg/dL [facility] Protein, Total 7.0 6.1 - 8.0 gm/dL [facility] Albumin 4.5 3.2 - 5.2 gm/dL [facility] Aspartate Aminotransferase 14 0 - 30 unit/L [facility] Alanine Aminotransferase 18 0 - 30 unit/L [facility] Alkaline Phosphatase 41 40 - 104 unit/L [facility] Bilirubin, Total 0.2 0.2 - 1.3 mg/dL [facility] Bilirubin, Direct 0.1 0.0 - 0.3 mg/dL [facility] Est Glomerular Filtration Rate >60 >=60 [facility] Comment: This estimated GFR (eGFR) [...] the following links into your internet browser. [email or web address] Blood specimen (specimen) 01/31/2016 3:33 PM EDT 01/31/2016 3:40 PM EDT Narrative Resulting Agency Comment Spec In Lab Jocelyn Santos MD CHEMISTRY ORDERABLES [facility] [place] [address] from Last 3 Months or Most Recently Relevant to Health Maintenance Care Teams Operator Vacuum Relationship Specialty Start Date End Date Nicole Hubbard MD [facility] [address] [place], [place] [id number] PCP - General 03/29/10
--- OUTSIDE RECORDS SUMMARY | 2024-03-14 18:04 | XMS_ITS | Encounter Summary ---
[place] [address] Care Team Providers Care Varnisher Name Role Phone Nicole Hubbard MD Primary Care Provider [phone] Reason for Referral * Diagnostic Test (Routine) - Closed Specialty Diagnoses / Procedures Referred By Contac t Referred To Contact Cardiology Diagnoses Palpitations Procedures Ziopatch 48 Hrs-15 Days Adam Roberts MD [facility] [place] [place] [address] [facility] [place] [address] Referral ID Status Reason Start Date Expiration Date V isits Requested Visits Authorized [id number] Closed Specialty Service Requested 10/11/2022 10/11/2023 1 1 Reason for Visit * Diagnostic Test (Routine) - Closed Specialty Diagnoses / Procedures Referred By Contleonor t Referred To Contact Cardiology Diagnoses Palpitations Procedures Ziopatch 48 Hrs-15 Days Adam Roberts MD [facility] [place] [place] [address] [facility] [place] [address] Referral ID Status Reason Start Date Expiration Date V isits Requested Visits Authorized [id number] Closed Specialty Service Requested 10/11/2022 10/11/2023 1 1 Encounter Details Date Type Department Care Team (Latest Contact Info) Description 10/18/2022 7:39 AM EDT - 10/18/2022 11:59 PM EDT Hospital Encounter [place] [address] Adam Roberts MD [facility] [place] [address] Palpitations Discharge Disposition: Home Social History Tobacco Use [...] Sig Dispensed Refills Start Date End Date dilTIAZem (TIAZAC) 120 mg Capsule,Sustained Action 24 hrIndications:SVT (supraventricular tachycardia) Take 1 capsule by mouth daily. 30 capsule 3 06/08/2021 calcium carbonate-vitamin D3 600 mg(1,500mg) -800 unit Tablet Daily. clotrimazole-betamethas one (LOTRISONE) 1-0.05 % Lotion clotrimazole-betameth asone 1 %-0.05 % lotion APPLY TO THE AFFECTED AREA(S) BY TOPICAL ROUTE 2 TIMES PER DAY IN THEMORNING AND EVENING escitalopram (Lexapro) 10 mg Tablet TAKE ONE TABLET BY MOUTH EVERY DAY 12/06/2020 fluconazole (Diflucan) 150 mg Tablet TAKE 1 TABLET BY MOUTH ONCE A SINGLE DOSE. MAY REPEAT IN 3 DAYS IF NEEDED. 10/28/2020 folic acid (Folvite) 1 mg Tablet TAKE ONE TABLET BY MOUTH EVERY DAY 10/21/2020 sotaloL (Betapace) 80 mg Tablet TAKE 1/2 (HALF) TABLET BY MOUTH TWO TIMES A DAY 12/04/2020 Stiolto Respimat 2.5-2.5 mcg/actuation Mist INHALE 2 PUFFS BY MOUTH ONCE DAILY 10/20/2020 estradioL (VAGIFEM) [address] 10 mcg vaginally daily. sotaloL (Betapace) 80 mg TabletIndications:SVT (supraventricular tachycardia),Ventricula r tachycardia Take 0.5 tablets by mouth 2 times daily. 90 tablet 3 12/16/2020 budesonide-formoterol (SYMBICORT) 160-4.5 mcg/actuation HFA Aerosol Inhaler [...] 24 hours. inhalational spacing device Spacer by [facility].(Non-Drug; Combo Route) route. cetirizine (ZYRTEC) 10 mg Tablet Take 1 tablet by mouth 2 times daily. 60 tablet 11 01/31/2016 ranitidine (ZANTAC) 150 mg Tablet Take 1 tablet by mouth 2 times daily. 60 tablet 01/31/2016 DULoxetine (CYMBALTA) 60 mg capsule Take [...] 10/08/2009 ibuprofen (ADVIL;MOTRIN) 200 mg tablet 10/08/2009 documented as of this encounter Plan of Treatment Not on file documented as of this encounter Procedures Procedure Name Priority Date/Time Associated Diagnosis Comments ZIOPATCH 48 HRS-15 DAYS Routine 10/18/2022 7:40 AM EDT Palpitations documented in this encounter Results * Ziopatch 48 Hrs-15 Days (10/18/2022 7:40 AM EDT) Anatomical Region Laterality Modality Other Narrative 11/24/2022 1:39 PM EDT [facility] ? Zio Patch? Ambulatory Cardiac Event Monitor Report Duration of recording - 11 hours (after removal of artifact) Summary Data Predominant rhythm - sinus rhythm Minimum sinus rate - 58 bpm Maximum sinus rate - 111 bpm Average heart rate - 73 bpm Atrial fibrillation - ??none Ectopic beats Rare isolated atrial premature beats (APC? s), with no couplets and no triplets Rare isolated ventricular premature beats (VPC's), with rare couplets and no triplets Tachyarrhythmias None Bradyarrhythmias None Triggered and Patient Diary Events There were 0 triggered and 0 patient diary events. Conclusion(s): ?? Study is significantly limited by the brief monitoring period (11 hours) Predominant rhythm is sinus with an average rate of 73 bpm Rare ectopic beats as detailed above. No arrhythmias. No patient reported events or symptoms. Adam Roberts MD CARDIAC SERVICES ORD ERABLES documented in this encounter Visit Diagnoses Diagnosis Palpitations documented in this encounter Care Teams Varnisher Relationship Specialty Start Date End Date Nicole Hubbard MD [address] [place] [address] PCP - General 03/29/10 documented as of this encounter
--- OUTSIDE RECORDS SUMMARY | 2024-03-14 18:04 | XMS_ITS | Encounter Summary ---
[place] [address] Care Team Providers Care Clock Smith Name Role Phone Nicole Hubbard MD Primary Care Provider [phone] Reason for Visit * Reason Onset Date Comments Prior Authorization 04/17/2016 Xolair Encounter Details Date Type Department Care Team (Late st Contact Info) Description 04/17/2016 [place] [id number] Beryl Vogt LPN Prior Authorization (Xolair) Social History Tobacco Use Types Packs/Day Years [...] encounter Miscellaneous Notes * Telephone Encounter - Beryl Vogt LPN - 04/17/2016 9:51 AM EST A prior authorization request has been submitted vial cover my meds for Xolair. documented in this encounter Plan of Treatment Not on file documented as of this encounter Visit Diagnoses Not on filedocumented in this encounter Care Teams Clock Smith Relationship Specialty Start Date End Date Nicole Hubbard MD [address] [place] [address] PCP - General 03/29/10 documented as of this encounter
--- OUTSIDE RECORDS SUMMARY | 2024-03-14 18:04 | XMS_ITS | Encounter Summary ---
[place] [address] Care Team Providers Care Fiberglass Pipe Covering Supervisor Name Role Phone Nicole Hubbard MD Primary Care Provider [phone] Encounter Details Date Type Department Care Team (Late st Contact Info) Description 04/10/2016 [place] [id number] Sofie Bustamante RN Social History Tobacco Use [...] Telephone Encounter - Sofie Bustamante RN - 04/10/2016 8:57 AM EST Rec'd signed SMN that was mailed to this office by Ms. Sheets. On Apr 07, 2016,it was completed and faxed to [employer] and a reply fax was rec'd to inform that it was rec'd. Will await response of PA status. documented in this encounter Plan of Treatment Not on file documented as of this encounter Visit Diagnoses Not on filedocumented in this encounter Care Teams Fiberglass Pipe Covering Supervisor Relationship Specialty Start Date End Date Nicole Hubbard MD [address] [place] [address] PCP - General 03/29/10 documented as of this encounter
--- OUTSIDE RECORDS SUMMARY | 2024-03-14 18:04 | XMS_ITS | Encounter Summary ---
Author Organization [facility] [place] [address] Care Team Providers Care Baseball Player Name Role Phone Nicole Hubbard MD Primary Care Provider [phone] Reason for Visit * Reason Comments Referral Encounter Details Date Type Department Care Team ([facility] st Contact Info) Description 09/17/2012 9:00 AM EDT Office Visit Hematology [place] [address] Toni Lui MD [facility] [place] [address] Asthma (Primary Dx) Discharge Disposition: Home Social History Tobacco Use [...] Sign Reading Time Taken Comments Blood Pressure 137/76 09/17/2012 9:17 AM EDT Pulse 91 09/17/2012 9:17 AM EDT Temperature 36.4 ??C (97.5 ??F) 09/17/2012 9:17 AM ED T Respiratory Rate 16 09/17/2012 9:17 AM EDT Oxygen Saturation 98% 09/17/2012 9:17 AM EDT Inhaled Oxygen Concentration - - Weight 105.5 kg (232 lb 9.4 oz) 09/17/2012 9:17 AM EDT Height 165.4 cm (5' 5.12) 09/17/2012 9:17 AM ED T Body Mass Index 38.56 09/17/2012 9:17 AM EDT documented in this encounter Progress Notes * Ivan Loja MD - 09/17/2012 10:19 AM EDT OUTPATIENT PULMONARY CONSULTATION REASON FOR CONSULTATION: I was asked by Dr. Barron to evaluate this patient for possible left mainstem compression. I have reviewed the available records, interviewed, and examined the patient. HISTORY OF PRESENT ILLNESS: Patient is a very pleasant 56-year-old female with history of asthma versus COPD who presents for further evaluation of compresed left distal mainstem bronchus seen on recent computed tomography of the thorax. In brief, patient states that she was diagnosed with 'asthma'about twenty years ago. She cannot remember the circumstances surrounding her diagnosis or how she was diagnosed. She does recall that when she was younger, she had pneumonia several times, which always seem to be located in the right base. This was eventually investigated with imaging of her chestan she was diagnosed with pulmonary sequestration. Dr. Mayen of our Thoracic Surgery Service performed a right lower lobectomy in 1991. After that time, patient states that she essentially has not had any significant pulmonary infections, but she noted mild wheezing and dyspnea soon thereafter. From that time until the present, she has been maintained on some cocktail of inhaled bronchodilators and steroids. She cannot name most of her prior medications, but currently is taking salmeterol-fluticasone, tiotropium, as-needed albuterol via MDI and nebulizer, montelukast, and loratadine. She intermittently requires rescue albuterol, two to three times daily for about one week monthly, when hersymptoms worsen. She completed a one-month prednisone taper in 08/2012 beginning with 40 mg daily wit hout significant improvement. Last Fall 2011, she traveled to [place] and felt that her breathing difficulties were under good control. She was able to hike and walk without significant issue. She does not think this was simply secondary to the dry air -- she felt well before leaving for her trip also. After 2011, she became ill with an upper respiratory infection. After that time, her breathing declined and did not improve significantly. She is considerably dyspneic when walking on inclines, but also on flat ground. For example, she walked this morning from our parking lot and felt dyspneic when she arrived at this appointment. She is coughing daily, essentially non-productive, but in termittently will expectorate white sputum. She acknowledges wheezing 'all the time.' At night, hercough awakens her from sleep. She does have allergies -- in the very distant past she was told she was allergic via skin testing to dust mites and mold. She states that grass and hay also seems to bother her, causing sneezing, coughing, nasal stuffiness, and post-nasal drip. She has recently been evaluated by an yarn mercerizer operator, at which time montelukast was added to her medication regimen. She did nothave updated skin testing. She denies chest pain and palpitations, other than a sensation of 'anxiety' when she cannot breathe. She denies constitutional symptoms. In fact, she has gained about ten pounds during the past year and has essentially gained weight steadily in the past several years. Cold air and humidity seem to exacerbate her symptoms. The patient underwent a computed tomography in 08/2012 out of concern for pulmonary embolus. This demonstrated post-operative changes in the right chest wall from prior thoracotomy and lobectomy; decreased lung volumes with mild (very mild on my read) buckling of posterior tracheal membrane; volume loss in right hemithorax with rightward mediastinal shift; no enlarged mediastinal or hilar lymph nodes; no pleural abnormalities; and narrowing of distal left mainstem bronchus, middle lobe and anteromedial basilar segmental left lower lobe bronchus with mosaic attenuation in both lungs. I also think the lingular segment is narrowed. She is referred for further workup and potential stent of the left mainstem. PAST MEDICAL HISTORY: # Narrowed left mainstem bronchus, ?bronchomalacia -CT thorax 08/2012: Post-operative changes in the right chest wall from prior thoracotomy and lobectomy; decreased lung volumes with buckling of posterior tracheal membrane; volume loss in right hemithorax with rightward mediastinal shift; no enlarged mediastinal or hilar lymph nodes; no pleural abnormalities; significant narrowing of distal left mainstem bronchus, middle lobe and anteromedial basilar segmental left lower lobe bronchus with mosaic attenuation in both lungs. I also think the lingular segment is narrowed. # COPD -PFTs 08/2012: FEV1 1.63(<59%); FVC 2.58(73%); FEV1/FVC 0.63. -PFTs 09/2012: FEV1 1.39(<50%); FVC 2.53(<71%); FEV1/FVC 55(<70%); DLCO 17.59(89%). # Pulmonary sequestration -s/p Right lower lobectomy 1991. # ALEXX -PSG 01/2011: AHI 12.4 -Atteptmed oral appliance but TMJ precluded use. REVIEW OF SYSTEMS: GENERAL: Denies fevers, chills, sweats, fatigue, anorexia, weight loss. Positive for weight gain. SKIN: Denies itching, rashes, sores, lumps, changing moles. HEENT: Denies trauma, headache, visual changes, tearing, tinnitus, earache, epistaxis, bleeding gums, hoarseness, sore throat, neck swelling. Positive for sneezing, allergies, rhinorrhea, post-nasal drip. RESPIRATORY: Denies dyspnea at rest, orthopnea, paroxysmal nocturnal dyspnea, hemoptysis, tuberculosis exposure. Positive for wheeze, cough, sputum production, dyspnea on exertion. CARDIOVASCULAR: Denies chest pain, chest pressure, palpitations, edema, claudication. GASTROINTESTINAL: Denies abdominal pain, nausea, vomiting, constipation, diarrhea, reflux, dysphagia, odynophagia, hematemesis, hematochezia, melena. GENITOURINARY: Denies frequency, urgency, dysuria, polyuria, nocturia, incontinence, discharge, sores. MUSCULOSKELETAL: Denies weakness, joint stiffness, joint instability, redness, swelling, myalgias. Positive for mild arthalgias. NEUROLOGIC: Denies numbness, tingling, tremors, weakness, paralysis, loss of consciousness, memory loss, seizures, incoordination. ENDOCRINE: Denies heat intolerance, cold intolerance, excessive sweating, polyuria, polydipsia, polyphagia. PSYCHIATRIC: Denies depressed mood, anxiety. FAMILY HISTORY: Mother is alive at age 75, healthy. Father of metastatic prostate cancer at age 66. Two sisters and one brother, both alive and well age range 46-53. One son sadly of a pulmonary or bone marrow embolus after breaking his leg in a fall at age 27. SOCIAL HISTORY: Quit smoking 2002 after smoking one pack daily for 28-years. Drinks 2-3 beers nightly. Denies illicits. She has a cat at home and carpets throughout her home. Her home is older but not bienvenido and she keeps her curtains clean. She has synthetic bedding. 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 Denies exposures to asbestos, silica, coal, radon, chemicals. PHYSICAL EXAMINATION: T-36.4 HR-91 BP-137/76 RR-1 SpO2-98%RA GEN-Appears well, in no respiratory distress. HEENT-NCAT, EOMI, PERRL. OP clear without erythema or exudate. Ears clear with some cerumen but visible TMs bilaterally, no bulging. Nares patent without erythema or polyps. Airway Mallampati I. Neck-Supple, trachea midline, no thyromegaly. Lymph-No supraclavicular, submandibular, or cervical CHAUNCEY palpated. CV-Reg reg rhythm nl S1 S2 no m/r/g. RESP-Decreased at the right base; left base with mild rhonchi; otherwise clear, no wheezing. ABD-Soft nt nd +BS no HSM no r/r/g/m. EXTR-No c/c/e, DP 2+ b/l. SKIN-No rash noted, warm and dry. MEDICATIONS: Outpatient Prescriptions Marked as Taking for the 09/17/12 encounter (Office Visit) with Toni Lui MD Medication Sig Dispense Refill ??? DULoxetine (CYMBALTA) 60 mg capsule Take 60 mg by mouth daily. ??? estradiol (ESTRACE) 1 mg tablet Take 0.5 mg by mouth every other day. ??? omeprazole (PRILOSEC) 20 mg capsule Take 40 mg by mouth daily. ??? tiotropium (SPIRIVA) 18 mcg inhalation capsule Inhale 18 mcg into the lungs daily. ??? fluticasone-salmeterol (ADVAIR) 500-50 mcg/dose diskus inhaler Inhale 1 puff into the lungs daily. ??? MOMETASONE FUROATE (NASONEX NASL) by Nasal route. ??? albuterol (PROVENTIL HFA;VENTOLIN HFA) 90 mcg/actuation inhaler Inhale 2 puffs into the lungs every 4 hours as needed. Use with spacer ??? zolpidem (AMBIEN) 5 mg tablet Take 6.25 mg by mouth nightly as needed. ??? DISCONTD: atorvastatin (LIPITOR) 10 mg tablet Take 10 mg by mouth daily. ??? DISCONTD: valACYclovir (VALTREX) 500 mg tablet Take 500 mg by mouth 2 times daily. ??? CIS Free Text Med - Calcium 600 with Vitamin D ??? MULTIVITAMIN ORAL ??? VITAMIN B COMPLEX (B COMPLEX VITAMINS ORAL) ??? GLUCOSAMINE SULFATE ORAL ??? Flaxseed Oil 1,000 mg Cap ??? ibuprofen (ADVIL;MOTRIN) 200 mg tablet ??? DISCONTD: DULOXETINE HCL (CYMBALTA ORAL) ??? DISCONTD: ASCORBIC ACID (VITAMIN C ORAL) DIAGNOSTICS: I personally viewed the imaging as stated above. Dr. Lui also personally viewed these images. LABS: No new labs to review. IMPRESSION: Interesting case of primarily left mainstem but also other segmental narrowing with mosaic attenuation on computed tomopgraphy. Certainly this may be a dynamic process consistent with bronchomalacia and may be the primary etiology of her symptoms. We will proceed with airway examinationunder general anesthesia today. We can consider bronchoplasty and even stent placement, although inbenign disease the latter is fraught with morbidity. If no extrinsic compression or stenosis is seen but bronchomalacia is confirmed based upon the degree of airway narrowing with dynamic maneuvers, aggressive weight loss efforts, including referral for gastric bypass surgery, and non-invasive positive pressure ventilation would probably be the safest treatment. I discussed this with the patient extensively today. She did have polysomnography about two years ago and may require another titration, although any degree of positive pressure is likely to ameliorate both her symptoms. Weight loss of approximately 20% of her body weight brings with it a good chance that her cough, wheezing, and dyspnea will improve. Joselyn certainly has some degree of obstructive disease, but I am not clear to what end it contributes to her current symptoms. I tend to think she has more of a fixed than a reversible defect. To that end, I am not clear that steroids are helpful to her and may actually be harmful in contributing to weight gain, which may be worsening her sleep apnea. The bronchoscopic procedure was discussed in detail with the patient. Risks of the procedure were reviewed, including bleeding, infection, pneumothorax, damage to surrounding structures, medication reaction, prolonged intubation, and . The patient agrees to proceed. RECOMMENDATIONS: -Bronchoscopy today with possible bronchoplasty. I consented her for a stent but I doubt this will be necessary. -Depending on results, consideration of non-invasive ventilation -- I will obtain her polysomnography results from Dr. Barron. -Aggressive weight loss efforts including potential referral for gastric bypass surgery. Thank you for this interesting consultation. This patient was seen and discussed with Dr. Toni Lui. Ivan Loja M.D. Fellow, Pulmonary & Critical Care Medicine ADDENDUM: I did send immunoglobulins, Aspergillus IgG, and Aspergillus IgE in case there is an asthmatic component with allergic response contributory. I will follow-up on those results with the patient, but I doubt that they will return anything but normal. referred by Dr. Mijares For left mainstem tracheomalacia/collapse seen on dynamic CT scan. The patient describes a significant history of stress with recent weight gain and progressive coughcorrelating with weight gain. She has florid symptoms of sleep apnea with coughing at night , poor sleep, daytime fatigue etc. She has had a positive sleep apnea study in the past. Importantly, her symptoms of asthma, wheezing, cough all are exacerbated significantly with weight gain. Recently, since , she has gained approximately 10 pounds and been treated repeatedly withsteroids or wheezing And asthma. CT scan is viewed by me And shows dynamic collapse of the left mainstem bronchus Assessment/plan History of asthma which I suspect is wheezing and restrictive disease largely attributable to underlying sleep apnea. In addition, there is cough and tracheobronchial malacia also probably associatedwith weight gain. She carries a diagnosis of sleep apnea however this has not been treated do to resistance of the patient. I think is reasonable to perform bronchoscopy to observe directly a dynamic compliance of her airway and evaluate her for possible stent. My suspicion however is that stenting this would. I suspect she has increased dynamic collapse largely due to weight gain and that this has caused much of her wheezing and exacerbated her sleep issues. Even if I observe significant collapse, the left mainstem is pinched between the aorta and the pulmonary artery. Placing a metal stent between these 2 dynamically standing fluid-filled structures is a risky proposition. Over time, they're almost certainly would be erosion and bleeding. Pending results of the bronchoscopy, and even independent of them, I would recommend treatment of sleep apnea with BiPAP mask (this may require a repeat sleep study) and aggressive weight loss. It independently loss measures are not successful, she might even be a candidate for gastric bypass although my hope would be that with effective treatment of her sleep apnea her energy level will increaseto the point where weight loss would be possible independent of any surgery. I did mention briefly possible interventional surgical procedures for diffuse membranous tracheomalacia. This is available at [facility] in [place] however the criteria are strict and this is a mass of operation. I think a far more prudent course is to focus on symptom alleviation of allowing decreased energy and weight loss rather than either stiffening of the airway or evengastric bypass although I'm much more open to the latter in the former surgery. documented in this encounter Plan of Treatment Not on file documented as of this encounter Procedures Procedure Name Priority Date/Time Associated Diagnosis Comments IMMUNOGLOBULIN E (IGE) Routine 3 10:40 AM EDT Asthma IMMUNOGLOBULINS, QUANTITATIVE Routine 09/17/2012 10:40 AM EDT Asthma DIFFERENTIAL, AUTOMATED Routine 09/18/19 13 10:40 AM EDT ASPERGILLUS FUMIGATIS ANTIBODY IGG Routine 09/17/2012 10:40 AM EDT Asthma ASPERGILLUS FUMIGATUS IGE Routine 09/17/2012 10:40 AM EDT Asthma CBC (WITH DIFF) Routine 09/17/2012 10:40 AM EDT Asthma documented in this encounter Results * Differential, Automated (09/17/2012 10:40 AM EDT) Neutrophil % 47.8 34.0 - 71.0 % CERNER MILLENNIUM Neutrophil Absolute 3.83 1.50 - 6.30 x10(3)/mcL CERNER MILLENNIUM Lymph % 42.1 19.0 - 53.0 % CERNER MILLENNIUM Lymphocytes Abs 3.4 1.0 - 3.6 x10(3)/mcL CERNER MILLENNIUM Monocyte % 7.9 4.0 - 13.0 % CERNER MILLENNIUM Monocyte Abs 0.6 0.2 - 1.0 x10(3)/mcL CERNER MILLENNIUM Eos % 1.4 0.0 - 7.0 % CERNER MILLENNIUM Eosinophils Abs 0.1 0.0 - 0.5 x10(3)/mcL CERNER MILLENNIUM Basophil % 0.5 0.0 - 2.0 % CERNER MILLENNIUM Baso Absolute 0.0 0.0 - 0.2 x10(3)/mcL CERNER MILLENNIUM Immature Gran % 0.30 0.00 - 0.66 % CERNER MILLENNIUM Comment: Immature granulocytes(IG's)percentage and absolute count will include metamyelocytes, myelocytes, and promyelocytes. Blood smears from CBCs yielding IG's will be scanned manually for concordance. If this scan disagrees with the automated IG or if promyelocytes are noted, a manual differential will be performed. Immature Gran Absolute 0.02 0.00 - 0.05 x10(3)/mcL CERNER MILLENNIUM Blood specimen (specimen) 09/17/2012 10:40 AM EDT 09/17/2012 10:43 AM EDT Toni Lui MD HEMATOLOGY ORDERABLE S Performing Organization Address [facility] Phone Number YULI [place] * Aspergillus Fumigatis Antibody IgG (09/17/2012 10:40 AM EDT) A Fumigatus, IgG (SEPTEMBER) 12.1 <=102 mg/L CERNER MILLENNIUM Comment: Test Performed by: [place] [id number] Surgical Instrument Technician: Richar Velazquez III, M.D. Blood specimen (specimen) 09/17/2012 10:40 AM EDT 09/17/2012 12:25 PM EDT Narrative Resulting Agency Comment Spec In Lab Toni Lui MD LAB SEND OUT ORDERAB LES Performing Organization Address [facility] Phone Number YULI GONSALEZIUM * Aspergillus fumigatus IgE (09/17/2012 10:40 AM EDT) Pathologist [facility] [place] Aspergillus Fumigatus, IgE <0.35 kU/L CERNER MILLENNIUM Comment: Class 0 (Negative <0.35) Test Performed by: [place] [address] Surgical Instrument Technician: Richar Velazquez III, M.D. Blood specimen (specimen) 09/17/2012 10:40 AM EDT 09/17/2012 12:25 PM EDT Narrative Resulting Agency Comment Spec In Lab Toni Lui MD IMMUNOLOGY ORDERABLE S Performing Organization Address [facility] Phone Number CERPRISCILA [place] * (ABNORMAL) Immunoglobulin E (IgE) (09/17/2012 10:40 AM EDT) Pathologist [facility] IgE, Total 261(H) kU/L CERNER MILLENNIUM Comment: -- REFERENCE VALUE -- Mean ??13.2 +1SD ??41.0 +2SD 127.0 Test Performed by: [place] [id number] Surgical Instrument Technician: Richar Velazquez III, M.D. Blood specimen (specimen) 09/17/2012 10:40 AM EDT 09/17/2012 12:25 PM EDT Narrative Resulting Agency Comment Spec In Lab Toni Lui MD IMMUNOLOGY ORDERABLE S CERNER MARINEENNIUM * Immunoglobulins, Quantitative (09/17/2012 10:40 AM EDT) Immunoglobulin G 930 700 - 1600 mg/dL CERNER MILLENNIUM IgA 116 70 - 400 mg/dL CERNER MILLENNIUM IgM 88 40 - 230 mg/dL CERNER MILLENNIUM Blood specimen (specimen) 09/17/2012 10:40 AM EDT 09/17/2012 10:43 AM EDT Narrative Resulting Agency Comment Spec In Lab Toni Lui MD CHEMISTRY ORDERABLES Performing Organization Address City/[facility]/ZIP Co de Phone Number CERNER MILLENNIUM * (ABNORMAL) CBC (with Diff) (09/17/2012 10:40 AM EDT) White Blood Cell 8.0 4.0 - 10.0 x10(3)/mc L CERNER MILLENNIUM Red Blood Cell 3.49(L) 3.93 - 5.22 x10(6)/mc L CERNER MILLENNIUM Hemoglobin 10.7(L) 11.2 - 15.7 gm/dL CERNER MILLENNIUM Hematocrit 32.5(L) 34.0 - 45.0 % CERNER MILLENNIUM Mean Cell Volume 93.1 79.0 - 94.0 fL CERNER MILLENNIUM Mean Cell Hemoglobin 30.7 26.6 - 32.2 pg CERNER MILLENNIUM Mean Cell Hemoglobin Concentration 32.9 32.0 - 36.5 gm/dL CERNER MILLENNIUM Platelet 297 145 - 370 x10(3)/mc L CERNER MILLENNIUM RDW Standard Deviation 45.3 35.0 - 46.0 fL CERNER MILLENNIUM RDW coefficient of variation 13.4 10.9 - 14.4 % CERNER MILLENNIUM Mean Platelet Volume 9.0 9.0 - 12.0 fL CERNER MILLENNIUM Blood specimen (specimen) 09/17/2012 10:40 AM EDT 09/17/2012 10:43 AM EDT Narrative Resulting Agency Comment Spec In Lab Toni Lui MD HEMATOLOGY ORDERABLE S YULI [place] documented in this encounter Visit Diagnoses Diagnosis Asthma- Primary Unspecified asthma documented in this encounter Care Teams Baseball Player Relationship Specialty Start Date End Date Nicole Hubbard MD [address] [place] [address] PCP - General 03/29/10 documented as of this encounter
--- OUTSIDE RECORDS SUMMARY | 2024-03-14 18:04 | XMS_ITS | Encounter Summary ---
[place] [address] Care Team Providers Care Grain Farmer Name Role Phone Nicole Hubbard MD Primary Care Provider [phone] Encounter Details Date Type Department Care Team (Late st Contact Info) Description 12/15/2020 Orders Only Cardiology at [address] [id number] Kelsey Lezama, RN SVT (supraventricular tachycardia) Social History Tobacco Use [...] on file documented as of this encounter Results * EKG 12 Lead (12/16/2020 1:20 PM EDT) Ventricular rate 56 BPM MUSE SYSTEM Atrial Rate 56 BPM MUSE SYSTEM P-R Interval 150 ms MUSE SYSTEM QRS Duration 78 ms MUSE SYSTEM Q-T Interval 476 ms MUSE SYSTEM QTC Calculated (Bezet) 459 ms MUSE SYSTEM Calculated P [place] 43 degrees MUSE SYSTEM Calculated R [place] 26 degrees MUSE SYSTEM Calculated T [place] 47 degrees MUSE SYSTEM INTERPRETATION Sinus bradycardia Otherwise normal ECG When compared with ECG of 16-MAR-1992 13:11, No significant change was found Confirmed by MD Isra, Nilo Sibley ([id number]) on 12/16/2020 1:47:11 PM MUSE SYSTEM 12/16/2020 1:20 PM EDT 12/16/2020 1:47 PM EDT Adam Roberts MD ECG ORDERABLES MUSE SYSTEM documented in this encounter Visit Diagnoses Diagnosis SVT (supraventricular tachycardia) Other specified cardiac dysrhythmias documented in this encounter Care Teams Grain Farmer Relationship Specialty Start Date End Date Nicole Hubbard MD [address] [place] [address] PCP - General 03/29/10 documented as of this encounter
--- OUTSIDE RECORDS SUMMARY | 2024-03-14 18:04 | XMS_ITS | Encounter Summary ---
[place] [address] Care Team Providers Care Player Manager Name Role Phone Nicole Hubbard MD Primary Care Provider [phone] Encounter Details Date Type Department Care Team (Late st Contact Info) Description 11/30/2020 Telephone Cardiology at [address] [address] Junior Quiroz MD [facility] [address] Social History Tobacco Use Types Packs/Day Years [...] encounter Miscellaneous Notes * Telephone Encounter - Junior Quiroz MD - 11/30/2020 3:12 AM EDT Images from the original note were not included. 11/30/2020 Joselyn Sheets Initial Contact Date: 11/30/2020 Initial contact time: 3:12 AM Referring Provider: Dr. Salguero Patient Location: [facility] Past Medical History: Asthma HTN HLD Presenting Symptoms per OSH: 65F with history as above who presents for increased palpitations and chest pain / pressure. - No prior cardiac history. [place] chest pain / pressure and palpitations today while cleaning up at her house. [place] tired with palpitations that have been ongoing off/on for months. Holter monitor at the OSH showed SVT. Ziopatch completed showed 2 runs of VT (only up to 11 beats). Came into the ED today with more palpitations / chest discomfort and in the ED had up to a 40 beat run of monomorphic NSVT. Broke several times followed by more runs of NSVT. Given amiodarone 150 mg followed by 1 mg/min gtt. Magnesium 1.4. Trop negative. Pertinent Diagnostic Findings: 115/70, HR 70s, on RA Hgb 10 Cr 1.2 Mag 1.4 Trop neg x1 OSH Interventions: ASA 324 mg Amio 150 x1 Amio 1 mg/min Plan: - Patient with monormorphic VT on EKG with rates up to 160 to 170 bpm. Initial trop is negative andhas hypomag to 1.4. However given her symptoms of chest pain, will need to rule out ischemia and treat as ACS for now. She is hemodynamically stable during her runs of VT and continues to mentate well during these episodes. Unfortunately we are unable to transfer to [facility] due to lack of bed availability. Recommended to continue amiodarone gtt for now and attempt transfer to another institution. She has apparently been quiescent since starting amiodarone. Above recommendations were based on my discussion with Dr. Salguero; I have not personally interviewedor examined this patient. Advised to call the transfer center back with any changes in the patient condition. Junior Quiroz PGY5 Cardiology [id number] documented in this encounter Plan of Treatment Not on file documented as of this encounter Visit Diagnoses Not on filedocumented in this encounter Care Teams Player Manager Relationship Specialty Start Date End Date Nicole Hubbard MD [address] [place] [address] [address] [place] [address] PCP - General 03/29/10 documented as of this encounter
--- OUTSIDE RECORDS SUMMARY | 2024-03-14 18:04 | XMS_ITS | Encounter Summary ---
[place] [address] Care Team Providers Care Credit Charge Authorizer Name Role Phone Nicole Hubbard MD Primary Care Provider [phone] Encounter Details Date Type Department Care Team (Late st Contact Info) Description 05/19/2021 Orders Only Cardiology at [address] [address] Cynthia Allen, RN SVT (supraventricular tachycardia) Social History Tobacco [...] dysrhythmias documented in this encounter Care Teams Credit Charge Authorizer Relationship Specialty Start Date End Date Nicole Hubbard MD [address] [place] [address] PCP - General 03/29/10 documented as of this encounter
--- OUTSIDE RECORDS SUMMARY | 2024-03-14 18:04 | XMS_ITS | Encounter Summary ---
[place] [address] Care Team Providers Care Credit Representative Name Role Phone Nicole Hubbard MD Primary Care Provider [phone] Encounter Details Date Type Department Care Team (Late st Contact Info) Description 05/24/2021 [place] [id number] Nilo Pat MD [facility] [place] [address] Social History Tobacco Use Types Packs/Day Years [...] encounter Miscellaneous Notes * Telephone Encounter - Nilo Pat - 05/24/2021 11:54 PM EST Telephone Triage Note Initial contact date: 05/24/2021 Initial contact time: 11:54 PM Patient location: [facility] CC: [place] History Ms. Sheets is a 65-year-old woman with history of COPD, hypertension, hyperlipidemia and SVT as well as ventricular tachycardia with recent admission to [facility] started on sotalol. She has no coronary artery disease and a normal ejection fraction. HR 160s-170s, palpitations, chest discomfort whichself resolved by the time she arrived to the ED. Total symptom duration is less than an hour. Electrolyte and troponin work-up in the emergency department was normal. She remains adherent to sotalol 40 mg twice daily. She is feeling her normal self at the moment. Pertinent diagnostic findings: Vitals: 95-96%/2L-160/72-36.5-18 EKG: Normal sinus rhythm, QTc 465 Plan: I will send a message to our colleagues in electrophysiology to facilitate follow-up and to see if they have any recommendations for a change in her regimen given this incident. Nilo Pat MD Professional Soccer Player PGY-6 05/24/2021 documented in this encounter Plan of Treatment Not on file documented as of this encounter Visit Diagnoses Not on filedocumented in this encounter Care Teams Credit Representative Relationship Specialty Start Date End Date Nicole Hubbard MD [address] [facility] [place] [address] PCP - General 03/29/10 documented as of this encounter
--- OUTSIDE RECORDS SUMMARY | 2024-03-14 18:04 | XMS_ITS | Encounter Summary ---
Author Organization [facility] [place] [address] Care Team Providers Care Claim Trainee Name Role Phone Nicole Hubbard MD Primary Care Provider [phone] Encounter Details Date Type Department Care Team (Late st Contact Info) Description 04/06/2016 [place] [address] Jocelyn Santos MD [facility] [address] [place] [address] Social History Tobacco Use Types Packs/Day Years [...] on filedocumented in this encounter Care Teams Claim Trainee Relationship Specialty Start Date End Date Nicole Hubbard MD [address] [place], [place] [id number] PCP - General 03/29/10 documented as of this encounter
--- OUTSIDE RECORDS SUMMARY | 2024-03-14 18:04 | XMS_ITS | Encounter Summary ---
[place] [address] Care Team Providers Care Robotic Maintenance Technician Name Role Phone Nicole Hubbard MD Primary Care Provider [phone] Encounter Details Date Type Department Care Team ([facility] Contact Info) Description 04/13/2016 [place] [phone] Sofie Bustamante RN Social History Tobacco Use [...] Telephone Encounter - Sofie Bustamante RN - 04/13/2016 4:06 PM EST Call to [facility] [rashmi Perez ext [phone]]to inquire of status ofPA being processed. SMN and GARZA have both been received by them and info has been forwarded to [facility] who will providedrug. [facility] will contact either this office or patient if more info is needed. Helpful Info for this patient: Regarding [email or web address]: Patient ID is [id number] [facility] documented in this encounter Plan of Treatment Not on file documented as of this encounter Visit Diagnoses Not on filedocumented in this encounter Care Teams Robotic Maintenance Technician Relationship Specialty Start Date End Date Nicole Hubbard MD [address] [place] [address] PCP - General 03/29/10 documented as of this encounter
--- OUTSIDE RECORDS SUMMARY | 2024-03-14 18:04 | XMS_ITS | Encounter Summary ---
[place] [address] Care Team Providers Care Bilingual Operator Name Role Phone Nicole Hubbard MD Primary Care Provider Reason for Referral * Diagnostic Test (Routine) - Closed Specialty Diagnoses / Procedures Referred By Contac t Referred To Contact Cardiology Diagnoses Palpitations Procedures Ziopatch 48 Hrs-15 Days Adam Roberts MD [facility] [place] [address] [facility] [place] [address] Referral ID Status Reason Start Date Expiration Date V isits Requested Visits Authorized [id number] Closed Specialty Service Requested 12/25/2022 12/25/2023 1 1 Reason for Visit * Diagnostic Test (Routine) - Closed Specialty Diagnoses / Procedures Referred By Contleonor t Referred To Contact Cardiology Diagnoses Palpitations Procedures Ziopatch 48 Hrs-15 Days Adam Roberts MD [facility] [place] [address] [facility] [place] [address] Referral ID Status Reason Start Date Expiration Date V isits Requested Visits Authorized [id number] Closed Specialty Service Requested 12/25/2022 12/25/2023 1 1 Encounter Details Date Type Department Care Team (Latest Contact Info) Description 11/16/2022 8:35 AM EDT - 11/16/2022 11:59 PM EDT Hospital Encounter Non-[place] [address] Palpitations Discharge Disposition: Home Social History Tobacco [...] 24 hours. inhalational spacing device Spacer by [facility].(Non-Drug; Combo Route) route. cetirizine (ZYRTEC) 10 mg [...] Diagnosis Comments ZIOPATCH 48 HRS-15 DAYS Routine 12/25/2022 3:02 PM EDT Palpitations documented in this encounter Results * Ziopatch 48 Hrs-15 Days (12/25/2022 3:02 PM EDT) Anatomical Region Laterality Modality Other Narrative 12/26/2022 4:27 PM EDT [facility] ? Zio Patch? Ambulatory Cardiac Event Monitor Report Duration of recording - 4 days 18 hours ??(after removal of artifact) Summary Data Predominant rhythm - sinus rhythm Minimum sinus rate - 46 bpm Maximum sinus rate - 129 bpm Average heart rate - 65 bpm Atrial fibrillation - none Ectopic beats atrial premature beats (APC? s) rare ventricular premature beats (VPC's) rare Tachyarrhythmias There were 2 episodes of VT lasting 7 beats with a max rate of 182 BPM There was 1 episode of SVT lasting 11.7 seconds with a peak rate of 176 BPM Bradyarrhythmias No severe or symptomatic bradycardia, significant pauses (>3 seconds) or high grade AV block. Triggered and Patient Diary Events There were 0 triggered and 0 patient diary events Conclusion(s): ?? Predominant rhythm is sinus Rare brief asymptomatic runs of SVT and NSVT No severe or symptomatic bradycardia, significant pauses (>3 seconds) or high grade AV block. Adam Roberts MD CARDIAC SERVICES ORD ERABLES documented in this encounter Visit Diagnoses Diagnosis Palpitations documented in this encounter Care Teams Bilingual Operator Relationship Specialty Start Date End Date Nicole Hubbard MD [address] [place] [address] PCP - General 03/29/10 documented as of this encounter
--- OUTSIDE RECORDS SUMMARY | 2024-03-14 18:04 | XMS_ITS | Encounter Summary ---
Author Organization [facility] [place] [address] Care Team Providers Care Professor Of Family Medicine Name Role Phone Nicole Hubbard MD Primary Care Provider [phone] Encounter Details Date Type Department Care Team (Latest Contact Info) Description 09/17/2012 11:36 AM EDT - 09/17/2012 4:00 PM EDT Hospital Encounter [place] [address] Toni Lui MD [facility] [place] [address] Discharge Disposition: Home Social History Tobacco Use [...] Contact Numbers Sunday - Sunday Pulmonary Clinic [phone] 8a-5p Same Day Endoscopy [phone] 7a-8p Otherwise call [facility] and ask to speak to the Pulmonary Doctor contract paralegal [phone] Discharge instructions reviewed with patient who expresses [...] * BRONCHOSCOPY (09/17/2012 12:37 PM EDT) BRONCHOSCOPY [facility] Bronchoscopy Patient Name: Joselyn Sheets ? Procedure Date: 09/17/2012 12:37 PM ? Age: 56 ? Procedure: ?Bronchoscopy Indications: ?Left mainstem compression Providers: ?Toni Lui MD, Ivan Jones ?MD Freedom (Fellow), Aliza Ramey ?AMANDA Soria, Lacie Rojas, Typing Teacher Referring MD: ? Nicole Hubbard MD Requesting [...] PROVATION 09/17/2012 12:3 7 PM EDT Nicole SANTASURBharat ORDERS NO PO STOP PAIN QUESTION PROVATION documented in this encounter Visit Diagnoses Not on filedocumented in this encounter Active and Recently Administered Medications Times are shown in EDT. PRN Medication Order 09/15/2012 09/16/2012 09/17/2012 fentaNYL 50mcg/mL injection (CANCELED) ONCE PRN, Starting on Sun09/17/12 at 1324, Until Sun09/17/12 at 2128, Pain, Intra-Operative (Intra-Procedure), Routine 1324 (Given - Provid er: Aliza Soria RN - Comment: starting sedation)1328 (Given - Provider: Aliza Soria RN - Comment: continuing dsedation) midazolam (VERSED) injection (CANCELED) ONCE PRN, Starting on Sun09/17/12 at 1324, Until Sun09/17/12 at 2128, Sleep, Intra-Operative (Intra-Procedure), Routine 1324 (Given - Provid er: Aliza Soria RN - Comment: starting sedation)1328 (Given - Provider: Aliza Soria RN - Comment: continuing sedation) documented in this encounter Care Teams Professor Of Family Medicine Relationship Specialty Start Date End Date Nicole Hubbard MD [address] [place] [address] PCP - General 03/29/10 documented as of this encounter
--- OUTSIDE RECORDS SUMMARY | 2024-03-14 18:04 | XMS_ITS | Encounter Summary ---
[place] [address] Care Team Providers Care Publications Sales Representative Name Role Phone Nicole Hubbard MD Primary Care Provider [phone] Encounter Details Date Type Department Care Team (Late st Contact Info) Description 05/26/2021 Telephone Cardiology at [address] [phone] Samira Fernandez Social History Tobacco Use Types [...] * Telephone Encounter - Samira Fernandez - 05/26/2021 11:02 AM EST Request for recent ED records faxed to [facility] at [phone]. Samira Fernandez EP Scheduling documented in this encounter Plan of Treatment Not on file documented as of this encounter Visit Diagnoses Not on filedocumented in this encounter Care Teams Publications Sales Representative Relationship Specialty Start Date End Date Nicole Hubbard MD [address] [place] [address] PCP - General 03/29/10 documented as of this encounter
--- OUTSIDE RECORDS SUMMARY | 2024-03-14 18:04 | XMS_ITS | Encounter Summary ---
Author Organization [facility] Address [facility] [place] [address] Care Team Providers Care Employment Coach Name Role Phone Nicole Hubbard MD Primary Care Provider [phone] Encounter Details Date Type Department Care Team (Latest Contact Info) Description 01/31/2016 10:41 AM EDT - 01/31/2016 11:59 PM EDT [place] [address] Jocelyn Santos MD [facility] DR [address] [facility] [address] Discharge Disposition: Home Social History Tobacco Use [...] Sig Dispensed Refills Start Date End Date budesonide-formoterol (SYMBICORT) 160-4.5 mcg/actuation HFA Aerosol Inhaler [...] 24 hours. inhalational spacing device Spacer by [facility].(Non-Drug; Combo Route) route. cetirizine (ZYRTEC) 10 mg [...] 10/08/2009 ibuprofen (ADVIL;MOTRIN) 200 mg tablet 10/08/2009 hydroCHLOROthiazide (MICROZIDE) 12.5 mg Capsule Take 12.5 mg by mouth daily. 12/16/2020 documented as of this encounter Plan of Treatment Not on file documented as of this encounter Visit Diagnoses Not on filedocumented in this encounter Care Teams Employment Coach Relationship Specialty Start Date End Date Nicole Hubbard MD [address] [place] [address] PCP - General 03/29/10 documented as of this encounter
--- OUTSIDE RECORDS SUMMARY | 2024-03-14 18:04 | XMS_ITS | Encounter Summary ---
[place] [address] Care Team Providers Care Bench Molder Apprentice Name Role Phone Nicole Hubbard MD Primary Care Provider [phone] Reason for Referral * Diagnostic Test (Routine) - Closed Specialty Diagnoses / Procedures Referred By Oscar long Referred To Contact Cardiology Diagnoses Palpitations Procedures Ziopatch 48 Hrs-15 Days Adam Roberts MD [facility] [place] [address] [facility] [place] [address] Referral ID Status Reason Start Date Expiration Date V isits Requested Visits Authorized [id number] Closed Specialty Service Requested 10/11/2022 10/11/2023 1 1 Encounter Details Date Type Department Care Team (Late st Contact Info) Description 10/11/2022 Orders Only Cardiology at [address] [address] Adam Roberts MD [facility] [place] [address] Palpitations Social History Tobacco Use Types Packs/Day Years [...] documented as of this encounter Results * Ziopatch 48 Hrs-15 Days (10/18/2022 7:40 AM EDT) Anatomical Region Laterality Modality Other Narrative 11/24/2022 1:[address] [facility] ? Zio Patch? Ambulatory Cardiac Event [...] in this encounter Visit Diagnoses Diagnosis Palpitations Palpitations documented in this encounter Care Teams Bench Molder Apprentice Relationship Specialty Start Date End Date Nicole Hubbard MD [address] [place] [address] PCP - General 03/29/10 documented as of this encounter
--- OUTSIDE RECORDS SUMMARY | 2024-03-14 18:04 | XMS_ITS | Encounter Summary ---
[place] [address] Care Team Providers Care Range Conservationist Name Role Phone Nicole Hubbard MD Primary Care Provider [phone] Encounter Details Date Type Department Care Team (Late st Contact Info) Description 12/16/2020 Telephone Cardiology at [address] [phone] Samira Fernandez Social History Tobacco Use Types [...] * Telephone Encounter - Samira Owusu - 12/16/2020 2:52 PM EDT Email to Misty Stoll RN at [facility] asking for pt to be set up with Dr. Roberts for a follow up appointment in March. Samira Owusu EP Scheduling documented in this encounter Plan of Treatment Not on file documented as of this encounter Visit Diagnoses Not on filedocumented in this encounter Care Teams Range Conservationist Relationship Specialty Start Date End Date Nicole Hubbard MD [address] [place] [address] [address] [place] [address] PCP - General 03/29/10 documented as of this encounter
--- OUTSIDE RECORDS SUMMARY | 2024-03-14 18:04 | XMS_ITS | Encounter Summary ---
Author Organization [facility] [place] [place] [address] Care Team Providers Care Hard Candy Spinner Name Role Phone Nicole Hubbard MD Primary Care Provider [phone] Reason for Visit * Reason Comments Medication Refill Encounter Details Date Type Department Care Team ([facility] st Contact Info) Description 02/19/2017 [place] [address] [facility] [address] [place] [address] Social History Tobacco Use Types Packs/Day Years [...] on filedocumented in this encounter Care Teams Hard Candy Spinner Relationship Specialty Start Date End Date Nicole Hubbard MD [address] [place], [place] [id number] PCP - General 03/29/10 documented as of this encounter
--- OUTSIDE RECORDS SUMMARY | 2024-03-14 18:04 | XMS_ITS | Encounter Summary ---
Author Organization [facility] Address [facility] [place] [address] Care Team Providers Care Hand Ironer Name Role Phone Nicole Hubbard MD Primary Care Provider [phone] Encounter Details Date Type Department Care Team (Latest Contact Info) Description 09/17/2012 8:35 AM EDT - 09/17/2012 4:14 PM EDT Hospital [place] [address] SCHEDULE 1, PFT Toni Lui MD [facility] [place] [address] Asthma (Primary Dx) Discharge Disposition: Home Social [...] 10/08/2009 01/31/2016 documented as of this encounter Procedure Notes * Wendy Squires MD - 09/17/2012 12:17 PM EDTAssociated Order(s): PULMONARY FUNCTION TEST Spirometry suggests moderately severe airflow obstruction. The forced vital capacity is also reduced. This may be due to the degree of airflow obstruction or may suggest concomitant restrictive physiology. Lung volumes are recommended, if clinically suspected. Diffusion capacity is normal. The oxygen saturation on room air at rest is normal. There is a significant desaturation from 99% on RA at rest to 91% on RA after walking 600 feet. WENDY SQUIRES MD documented in this encounter Plan of Treatment Not on file documented as of this encounter Procedures Procedure Name Priority Date/Time Associated Diagnosis Comments COMMON PULMONARY FUNCTION TEST Routine 09/17/2012 12:20 PM EDT Asthma documented in this encounter Results * Pulmonary Function Testing (09/17/2012 12:20 PM EDT) Narrative Wendy Squires MD - 09/17/2012 12:20 PM EDT Wendy Squires MD ? 09/17/2012 12:20 PM Spirometry suggests moderately severe airflow obstruction. The forced vital capacity is also reduced. This may be due to the degree of airflow obstruction or may suggest concomitant restrictive physiology. Lung volumes are recommended, if clinically suspected. Diffusion capacity is normal. The oxygen saturation on room air at rest is normal. There is a significant desaturation from 99% on RA at rest to 91% on RA after walking 600 feet. WENDY SQUIRES MD Procedure Note Wendy Squires MD - 09/17/2012 12:17 PM EDT Spirometry suggests moderately severe airflow obstruction. The forcedvital capacity is also reduced. This may be due to the degree of airflowobstruction or may suggest concomitant restrictive physiology. Lungvolumes are recommended, if clinically suspected. Diffusion capacity is normal. The oxygen saturation on room air at rest is normal. There is a significant desaturation from 99% on RA at rest to 91% on RAafter walking 600 feet. WENDY SQUIRES MD Toni Lui MD PFT ORDERABLES documented in this encounter Visit Diagnoses Diagnosis Asthma- Primary Unspecified asthma documented in this encounter Care Teams Hand Ironer Relationship Specialty Start Date End Date Nicole Hubbard MD [address] [facility] [address] [address] PCP - General 03/29/10 documented as of this encounter
--- OUTSIDE RECORDS SUMMARY | 2024-03-14 18:05 | XMS_ITS | Encounter Summary ---
Author Organization [facility] Address [address] [place] [address] Care Team Providers Care Corporate Scheduler Name Role Phone Purnima Hubbard MD Primary Care Provider [phone] Encounter Details Date Type Department Care Team (Late st Contact Info) Description 02/24/2014 Results Only [facility] [phone] Marcio Hdz MD [address] [facility] [address] [place] [id number] Social History Tobacco Use Types Packs/Day Years Used Date Smoking Tobacco: Never Assessed Sex and Gender Information Value Date Recorded Sex Assigned at Not on file Gender Identity Not on file Sexual Orientation Not on file documented as of this encounter Plan of Treatment Not on file documented as of this encounter Procedures Procedure Name Priority Date/Time Associated Diagnosis Comments SURGICAL PATHOLOGY Routine 02/24/2014 20 :06 EDT documented in this encounter Results * SURGICAL PATHOLOGY (02/24/2014 20:06 EDT) Pathology Report: SURGICAL PATHOLOGY REPORT Reports generated via electronic interface contain original data; however they are lacking the format of the original report. Caution should be taken when reading/interpreti ng unformatted reports. Name: ? JOSELYN SHEETS ? Accession #: ? [id number] ? : ? 1955 (Age: 58) ??F ? Collect Date: ? 02/24/2014 ? Location: ? [facility] ? Receive Date: ? 02/25/2014 ? Provider: TRAM HDZ MD Copy to: PURNIMA HUBBARD MD ? Final Pathologic Diagnosis: A. DUODENUM, SECOND PORTION, BIOPSY: - ??No specific pathologic features. B. STOMACH, ANTRUM, BIOPSY: - ??Antral mucosa with mild reactive gastropathy. - ??No Helicobacter pylori-like organisms identified on H&E stained sections. C. STOMACH, POLYP, BIOPSY: - ??Fundic gland polyp. Document reviewed and electronically signed by: MAN MARTINEZ MD Report ??Date: 02/27/2014 14:24 By the signature above, the attending physician certifies that he/she has personally conducted a gross and/or microscopic examination of the described specimens and rendered or confirmed the above diagnosis. Specimen(s) Received: A. ??2nd portion bx B. ??Antrum bx C. ??Fundal polyp Clinical History: R/O celiac, H. pylori, gastropathy; clinical diagnosis code: 789.66, V76.51 Gross Description: A. ?Received in formalin labelled with proper patient identification (initials H, A) and 2nd portion biopsy are two pink-hughes tissues (0.2 x 0.1 x 0.1 cm and 0.2 x 0.2 x 0.1 cm). Entirely submitted in A1. B. ?Received in formalin labelled with proper patient identification (initials H, A) and antrum biopsy are two pink-hughes tissues (0.2 x 0.1 x 0.1 cm and 0.5 x 0.2 x 0.2 cm). Entirely submitted in B1. C. ?Received in formalin labelled with proper patient identification (initials H, A) and fundal polyp are two pink-hughes tissues (0.2 x 0.1 x 0.1 cm and 0.3 x 0.2 x 0.1 cm). Entirely submitted in C1. Ines Arslan 02/26/2014 11:39 AM End of Report [facility] 02/24/2014 20:0 6 EDT 02/25/2014 20:06 EDT Marcio Hdz MD PATHOLOGY ORDERABLES [facility] [address] [place] [address] documented in this encounter Visit Diagnoses Not on filedocumented in this encounter Care Teams Corporate Scheduler Relationship Specialty Start Date End Date Purnima Hubbard MD [address] [place] [phone] PCP - General 10/05/11 documented as of this encounter
--- OUTSIDE RECORDS SUMMARY | 2024-03-14 18:05 | XMS_ITS | Encounter Summary ---
Author Organization [facility] Address [address] [place] [address] Care Team Providers Care Police Artist Name Role Phone Unavailable Primary Care Provider Unavailabl e Encounter Details Date Type Department Care Team (Late st Contact Info) Description 05/17/[address] [facility] [address] [place] [address] Briana Joaquin, VINNY Social History Tobacco Use Types Packs/Day Years Used Date Smoking Tobacco: Never Assessed Sex and Gender Information Value Date Recorded Sex Assigned at Not on file Gender Identity Not on file Sexual Orientation Not on file documented as of this encounter Plan of Treatment Not on file documented as of this encounter Procedures Procedure Name Priority Date/Time Associated Diagnosis Comments CYTOPATHOLOGY Routine 05/17/2000 0:00 EST documented in this encounter Results * CYTOPATHOLOGY (05/17/2000 0:00 EST) Pathology Report: CYTOPATHOLOGY REPORT Reports generated via electronic interface contain original data; however they are lacking the format of the original report. Caution should be taken when reading/interpreti ng unformatted reports. Name: ? FITCH, ALICE ? Accession #: ? [id number] : ? 1955 (Age: 44) ??F ?Collect Date: ? 05/17/2000 Location: ? [facility] ? Receive Date: ? 05/18/2000 Provider: ?BRIANA JOAQUIN SWEET P[employer]LED FR[employer] MAKER Copy to: ? Specimen/Source: ?ThinPrep Pap Test, Vagina Last Menstrual Period: ? Hormonal/Contracep tive Status: ? Hormone Replacement Therapy Previous Gynecologic Pathology: ? Yes Treatment History: ? Hysterectomy Other: ? Additional clinical information: 1997 rare atypical but degenerated cells present. ? SPECIMEN ADEQUACY ? Satisfactory for evaluation. GENERAL CATEGORIZATION ? Within Normal Limits ? Document reviewed and electronically signed by: ? UNA Mast(ASCP) ? Report Date: ??05/21/2000 10:31 End of Report [facility] 05/17/2000 05/18/2000 Briana Joaquin NP PATHOLOGY ORDERABLES Performing Organization Address City/State/[facility] Co de Phone Number [facility] [address] [place] [address] documented in this encounter Visit Diagnoses Not on filedocumented in this encounter
--- OUTSIDE RECORDS SUMMARY | 2024-03-14 18:05 | XMS_ITS | Encounter Summary ---
Author Organization [facility] Address [address] [place] [address] Care Team Providers Care Vocational Rehabilitation Administrator Name Role Phone Nicole Hubbard MD Primary Care Provider [phone] Encounter Details Date Type Department Care Team (Latest Contact Info) Description 02/24/2014 16:43 EDT - 02/24/2014 23:59 EDT Hospital Encounter [address] [address] Unknown, Provider, Discharge Disposition: Home or Self Care Social History Tobacco Use Types Packs/Day Years Used Date Smoking Tobacco: Never Assessed Sex and Gender Information Value Date Recorded Sex Assigned at Not on file Gender Identity Not on file Sexual Orientation Not on file documented as of this encounter Discharge Disposition Disposition Code Departure Means Destination Home or Self [facility] documented in this encounter Plan of Treatment Pending Results Name Type Priority Associated Diagnoses Date /Time OUTSIDE CD - CT NE[facility]O Imaging 12:24 EST Scheduled Orders Name Type Priority Associated Diagnoses Orde r Schedule OUTSIDE CD - CT NEURO Imaging One Time for 1 Occurrences starting 03/24/2015 until 03/24/2015 documented as of this encounter Visit Diagnoses Not on filedocumented in this encounter Care Teams Vocational Rehabilitation Administrator Relationship Specialty Start Date End Date Nicole Hubbard MD [address] [place] [phone] PCP - General 10/05/11 documented as of this encounter
--- OUTSIDE RECORDS SUMMARY | 2024-03-14 18:05 | XMS_ITS | Encounter Summary ---
Author Organization [facility] Address [address] [place] [address] Care Team Providers Care Cutting Machine Operator Name Role Phone Unavailable Primary Care Provider Unavailabl e Encounter Details Date Type Department Care Team (Late st Contact Info) Description 01/16/2006 Results Only [facility] - [facility] [address] [place] [address] Junior Mock, [address] [facility] [address] [place] [address] Social History Tobacco Use Types Packs/Day Years Used Date Smoking Tobacco: Never Assessed Sex and Gender Information Value Date Recorded Sex Assigned at Not on file Gender Identity Not on file Sexual Orientation Not on file documented as of this encounter Plan of Treatment Not on file documented as of this encounter Procedures Procedure Name Priority Date/Time Associated Diagnosis Comments SURGICAL PATHOLOGY Routine 01/16/2006 0:00 EDT documented in this encounter Results * SURGICAL PATHOLOGY (01/16/2006 0:00 EDT) Pathology Report: SURGICAL PATHOLOGY REPORT Reports generated via electronic interface contain original data; however they are lacking the format of the original report. Caution should be taken when reading/interpreti ng unformatted reports. Name: ? FITCH, ALICE ? Accession #: ? [id number] ? : ? 1955 (Age: 50) ??F ? Collect Date: ? 01/16/2006 ? Location: ? [facility] ? Receive Date: ? 01/16/2006 ? Provider: JUNIOR MOCK DO Copy to: PURNIMA WILLIAMSON MD ? Final Pathologic Diagnosis: A. ?Stomach, antrum, biopsy: 1. ?Gastric and antral-type mucosa with mild chronic inflammation. B. ?Esophagus, distal, biopsy: 1. ?Squamous epithelium with reactive changes. ??See comment. C. ?Esophagus, mid, biopsy: 1. ?Squamous mucosa with mild reactive changes. Comment: ? Sections of the biopsy demonstrate squamous epithelium with basal cell hyperplasia and increased intraepithelial lymphocytes. ??Although eosinophils are not readily identified, the findings suggest mild reflux esophagitis. ??Dr. Mahnaz Giang Document reviewed and electronically signed by: Jovani Giang MD Report ??Date: 01/20/2006 09:00 By the signature above, the attending physician certifies that he/she has personally conducted a gross and/or microscopic examination of the described specimens and rendered or confirmed the above diagnosis. Specimen(s) Received: A. ?Bx antrum B. ?Bx distal esophagus C. ?Bx mid esophagus Clinical History: ? H/O reflux Gross Description: ? Received in Hollande's fixative labelled Fitch and antrum bx is a single polypoid biopsy measuring 0.3 x 0.3 x 0.2 cm. ??The specimen is submitted intact as (A). Received in Hollande's fixative labelled Fitch and distal esophagus bx are four biopsies which vary in size from 0.2 x 0.2 x 0.2 cm to 0.3 x 0.2 x 0.2 cm. ??The specimens are submitted intact as (B). Received in Hollande's fixative labelled Fitch and bx mid esophagus is a 0.3 x 0.1 x 0.1 cm biopsy. ??The specimen is submitted intact as (C). ??([facility] End of Report [facility] 01/16/2006 01/16/2006 9:1 4 EDT Junior Mock DO PATHOLOGY ORDER DAVEY [facility] [address] [place] [address] documented in this encounter Visit Diagnoses Not on filedocumented in this encounter
--- OUTSIDE RECORDS SUMMARY | 2024-03-14 18:05 | XMS_ITS | Encounter Summary ---
Author Organization [facility] Address [address] [place] [address] Care Team Providers Care Brick Stacker Name Role Phone Nicole Hubbard MD Primary Care Provider [phone] Reason for Referral * Radiology Services (Routine) - Closed Specialty Diagnoses / Procedures [facility] Referred To Contact Diagnoses Chronic sinusitis, unspecified location Procedures CT SINUSES Silvio Oscar MD [address] [place] [address] Referral ID Status Reason Start Date Expiration Date Visits Re quested Visits Authorized [id number] Closed 02/24/2015 1 1 Reason for Visit * Reason Comments Sinus Problems Encounter Details Date Type Department Care Team (Late st Contact Info) Description 02/24/2015 13:15 EDT Office Visit [facility] ENT- [facility] [place] [address], [place] [address] Silvio Oscar MD [address] [place] [address] Chronic sinusitis, unspecified location (Primary Dx); LPRD (laryngopharyngeal reflux disease) Social History Tobacco Use Types Packs/Day Years Used Date Smoking Tobacco: Former Alcohol Use Standard Drinks/Week Comments No 0 (1 standard drink = 0.6 oz pur e alcohol) Sex and Gender Information Value Date Recorded Sex Assigned at Not on file Gender Identity Not on file Sexual Orientation Not on file documented as of this encounter Ordered Prescriptions Prescription Sig Dispensed Refills Start Date End Da te omeprazole (PRILOSEC) 40 mg capsuleIndications:LPRD (laryngopharyngeal reflux disease) Take 1 Cap by mouth 2 times daily 60 Cap 3 02/24/2015 mupirocin (BACTROBAN) 2 % ointment Topically as directed BID, three 22 gm tubes for 30 days 3 Tube 3 02/24/2015 06/17/2015 mupirocin (BACTROBAN) 2 % ointmentIndications:[employer] of[employer] sinusitis, unspecified location Apply 1 and 1/3 tube to nasal saline mixture 3 Tube 5 02/24/2015 02/24/2015 documented in this encounter Progress Notes * Srinath Gonzalez RN - 02/24/2015 1611 EDT BID omeprazole requires PA [phone] called 1609 -> PA line [phone] 1622 updated prescriber info no PA needed, called pharmacy 16:30 * Audi Nieto MD - 02/24/2015 1400 EDT Subjective: Patient ID: Joselyn Sheets is an 59 y.o. female. Chief Complaint Patient presents with ??? Sinus Problems Nicole Hubbard MD has requested that I see Joselyn Sheets in consultation regarding sinusitis. HPI Joselyn Sheets is a 59yo F with a history of allergies, asthma, COPD, GERD and ALEXX who presents with a long history of sinus symptoms. She has had bilateral maxillary antrostomies [address] Quesada, and has also had a septoplasty 10-15 yrs ago. She reports worsening symptoms over the last year and a half. She reports facial pain behind her left cheek and above her left eye. She also reports thick mucous that she will flush out of her nose. She also reports post nasal drip associatedwith the mucous. She reports nasal obstruction that worse at night and on the right side. She says it is improved when she performs a laney maneuver. She denies any changes in her sense of smell. She uses nasonex daily for allergies, as well as singulair and vonda. She will do nasal saline irrigations when her allergies are bad. She has not had any recent sinus imaging. She also reports a 2 year history of hoarseness. It has been stable over this period. She also reports some coughing when swallowing and mild dysphagia to very dry foods. She reports that her medications give her a dry mouth. She also reports a history of TMJ disorder. There is no problem list on file for this patient. Past Medical History Diagnosis Date ??? Asthma ??? Environmental allergies ??? COPD (chronic obstructive pulmonary disease) ??? Sleep apnea ??? Heartburn ??? Hypertension Past Surgical History Procedure Laterality Date ??? Nasal sinus surgery ??? Cholecystectomy ??? Hysterectomy Family History Problem Relation Age of Onset ??? Asthma Mother ??? Allergic Rhinitis Mother ??? Cancer Father ??? Allergic Rhinitis Sister ??? Allergic Rhinitis Sister Social History Social History ??? Marital Status: Spouse Name: N/A Number of Children: N/A ??? Years of Education: N/A Occupational History ??? Not on file. Social History Main Topics ??? Smoking status: Former Smoker ??? Smokeless tobacco: Not on file ??? Alcohol Use: No ??? Drug Use: Not on file ??? Sexual Activity: Not on file Other Topics Concern ??? Not on file Social History Narrative ??? No narrative on file Outpatient Prescriptions Marked as Taking for the 02/24/15 encounter (Office Visit) with Silvio Oscar MD Medication Sig Dispense Refill ??? acetaminophen (TYLENOL) 325 mg tablet Take 650 mg by mouth every 4 hours as needed for Pain ??? ALBUTEROL SULFATE (VENTOLIN INHL) Inhale as directed ??? atorvastatin (LIPITOR) 10 mg tablet Take 10 mg by mouth daily ??? CALCIUM CARBONATE/VITAMIN D3 (CALCIUM + D ORAL) Take by mouth ??? DULoxetine (CYMBALTA) 60 mg capsule Take 60 mg by mouth daily ??? estradiol (ESTRACE) 0.5 mg tablet Take 0.5 mg by mouth daily ??? fexofenadine (VONDA) 180 mg tablet Take 180 mg by mouth daily ??? fluticasone-salmeterol (ADVAIR) 500-50 mcg/dose diskus inhaler Inhale 1 Puff as directed 2 times daily ??? ibuprofen (MOTRIN) 200 mg tablet Take 200 mg by mouth every 6 hours ??? mometasone (NASONEX) 50 mcg/actuation nasal spray Instill 2 Sprays into right nostril daily ??? montelukast (SINGULAIR) 10 mg tablet Take 10 mg by mouth daily ? ? MULTIVIT &MINERALS/FERROUS FUM (MULTI VITAMIN ORAL) Take by mouth ??? [DISCONTINUED] omeprazole (PRILOSEC) 20 mg capsule Take 20 mg by mouth daily ??? tiotropium (SPIRIVA) 18 mcg inhalation capsule Inhale 18 mcg as directed daily ??? VALGANCICLOVIR HCL (VALCYTE ORAL) Take by mouth ??? VITAMIN B COMPLEX ORAL Take by mouth ??? zolpidem (AMBIEN) 10 mg tablet Take 10 mg by mouth daily No Known Allergies Review of Systems Constitutional: Negative for fever, chills, weight loss and malaise/fatigue. HENT: Positive for congestion. Negative for ear pain, hearing loss, sore throat and tinnitus. Eyes: Negative for blurred vision, double vision and photophobia. Respiratory: Positive for cough, shortness of breath and wheezing. Negative for hemoptysis. Cardiovascular: Positive for leg swelling. Negative for chest pain, palpitations and claudication. Gastrointestinal: Negative for heartburn. Musculoskeletal: Negative for myalgias and joint pain. Skin: Negative for rash. Neurological: Negative for sensory change, focal weakness and headaches. Endo/Heme/Allergies: Positive for environmental allergies. Does not bruise/bleed easily. - See HPI Objective: There were no vitals taken for this visit. Physical Exam Department of Otolaryngology PHYSICAL EXAMINATION CONSTITUTIONAL: VITAL SIGNS: Not reviewed APPEARANCE: The patient appears alert, cooperative, and comfortable. ABILITY TO COMMUNICATE / VOICE: Voice quality: hoarse HEAD AND FACE: INSPECTION: Normal without apparent scars, lesions, or masses. PALPATION: There are no masses or sinus tenderness. SALIVARY GLANDS: Submandibular and Parotid glands are normal bilaterally FACIAL STRENGTH: Intact and symmetrical bilaterally EXTERNAL EAR & NOSE: No external ear or nose deformity noted EYES: EYES: pupils equal, round, reactive to light and extraocular movements intact EARS, NOSE, MOUTH AND THROAT: OTOSCOPY: Right external auditory canal: patent and non-inflamed Left external auditory canal: patent and non-inflamed Right tympanic membrane: intact without retraction, perforation or effusion Left tympanic membrane: intact without retraction, perforation or effusion WHISPER/TUNING FORK: Hearing subjectively normal NOSE: see nasal endoscopy report LIPS, TEETH & GUMS: partially edentulous ORAL CAVITY & OROPHARYNX: normal HYPOPHARYNX & PHARYNGEAL JENNINGS: See flexible exam report LARYNX: See flexible exam report NASOPHARYNX: See flexible exam report NECK: GENERAL: Supple, no asymmetry or crepitus, trachea midline THYROID: Normal LYMPHATIC: CERVICAL LYMPH NODES: No pathologic cervical lymphadenopathy noted RESPIRATORY: LUNGS: Breathing comfortably on RA CARDIOVASCULAR: CARDIOVASCULAR: No peripheral cyanosis, edema. Normal pulses and temperature in extremities NEUROLOGIC: NEUROLOGIC: Normal mood and affect Endoscopy Procedure Note Pre-procedure Diagnosis: Chronic rhinitis, Hoarseness / Dysphonia and Nasal obstruction Post-procedure Diagnosis: same Indications: Evaluation of the larynx and immediate subglottis - unable to be visualized by mirror examination Nasal/sinus symptoms requiring endoscopy - unable to visualize adequately by anterior or posterior rhinoscopy Anesthesia: Cophenylcaine Endoscopy Type: Nasal endoscopy and Laryngoscopy using a 0 degree rigid telescope and flexible laryngoscope Procedure Details: With the patient sitting upright in the examining chair informed consent was obtained. The left nostril was topically anesthetized with cotton pledgets and right nostril was topically anesthetized with cotton pledgets. After waiting an appropriate period of time for anesthesia/ vasoconstriction to become effective (if this was applicable), the scope was passed into the left nostril and right nostril and the nasal cavities, nasopharynx, oropharynx, hypopharynx and larynx were examined. Condition: Patient tolerated procedure well and left the office in a stable condition. Complications: None Findings: Nasal Cavities: Left nasal cavity: Post surgical changes to inferior turbinates with good reduction. Normal middle turbinate. Maxillary antrostomy widely patent, uncinate process still in place. There is a small polyp vs. mucous retention cyst in the maxillary sinus. Green crust on anterior middle turbinate. Right nasal cavity: Post surgical changes of inferior turbinate. Normal middle turbinate.Thick secretions in middle meatus. This was suctioned and sent for culture. Small mucous retention cyst on floor of maxillary sinus. Widely patent maxillary antrostomy. Septum midline. Nasopharynx: Normal exam of choanae, eustachian tubes, and adenoids for age Oropharynx: Normal exam of tongue base, tonsils, and posterior pharynx Hypopharynx: Some thick mucous visible, otherwise normal pyriform sinuses. Larynx: Edematous and grijalva appearing vocal cords bilaterally. There is a thick posterior band of edema. Erythema and edema of postcricoid and interarytenoid space. Cords mobile bilaterally. No massesor lesions. Assessment: Joselyn Sheets is a 59yo F presenting with symptoms due to the followin. Sinusitis: Both maxillary sinuses appear widely patent with small mucous retention cysts vs. Polyp on the floor of the sinus. They are otherwise air filled and shouldn't be causing the facial painthat she is having. She did have some thick mucous and some crusting on endoscopy today. Will send the mucous for culture. She would probably benefit from nasal irrigation to help break down the thick mucous. Her facial pain may be related to her TMJ and recommended she follow up with her dentist about it. 2. LPRD: Her larynx appears to be irritated by chronic reflux. Will have her increase her dose of omeprazole to twice daily for the next 3 months. Plan: Joselyn was seen today for sinus problems. Diagnoses and associated orders for this visit: 1. Chronic sinusitis, unspecified location - mupirocin (BACTROBAN) 2 % ointment; Apply 1 and 1/3 tube to nasal saline mixture - Nasal saline irrigation twice daily - Bactroban/baby shampoo rinses twice daily after saline rinses - CT SINUSES - F/u in 2-3 months. LPRD (laryngopharyngeal reflux disease) - omeprazole (PRILOSEC) 40 mg capsule; Take 1 Cap by mouth 2 times daily Audi Nieto MD Pager #[phone] 02/24/2015 14:22 Attestation statement: I saw and examined the patient with the resident/fellow. I agree with the findings and plan of care documented in the resident's/fellow's note. I supervised and performed the procedure as described above. Silvio Oscar MD documented in this encounter Plan of Treatment Scheduled Orders Name Type Priority Associated Diagnoses Orde r Schedule CT SINUSES Imaging Routine Chronic sinusitis, unspecified location Ordered: 02/24/2015 documented as of this encounter Procedures Procedure Name Priority Date/Time Associated Diagnosis Comments BACTERIAL CULTURE/SMEAR Routine 02/24/2015 14:20 EDT Chronic sinusitis, unspecified location documented in this encounter Results * BACTERIAL CULTURE/SMEAR, OTHER (02/24/2015 14:20 EDT) Gram Smear Result Few Polys 02/24/2015 17:08 EDT [facility] Gram Smear Result Mod Gram positive cocci 02/24/2015 17:08 EDT [facility] Result Mod STAPHYLOCOCC US AUREUS 02/25/2015 8:19 EDT [facility] Specimen of unknown material (specimen) NASAL ROUTE / Unknown 02/24/2015 14:20 EDT 02/24/2015 15:33 EDT Comment:Leuken's specimen~Si nus Narrative Organism Antibiotic Method Susceptibility Mod staphylococcus aureus Susceptibility comment SUSCEPTIBILITY (ZAYRA) Mod staphylococcus aureus Susceptibility comment SUSCEPTIBILITY (ZAYRA) Susceptible to nafcillin, cephalosporins and other beta lactam antibiotics (mecA gene product absent). Mod staphylococcus aureus Oxacillin SUSCEPTIBILITY (ZAYRA) 0.5: Susceptible Mod staphylococcus aureus Cefazolin SUSCEPTIBILITY (ZAYRA) Susceptible Mod staphylococcus aureus Vancomycin SUSCEPTIBILITY (ZAYRA) 1: Susceptible Mod staphylococcus aureus Erythromycin SUSCEPTIBILITY (ZAYRA) <=0.25: Susceptible Mod staphylococcus aureus Clindamycin SUSCEPTIBILITY (ZAYRA) 0.25: Susceptible Mod staphylococcus aureus Ciprofloxacin SUSCEPTIBILITY (ZAYRA) <=0.5: Susceptible Mod staphylococcus aureus Tetracycline SUSCEPTIBILITY (ZAYRA) <=1: Susceptible Mod staphylococcus aureus Trimethoprim-Sulfamet hoxazole SUSCEPTIBILITY (ZAYRA) <=10: Susceptible Silvio Oscar MD MICROBIOLOGY - GENERAL ORDERABLES [facility] [address] [place] [address] documented in this encounter Visit Diagnoses Diagnosis Chronic sinusitis, unspecified location- Primary LPRD (laryngopharyngeal reflux disease) Other diseases of larynx documented in this encounter Discontinued Medications Medication Sig Discontinue Reason Start Date End Da te omeprazole (PRILOSEC) 20 mg capsule Take 20 mg by mouth daily Dose adjustment 02/24/2015 mupirocin (BACTROBAN) 2 % ointmentIndications:[employer] of[employer] sinusitis, unspecified location Apply 1 and 1/3 tube to nasal saline mixture Alternate therapy 02/24/2015 02/24/2015 documented as of this encounter Historical Medications * This list may reflect changes made after this encounter. Medication Sig Dispensed Refills Start Date End Date ibuprofen (MOTRIN) 200 mg tablet Take 200 mg by mouth every 6 hours acetaminophen (TYLENOL) 325 mg tablet Take 650 mg by mouth every 4 hours as needed for Pain zolpidem (AMBIEN) 10 mg tablet Take 5 mg by mouth as needed. VITAMIN B COMPLEX ORAL Take by mouth MULTIVIT &MINERALS/FERROUS FUM (MULTI VITAMIN ORAL) Take by mouth CALCIUM CARBONATE/VITAMIN D3 (CALCIUM + D ORAL) Take by mouth DULoxetine (CYMBALTA) 60 mg capsule Take 60 mg by mouth daily ALBUTEROL SULFATE (VENTOLIN INHL) Inhale as directed mometasone (NASONEX) 50 mcg/actuation nasal spray Instill 2 Sprays into right nostril as needed. atorvastatin (LIPITOR) 10 mg tablet Take 10 mg by mouth daily fexofenadine (VONDA) 180 mg tablet Take 180 mg by mouth daily montelukast (SINGULAIR) 10 mg tablet Take 10 mg by mouth daily tiotropium (SPIRIVA) 18 mcg inhalation capsule Inhale 18 mcg as directed daily fluticasone-salmeterol (ADVAIR) 500-50 mcg/dose diskus inhaler Inhale 1 Puff as directed 2 times daily estradiol (ESTRACE) 0.5 mg tablet Take 0.5 mg by mouth daily. 1/2 tab every other day omeprazole (PRILOSEC) 20 mg capsule Take 20 mg by mouth daily 02/24/2015 VALGANCICLOVIR HCL (VALCYTE ORAL) Take by mouth 06/17/2015 added in this encounter Care Teams Brick Stacker Relationship Specialty Start Date End Date Nicole Hubbard MD [address] [place] [address] [address] [place] [id number] PCP - General 10/05/11 documented as of this encounter
--- OUTSIDE RECORDS SUMMARY | 2024-03-14 18:05 | XMS_ITS | Encounter Summary ---
Author Organization [facility] Address [address] [place] [address] Care Team Providers Care Field Application Engineer Name Role Phone Unavailable Primary Care Provider Unavailabl e Encounter Details Date Type Department Care Team (Late st Contact Info) Description 05/10/2000 Results Only [facility] [address] [place] [address] Jonn Suarez MD [address] [place] [address] Social History Tobacco Use Types Packs/Day Years Used Date Smoking Tobacco: Never Assessed Sex and Gender Information Value Date Recorded Sex Assigned at Not on file Gender Identity Not on file Sexual Orientation Not on file documented as of this encounter Plan of Treatment Not on file documented as of this encounter Procedures Procedure Name Priority Date/Time Associated Diagnosis Comments SURGICAL PATHOLOGY Routine 05/10/2000 0:00 EST documented in this encounter Results * SURGICAL PATHOLOGY (05/10/2000 0:00 EST) Pathology Report: SURGICAL PATHOLOGY REPORT Reports generated via electronic interface contain original data; however they are lacking the format of the original report. Caution should be taken when reading/interpreti ng unformatted reports. Name: ? FITCH, ALICE ? Accession #: ? [id number] ? : ? 1955 (Age: 44) ??F ? Collect Date: ? 05/10/2000 ? Location: ? [facility] ? Receive Date: ? 05/10/2000 ? Provider: JOHN SUAREZ MD Copy to: RAUL ARMSTRONG MD ? Final Pathologic Diagnosis: ? Esophagus, GE ??junction, biopsy: 1. ?Squamocolumnar mucosa with focal intestinal metaplasia and chronic inflammation. 2. ?Acute esophagitis with eosinophils consistent with reflux disease. See comment. Comment: ? Intestinal metaplasia is identified. ??Depending on the clinical impression and location of the biopsy site, the findings may represent Rojas' s esophagus. ??There is no definitive evidence of dysplasia. ??(Dr. Ledbetter)/[facility] Document reviewed and electronically signed by: TOI PRADO MD Report ??Date: 05/20/2000 21:44 By the signature above, the attending physician certifies that he/she has personally conducted a gross and/or microscopic examination of the described specimens and rendered or confirmed the above diagnosis. Specimen(s) Received: ? EG jct Clinical History: ? Small HH, heartburn Gross Description: ? Received in Quane' s fixative labelled Sessions and EG junct are multiple small fragments of soft tissue measuring 0.5 x 0.4 x 0.3 cm in aggregate. ??The specimen is submitted entirely in one cassette. ??(Dr. Ledbetter)/aldo End of Report HOWARD RODRIGES 05/10/2000 05/10/2000 15: 36 EST Jonn Suarez MD PATHOLOGY ORDERABLES HOWARD RODRIGES [address] [place] [address] documented in this encounter Visit Diagnoses Not on filedocumented in this encounter
--- OUTSIDE RECORDS SUMMARY | 2024-03-14 18:05 | XMS_ITS | Encounter Summary ---
Author Organization [facility] Address [address] [place] [address] Care Team Providers Care Glass Unloading Equipment Tender Name Role Phone Nicole Hubbard MD Primary Care Provider Encounter Details Date Type Department Care Team (Late st Contact Info) Description 04/26/2020 Lab Requisition [facility] Pathology & Laboratory Medicine - [address] [address] Negrita Pozo, DO [address] [place] [address] Encounter for other general examination Social History Tobacco Use Types Packs/Day Years [...] Priority Date/Time Associated Diagnosis Comments SURGICAL PATHOLOGY Today 04/26/2020 8: 10 EST Encounter for other general examination documented in this encounter Results * SURGICAL PATHOLOGY (04/26/2020 8:10 EST) Final Diagnosis A. DUODENUM, BULB, BIOPSY: - Duodenal bulb mucosa with no specific pathologic features. B. STOMACH, ANTRUM, BIOPSY: - Gastric mucosa with reactive (chemical) gastropathy. C. STOMACH, GREATER CURVE, BIOPSY: - Superficial fragments of gastric mucosa with no specific pathologic features. D. GASTROINTESTINAL JUNCTION, BIOPSY: - Squamous mucosa with reflux esophagitis. E. ESOPHAGUS, DISTAL, BIOPSY: - Squamous mucosa with mild reflux esophagitis. F. COLON, CECUM, BIOPSY: - Colonic mucosa with nonspecific histologic features of regeneration/repai r. G. COLON, 70 CM, BIOPSY: - Colonic mucosa with no specific pathologic features. H. COLON, 60 CM, BIOPSY: - Colonic mucosa with no specific pathologic features. I. COLON, 30 CM, BIOPSY: - Colonic mucosa with no specific pathologic features. J. COLON, 30 CM, POLYP, BIOPSY: - Polypoid granulation tissue. K. RECTUM, POLYP, BIOPSY: - Rectal mucosa with no specific pathologic features. 04/27/2020 17:42 [facility] Attestation By the signature below, the attending physician certifies that they have 1) personally conducted a gross and/or microscopic examination of the described specimen(s), and/or personally interpreted the results of laboratory testing of the described specimen(s), and 2) personally rendered or confirmed the above diagnosis. 04/27/2020 17:42 [facility] at 1742 Clinical History Anemia 04/27/2020 17:42 [facility] Gross Description A. Received in formalin labelled with proper patient identification (initials H, A) and duodenal bulb bx is a single hughes tissue (0.3 x 0.2 x 0.2 cm). Submitted entirely in A1. B. Received in formalin labelled with proper patient identification (initials H, A) and antrum bx is a single hughes tissue (0.3 x 0.2 x 0.2 cm). Submitted entirely in B1. C. Received in formalin labelled with proper patient identification (initials H, A) and greater curve bx is a single hughes tissue (0.3 x 0.2 x 0.2 cm). Submitted entirely in C1. D. Received in formalin labelled with proper patient identification (initials H, A) and GE junction bx is a single hughes tissue (0.4 x 0.2 x 0.1 cm). Submitted entirely in D1. E. Received in formalin labelled with proper patient identification (initials H, A) and distal esophagus bx is a single hughes tissue (0.3 x 0.1 x 0.1 cm). Submitted entirely in E1. F. Received in formalin labelled with proper patient identification (initials H, A) and cecum bx is a single hughes tissue (0.3 x 0.2 x 0.1 cm). Submitted entirely in F1. G. Received in formalin labelled with proper patient identification (initials H, A) and bx at 70 cm colon is a single hughes tissue (0.2 x 0.1 x 0.1 cm). Submitted entirely in G1. H. Received in formalin labelled with proper patient identification (initials H, A) and colon bx at 60 cm is a single hughes tissue (0.2 x 0.1 x 0.1 cm). Submitted entirely in H1. I. Received in formalin labelled with proper patient identification (initials H, A) and colon bx at 30 cm is a single hughes tissue (0.3 x 0.2 x 0.1 cm). Submitted entirely in I1. J. Received in formalin labelled with proper patient identification (initials H, A) and polyp colon at 30 cm are 3 hughes tissues (0.3 x 0.2 x 0.1 cm, 0.2 x 0.1 x 0.1 cm, and 0.1 x 0.1 x 0.1 cm). Submitted entirely in J1. K. Received in formalin labelled with proper patient identification (initials H, A) and rectal polyp is a single hughes polypoid tissue (0.3 x 0.2 x 0.1 cm). Submitted intact in K1. ANNABELLE BEARD(ASCP) 04/27/2020 19:12 04/27/2020 17:42 [facility] Performing Lab [facility] 17:42 EST [facility] Scanned Images 04/27/2020 17:42 EST [facility] Tissue SPECIMEN FROM RECTUM / Unknown 04/26/2020 8:10 EST 04/26/2020 16:24 EST Tissue specimen (specimen) STOMACH STRUCTURE / Unknown 04/26/2020 8:10 EST 04/26/2020 16:24 EST Tissue specimen (specimen) STOMACH STRUCTURE / Unknown 04/26/2020 8:10 EST 04/26/2020 16:24 EST Tissue specimen (specimen) ESOPHAGEAL STRUCTURE / Unknown 04/26/2020 8:10 EST 04/26/2020 16:24 EST Tissue specimen (specimen) ESOPHAGEAL STRUCTURE / Unknown 04/26/2020 8:10 EST 04/26/2020 16:24 EST Tissue specimen (specimen) CECUM STRUCTURE / Unknown 04/26/2020 8:10 EST 04/26/2020 16:24 EST Tissue specimen (specimen) COLON STRUCTURE / Unknown 04/26/2020 8:10 EST 04/26/2020 16:24 EST Tissue specimen (specimen) COLON STRUCTURE / Unknown 04/26/2020 8:10 EST 04/26/2020 16:24 EST Tissue specimen (specimen) COLON STRUCTURE / Unknown 04/26/2020 8:10 EST 04/26/2020 16:24 EST Tissue specimen (specimen) COLON STRUCTURE / Unknown 04/26/2020 8:10 EST 04/26/2020 16:24 EST Tissue specimen (specimen) SPECIMEN FROM RECTUM / Unknown 04/26/2020 8:10 EST 04/26/2020 16:24 EST Negrita Pozo DO PATHOLOGY ORDERABLES [facility] [address] [place] [address] documented in this encounter Visit Diagnoses Diagnosis Encounter for other general examination documented in this encounter Care Teams Glass Unloading Equipment Tender Relationship Specialty Start Date End Date Nicole Hubbard MD [address] [place] [address] PCP - General 10/05/11 documented as of this encounter
--- OUTSIDE RECORDS SUMMARY | 2024-03-14 18:05 | XMS_ITS | Encounter Summary ---
Author Organization [facility] [place] [address] Care Team Providers Care Inspector Machine Cut Glass Name Role Phone iNcole Hubbard MD Primary Care Provider [phone] Encounter Details Date Type Department Care Team (Late st Contact Info) Description 09/10/2012 Orders [place] [address] Ivan Loja MD [facility] [place] [address] Asthma (Primary Dx) Social History Tobacco Use Types Packs/Day Years Used Date Smoking Tobacco: Never Assessed Sex and Gender Information Value Date Recorded Sex Assigned at Not on file Gender Identity Not on file Sexual Orientation Not on file documented as of this encounter Plan of Treatment Not on file documented as of this encounter Results * Pulmonary Function Testing [...] Visit Diagnoses Diagnosis Asthma- Primary Unspecified asthma Asthma- Primary Unspecified asthma documented in this encounter Care Teams Inspector Machine Cut Glass Relationship Specialty Start Date End Date Nicole Hubbard MD [address] [facility] [address] [place] [address] PCP - General 03/29/10 documented as of this encounter
--- OUTSIDE RECORDS SUMMARY | 2024-03-14 18:05 | XMS_ITS | Encounter Summary ---
Author Organization [facility] Address [address] [place] [address] Care Team Providers Care Fountain Waitress/Waiter Name Role Phone Nicole Hubbard MD Primary Care Provider [phone] Encounter Details Date Type Department Care Team (Late st Contact Info) Description 09/11/2020 Lab Requisition [facility] Pathology & Laboratory Medicine - [facility] [address] [place] [address] Outr Resulting Lab, Provider Social History Tobacco Use Types Packs/Day Years [...] Procedure Name Priority Date/Time Associated Diagnosis Comments GIARDIA AND CRYPTOSPORIDIUM ANTIGENS Routine 09/10/2020 15:00 EDT documented in this encounter Results * GIARDIA AND CRYPTOSPORIDIUM ANTIGENS (09/10/2020 15:00 EDT) Giardia and Cryptosporidium Cryptosporidium Antigen Neg and Giardia Antigen Neg Cryptosporidium Antigen Neg and Giardia Antigen Neg 9:38 EDT [facility] Feces SPECIMEN FROM RECTUM / Unknown Stool Collect / Unknown 09/10/2020 15:00 EDT 09/12/2020 17:14 EDT Provider Outr Resulting Lab MICROBIOLOGY - GENERAL ORDERABLES [facility] [address] [place] [address] documented in this encounter Visit Diagnoses Not on filedocumented in this encounter Care Teams Fountain Waitress/Waiter Relationship Specialty Start Date End Date Nicole Hubbard MD [address] [place] [address] PCP - General 10/05/11 documented as of this encounter
--- OUTSIDE RECORDS SUMMARY | 2024-03-14 18:05 | XMS_ITS | Encounter Summary ---
Author Organization [facility] Address [address] [place] [address] Care Team Providers Care Registrar [employer] Name Role Phone Nicole Hubbard MD Primary Care Provider [phone] Encounter Details Date Type Department Care Team (Late st Contact Info) Description 04/15/2020 Lab Requisition [facility] Pathology & Laboratory Medicine - [address] [address] Outr Resulting Lab, Provider Social History Tobacco [...] Procedure Name Priority Date/Time Associated Diagnosis Comments PTH INTACT Routine 04/14/2020 15:40 EST documented in this encounter Results * PTH INTACT (04/14/2020 15:40 EST) Intact PTH 48 19 - 88 pg/mL 04/16/2020 9:17 EST [facility] Blood VENOUS BLOOD / Unknown 04/14/2020 15:40 EST 04/15/2020 16:30 EST Provider Outr Resulting Lab CHEMISTRY & BLOOD GAS ORDERABLES [facility] [address] [place] [address] documented in this encounter Visit Diagnoses Not on filedocumented in this encounter Care Teams Registrar [employer] Relationship Specialty Start Date End Date Nicole Hubbard MD [address] [place] [phone] PCP - General 10/05/11 documented as of this encounter
--- OUTSIDE RECORDS SUMMARY | 2024-03-14 18:05 | XMS_ITS | Encounter Summary ---
Author Organization [facility] Address [address] [place] [address] Care Team Providers Care Unloader Name Role Phone Nicole Hubbard MD Primary Care Provider [phone] Encounter Details Date Type Department Care Team (Late st Contact Info) Description 09/23/2019 Lab Requisition [facility] Pathology & Laboratory Medicine - [address] [address] Outr Resulting Lab, Provider Social History Tobacco [...] Procedure Name Priority Date/Time Associated Diagnosis Comments DO NOT ORDER STANDALONE - BROAD COVID TEST Today 09/23/2019 12:59 EDT COVID-19 TESTING Routine 09/23/2019 12:5 9 EDT documented in this encounter Results * DO NOT ORDER STANDALONE - BROAD COVID TEST (09/23/2019 12:59 EDT) COVID-19 rt-PCR Result NEGATIVE Negative 09/24/2019 22:30 EDT [facility] Comment: 2019-novel Coronavirus (2019-nCoV) not detected by the qRT-PCR assay. Consider testing for other respiratory viruses or re-collecting for 2019-nCoV testing. Note: Optimum timing for peak viral levels during infections caused by 2019-nCoV have not been determined. Collection of multiple specimens from the same patient may be necessary to detect the virus. Limitations Positive results are indicative of active infection with SARS-CoV-2 but do not rule out bacterial infection or co-infection with other viruses. The agent detected may not be the definite cause of disease. In addition, detection of viral RNA may not indicate the presence of infectious virus or that SARS-CoV-2 is the causative agent for clinical symptoms. Negative results do not preclude SARS-CoV-2 infection and should not be used as the sole basis for patient management decisions. Negative results must be combined with clinical observations, patient history, and epidemiological information. False negative results may also occur if amplification inhibitors are present in the specimen or if inadequate numbers of organisms are present in the specimen. Optimum specimen types and timing for peak viral levels during infections caused by SARS-CoV-2 have not been fully determined. Collection of multiple specimens (types and time points) from the same patient may be necessary to detect the virus. The test was validated for use with upper respiratory specimens obtained via nasopharyngeal or oropharyngeal swabs in VTM, UTM, M4, M5, M6, saline, and MTM media. The performance of this test has not been established for other specimens. Specimens collected using other FDA recommended Specimen Collection Materials listed in the FDA COVID-19 [employer] communication (July 31, 2019) are processed with the caveat that they were not all validated for use with this test and the result must be interpreted in this context. Furthermore, a false negative results may occur if a specimen is improperly collected, transported or handled. If the virus mutates in the RT-PCR target region, SARS-CoV-2 may not be detected or may be detected less predictably. Inhibitors or other types of interference may produce a false negative result. An interference study evaluating the effect of common cold medications was not performed. This test is not FDA-cleared but its performance characteristics were established by our CLIA-certified, CAP-accredited, high complexity laboratory in accordance with CLIA regulations, [employer] (CAP) guidelines (Jul 24, 2019), and FDA guidance (Jul 05, 2019). This test is only for use under the Food and Drug Administration's Emergency Use Authorization. Swab ENTIRE NASOPHARYNX / Unknown 09/23/2019 12:59 EDT 09/23/2019 20:18 EDT Provider Outr Resulting Lab MICROBIOLOGY - GENERAL ORDERABLES [facility] [place] * COVID-19 TESTING (09/23/2019 12:59 EDT) [facility] COVID-19 rt-PCR Result NEGATIVE Negative 09/25/2019 0:32 EDT [facility] Comment: 2019-novel Coronavirus (2019-nCoV) not detected by the qRT-PCR assay. Consider testing for other respiratory viruses or re-collecting for 2019-nCoV testing. Note: Optimum timing for peak viral levels during infections caused by 2019-nCoV have not been determined. Collection of multiple specimens from the same patient may be necessary to detect the virus. Limitations Positive results are indicative of active infection with SARS-CoV-2 but do not rule out bacterial infection or co-infection with other viruses. The agent detected may not be the definite cause of disease. In addition, detection of viral RNA may not indicate the presence of infectious virus or that SARS-CoV-2 is the causative agent for clinical symptoms. Negative results do not preclude SARS-CoV-2 infection and should not be used as the sole basis for patient management decisions. Negative results must be combined with clinical observations, patient history, and epidemiological information. False negative results may also occur if amplification inhibitors are present in the specimen or if inadequate numbers of organisms are present in the specimen. Optimum specimen types and timing for peak viral levels during infections caused by SARS-CoV-2 have not been fully determined. Collection of multiple specimens (types and time points) from the same patient may be necessary to detect the virus. The test was validated for use with upper respiratory specimens obtained via nasopharyngeal or oropharyngeal swabs in VTM, UTM, M4, M5, M6, saline, and MTM media. The performance of this test has not been established for other specimens. Specimens collected using other FDA recommended Specimen Collection Materials listed in the FDA COVID-19 [employer] communication (July 31, 2019) are processed with the caveat that they were not all validated for use with this test and the result must be interpreted in this context. Furthermore, a false negative results may occur if a specimen is improperly collected, transported or handled. If the virus mutates in the RT-PCR target region, SARS-CoV-2 may not be detected or may be detected less predictably. Inhibitors or other types of interference may produce a false negative result. An interference study evaluating the effect of common cold medications was not performed. This test is not FDA-cleared but its performance characteristics were established by our CLIA-certified, CAP-accredited, high complexity laboratory in accordance with CLIA regulations, [employer] (CAP) guidelines (Jul 24, 2019), and FDA guidance (Jul 05, 2019). This test is only for use under the Food and Drug Administration's Emergency Use Authorization. Performing Lab [facility] 09/25/2019 0:32 EDT [facility] Swab ENTIRE NASOPHARYNX / Unknown 09/23/2019 12:59 EDT 09/23/2019 20:18 EDT Provider Outr Resulting Lab MICROBIOLOGY - GENERAL ORDERABLES [facility] [address] [place] [address] [facility] [place] documented in this encounter Visit Diagnoses Not on filedocumented in this encounter Care Teams Unloader Relationship Specialty Start Date End Date Nicole Hubbard MD [address] [place] [address] PCP - General 10/05/11 documented as of this encounter
--- OUTSIDE RECORDS SUMMARY | 2024-03-14 18:05 | XMS_ITS | Encounter Summary ---
Author Organization [facility] Address [address] [place] [address] Care Team Providers Care Electrolysis Operator Name Role Phone Nicole Hubbard MD Primary Care Provider [phone] Encounter Details Date Type Department Care Team (Late st Contact Info) Description 09/11/2020 Lab Requisition [facility] Pathology & Laboratory Medicine - [facility] [address] [place] [address] Outr Resulting Lab, Provider Social History Tobacco [...] Procedure Name Priority Date/Time Associated Diagnosis Comments FECAL BACTERIAL PATHOGENS BY PCR Routine 09/10/2020 15:00 EDT documented in this encounter Results * FECAL BACTERIAL PATHOGENS BY PCR (09/10/2020 15:00 EDT) Salmonella PCR Negative Negative 09/12/2020 22:50 EDT [facility] Shigella/Enteroin vasive E. coli Negative Negative 09/12/2020 22:50 EDT [facility] HN LAB CAMPYLOBACTER PCR Negative Negative 09/12/2020 22:50 EDT [facility] Shiga Toxin PCR Negative Negative 22:50 EDT [facility] Feces SPECIMEN FROM RECTUM / Unknown Stool Collect / Unknown 09/10/2020 15:00 EDT 09/12/2020 17:14 EDT Provider Outr Resulting Lab MICROBIOLOGY - GENERAL ORDERABLES Performing Organization Address City/State/[facility] Co de Phone Number [facility] [address] [place] [address] documented in this encounter Visit Diagnoses Not on filedocumented in this encounter Care Teams Electrolysis Operator Relationship Specialty Start Date End Date Nicole Hubbard MD [address] [place], [place] [address] [address] [place] [address] PCP - General 10/05/11 documented as of this encounter
--- OUTSIDE RECORDS SUMMARY | 2024-03-14 18:05 | XMS_ITS | Encounter Summary ---
Author Organization [facility] Address [address] [place] [address] Care Team Providers Care Sprinkler Inspector Name Role Phone Nicole Hubbard MD Primary Care Provider [phone] Reason for Visit * Reason Comments Nasal Congestion Facial Pain Encounter Details Date Type Department Care Team (Late st Contact Info) Description 04/16/2015 13:00 EST Office Visit [facility] ENT- [facility] [address], [place] [id number] Silvio Oscar MD [address] [place] [address] DNS (deviated nasal septum) (Primary Dx); Other chronic sinusitis; LPRD (laryngopharyngeal reflux disease) Social History Tobacco Use Types Packs/Day Years Used Date Smoking Tobacco: Former Alcohol Use Standard Drinks/Week Comments No 0 (1 standard drink = 0.6 oz pur e alcohol) Sex and Gender Information Value Date Recorded Sex Assigned at Not on file Gender Identity Not on file Sexual Orientation Not on file documented as of this encounter Progress Notes * Silvio Oscar MD - 04/16/2015 1548 EST PROBLEM: Nasal obstruction, chronic rhinosinusitis, LPR followup. SUBJECTIVE: A 59-year-old female initially evaluated in consultation at the request of Dr Nicole Hubbard for a constellation of symptoms consistent with the above chief complaint. She underwent previous endoscopic sinus surgery in addition to a septoplasty in [facility]. Her most bothersome symptoms are persistent right nasal obstruction which is not improved on medical therapy and ongoing thick foul postnasal drainage for which she has not appreciated any improvement after 2 months of mupirocin compounded antibiotic rinses. She returns with an updated post-treatment CTsinus scan. Additionally, there was no change in her voice after increasing her omeprazole 40 mg twice daily. This has been problematic for 10 years. She is completely asymptomatic of dyspepsia or reflux. Past medical, surgical history, medication list, allergy status reviewed and updated to [facility]. EXAMINATION: Joselyn is alert and oriented. She has a very harsh raspy, non- breathy voice unchanged from previous examination. Both ears are normal. Tympanic membranes are normal and there was no middle ear fluid. TMJ region nontender. Oral cavity reveals incomplete fair dentition. Mucous membranes are healthy. Oropharynx is widely patent. She has no tonsils and there was no excess postnasal drainage. Neck exam is clear without palpable lymphadenopathy. Nasal exam reveals normal nasal vestibule. There was no evidence of static or dynamic nasal valve collapse. She has a significant deviation of the nasal septum on the right side obstructing the superior nasal valve. Romi provided partial impr ovement. Turbinates appeared normal bilaterally. Nasal mucosa is pale, boggy, but otherwise healthy. No evidence of polyps or mucopus. PROCEDURE: Bilateral nasal with flexible fiberoptic nasal laryngoscopy. In sitting position neuro patties were inserted bilaterally. Post-removal, no change in the left nasal airway, which was patent. Minimal improvement on the right side. Reexamination, no additional findings. Bilateral nasal endoscopy was performed using the flexible scope. On the left side there was widelypatent airway. Middle turbinate was medialized. The uncinate process was completely intact. I was able this to visualize the surgical antrostomy; however, uncertain that it was in communication with the natural ostium. Persistent polyp or cyst on anterior floor. The ethmoids partially excised. No significant inflammation or other abnormalities. Posterior nasal cavity including sphenoethmoid recess and Nasopharynx were patent. Right nasal endoscopy widely patent airway. Medialized middle turbinate. Middle meatus is patent. The uncinate process was completely intact. There was a surgical antrostomy. Retained pasty yellowishmaterial. Edema around the position of the natural ostium, which did not appear to be in continuitywith the previously created surgical antrostomy. The ethmoids appeared clear. Flexible scope was passed along the floor of the right naris to the nasopharynx which was patent. The distal airway widely patent. Normal tongue base, pre- epiglottic space, and piriform sinuses without pooling of secretions. The larynx reveals persistent posterior laryngeal hyperplastic thickening.The true vocal cords revealed polypoid changes. Supraglottic region slightly hypertrophic, but not significantly so. Vocal cords were symmetrically mobile. ASSESSMENT: 1. Chronic laryngitis/corditis in the setting of gastroesophageal reflux disease, unresponsive to medical therapy. She is also a remote reformed smoker of 10 years. Further evaluation is indicated and patient will likely will require some surgical intervention. 2. Septoplasty for improvement of right nasal airway with possible surgical reduction. She has failed medical therapy including an adequate trial of nasal steroids. 3. Chronic rhinosinusitis. She has failed medical therapy including 2 months of additional topical antibiotics. She has been on multiple courses of oral antibiotics without improvement. CT sinus scans reveal significant disease including intact uncinate processes bilaterally. Significant opacification of the right maxillary sinus and polypoid or cystic changes of the left maxillary sinus. Revision endoscopic sinus surgery is indicated. PLAN: I reviewed my findings and impressions. We are proceeding as follows: 1. Revision septoplasty. This may require reconstruction and extended stabilization with a Hamlin nasal splints for upwards of 2 weeks. 2. Revision endoscopic sinus surgery with attention to the maxillary sinuses including uncinectomy and communicating natural with the previously created surgical antrostomy at least on the right sideand possibly on the left. I reviewed the surgical and technical standpoint including anticipated outcome with improvement, limitations with less than subjectively anticipated improvement. Potential risks and complications including, but not exclusive to infection, hemorrhage, blindness, double vision, CSF leakage, meningitis, brain abscess, permanent loss of smell and taste. This was acknowledged and she wishes to proceed. 3. Consultation with Dr Misha Lamb for chronic laryngitis/corditis. 4. She should continue omeprazole 40 mg twice daily until she sees Dr Lamb. cc: MD Misha Clarke MD documented in this encounter Plan of Treatment Not on file documented as of this encounter Visit Diagnoses Diagnosis DNS (deviated nasal septum)- Primary Deviated nasal septum Other chronic sinusitis LPRD (laryngopharyngeal reflux disease) Other diseases of larynx documented in this encounter Historical Medications * This list may reflect changes made after this encounter. Medication Sig Dispensed Refills Start Date End Date hydrochlorothiazide (HYDRODIURIL) 25 mg tablet Take 12.5 mg by mouth daily. added in this encounter Care Teams Sprinkler Inspector Relationship Specialty Start Date End Date Nicole Hubbard MD [address] [place], [place] [address] [address] [place] [address] PCP - General 10/05/11 documented as of this encounter
--- OUTSIDE RECORDS SUMMARY | 2024-03-14 18:05 | XMS_ITS | Encounter Summary ---
Author Organization [facility] Address [address] [place] [address] Care Team Providers Care Securities Teller Name Role Phone Nicole Hubbard MD Primary Care Provider [phone] Reason for Visit * Reason Comments Follow-up Encounter Details Date Type Department Care Team (Late st Contact Info) Description 08/10/2015 11:00 EDT Office Visit [facility] ENT- [facility] [address] [place], [place] [id number] Silvio Oscar MD [address] [place] [address] Other chronic sinusitis (Primary Dx) Social History Tobacco Use Types [...] Dispensed Refills Start Date End Da te azelastine (ASTELIN) nasal spray Instill 1-2 Sprays into both nostrils 2 times daily. 1 Bottle 11 08/10/2015 documented in this encounter Progress Notes * Silvio Oscar MD - 08/10/2015 1257 EDT PROBLEM: Chronic sinusitis, deviated septum. S/P septoplasty ESS (06/24/2015). SUBJECTIVE: Mrs Sheets returns for a second postoperative visit. She reports an excellent nasal airway. Smell and taste are also improved. The thick rhinorrhea and postnasal drainage has resolved. Voice quality improved with loss of preoperative hyponasality. She is complaining over the past 3 to 4weeks of paroxysms of sneezing and clear rhinorrhea. She continues with the NeilMed saline rinse twice daily . She was previously scheduled for allergy testing at [facility] . Secondary to concerns for severe asthma she had what sounds like RAST testing. She cannot recall the results. She has been using fluticasone nasal spray on a once daily basis for greater than 1 year without improvement. She had a greater than 1 year trial of Nasonex, againwithout improvement. She has used Janeth 180 mg once daily for the most recent episodes, and again, this has not been of benefit. She denies any complaints of shortness of breath, coughing or wheezing. Asthma is well controlled without need for rescue inhaler. Past medical, surgical history, medication list, allergy status reviewed and updated to [facility]. Her present medications for asthma and allergy as follows: Advair 500/50 twice daily. Montelukast 10 mg daily. Janeth 180 mg daily. Nasonex 2 sprays daily. She continues to note some slight raspiness of her voice. She has a history of LPR as a suspected aggravating factor. Examination: Mrs Sheets is alert and oriented. She has a mild raspy, non-breathy voice. No audible stridor. Oral cavity and pharynx are clear without excess postnasal drainage. Anterior rhinoscopy: Midline septum. Turbinates are normal. Tissue was pale, but otherwise healthy. No retained crusting or mucopus on anterior exam. PROCEDURE: Bilateral nasal endoscopy. INDICATION: Postoperative sinus surgery. Unable to adequately evaluate or access on anterior exam for completion of healing or active infection. Both nostrils packed with neuro patties soaked in cophenylcaine for 10 minutes. Left nasal endoscopy: Widely patent airway. Middle turbinates medialized. There were minimal adhesions near the apex of the middle turbinate relative to the lateral nasal wall, which was nonobstructive to airflow or sinus outlet obstruction. The maxillary, ethmoid, frontal, and sphenoid sinuses areall widely patent. There is mild edema. Scant slightly thickened clear secretions. No other abnormalities. Right nasal endoscopy: Widely patent airway. Middle meatus was medialized except for the superior apex with a small adhesion band between the lateral superior middle turbinate and lateral nasal wall,which was nonobstructive airflow or sinus drainage. Maxillary, ethmoid, frontal recess and sphenoidsinuses are all widely patent. Mild diffuse edema. She has a minimal amount of slightly cloudy mucoid secretions floor of the left maxillary sinus removed with curved suction. No other abnormalities. ASSESSMENT: 1. Chronic rhinosinusitis. Satisfactory postoperative status. Her premorbid symptoms of nasal obstruction, congestion with chronic thick rhinorrhea, postnasal drainage have resolved. 2. Allergic rhinitis with suspicion for seasonal exacerbation consistent with ragweed exposure, unresponsive to medical therapy including steroid nasal sprays with fexofenadine 180 mg daily and Singulair 10 mg daily. Further evaluation per allergy expertise is indicated. 3. Chronic asthma, stable. PLAN: I reviewed my findings and impressions. I suggested the followin. Continue NeilMed saline rinse twice daily. This represents excellent nasal hygiene particularly in the setting for suspicion of significant allergic rhinitis. 2. Trial of Astelin 1 to 2 sprays twice daily after NeilMed rinses. 3. Allergy evaluation recommended at [facility] secondary to its closer proximity for this patient's residence. She is instructed to hold any antihistamines including Astelin nasal spray, Janeth, or other oral antihistamines in addition to Singulair 1 week prior to testing. 4. Follow up in 4 months. Call sooner for any difficulties. cc: Nicole Hubbard MD documented in this encounter Miscellaneous Notes * Addendum Note - Lucia Palma RN - 08/10/2015 1423 EDTAddended by: LUCIA PALMA on: 08/10/2015 14:23 Modules accepted: Orders documented in this encounter Plan of Treatment Not on file documented as of this encounter Visit Diagnoses Diagnosis Other chronic sinusitis- Primary documented in this encounter Care Teams Securities Teller Relationship Specialty Start Date End Date Nicole Hubbard MD [address] [place] [address] [address] [place] [address] PCP - General 10/05/11 documented as of this encounter
--- OUTSIDE RECORDS SUMMARY | 2024-03-14 18:05 | XMS_ITS | Encounter Summary ---
Author Organization [facility] Address [address] [place] [address] Care Team Providers Care Dross Puller Name Role Phone Nicole Hubbard MD Primary Care Provider [phone] Encounter Details Date Type Department Care Team (Late st Contact Info) Description 08/09/2021 Lab Requisition [facility] Pathology & Laboratory Medicine - [facility] [address] [place] [address] Outr Resulting Lab, Provider Social History Tobacco [...] Procedure Name Priority Date/Time Associated Diagnosis Comments ZZCOVID-19 TEST [facility] PCR Today 08/08/2021 13:30 EDT COVID-19 TESTING Routine 08/08/2021 13:3 0 EDT documented in this encounter Results * COVID-19 TEST [facility] PCR (08/08/2021 13:30 EDT) Swab 08/08/2021 13:3 0 EDT 08/09/2021 16:19 EDT Provider Outr Resulting Lab MICROBIOLOGY - GENERAL ORDERABLES [facility] [address] [place] [address] * COVID-19 TESTING (08/08/2021 13:30 EDT) COVID-19 rt-PCR Result Negative Negative 08/10/2021 11:28 EDT [facility] Comment: This test has not been FDA cleared or approved. This test has been authorized by FDA under an EUA for use by authorized laboratories. This test has been authorized only for detection of nucleic acid from 2019-nCoV, not for any other viruses or pathogens. This test is only authorized for the duration of the declaration that circumstances exist justifying the authorization of emergency use of in vitro diagnostic tests for detection and/or diagnosis of 2019-nCoV under section 564(b)(1) of Act, 21 U.S.C ?? 360bbb-3(b) (1), unless the authorization is terminated or revoked sooner. Negative results do not preclude 2019-nCoV infection and should not be used as the sole basis for treatment or other patient management decisions. Negative results must be combined with clinical observations, patient history, and epidemiological information. Testing was performed using the rocio SARS-CoV-2 assay ([employer] on the Rocio 6800 System Performing Lab Rocio 6800 [facility] 08/10/2021 11:28 EDT [facility] Swab 08/08/2021 13:3 0 EDT 08/09/2021 16:19 EDT Provider Outr Resulting Lab MICROBIOLOGY - GENERAL ORDERABLES [facility] [address] [place] [address] documented in this encounter Visit Diagnoses Not on filedocumented in this encounter Care Teams Dross Puller Relationship Specialty Start Date End Date Nicole Hubbard MD [address] [place] [id number] PCP - General 10/05/11 documented as of this encounter
--- OUTSIDE RECORDS SUMMARY | 2024-03-14 18:05 | XMS_ITS | Encounter Summary ---
Author Organization [facility] Address [address] [place] [address] Care Team Providers Care Car Shifter Name Role Phone Nicole Hubbard MD Primary Care Provider [phone] Encounter Details Date Type Department Care Team (Late st Contact Info) Description 08/26/2012 Results Only Imaging [facility] [phone] Katherine Barron MD [address] [place] [phone] Social History Tobacco Use Types Packs/Day Years Used Date Smoking Tobacco: Never Assessed Sex and Gender Information Value Date Recorded Sex Assigned at Not on file Gender Identity Not on file Sexual Orientation Not on file documented as of this encounter Plan of Treatment Not on file documented as of this encounter Procedures Procedure Name Priority Date/Time Associated Diagnosis Comments SECONDARY READ CHEST CT 08/26/2012 11:11 EDT documented in this encounter Results * SECONDARY READ CHEST CT (08/26/2012 11:11 EDT) Anatomical Region Laterality Modality Other 08/26/2012 11:1 1 EDT 08/26/2012 11:28 EDT Narrative 08/26/2012 11:28 EDT History: ?? [place] [facility] 4.8.13 CT CHEST Examination: SECONDARY READ CHEST Technique: A contrast-enhanced helical CT acquisition of the chest from apices through the lung bases was performed with a reconstructed slice thickness of 0.9 mm with overlapping 0.45 mm intervals following the intravenous administration of ??100-120 cc of 370 mg% nonionic contrast injected at a rate of 4-5 cc/second. ??A test bolus was utilized and a scan delay calculated to determine the timing of acquisition from the initiation of contrast injection. Scans were reviewed on a dedicated PACS workstation for analysis. Findings: The evaluation of the chest wall shows postoperative is in the right chest wall that relate to a prior right thoracotomy an lobectomy. The scans are obtained at decreased lung volumes as evidenced by some buckling of the posterior tracheal membrane on the scans obtained through the upper chest. There is some volume loss in the right hemithorax with rightward mediastinal shift. The remaining portions of the chest wall are unremarkable. The heart and pericardium show no abnormality. There is no obvious central pulmonary embolism. ??There are no enlarged mediastinal or hilar lymph nodes identified. No pleural abnormalities are seen. The airways and lungs show evidence of prior right lower lobectomy. There is significant narrowing of the distal left main bronchus as well as the middle lobe bronchus and the anteromedial basal segment of left lower lobe bronchus with a pattern of mosaic attenuation throughout both lungs. The findings are most consistent with bronchomalacia. There is a surgical suture line within the right lower lung adjacent to the diaphragm that is likely related to the prior right-sided resection. Limited scans of the upper abdomen demonstrate no abnormality. Impression: 1. Findings consistent with bronchomalacia involving the middle lobe bronchus, left main bronchus, an anteromedial basal segment left lower lobe bronchus with resultant mosaic perfusion of both lungs with scans obtained at low lung volumes. A dynamic expiratory CT scan may be of benefit to determine if there is more severe and dynamic collapse of the trachea and other airways which may not be evident at a scan obtained at a decreased but fixed low lung volumes. 2. Status post right thoracotomy and lower lobectomy. 3. No evidence of pulmonary embolism. Procedure Note 08/26/2012 History: [place] [facility] 4.8.13 CT CHEST Examination: SECONDARY READ CHEST Technique: A contrast-enhanced helical CT acquisition of the chest from apices through the lung bases was performed with a reconstructed slice thickness of 0.9 mm with overlapping 0.45 mm intervals following the intravenous administration of 100-120 cc of 370 mg% nonionic contrast injected at a rate of 4-5 cc/second. A test bolus was utilized and a scan delay calculated to determine the timing of acquisition from the initiation of contrast injection. Scans were reviewed on a dedicated PACS workstation for analysis. Findings: The evaluation of the chest wall shows postoperative is in the right chest wall that relate to a prior right thoracotomy an lobectomy. The scans are obtained at decreased lung volumes as evidenced by some buckling of the posterior tracheal membrane on the scans obtained through the upper chest. There is some volume loss in the right hemithorax with rightward mediastinal shift. The remaining portions of the chest wall are unremarkable. The heart and pericardium show no abnormality. There is no obvious central pulmonary embolism. There are no enlarged mediastinal or hilar lymph nodes identified. No pleural abnormalities are seen. The airways and lungs show evidence of prior right lower lobectomy. There is significant narrowing of the distal left main bronchus as well as the middle lobe bronchus and the anteromedial basal segment of left lower lobe bronchus with a pattern of mosaic attenuation throughout both lungs. The findings are most consistent with bronchomalacia. There is a surgical suture line within the right lower lung adjacent to the diaphragm that is likely related to the prior right-sided resection. Limited scans of the upper abdomen demonstrate no abnormality. Impression: 1. Findings consistent with bronchomalacia involving the middle lobe bronchus, left main bronchus, an anteromedial basal segment left lower lobe bronchus with resultant mosaic perfusion of both lungs with scans obtained at low lung volumes. A dynamic expiratory CT scan may be of benefit to determine if there is more severe and dynamic collapse of the trachea and other airways which may not be evident at a scan obtained at a decreased but fixed low lung volumes. 2. Status post right thoracotomy and lower lobectomy. 3. No evidence of pulmonary embolism. Katherine Barron MD IMG OTHER IMAGING ORDERABLES documented in this encounter Visit Diagnoses Not on filedocumented in this encounter Care Teams Car Shifter Relationship Specialty Start Date End Date Nicole Hubbard MD [address] [place] [address] PCP - General 10/05/11 documented as of this encounter
--- OUTSIDE RECORDS SUMMARY | 2024-03-14 18:05 | XMS_ITS | Encounter Summary ---
Author Organization [facility] Address [address] [place] [address] Care Team Providers Care Communications Technician Name Role Phone Unavailable Primary Care Provider Unavailabl e Encounter Details Date Type Department Care Team (Late st Contact Info) Description 07/24/2006 Results Only [facility] [address] [place] [address] Purnima Hubbard MD [address] [place] [id number] Social History Tobacco Use Types Packs/Day Years Used Date Smoking Tobacco: Never Assessed Sex and Gender Information Value Date Recorded Sex Assigned at Not on file Gender Identity Not on file Sexual Orientation Not on file documented as of this encounter Plan of Treatment Not on file documented as of this encounter Procedures Procedure Name Priority Date/Time Associated Diagnosis Comments SURGICAL PATHOLOGY Routine 07/24/2006 0:00 EDT documented in this encounter Results * SURGICAL PATHOLOGY (07/24/2006 0:00 EDT) Pathology Report: SURGICAL PATHOLOGY REPORT Reports generated via electronic interface contain original data; however they are lacking the format of the original report. Caution should be taken when reading/interpretin g unformatted reports. Name: ? FITCH, ALICE ? Accession #: ? [id number] ? : ? 1955 (Age: 50) ??F ? Collect Date: ? 07/24/2006 ? Location: ? [facility] ? Receive Date: ? 07/25/2006 ? Provider: PURNIMA HUBBARD MD Copy to: ? Final Pathologic Diagnosis: ? Skin of foot, left, punch biopsy: - Epidermal ulceration with reactive changes. ??See comment. Comment: ? Multiple sections of the biopsy were reviewed. ??The most notable histologic feature is that of epidermal ulceration with reactive changes of the intact epidermis. ??The etiology of the ulcer is not evident in this biopsy. ??There are no features suggestive of infection and no fungal organisms are detected by special stain. ??The superficial dermal vessels show reactive changes and some, in the vicinity of the ulcer, have fibrin thrombi. ??The thrombi appear secondary to ulceration and there is no definitive evidence of vasculitis. ??There is no evidence of neoplasia. ??(Dr. Barrett)/[facility] Microscopic Description: ? Sections consist of a small punch biopsy of skin to the deep reticular dermis. ??Approximately one half of the epidermis is ulcerated and there is underlying ulcer bed with fibrinous exudate. ??The intact epidermis shows a mild degree of acanthosis with overlying parakeratosis. ??The keratinocytes show mild reactive changes but the epidermis is otherwise unremarkable. ??Within the dermis, there is a sparse perivascular inflammatory infiltrate that appears to be predominantly mononuclear. ??Further characterization of the infiltrate is precluded by crush artifact. ??Beneath the ulcer, neutrophils are evident. ??The vessels of the superficial plexus show reactive changes with mural swelling and endothelial cell hypertrophy. ??Some of the vessels beneath the ulcer have fibrin thrombi. ??Multiple additional sections show similar features. ??No fungal organisms are identified on sections prepared with PAS-amylase stain. ??(Dr. Barrett)/[facility] Document reviewed and electronically signed by: Daisha Barrett MD Report ??Date: 07/27/2006 15:46 By the signature above, the attending physician certifies that he/she has personally conducted a gross and/or microscopic examination of the described specimens and rendered or confirmed the above diagnosis. Specimen(s) Received: ? Wound L foot punch bx Clinical History: ? Wound, L foot; treated with Keflex & Famvir ??no improvement Gross Description: ? Received in formalin labelled Fitch and wound L foot is a punch biopsy of skin measuring 0.2 cm in diameter and 0.1 cm in thickness. The specimen is submitted intact in one cassette. (Dr. Munoz)/[facility] End of Report [facility] 07/24/2006 07/25/2006 15: 13 EDT Purnima Hubbard MD PATHOLOGY ORDERABLE [facility] [address] [place] [address] documented in this encounter Visit Diagnoses Not on filedocumented in this encounter
--- OUTSIDE RECORDS SUMMARY | 2024-03-14 18:05 | XMS_ITS | Encounter Summary ---
Author Organization [facility] Address [facility] [place] [address] Care Team Providers Care Voice And Data Technician Name Role Phone Nicole Hubbard MD Primary Care Provider [phone] Encounter Details Date Type Department Care Team (Late st Contact Info) Description 06/23/2010 Interpretation Only Radiology [address] [place] [address] [place] [id number] Unknown None Social History Tobacco Use Types Packs/Day Years Used Date Smoking Tobacco: Never Assessed Sex and Gender Information Value Date Recorded Sex Assigned at Not on file Gender Identity Not on file Sexual Orientation Not on file documented as of this encounter Plan of Treatment Not on file documented as of this encounter Procedures Procedure Name Priority Date/Time Associated Diagnosis Comments XR FLUORO NO RAD <1HR - RADIOLOGY USE Routine 06/23/2010 10:57 AM EST documented in this encounter Results * XR Fluoro <1Hr - Radiology Use (06/23/2010 10:57 AM EST) Anatomical Region Laterality Modality N/A Radiographic Hansa ging 06/23/2010 10:5 7 AM EST Narrative 06/23/2010 10:57 AM EST APD Historical Result Principal Field Instructor: ??LUCIA ??B FLUOROSCOPIC ASSISTANCE: A total of 3.4 seconds of fluoroscopic assistance was provided to Dr Nicolas during the performance of a surgical procedure. ??Three images record the event. ??No Radiologist was in attendance during service provision. Lucia De Los Santos MD, FACR [facility] [id number] CC: Procedure Note Unknown - 11/05/2018 APD Historical Result Principal Field Instructor: LUCIA Ba FLUOROSCOPIC ASSISTANCE: A total of 3.4 seconds of fluoroscopic assistance was provided to Demetriussuleiman during the performance of a surgical procedure. Three images record the event. NoRadiologist was in attendance during service provision. Lucia De Los Santos MD, FACR [facility] [id number] CC: Unknown IMG FLUORO ORDERABLE S documented in this encounter Visit Diagnoses Not on filedocumented in this encounter Care Teams Voice And Data Technician Relationship Specialty Start Date End Date Nicole Hubbard MD [address] [place] [address] [address] [place] [address] PCP - General 03/29/10 documented as of this encounter
--- OUTSIDE RECORDS SUMMARY | 2024-03-14 18:05 | XMS_ITS | Clinical Summary ---
Author Organization [facility] Address [address] [place] [address] Care Team Providers Care Enroute Controller Name Role Phone Nicole Hubbard MD Primary Care Provider [phone] Allergies No known active allergies Medications Medication Sig Dispensed Refills Start Date End Date Status estradiol (ESTRACE) 0.5 mg tablet Take 0.5 mg by mouth daily. 1/2 tab every other day Active fluticasone-salmete rol (ADVAIR) 500-50 mcg/dose diskus inhaler Inhale 1 Puff as directed 2 times daily Active tiotropium (SPIRIVA) 18 mcg inhalation capsule Inhale 18 mcg as directed daily Active montelukast (SINGULAIR) 10 mg tablet Take 10 mg by mouth daily Active fexofenadine (VONDA) 180 mg tablet Take 180 mg by mouth daily Active atorvastatin (LIPITOR) 10 mg tablet Take 10 mg by mouth daily Active mometasone (NASONEX) 50 mcg/actuation nasal spray Instill 2 Sprays into right nostril as needed. Active ALBUTEROL SULFATE (VENTOLIN INHL) Inhale as directed A ctive DULoxetine (CYMBALTA) 60 mg capsule Take 60 mg by mouth daily Active CALCIUM CARBONATE/VITAMIN D3 (CALCIUM + D ORAL) Take by mouth Active MULTIVIT &MINERALS/FERROUS FUM (MULTI VITAMIN ORAL) Take by mouth Active VITAMIN B COMPLEX ORAL Take by mouth Active zolpidem (AMBIEN) 10 mg tablet Take 5 mg by mouth as needed. Active acetaminophen (TYLENOL) 325 mg tablet Take 650 mg by mouth every 4 hours as needed for Pain Active ibuprofen (MOTRIN) 200 mg tablet Take 200 mg by mouth every 6 hours Active omeprazole (PRILOSEC) 40 mg capsuleIndications: LPRD (laryngopharyngeal reflux disease) Take 1 Cap by mouth 2 times daily 60 Cap 3 02/24/2015 Active Additional Information Patient taking differently:40 mg oralEVERY MORNING, Reported on 06/17/2015 hydrochlorothiazide (HYDRODIURIL) 25 mg tablet Take 12.5 mg by mouth daily. Active valACYclovir (VALTREX) 1 gram tablet Take 1,000 mg by mouth daily. Active UNABLE TO FIND Med Name: clomine For severe stomach upset. Active oxyCODONE (ROXICODONE) 5 mg immediate release tablet Take 1 Tab by mouth every 4 hours as needed for Pain. Daily Max: 30 mg 20 Tab 0 06/24/2015 Active azithromycin (ZITHROMAX) 250 mg tablet Take 2 tablets (500mg) by mouth on day 1, followed by 1 tablet (250mg) by mouth once daily on days 2 through 5. 6 Tab 0 06/24/2015 Active azelastine (ASTELIN) nasal spray Instill 1-2 Sprays into both nostrils 2 times daily. 1 Bottle 11 08/10/2015 Active Active Problems Problem Noted Date Diagnosed Date DNS (deviated nasal septum) 04/16/2015 Chronic sinusitis 04/16/2015 LPRD (laryngopharyngeal reflux disease) 04/16/20 15 Surgical History Surgery Date Site/Laterality Comments NASAL SINUS SURGERY CHOLECYSTECTOMY HYSTERECTOMY Medical History Medical History Date Comments Asthma Environmental allergies COPD (chronic obstructive pulmonary disease) ( C-CMS) Sleep apnea Heartburn Hypertension Family History Medical History Relation Comments Cancer Father Allergic Rhinitis Mother Asthma Mother Allergic Rhinitis Sister 1 Allergic Rhinitis Sister 2 Relation Status Comments Father Mother Sister 1 Sister 2 Social History Tobacco Use Types Packs/Day Years Used Date Smoking Tobacco: Former Alcohol Use Standard Drinks/Week Comments No 0 (1 standard drink = 0.6 oz pur e alcohol) Sex and Gender Information Value Date Recorded Sex Assigned at Not on file Gender Identity Not on file Sexual Orientation Not on file Obstetrics History Last Filed Vital Signs Vital Sign Reading Time Taken Comments Blood Pressure 132/85 06/24/2015 1730 EST Pulse - - Temperature 35.9 ??C (96.6 ??F) 06/24/2015 1730 EST Respiratory Rate 10 06/24/2015 1730 EST Oxygen Saturation 93% 06/24/2015 1730 EST Inhaled Oxygen Concentration - - Weight 101.2 kg (223 lb) 06/17/2015 1725 EST Height 165.1 cm (5' 5) 06/17/2015 1725 EST Body Mass Index 37.11 06/17/2015 1725 EST Plan of Treatment Health Maintenance Due Date Last Done Comments Hepatitis C Screen 1955 RSV Immunization ( o r 60+ Years) (1 - 1-dose 60+ series) 2016 Fall Risk Screening 2021 COVID-19 Vaccine (2022-24 season) 2023 Care Teams Enroute Controller Relationship Specialty Start Date End Date Nicole Hubbard MD [address] [place] [address] [address] [place] [id number] PCP - General 10/05/11
--- OUTSIDE RECORDS SUMMARY | 2024-03-14 18:05 | XMS_ITS | Encounter Summary ---
Author Organization [facility] Address [address] [place] [address] Care Team Providers Care Master Machinist Name Role Phone Nicole Hubbard MD Primary Care Provider Encounter Details Date Type Department Care Team (Latest Contact Info) Description 06/24/2015 8:35 EST - 06/24/2015 18:09 EST Hospital Encounter [facility]- [facility] [address], [place] [id number] Silvio Oscar MD [address] [place] [address] Discharge Disposition: Home or Self Care Social [...] Body Mass Index 37.11 06/17/2015 1725 EST documented in this encounter Medications at Time of Discharge Medication Sig Dispensed Refills Start Date End Date acetaminophen (TYLENOL) 325 mg tablet Take 650 mg by mouth every 4 hours as needed for Pain ALBUTEROL SULFATE (VENTOLIN INHL) Inhale as directed atorvastatin (LIPITOR) 10 mg tablet Take 10 mg by mouth daily azithromycin (ZITHROMAX) 250 mg tablet Take 2 tablets (500mg) by mouth on day 1, followed by 1 tablet (250mg) by mouth once daily on days 2 through 5. 6 Tab 0 06/24/2015 CALCIUM CARBONATE/VITAMIN D3 (CALCIUM + D ORAL) Take by mouth DULoxetine (CYMBALTA) 60 mg capsule Take 60 mg by mouth daily estradiol (ESTRACE) 0.5 mg tablet Take 0.5 mg by mouth daily. 1/2 tab every other day fexofenadine (VONDA) 180 mg tablet Take 180 mg by mouth daily fluticasone-salmeterol (ADVAIR) 500-50 mcg/dose diskus inhaler Inhale 1 Puff as directed 2 times daily hydrochlorothiazide (HYDRODIURIL) 25 mg tablet Take 12.5 mg by mouth daily. ibuprofen (MOTRIN) 200 mg tablet Take 200 mg by mouth every 6 hours mometasone (NASONEX) 50 mcg/actuation nasal spray Instill 2 Sprays into right nostril as needed. montelukast (SINGULAIR) 10 mg tablet Take 10 mg by mouth daily MULTIVIT &MINERALS/FERROUS FUM (MULTI VITAMIN ORAL) Take by mouth omeprazole (PRILOSEC) 40 mg capsuleIndications:LPRD (laryngopharyngeal reflux disease) Take 1 Cap by mouth 2 times daily 60 Cap 3 02/24/2015 oxyCODONE (ROXICODONE) 5 mg immediate release tablet Take 1 Tab by mouth every 4 hours as needed for Pain. Daily Max: 30 mg 20 Tab 0 06/24/2015 tiotropium (SPIRIVA) 18 mcg inhalation capsule Inhale 18 mcg as directed daily UNABLE TO FIND Med Name: clomine For severe stomach upset. valACYclovir (VALTREX) 1 gram tablet Take 1,000 mg by mouth daily. VITAMIN B COMPLEX ORAL Take by mouth zolpidem (AMBIEN) 10 mg tablet Take 5 mg by mouth as needed. predniSONE (DELTASONE) 20 mg tablet Take 2 Tabs by mouth daily for 7 days. 14 Tab 0 06/24/2015 07/01/2015 documented as of this encounter Ordered Prescriptions Prescription Sig Dispensed Refills Start Date End Da te azithromycin (ZITHROMAX) 250 mg tablet Take 2 tablets (500mg) by mouth on day 1, followed by 1 tablet (250mg) by mouth once daily on days 2 through 5. 6 Tab 0 06/24/2015 oxyCODONE (ROXICODONE) 5 mg immediate release tablet Take 1 Tab by mouth every 4 hours as needed for Pain. Daily Max: 30 mg 20 Tab 0 06/24/2015 predniSONE (DELTASONE) 20 mg tablet Take 2 Tabs by mouth daily for 7 days. 14 Tab 0 06/24/2015 07/01/2015 documented in this encounter Discharge Disposition Disposition Code Departure Means Destination Home or Self Care documented in this encounter Progress Notes * Nicolasa Salguero, AMANDA - 06/24/2015 1719 EST RT here--pt encouraged to use acapella and inspirometer--acapella causing cough--r/a sao2 up to 95%with pulm intervention * Cherri Shelley RN - 06/24/2015 1706 EST Room air sat After nebulizer is 88, rises to 96 with deep breathing but drops in absence of deep breathing,. * Erin Jerome RN - 06/17/2015 1748 EST Joselyn Sheets has been instructed as follows regarding medication administration for the day of the scheduled procedure. Date of Surgery: 06.24.16 Instructions for Taking Medications Day of Surgery Medication Sig Last Dose Hold DOS Take DOS acetaminophen (TYLENOL) 325 mg tablet Take 650 mg by mouth every 4 hours as needed for Pain prn ALBUTEROL SULFATE (VENTOLIN INHL) Inhale as directed prn atorvastatin (LIPITOR) 10 mg tablet Take 10 mg by mouth daily x CALCIUM CARBONATE/VITAMIN D3 (CALCIUM + D ORAL) Take by mouth x DULoxetine (CYMBALTA) 60 mg capsule Take 60 mg by mouth daily x estradiol (ESTRACE) 0.5 mg tablet Take 0.5 mg by mouth daily. 1/2 tab every other day x fexofenadine (VONDA) 180 mg tablet Take 180 mg by mouth daily x fluticasone-salmeterol (ADVAIR) 500-50 mcg/dose diskus inhaler Inhale 1 Puff as directed 2 times daily x hydrochlorothiazide (HYDRODIURIL) 25 mg tablet Take 12.5 mg by mouth daily. x ibuprofen (MOTRIN) 200 mg tablet Take 200 mg by mouth every 6 hours Hold x 1 week x mometasone (NASONEX) 50 mcg/actuation nasal spray Instill 2 Sprays into right nostril as needed. prn montelukast (SINGULAIR) 10 mg tablet Take 10 mg by mouth daily x MULTIVIT &MINERALS/FERROUS FUM (MULTI VITAMIN ORAL) Take by mouth Hold x 1 week x omeprazole (PRILOSEC) 40 mg capsule Take 1 Cap by mouth 2 times daily Patient taking differently: Take 40 mg by mouth every morning. tiotropium (SPIRIVA) 18 mcg inhalation capsule Inhale 18 mcg as directed daily x UNABLE TO FIND Med Name: clomine For severe stomach upset. x valACYclovir (VALTREX) 1 gram tablet Take 1,000 mg by mouth daily. x VITAMIN B COMPLEX ORAL Take by mouth Hold x 1 week x zolpidem (AMBIEN) 10 mg tablet Take 5 mg by mouth as needed. hs documented in this encounter H&P Notes * Tiffanie Campbell MD - 06/24/2015 1042 EST The preoperative history and physical which was performed within 30 days of this procedure has been reviewed and the clinically appropriate elements of the physical examination have been repeated. There are no changes to the documented history and physical or if so such changes are documented below Tiffanie Campbell MD 06/24/2015 10:42 Source Note - CERTIFIED PROFESSIONAL ERGONOMIST, SCAN 2 - 06/21/2015 10:05 EST documented in this encounter OR Notes * OR Surgeon - Silvio Oscar MD - 06/24/2015 1057 EST OPERATIVE REPORT SERVICE DATE: 06/24/2015 SURGEON: Silvio Oscar MD EDITOR PUBLICATIONS: Tiffanie Campbell MD PREOPERATIVE DIAGNOSIS: Chronic rhinosinusitis. Deviated nasal septum POSTOPERATIVE DIAGNOSIS: Same. ANESTHESIA: General endotracheal. PROCEDURE: Submucous septoplasty (23910). Bilateral maxillary antrostomy with removal of tissue (49181-57). Bilateral total ethmoidectomy (31473-11). Bilateral frontal sinusotomy (18880-31). FINDINGS: Deviated nasal septum to the right in the region of the superior nasal valve Sinonasal polyposis and edematous mucosa within the middle meatus, frontal recess and ethmoid sinuses bilaerally NARRATIVE: The patient was identified in the preoperative hold area, where surgical consent was confirmed and all pertinent questions were answered. The patient was then escorted to the operating theater, wherea brief operative time-out was assured, according to the WHO standards. The patient was then positioned supine on the operating table and the patient???s head supported by an operative donut. The patient then underwent general anesthesia and an oral endotracheal tube was placed. Patient position was then changed to the beach-chair/reverse Trendelenberg to aid in hemostasis. The patient was then draped in the usual manner for nasal surgery. Upon induction, 1g of IV Kefzol and 8 mg of IV Decadronwere administered. Prior to proceeding, bilateral nasal spines and lateral nasal piriform apertures were instilled with 2cc of 1% lidocaine with epinephrine and pledgets soaked in Afrin were placed in the nasal cavities, for vasoconstriction. After allowing adequate time for vasoconstriction, the case proceeded with injection of 1% lidocaine with epinephrine into the right lateral wall - at the region of the sphenopalatine artery, the posterior middle turbinate, and the anterior ethmoid. Attention was then turned to the right nasal cavity. Using a 0-degree endoscope, the uncinate process was excised in the usual retrograde fashion using the extreme probe and backbiter. Once the infundibulum was carefully exposed, were able to visualize the natural maxillary ostium which was not in continuity with the surgical ostium. The 30-degree telescope and 40-degree blade were used to widen this ostium, enter the natural ostium, and debride tissue from within the sinus. A scar band betweenthe middle turbinate and lateral wall was cut with the Gurpreet-Cut forceps. The 0-degree endoscope and the 0-degree microdebrider were then replaced for total ethmoidectomy. The anterior ethmoid cells, including the ethmoid bulla, were opened. Posterior ethmoid surgery was continued after identification of the horizontal portion of the basal lamella and the vertical plate. Posterior ethmoidectomy wascompleted with marsupialization of the posterior ethmoid cells until healthy, non-polypoid mucosa was encountered. Frontal sinusotomy was completed by opening the Agger Nasi cell and excising the cap of the ethmoidbulla off the posterior-superior wall of the frontal sinus. This was performed under direct visualization with 70-degree endoscopic guidance. Attention was then turned to the left nasal cavity. The case proceeded with injection of 1% lidocaine with epinephrine into the left lateral wall - at the region of the sphenopalatine artery, the posterior middle turbinate, and the anterior ethmoid. Using a 0-degree endoscope, the uncinate process was excised in the usual retrograde fashion using the extreme probe and backbiter. Once the infundibulum was carefully exposed, were able to visualize the natural maxillary ostium. The 30-degree telescope and 40-degree blade were used to widen this ostium, enter the natural ostium, and debride tissue from within the sinus. There was a cyst along the anterior-medial wall of the maxillary sinus which was excised using the giraffe forceps. The 0-degree endoscope and the 0-degree microdebrider were then replaced for total ethmoidectomy. The anterior ethmoid cells, including the ethmoid bulla, wereopened. Posterior ethmoid surgery was continued after identification of the horizontal portion of the basal lamella and the vertical plate. Posterior ethmoidectomy was completed with marsupializationof the posterior ethmoid cells until healthy, non-polypoid mucosa was encountered. Frontal sinusotomy was completed by opening the Agger Nasi cell and excising the cap of the ethmoidbulla off the posterior-superior wall of the frontal sinus. This was performed under direct visualization with 30 and 70 degree endoscopic guidance. A balloon sinoplasty technique was then utilized. The SANTIAGO wire was passed posterior and medial to the posterior aspect of the agger nasi cell. The wire was passed into the frontal sinus and position was confirmed with transillumination of the forehead. A 7 mm balloon was then passed over the wire and inflated to 12 atmospheres in two separate locations. The entire apparatus was then removed and loose bony fragments were resected with the microdebrider, taking care to preserve the posterior mucosa. Attention was then turned to the nasal septum. Septoplasty was initiated through a right sided incision which was made along the superior aspect of the septum in the region of the nasal valve. A sub-perichondrial/ostial flap was elevated posteriorly, to expose just the region of deviated bone and cartilage. A sub- perichondrial/ostial flap wsa then raised on the left side. A square portion of boneand cartilage was excised using the Olalla Adams forceps superiorly, and then the septal scissors to disarticulate it inferiorly. The flap was reapproximated and closed with septal danyell. After assuring adequate hemostasis, bilateral dissolvable Merogel packs soaked in kenalog were placed in the frontal recess bilaterally. Merogel soaked in kenalog was placed in the ethmoid spaces bilaterally. Bilateral silastic splints were then placed on each side of the nasal septum. These were secured with a single 2-0 Prolene transfixion suture. The patient was then turned over to anesthesia for emergence. There were no complications to the case and the patient tolerated the procedure well. All counts were correct at the close of the procedure. Dr. Oscar was present and actively participated in the care of this patient throughout the duration of the case. ESTIMATED BLOOD LOSS: 150 mL. FLUIDS: 2 L lactated Ringers. URINE OUTPUT: Not recorded. SPECIMENS: Right and left sinus contents for surgical pathology. Left maxillary sinus lesion CULTURES: none DRAINS, PACKS AND FOREIGN MATERIALS RETAINED: Bilateral silastic septal splints, Bilateral Xerogel packs soaked in kenalog in anterior / posterior ethmoid. Bilateral merogel packs soaked in kenalog in the frontal recess bilaterally. COMPLICATIONS: None. CONDITION: Good to PACU. Unless otherwise noted, there were no complications, no blood loss, no cultures obtained, no specimens removed, and no drains retained. Tiffanie Campbell MD Otolaryngology PGY-4 06/24/2015, 14:01 #[id number] documented in this encounter Miscellaneous Notes * Anesthesia Post-Evkatia - Anastacio Ford - 06/24/2015 1746 EST Post Anesthesia Evaluation Note Date of Service: 06/24/2015 Joselyn Sheets, a 59 y.o. year old female has received General Anesthesia today. She has been evaluated, assessed and discharged from anesthesia care with stable cardiorespiratory function and alert mental status. The last set of recorded vital signs and pain rating were reviewed: Temp: 35.9 ??C (96.6 ??F), Heart Rate: 83 BPM, BP: 116/79 mmHg, Resp: 13, SpO2: 94 %,Numeric Pain Level (Scale 1-10): 6 Joselyn Sheets participated in this evaluation unless otherwise noted. Her pain, nausea and vomiting have been managed and her body temperature and fluid balance have been restored. Additional monitoring and assessment needs have been addressed. If present, any postoperative events are documented below. Patient known respiratory disease, optimized medically. She understands that she needs to go to the ED should she suffer from shortness of breath. Anastacio Ford MD 06/24/2015 17:46 * Anesthesia Post-Eval - Titi Torre MD - 06/24/2015 1633 EST Post Anesthesia Evaluation Note Date of Service: 06/24/2015 Joselyn Sheets, a 59 y.o. year old female has received General Anesthesia today. She has been evaluated, assessed and discharged from anesthesia care with stable cardiorespiratory function and alert mental status. The last set of recorded vital signs and pain rating were reviewed: Temp: 35.6 ??C (96.1 ??F), Heart Rate: 86 BPM, BP: (!) 161/90 mmHg, Resp: 13, SpO2: 96 %,Numeric Pain Level (Scale 1-10): 6 Joselyn Sheets participated in this evaluation unless otherwise noted. Her pain, nausea and vomiting have been managed and her body temperature and fluid balance have been restored. Additional monitoring and assessment needs have been addressed. If present, any postoperative events are documented below. Titi Torre MD 06/24/2015 16:33 documented in this encounter Plan of Treatment Not on file documented as of this encounter Procedures Procedure Name Priority Date/Time Associated Diagnosis Comments ECG REPORT - SCANNED 06/29/2015 7:43 EST SURGICAL PATHOLOGY Routine 06/24/2015 14 :51 EST ECG REPORT - SCANNED 06/21/2015 10:05 EST documented in this encounter Results * ECG REPORT - SCANNED (06/29/2015 7:43 EST) 06/29/2015 7:43 EST Scan 2 Operator Weapon Locating Radar PROCEDURE/MINOR KARY GICAL ORDERABLES * SURGICAL PATHOLOGY (06/24/2015 14:51 EST) Pathology Report: SURGICAL PATHOLOGY REPORT Reports generated via electronic interface contain original data; however they are lacking the format of the original report. Caution should be taken when reading/interpreti ng unformatted reports. Name: ? JOSELYN SHEETS ? Accession #: ? [id number] ? : ? 1955 (Age: 59) ??F ? Collect Date: ? 06/24/2015 ? Location: ? [facility] ? Receive Date: ? 06/24/2015 ? Provider: SILVIO OSCAR MD Copy to: NICOLE HUBBARD MD ? Final Pathologic Diagnosis: A. SINUS CONTENTS, RIGHT, EVACUATION: - ??Chronic sinusitis with focal increase in eosinophils. - ??Fragments of lamellar bone with evidence of remodeling. B. SINUS CONTENTS, LEFT, EVACUATION: - ??Chronic sinusitis with focal increase in eosinophils. - ??Fragments of lamellar bone with evidence of remodeling. C. SINUS CONTENTS, LEFT MAXILLARY, EVACUATION: - ??Chronic sinusitis. - ??Respiratory-type epithelial- lined mucosa with stromal hyalinization and cystic change, consistent with antrochoanal polyp. Document reviewed and electronically signed by: LUIS FERNANDO WHITE MD Report ??Date: 06/25/2015 16:36 By the signature above, the attending physician certifies that he/she has personally conducted a gross and/or microscopic examination of the described specimens and rendered or confirmed the above diagnosis. Specimen(s) Received: A. ??Right sinus contents B. ??Left sinus contents C. ??Left maxillary sinus lesion Clinical History: DNS; chronic sinusitis Gross Description: A. ?Received fresh in a suction container, labelled with proper patient identification (initials H, A) and right sinus contents is serosanguineous fluid (650 cc), within which are multiple pink-hughes soft tissue fragments admixed with blood and mucus (5.0 x 4.0 x 1.5 cm in aggregate). Rug Touch Up Painter sections are submitted in A1-A3. B. ?Received fresh in a suction container, labelled with proper patient identification (initials H, A) and left sinus contents is serosanguineous fluid (225 cc), within which are multiple pink-hughes soft tissue fragments admixed with blood and mucus (4.5 x 3.5 x 1.0 cm in aggregate). The specimen is entirely submitted in B1-B3. C. ?Received in normal saline labelled with proper patient identification (initials H, A) and left maxillary sinus lesion are three hughes-red irregular soft tissue fragments ranging from 0.3 x 0.2 x 0.2 cm to 0.5 x 0.3 x 0.3 cm. The specimen is entirely submitted as C1. Grace Shepard 06/24/2015 3:28 PM End of Report [facility] 06/24/2015 14:5 1 EST 06/24/2015 14:51 EST Silvio Oscar MD PATHOLOGY [facility] [address] [place] [address] * ECG REPORT - SCANNED (06/21/2015 10:05 EST) 06/21/2015 10:0 5 EST Scan 2 Operator Weapon Locating Radar PROCEDURE/MINOR KARY GICAL ORDERABLES documented in this encounter Visit Diagnoses Not on filedocumented in this encounter Administered Medications Inactive Administered Medications - up to 3 most recent administrations Medication Order MAR Action Action Date Dose Rate Site albuterol (ACCUNEB) nebulizer solution 1.25 mg 1.25 mg, nebulization, PACU ONCE, 1 dose, On Shauna 06/24/15 at 1700, STAT Given 06/24/2015 16:41 EST 1.25 mg ceFAZolin (ANCEF) syringe 1 g 1 g, intravenous, Administer over 10 Minutes, PRE-OP ONCE, 1 dose, On Shauna 06/24/15 at 1100, Routine Given by Other 06/24/2015 10:56 EST 1 g HYDROmorphone (PF) (DILAUDID) 1 mg/mL injection 0.2-1 mg 0.2-1 mg, intravenous, EVERY 10 MINUTES PRN, Starting on Shauna 06/24/15 at 1344, Until Shauna 06/24/15 at 2009, Pain, Routine, Recovery (only) Given 06/24/2015 15:21 EST 0.5 mg Given 06/24/2015 14:56 EST 0.5 mg lactated ringers (LR) infusion at 25 mL/hr, intravenous, CONTINUOUS, Starting on Shauna 06/24/15 at 1000, Until Shauna 06/24/15 at 2009, Routine, Pre Op Day of Surgery New Bag 06/24/2015 9:27 EST 25 mL/hr oxyCODONE (ROXICODONE) immediate release tablet 5 mg 5 mg, oral, PRN, 2 doses, Starting on Shauna 06/24/15 at 1344, Until Shauna 06/24/15 at 2009, Pain, Routine, Recovery (only) Given 06/24/2015 15:33 EST 5 mg documented in this encounter Discontinued Medications Medication Sig Discontinue Reason Start Date End Da te mupirocin (BACTROBAN) 2 % ointment Topically as directed BID, three 22 gm tubes for 30 days 02/24/2015 06/17/2015 VALGANCICLOVIR HCL (VALCYTE ORAL) Take by mouth 06/17/2015 documented as of this encounter Historical Medications * This list may reflect changes made after this encounter. Medication Sig Dispensed Refills Start Date End Date UNABLE TO FIND Med Name: clomine For severe stomach upset. valACYclovir (VALTREX) 1 gram tablet Take 1,000 mg by mouth daily. added in this encounter Active and Recently Administered Medications Times are shown in EST. Scheduled Medication Order 06/22/2015 06/23/2015 06/24/2015 albuterol (ACCUNEB) nebulizer solution 1.25 mg (COMPLETED) 1.25 mg, nebulization, PACU ONCE, 1 dose, On Shauna 06/24/15 at 1700, STAT 1641 (Given - Provid er: Cherri Shelley RN) ceFAZolin (ANCEF) syringe 1 g (COMPLETED) 1 g, intravenous, Administer over 10 Minutes, PRE-OP ONCE, 1 dose, On Shauna 06/24/15 at 1100, Routine 1056 (Given by Other - Provider: Gale Wilburn RN - Comment: given by anesthesia provider) Continuous Medication Order 06/22/2015 06/23/2015 06/24/2015 lactated ringers (LR) infusion (CANCELED) at 25 mL/hr, intravenous, CONTINUOUS, Starting on Shauna 06/24/15 at 1000, Until Shauna 06/24/15 at 2009, Routine, Pre Op Day of Surgery 0927 (New Bag - Prov ider: Wendy Sierra RN) PRN Medication Order 06/22/2015 06/23/2015 06/24/2015 HYDROmorphone (PF) (DILAUDID) 1 mg/mL injection 0.2-1 mg (CANCELED) 0.2-1 mg, intravenous, EVERY 10 MINUTES PRN, Starting on Shauna 06/24/15 at 1344, Until Shauna 06/24/15 at 2009, Pain, Routine, Recovery (only) 1456 (Given - Provid er: Nicolasa Salguero RN)1521 (Given - Provider: Nicolasa Salguero RN) oxyCODONE (ROXICODONE) immediate release tablet 5 mg (CANCELED) 5 mg, oral, PRN, 2 doses, Starting on Shauna 06/24/15 at 1344, Until Shauna 06/24/15 at 2009, Pain, Routine, Recovery (only) 1533 (Given - Provid er: Nicolasa Salguero RN) documented in this encounter Orders Medications Ordered That Jessee ht Not Have Been Administered Count Last Ordered Date First Ordered Date acetaminophen (TYLENOL) tablet 1,000 mg 1 0 06/24/2015 atropine 0.1 mg/mL syringe 0.5 mg 1 016 diphenhydrAMINE (BENADRYL) i njection 6.25 mg 1 06/24/2015 fentaNYL citrate (PF) 50 mcg /mL injection 25-100 mcg 1 06/24/2015 lactated ringers (LR) infusion 1 06/24/2015 meperidine (PF) (DEMEROL) 25 mg/0.5 mL injection 12.5 mg 1 06/24/2015 midazolam (PF) (VERSED) 1 mg /mL injection 1 mg 1 06/24/2015 nalOXone (NARCAN) injection 0.2 mg 1 2015 Diet Count Last Ordered Date First Orde red Date DISCHARGE DIET 1 06/24/2015 Nursing Count Last Ordered Date First Orde red Date ACTIVITY INSTRUCTIONS 1 06/24/2015 Transfer Count Last Ordered Date First Orde red Date NOTIFY PPS PACU PATIENT DISCHARGE 1 016 NOTIFY PPS PATIENT ARRIVAL IN PACU 1 2015 Discharge Count Last Ordered Date First Orde red Date DISCHARGE PATIENT 1 06/24/2015 Legal Count Last Ordered Date First Orde red Date MISCELLANEOUS DISCHARGE INSTRUCTIONS 3 06/07 documented in this encounter Care Teams Master Machinist Relationship Specialty Start Date End Date Nicole Hubbard MD [address] [place] [address] PCP - General 10/05/11 documented as of this encounter
--- OUTSIDE RECORDS SUMMARY | 2024-03-14 18:05 | XMS_ITS | Encounter Summary ---
Author Organization [facility] Address [address] [place] [address] Care Team Providers Care Grip Name Role Phone Nicole Hubbard MD Primary Care Provider [phone] Encounter Details Date Type Department Care Team (Late st Contact Info) Description 03/01/2021 Lab Requisition [facility] Pathology & Laboratory Medicine - [facility] [address] [place] [address] Outr Resulting Lab, Provider Social History Tobacco [...] Comments ZZCOVID-19 TEST [facility] PCR Today 03/01/2021 12:30 EDT COVID-19 TESTING Routine 03/01/2021 12:3 0 EDT documented in this encounter Results * COVID-19 TEST [facility] PCR (03/01/2021 12:30 EDT) Swab ENTIRE NASOPHARYNX / Unknown 03/01/2021 12:30 EDT 03/02/2021 16:22 EDT Provider Outr Resulting Lab MICROBIOLOGY - GENERAL ORDERABLES [facility] [address] [place] [address] * COVID-19 TESTING (03/01/2021 12:30 EDT) COVID-19 rt-PCR Result Negative Negative 03/03/2021 10:26 EDT [facility] Comment: This test has not [...] performed using the rocio SARS-CoV-2 assay ([employer] on the Rocio 6800 System Performing Lab Rocio 6800 [facility] Lab 03/03/2021 10:26 EDT [facility] Swab 03/01/2021 12:3 0 EDT 03/02/2021 16:22 EDT Provider Outr Resulting Lab MICROBIOLOGY - GENERAL ORDERABLES [facility] [address] [place] [address] documented in this encounter Visit Diagnoses Not on filedocumented in this encounter Care Teams Grip Relationship Specialty Start Date End Date Nicole Hubbard MD [address] [place] [address] PCP - General 10/05/11 documented as of this encounter
--- OUTSIDE RECORDS SUMMARY | 2024-03-14 18:05 | XMS_ITS | Encounter Summary ---
Author Organization [facility] Address [address] [place] [address] Care Team Providers Care Knit Tubing Dyer Name Role Phone Nicole Hubbard MD Primary Care Provider [phone] Reason for Visit * Reason Comments Post-OP Follow Up Encounter Details Date Type Department Care Team (Late st Contact Info) Description 07/06/2015 13:00 EST Office Visit [facility] ENT- Main [place] [address] [place], [place] [id number] Silvio Oscar MD [address] [place] [address] Other chronic sinusitis (Primary Dx); DNS (deviated nasal septum) Discharge Disposition: Auto Discharge Social History Tobacco Use Types Packs/Day Years Used Date Smoking Tobacco: Former Alcohol Use Standard Drinks/Week Comments No 0 (1 standard drink = 0.6 oz pur e alcohol) Sex and Gender Information Value Date Recorded Sex Assigned at Not on file Gender Identity Not on file Sexual Orientation Not on file documented as of this encounter Discharge Diagnoses Diagnosis J32.8 Other chronic sinusitis-J32.8[ICD-10-CM] documented in this encounter Discharge Disposition Disposition Code Departure Means Destination Auto Discharge documented in this encounter Progress Notes * Silvio Oscar MD - 07/06/2015 8773 EST PROBLEM: Chronic rhinosinusitis, deviated nasal septum. S/P septoplasty, ESS (06/24/2015). SUBJECTIVE: Mrs Sheets returns for her first postoperative visit. Other than congestion, no voiced complaints. Compliant with postop instructions including prednisone, antibiotics and aggressive saline rinses. Past medical, surgical history, medication list, allergy status reviewed and updated to PRISM. EXAMINATION: Mrs Sheets is alert and oriented. She is not in any acute distress. External nose midface without distortion. Anterior rhinoscopy: Midline septum with septal splints in place. Suture release followed by removal of splints. Septum reexamined, midline. Turbinates are normal, widely patent airway. PROCEDURE: Bilateral nasal endoscopy, cleaning and debridement. INDICATION: Postoperative sinus surgery. Both nostrils packed with neuro patties soaked in co-phenylcaine for 10 minutes. Left nasal endoscopy with rigid 30-degree endoscope on video camera demonstrated to patient and . The middle meatus impacted with moistened Nasopore and crusting. Cleaning and debridement withstraight followed by curved suction of the maxillary, ethmoid, frontal sinus. All paranasal sinusesare patent. The underlying tissue is mildly edematous. Right nasal endoscopy with rigid 30-degree endoscope reveals widely patent airway. Middle meatus impacted with crusting and moistened Nasopore. Cleaning and debridement with straight followed by curved suction of the anterior/posterior ethmoids, maxillary and ethmoid sinuses. Underlying tissue was healing well. Moderate edema. No mucopus. ASSESSMENT: 1. Satisfactory postoperative status with midline septum. Marked subjective improvement in nasal airway. 2. 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 Bilateral nasal endoscopy, cleaning and debridement. All perinasal sinuses are healing well and patent. PLAN: 1. Continue with 8 ounce NeilMed saline rinse 3 times daily until followup. 2. Saline nasal spray in between on a p.r.n. basis. 3. Follow up in 1 month. documented in this encounter Plan of Treatment Not on file documented as of this encounter Visit Diagnoses Diagnosis Other chronic sinusitis- Primary DNS (deviated nasal septum) Deviated nasal septum documented in this encounter Care Teams Knit Tubing Dyer Relationship Specialty Start Date End Date Nicole Hubbard MD [address] [place] [address] [address] [place] [address] PCP - General 10/05/11 documented as of this encounter
--- OUTSIDE RECORDS SUMMARY | 2024-03-14 18:05 | XMS_ITS | Encounter Summary ---
Author Organization [facility] [place] [address] Care Team Providers Care Welder Metal Fab Name Role Phone Nicole Hubbard MD Primary Care Provider [phone] Encounter Details Date Type Department Care Team (Late st Contact Info) Description 08/12/2012 Orders [place] [address] Toni Lui MD [facility] [place] [address] Social History Tobacco Use Types Packs/Day Years [...] Associated Diagnosis Comments FILM LIBRARY STORAGE ONLY CT CHEST Routine 08/12/2012 9:01 AM EDT documented in this encounter Results * Film Library- Storage only CT Chest (08/12/2012 9:01 AM EDT) Anatomical Region Laterality Modality Chest Other 08/12/2012 9:01 AM EDT Narrative 06/26/2013 9:40 PM EST This is a non-reportable exam. Procedure Note Woody Gambino - 06/26/2013 This is a non-reportable exam. Toni Lui MD [facility] FILM LIBRARY ORD ERABLES documented in this encounter Visit Diagnoses Not on filedocumented in this encounter Care Teams Welder Metal Fab Relationship Specialty Start Date End Date Nicole Hubbard MD [address] [place] [address] PCP - General 03/29/10 documented as of this encounter
--- OUTSIDE RECORDS SUMMARY | 2024-03-14 18:05 | XMS_ITS | Encounter Summary ---
Author Organization [facility] Address [address] [place] [address] Care Team Providers Care Mixed Signal Design Engineer Name Role Phone Nicole Hubbard MD Primary Care Provider [phone] Encounter Details Date Type Department Care Team (Late st Contact Info) Description 04/22/2020 Lab Requisition [facility] Pathology & Laboratory Medicine - [address] [address] Outr Resulting Lab, Provider Social History Tobacco [...] Comments ZZCOVID-19 TEST [facility] PCR Today 04/22/2020 10:07 EST COVID-19 TESTING Routine 04/22/2020 10:0 7 EST documented in this encounter Results * COVID-19 TEST [facility] PCR (04/22/2020 10:07 EST) Swab ENTIRE NASOPHARYNX / Unknown 04/22/2020 10:07 EST 04/22/2020 16:53 EST Provider Outr Resulting Lab MICROBIOLOGY - GENERAL ORDERABLES [facility] [address] [place] [address] * COVID-19 TESTING (04/22/2020 10:07 EST) COVID-19 rt-PCR Result Negative Negative 04/23/2020 14:41 EST [facility] Comment:Negative results do not preclude 2019-nCoV infection and should not be used as the sole basis for treatment or other patient management decisions. Negative results must be combined with clinical observations, patient history, and epidemiological information. Performing Lab [employer] 7 [facility] 04/23/2020 14:41 EST [facility] Swab 04/22/2020 10:0 7 EST 04/22/2020 16:53 EST Provider Outr Resulting Lab MICROBIOLOGY - GENERAL ORDERABLES Performing Organization Address [facility] Co de Phone Number [facility] [address] [place] [address] documented in this encounter Visit Diagnoses Not on filedocumented in this encounter Care Teams Mixed Signal Design Engineer Relationship Specialty Start Date End Date Nicole Hubbard MD [address] [facility] [address] [place] [phone] PCP - General 10/05/11 documented as of this encounter
--- OUTSIDE RECORDS SUMMARY | 2024-03-14 18:05 | XMS_ITS | Encounter Summary ---
Author Organization [facility] Address [address] [place] [address] Care Team Providers Care Boiler Repair Supervisor Name Role Phone Nicole Hubbard MD Primary Care Provider [phone] Encounter Details Date Type Department Care Team (Late st Contact Info) Description 02/18/2020 Lab Requisition [facility] Pathology & Laboratory Medicine - [address] [address] Outr Resulting Lab, Provider Social History Tobacco [...] Comments ZZCOVID-19 TEST [facility] PCR Today 02/18/2020 19:15 EDT COVID-19 TESTING Routine 02/18/2020 19:1 5 EDT documented in this encounter Results * COVID-19 TEST [facility] PCR (02/18/2020 19:15 EDT) Swab ENTIRE NASOPHARYNX / Unknown 02/18/2020 19:15 EDT 02/19/2020 9:02 EDT Provider Outr Resulting Lab MICROBIOLOGY - GENERAL ORDERABLES Performing Organization Address [facility] Co de Phone Number [facility] [address] [place] [address] * COVID-19 TESTING (02/18/2020 19:15 EDT) COVID-19 rt-PCR Result Negative Negative 02/19/2020 11:54 EDT [facility] Comment: This test [...] clinical observations, patient history, and epidemiological information. Performed on the [employer]ilix Fusion instrument Performing Lab [place] [facility] 02/19/2020 11:54 EDT [facility] Swab 02/18/2020 19:1 5 EDT 02/19/2020 9:02 EDT Provider Outr Resulting Lab MICROBIOLOGY - GENERAL ORDERABLES Performing Organization Address City/[facility]/ZIP Co de Phone Number [facility] [address] [place] [address] documented in this encounter Visit Diagnoses Not on filedocumented in this encounter Care Teams Boiler Repair Supervisor Relationship Specialty Start Date End Date Nicole Hubbard MD [address] [place] [phone] PCP - General 10/05/11 documented as of this encounter
--- OUTSIDE RECORDS SUMMARY | 2024-03-14 18:05 | XMS_ITS | Encounter Summary ---
Author Organization [facility] Address [address] [place] [address] Care Team Providers Care Store Administrator Name Role Phone Unavailable Primary Care Provider Unavailabl e Encounter Details Date Type Department Care Team (Late st Contact Info) Description 08/17/2004 Results Only [facility] - Maple conversion [address] [place] [address] Sun Casiano, [address] [place] [phone] Social History Tobacco Use Types Packs/Day Years Used Date Smoking Tobacco: Never Assessed Sex and Gender Information Value Date Recorded Sex Assigned at Not on file Gender Identity Not on file Sexual Orientation Not on file documented as of this encounter Plan of Treatment Not on file documented as of this encounter Procedures Procedure Name Priority Date/Time Associated Diagnosis Comments CYTOPATHOLOGY Routine 08/17/2004 0:00 EDT documented in this encounter Results * CYTOPATHOLOGY (08/17/2004 0:00 EDT) Pathology Report: CYTOPATHOLOGY REPORT Reports generated via electronic interface contain original data; however they are lacking the format of the original report. Caution should be taken when reading/interpreti ng unformatted reports. Name: ? FITCH, ALICE ? Accession #: ? [id number] : ? 1955 (Age: 48) ??F ?Collect Date: ? 08/17/2004 Location: ? [facility] ? Receive Date: ? 08/18/2004 Provider: ?SUN CASIANO MARINE STRUCTURAL WELDER Copy to: ? Specimen/Source: ?ThinPrep Pap Test, Vagina Last Menstrual Period: ? 1996 Previous Gynecologic Pathology: ? Yes: 1996 rare atypical but degenerated cells present Other: ? HPVA - HPV testing requested if ASC-US on the current ThinPrep Pap test. ? SPECIMEN ADEQUACY ? Satisfactory for Evaluation - assessment of transformation zone component not applicable ( e.g. atrophy, vaginal sample, hysterectomy) GENERAL CATEGORIZATION ? Negative for Intraepithelial Lesion or Malignancy ? Document reviewed and electronically signed by: ? UNA Aguiar(ASCP) ? Report Date: ??08/25/2004 08:46 End of Report [facility] 08/17/2004 08/18/2004 Sun Casiano MARINE STRUCTURAL WELDER PATHOLOGY ORDERABLES [facility] [address] [place] [address] documented in this encounter Visit Diagnoses Not on filedocumented in this encounter
--- OUTSIDE RECORDS SUMMARY | 2024-03-14 18:05 | XMS_ITS | Encounter Summary ---
Author Organization [facility] Address [address] [place] [address] Care Team Providers Care Bicycle Courier Name Role Phone Nicole Hubbard MD Primary Care Provider [phone] Encounter Details Date Type Department Care Team (Late st Contact Info) Description 04/15/2020 Lab Requisition [facility] Pathology & Laboratory Medicine - [address] [address] Outr Resulting Lab, Provider Social History Tobacco [...] Comments FECAL BACTERIAL PATHOGENS BY PCR Routine 04/15/2020 12:30 EST documented in this encounter Results * (ABNORMAL) FECAL BACTERIAL PATHOGENS BY PCR (04/15/2020 12:30 EST) Salmonella PCR Negative Negative 04/16/2020 11:11 [facility] Shigella/Enteroin vasive E. coli Negative Negative 04/16/2020 11:11 [facility] CAMPYLOBACTER PCR Positive(A) Negative 04/16/2020 11:11 [facility] Shiga Toxin PCR Negative Negative 0 11:11 EST [facility] Feces SPECIMEN FROM RECTUM / Unknown 04/15/2020 12:30 EST 04/15/2020 22:18 EST Provider Outr Resulting Lab MICROBIOLOGY - GENERAL ORDERABLES Performing Organization Address City/State/[facility] Co de Phone Number [facility] [address] [place] [address] documented in this encounter Visit Diagnoses Not on filedocumented in this encounter Care Teams Bicycle Courier Relationship Specialty Start Date End Date Nicole Hubbard MD [address] [place] [phone] PCP - General 10/05/11 documented as of this encounter
--- OUTSIDE RECORDS SUMMARY | 2024-03-14 18:05 | XMS_ITS | Encounter Summary ---
Author Organization [facility] Address [address] [place] [address] Care Team Providers Care Finance Consultant Name Role Phone Unavailable Primary Care Provider Unavailabl e Encounter Details Date Type Department Care Team (Late st Contact Info) Description 06/17/2001 Results Only [facility] - Maple conversion [address] [place] [address] Ruma Jimenez MD [address] [place] [address] Social History Tobacco Use Types Packs/Day Years Used Date Smoking Tobacco: Never Assessed Sex and Gender Information Value Date Recorded Sex Assigned at Not on file Gender Identity Not on file Sexual Orientation Not on file documented as of this encounter Plan of Treatment Not on file documented as of this encounter Procedures Procedure Name Priority Date/Time Associated Diagnosis Comments SURGICAL PATHOLOGY Routine 06/17/2001 0:00 EST documented in this encounter Results * SURGICAL PATHOLOGY (06/17/2001 0:00 EST) Pathology Report: SURGICAL PATHOLOGY REPORT Reports generated via electronic interface contain original data; however they are lacking the format of the original report. Caution should be taken when reading/interpreti ng unformatted reports. Name: ? FITCH, ALICE ? Accession #: ? [id number] ? : ? 1955 (Age: 45) ??F ? Collect Date: ? 06/17/2001 ? Location: ? [facility] ? Receive Date: ? 06/18/2001 ? Provider: RUMA JIMENEZ MD Copy to: RAUL ARMSTRONG MD ? Final Pathologic Diagnosis: ? A. ??Turbinate, left, biopsy: ? 1. ??Bone fragments and respiratory mucosa with vascular congestion and chronic inflammation. B. ??Turbinate, right, biopsy: ? 1. ??Bone fragments and respiratory mucosa with vascular congestion and chronic inflammation. ?? Document reviewed and electronically signed by: Rosa Soto MD Report ??Date: 07/16/2001 16:23 By the signature above, the attending physician certifies that he/she has personally conducted a gross and/or microscopic examination of the described specimens and rendered or confirmed the above diagnosis. Specimen(s) Received: A. ?Left turbinate (#1) B. ?Right turbinate (#2) Clinical History: ? Deviated nasal septum, hypertrophy of inferior turbinates Gross Description: ? Received in formalin labelled Sessions and #1 left turbinate is a hughes-pink, 3.2 x 1.1 x 0.6 cm portion of mucosa with underlying, hughes-white, cartilaginous tissue. ??The cut surfaces are hughes-white and focally hemorrhagic. No definitive nodule is identified. ??The specimen is entirely submitted as (A1) and (A2) following decalcification. ?? Received in formalin labelled Sessions and #2 right turbinate is a hughes-pink, 2.4 x 1.2 x 0.5 cm portion of mucosa with underlying, hughes-white, cartilaginous tissue. ??The cut surfaces are hughes-pink and calcified. ??No definitive nodule is identified. ??The specimen is longitudinally bisected and entirely submitted as (B1) and (B2) following decalcification. ??(Laura Shepard)/[facility] End of Report [facility] 06/17/2001 06/18/2001 9:3 0 EST Ruma Jimenez MD PATHOLOGY ORDERABLES Performing Organization Address City/State/[facility] Co de Phone Number [facility] [address] [place] [address] documented in this encounter Visit Diagnoses Not on filedocumented in this encounter
--- OUTSIDE RECORDS SUMMARY | 2024-03-14 18:05 | XMS_ITS | Encounter Summary ---
Author Organization [facility] Address [address] [place] [address] Care Team Providers Care Pharmacy Student Name Role Phone Purnima Hubbard MD Primary Care Provider [phone] Encounter Details Date Type Department Care Team (Late st Contact Info) Description 10/05/2011 Results Only [facility] [place] Laboratory Services - [facility] ([facility] [address] [place] [address] William Quesada MD [address] [place] [phone] Social History Tobacco Use Types Packs/Day Years Used Date Smoking Tobacco: Never Assessed Sex and Gender Information Value Date Recorded Sex Assigned at Not on file Gender Identity Not on file Sexual Orientation Not on file documented as of this encounter Plan of Treatment Not on file documented as of this encounter Procedures Procedure Name Priority Date/Time Associated Diagnosis Comments SURGICAL PATHOLOGY Routine 10/05/2011 0:00 EDT documented in this encounter Results * SURGICAL PATHOLOGY (10/05/2011 0:00 EDT) Pathology Report: SURGICAL PATHOLOGY REPORT Reports generated via electronic interface contain original data; however they are lacking the format of the original report. Caution should be taken when reading/interpreti ng unformatted reports. Name: ? JOSELYN SHEETS ? Accession #: ? [id number] ? : ? 1955 (Age: 55) ??F ? Collect Date: ? 10/05/2011 ? Location: ? [facility] ? Receive Date: ? 10/05/2011 ? Provider: WILLIAM QUESADA MD Copy to: PURNIMA HUBBARD MD ? Final Pathologic Diagnosis: A. ?Sinus contents, curettage: 1. ?Benign respiratory mucosa with chronic inflammation. 2. ? Fragments of viable bone. B. ?Lip, lower, lesion, biopsy: 1. ?Sclerosing hemangioma. ??See comment. Comment: ? Gore Stitcher sections of this case have been reviewed at the intradepartmental consultation conference. ??(Dr. Cruz)/formerly [facility] Document reviewed and electronically signed by: CHAN CRUZ MD Report ??Date: 10/09/2011 16:10 By the signature above, the attending physician certifies that he/she has personally conducted a gross and/or microscopic examination of the described specimens and rendered or confirmed the above diagnosis. Specimen(s) Received: A. ?Sinusoidal contents B. ? Lower lip lesion Clinical History: ? Chronic sinusitis, lip lesion (lower, inner) Gross Description: ? Received in formalin labelled Sudeep, Joselyn and sinusoidal contents is a 0.7 x 0.5 x 0.2 cm aggregate of hughes, focally white to focally light brown tissue and scant probable blood clot. ??The specimen is entirely submitted as (A). Received in formalin labelled Sudeep, Joselyn and lower lip lesion is a 0.5 x 0.3 cm mucocutaneous-cove red piece of tissue excised to a depth of less than 0.1 cm (resection margin is black-inked). ??The mucocutaneous surface is slightly lobular, otherwise generally smooth and white. ??The bisected specimen is submitted entirely as (B). ??(Cesar Cisneros)/[facility] End of Report [facility] 10/05/2011 10/05/2011 17: 08 EDT William Quesada MD PATHOLOGY ORDERABLES [facility] [address] [place] [address] documented in this encounter Visit Diagnoses Not on filedocumented in this encounter Care Teams Pharmacy Student Relationship Specialty Start Date End Date Purnima Hubbard MD [address] [place] [phone] PCP - General 10/05/11 documented as of this encounter
--- OUTSIDE RECORDS SUMMARY | 2024-03-14 18:05 | XMS_ITS | Referral Summary ---
Author Organization [facility] Address [address] [place] [address] Care Team Providers Care Wide Load Escort Name Role Phone Nicole Hubbard MD Primary Care Provider [phone] Allergies No known active allergies Medications Medication [...] 04/16/2015 LPRD (laryngopharyngeal reflux disease) 04/16/20 15 Social History Tobacco Use Types Packs/Day Years [...] 37.11 06/17/2015 1725 EST Plan of Treatment Not on file Care Teams Wide Load Escort Relationship Specialty Start Date End Date Nicole Hubbard MD [address] [place] [address] [address] [place] [phone] PCP - General 10/05/11
== END 2024-03-14 18:03 | disposition home or self-care (01) ==
LOC: LBN 18:02
PROVIDERS: PCP Family Medicine; Visit Provider Family Medicine
DX: N39.0 Urinary tract infection, site not specified (principal); R82.89 Other abnormal findings on cytological and histological examination of urine; B96.29 Other Escherichia coli [E. coli] as the cause of diseases classified elsewhere
CPT/HCPCS: 87077; 87086; 87186

== ENCOUNTER → 2024-04-22 13:53 | Outpatient (BNVA) | payer MEDICARE, SELFPAY | PROVIDERS: PCP Family Medicine; Referring Provider Family Medicine; Visit Provider Physician Assistant Surgical | DX: J44.9 Chronic obstructive pulmonary disease, unspecified (principal); J39.8 Other specified diseases of upper respiratory tract; Q33.2 Sequestration of lung; Z90.2 Acquired absence of lung [part of]; Z87.891 Personal history of nicotine dependence; Z29.11 Encounter for prophylactic immunotherapy for respiratory syncytial virus (RSV); Z23 Encounter for immunization | CPT/HCPCS: 90380; 90661; 90679; 96381; 99214; G0008 ==

== ENCOUNTER 2024-05-05 10:36 | Outpatient (CLI) | payer MEDICARE, SELFPAY ==
[2024-05-05 12:46] LABS: Hemoglobin A1C 5.9 % (<5.7)
[2024-05-05 13:04] LABS: ALT 18 U/L (14-59); AST 13 U/L (15-37); Alkaline Phosphatase 43 U/L (46-116); Anion Gap 5.5 mmol/L (3-11); BUN 23 mg/dL (7-18); Bilirubin, Total 0.37 mg/dL (0.2-1.0); CO2 34.5 mmol/L (21.0-32.0); CREATININE 0.8 mg/dL (0.55-1.02); Calcium 9.7 mg/dL (8.5-10.1); Calculated LDL 132 mg/dL (<100); Chloride 102 mmol/L (98-107); Cholesterol 229 mg/dL (<200); Estimated GFR 80.71 (mL/min/1.73m2); Glucose 114 mg/dL (74-106); HDL Cholesterol 65 mg/dL (40-60); Potassium 4.3 mmol/L (3.5-5.1); Sodium 142 mmol/L (136-145); TSH (W/Ref FT4) 3.14 uIU/mL (0.36-3.74); Total Protein 8.1 g/dL (6.4-8.2); Triglyceride 164 mg/dL (<150); Vitamin B12 165 pg/mL (193-986)
[2024-05-05 13:27] LABS: NT-proBNP 60 pg/mL (<300)
[2024-05-05 19:03] LABS: Hepatitis C Ab w Rflx HCV PCR Negative (Negative)
== END 2024-05-05 10:37 | disposition home or self-care (01) ==
LOC: LOS 10:37
PROVIDERS: PCP Family Medicine; Referring Provider Family Medicine; Visit Provider Family Medicine
DX: E03.9 Hypothyroidism, unspecified (principal); E11.9 Type 2 diabetes mellitus without complications; I10 Essential (primary) hypertension; I50.9 Heart failure, unspecified; Z11.59 Encounter for screening for other viral diseases; E53.8 Deficiency of other specified B group vitamins
CPT/HCPCS: 36415; 80053; 80061; 86803; 82607; 83036; 83880; 84443

== ENCOUNTER 2024-06-05 02:58 | Outpatient (CLI) | payer MEDICARE, SELFPAY ==
--- NOTE | 2024-06-05 07:17 | DI.CTLCSR_ITS ---
Exam(s) CT CHEST LUNG CANCER SCREEN EXAM: CT CHEST LUNG CANCER SCREEN CLINICAL HISTORY: Screening for lung cancer,former smoker, z87.891 TECHNIQUE: Imaging Protocol: Axial computed tomography images with coronal and sagittal reformatted images were created and reviewed. Lung Computer Aided Detection (CAD) was utilized. COMPARISON: CT CT CHEST LUNG CANCER SCREEN from 05/24/2023 FINDINGS: Tracheobronchial tree: Patent where visualized. No bronchiectasis. Pulmonary parenchyma: Emphysematous changes are seen in the lungs. There is scarring in the lungs. No focal consolidating infiltrates are seen. Lung Nodules: None. Mediastinum and Yolanda: No dominant adenopathy or fluid collection. The esophagus is unremarkable. Thyroid gland: Unremarkable. Lymph nodes: Unremarkable. Pleura: No effusion or pneumothorax. Heart: The heart is not dilated. Mild coronary artery calcification is present. No pericardial effus ion. Aorta: Thoracic aorta non-dilated.Atherosclerotic calcification is present. Upper abdomen: Unremarkable. Soft Tissues: There is fatty atrophy of the right chest wall musculature. Bones: Within normal limits. There are old bilateral rib fracture deformities. Age-appropriate degen erative changes are seen throughout the thoracic spine. IMPRESSION: No pulmonary nodules. Lung RADS Cat 1 - Negative: No nodules and definitely benign nodules Lung-RADS 1.0 CATEGORIES: Category 0 - Prior chest CT exam(s) being located for comparison. Category 1 - Annual screening in 12 months. No nodules or definitely benign nodules. Category 2 - Annual screening in 12 months. Benign appearance. Nodules with low likelihood of becomin g active cancer. Category 3 - 6-month follow-up. Probably benign. Short-term follow-up suggested. Nodules with low lik elihood of becoming active cancer. Category 4A - 3-month follow-up and CT/PET if >8 mm in size. Suspicious finding. Findings which requi re additional testing. Category 4B - Findings which require additional testing and tissue sampling. Suspicious finding. Category 4X - Category 3 or 4 nodules with additional features or imaging findings that increases the suspicion of malignancy. Modifier S- Potentially clinically significant finding. (Non lung cancer) RADIATION DOSE DELIVERED: 94.27mGy.cm Total DLP 94.27mGy.cmTotal DLP DATA REPOSITORY: All CT scans at this facility are submitted to the National Radiology Data Registry (NRDR) Dose Index Registry (DIR) with the [employer] ([employer]). RADIATION OPTIMIZATION: All CT scans at this facility use at least one of these dose optimization te chniques: automated exposure control; mA and/or kV adjustment per patient size (includes targeted exa ms where dose is matched to clinical indication); or iterative reconstruction.
== END 2024-06-05 03:18 ==
LOC: DI 02:59
PROVIDERS: PCP Family Medicine; Visit Provider Physician Assistant Surgical
DX: Z12.2 Encounter for screening for malignant neoplasm of respiratory organs (principal); Z87.891 Personal history of nicotine dependence
CPT/HCPCS: 71271

== ENCOUNTER 2024-06-19 02:40 | Outpatient (CLI) | payer MEDICARE, SELFPAY ==
--- NOTE | 2024-06-19 14:17 | DI.CT_ITS ---
Exam(s) CT SINUS WO EXAM: CT SINUS WO CLINICAL HISTORY: Left maxillary polyp obstructing airway,NASAL POLYP,CHRONIC SINUS INFECTION. Eval uate for sinusitis. TECHNIQUE: Imaging Protocol: Axial computed tomography images with coronal and sagittal reformatted images were created and reviewed. COMPARISON: CT CT HEAD WO from 10/29/2020 FINDINGS: Frontal sinuses: Normally aerated. Ethmoid air cells: Prior surgery. Maxillary sinuses: Significant opacification. Sphenoid sinuses: Normally aerated. Ostiomeatal complexes: Bilateral medial antrectomies of the maxillary sinuses. Nasal cavity: Septum is midline. Visualized regional soft tissues: No acute findings. Orbits: Unremarkable. Bones: Unremarkable. Mastoid Air Cells: Normally aerated. Visualized portions of the brain: Unremarkable as visualized. IMPRESSION: Significant mucous retention within both maxillary sinuses. Bilateral medial antrectomies. RADIATION DOSE DELIVERED: Total DLP DATA REPOSITORY: All CT scans at this facility are submitted to the National Radiology Data Registry (NRDR) Dose Index Registry (DIR) with the [employer] ([employer]). RADIATION OPTIMIZATION: All CT scans at this facility use at least one of these dose optimization te chniques: automated exposure control; mA and/or kV adjustment per patient size (includes targeted exa ms where dose is matched to clinical indication); or iterative reconstruction.
== END 2024-06-19 03:00 ==
LOC: DI 02:40
PROVIDERS: PCP Family Medicine; Visit Provider Otolaryngology
DX: J34.89 Other specified disorders of nose and nasal sinuses
CPT/HCPCS: 70486

== ENCOUNTER 2024-07-07 09:02 | Day surgery (SDC) | payer MEDICARE, SELFPAY ==
[2024-07-07] VITALS (12 sets, daily range): BP systolic 95–168; BP diastolic 46–97; PULSE 53–77; RESP 15–25; TEMP 36.1–36.7; O2SAT 94–98; BMI 42.5
--- NOTE | 2024-07-07 09:57 | ANES.PREOP_ITS ---
General Info Date of Service Date Performed: 07/07/24 Height: 5 ft 4 in Weight: 112.5 kg Body Mass Index (BMI): 42.5 Surgical Procedure: Operation Date: 07/07/24 10:55 Proposed Procedure Side Surgeon p Fess w/Lt Polypectomy Left William Quesada MD Meds Allergies and Home Medications Allergies Allergy/AdvReac Type Severity Reaction Status Date / Time ethinyl estradiol (From Allergy Other (See Verified 07/03/24 14:51 Seasonale (91)) Comment) levonorgestrel (From Allergy Other (See Verified 07/03/24 14:51 Seasonale (91)) Comment) oxybutynin AdvReac Dry Verified 07/03/24 14:51 mouth/mucous membranes Home Medication ?Medication ?Instructions ?Recorded inhaler,assist devices,access 09/18/12 (EasiVent Mask Large) inhalational spacing device #1 ea 09/02/19 (Aerochamber MV spacer) Oxygen #1 ea 11/25/21 cetirizine 10 mg tablet (Zyrtec) 10 mg PO BID #180 tabs 03/02/23 cholecalciferol (vitamin D3) 125 125 mcg PO DAILY #90 caps 03/02/23 mcg (5,000 unit) capsule lorazepam 1 mg tablet 1 mg PO Q4H PRN anxiety #20 tabs 06/05/23 budesonide 160 mcg-glycopyr 9 2 inh inhalation BID #3 units 07/23/23 mcg-formot 4.8 mcg/actuation HFA inhaler (Breztri Aerosphere) folic acid 1 mg tablet 1 mg PO DAILY #90 tabs 07/23/23 magnesium oxide 800 mg (2 x 400 mg magnesium) PO 07/23/23 BID #360 caps sertraline 50 mg tablet 50 mg PO DAILY #90 tabs 07/23/23 levalbuterol tartrate 45 2 inh inhalation Q6H #45 grams 12/03/23 mcg/actuation aerosol inhaler omeprazole 20 mg capsule,delayed 20 mg PO DAILY #90 caps 01/18/24 release estradiol 0.5 mg tablet (Estrace) 0.5 mg PO .every 3rd day #90 02/21/24 tab-caps clotrimazole-betamethasone 1 1 applic topical DAILY PRN rash 03/09/24 %-0.05 % topical cream #45 grams calcium carbonate (Calcium 500) 1,000 mg (2 x 500 mg calcium 04/16/24 (1,250 mg)) PO QDAY #180 tabs fluticasone propionate 50 1 spray intranasal DAILY PRN 04/22/24 mcg/actuation nasal spray,suspension (Flonase Allergy Relief) montelukast 10 mg tablet 10 mg PO DAILY #90 tab-caps 05/05/24 (Singulair) mecobalamin (vitamin B12) 2,500 2,500 mcg PO DAILY #90 tabs 05/06/24 mcg chewable tablet atorvastatin 40 mg tablet 40 mg PO DAILY #90 tab-caps 05/08/24 sodium chloride 2.65 % nasal spray 1 spray intranasal DIRECTED 06/10/24 aerosol ([facility]) sotalol 80 mg tablet 40 mg (1/2 x 80 mg) PO BID #180 06/10/24 tabs xylitol-yerba jerome mucosal spray 1 spray mucous membrane ONCE 06/10/24 with pump diltiazem HCl 120 mg capsule,24 120 mg PO HS 07/03/24 hr,extended release Current Visit Medications: Current Medications Generic Name Dose Route Start Last Admin Trade Name Freq PRN Reason Stop Dose Admin Ringer's Solution 1,000 mls @ 50 mls/hr 07/07/24 06:00 IV 07/07/24 23:59 INFUSION DOT Cefazolin Sodium/Dextrose 2 gm in 50 mls @ 100 mls/hr 07/07/24 06:00 Ancef Duplex IVPB 07/07/24 23:59 PREOP DOT Tranexamic Acid/Sodium Chloride 1,000 mg in 100 mls @ 600 mls/hr 07/07/24 06:00 IVPB 07/07/24 23:59 PREOP DOT IV Miscellaneous Supplies 1 each 07/07/24 06:00 Iv Access IV 07/07/24 23:59 DIRECTED DOT Sodium Chloride 0 ml 07/07/24 06:00 Normal Saline Flush 10 Ml Syr IV 07/07/24 23:59 PRN PRN Sodium Chloride 0 ml 07/07/24 06:00 Normal Saline 10 Ml Vial IJ 07/07/24 23:59 DIRECTED PRN Sterile Water 0 ml 07/07/24 06:00 Water,Injection,Sterile 10 Ml Vial IJ 07/07/24 23:59 DIRECTED PRN [facility] Active Problems Active Problems: Problem Status Onset Code Chronic rhinitis Acute J31.0 Nasal polyp Acute J33.9 B12 deficiency Acute E53.8 Encounter for hepatitis C screening test for low risk patient Acute Z11.59 Nasal congestion Acute R09.81 Osteoporosis Chronic M81.0 Chronic sinus infection Acute J32.9 History of lobectomy of lung Acute Z90.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 Tracheobronchomalacia Acute J39.8 Personal history of nicotine dependence Acute Z87.891 Asthma-COPD overlap syndrome Acute J44.9 Adenomatous colon polyp Acute D12.6 Diverticula of colon Acute K57.30 Chronic iron deficiency anemia Acute D50.9 Chronic respiratory failure with hypoxia Chronic J96.11 ALEXX on CPAP Chronic G47.33, Z99.89 Chest pain Resolved R07.9 PSVT (paroxysmal supraventricular tachycardia) Chronic I47.1 Fatigue Acute R53.83 Anemia Chronic 12/31/12 D64.9 Thyroid nodule Acute 01/19/16 E04.1 Vitamin D deficiency Chronic 06/26/16 E55.9 Lumbar disc prolapse with compression radiculopathy Chronic 08/21/09 M51.16 Hyperlipidemia Chronic 12/31/12 E78.5 Essential hypertension Chronic 04/09/13 I10 Depressive disorder Chronic F32.9 Allergic fungal sinusitis Chronic 07/16/13 J30.89, B49 Achilles tendinitis, right leg Chronic 08/18/16 M76.61 Medical History Medical History Medicare welcome exam Encounter for monitoring sotalol therapy Acute bilateral low back pain Chest pressure Resolved per pt Low thyroxine (T4) level Folate deficiency Ventricular tachycardia on zio patch SVT (supraventricular tachycardia) Headache Tick bite of back Hypomagnesemia Campylobacter gastroenteritis Infectious diarrhea in adult patient Abnormal thyroid blood test Chronic diarrhea Hypokalemia due to excessive gastrointestinal loss of potassium Abdominal pain Back pain Annual physical exam Gastritis (04/05/05) per EGD and mild reflux Asthma exacerbation (06/12/16) Shortness of breath Asthma dependent on inhaled steroids SVT (supraventricular tachycardia) Hypomagnesemia Cellulitis of left lower extremity (12/11/16) Cholelithiasis without obstruction s/p cholecystectomy Abnormal mammogram, unspecified 04/05/06 w/6 mos. 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 Evans Chronic obstructive lung disease FEV 1-72% Bleeding hemorrhoids (08/09/17) Anemia (12/31/12) Depression Surgical History Surgical History H/O sinus surgery Bilateral gris bullosa excision, bilateral maxillary antrostomy, 2011 H/O nasal septoplasty With inferior turbinoplasty, 2001 H/O esophagogastroduodenoscopy (~04/26/20) H/O surgical procedure removal of toenails of great toe-bilateral LUNG LOBECTOMY (~1991) RLL; ? congential defect LIP BX (10/05/11) DR. QUESADA Hysterectomy, Laproscopic (~1996) EGD - MAC (02/24/14) 04/25 Debridement, Soft Tissue 11/10/16-DR. VALLECILLO-RIGHT HEEL Dilation and curettage Colonoscopy - MAC 02/24/1404/25 Cholecystectomy Arthroplasty of knee Arthroscopy Tobacco Smoking/Tobacco Use Status: Former Tobacco Use Passive smoking exposure: No Second hand exposure: Yes Alcohol Alcohol Intake: current Alcohol intake frequency: a few times a month Alcohol type: wine and hard liquor Substance Use Substance use: Socially Substance use type: marijuana Vital Signs and Lab Results Vital Signs Most Recent Vital Signs in EMR: Most Recent Vital Signs Temp Pulse Resp BP Pulse Ox 36.1 C L 53 L 16 168/97 H 98 07/07/24 09:20 07/07/24 09:20 07/07/24 09:20 07/07/24 09:20 07/07/24 09:20 Lab Results Blood Type / Crossmatch: No Data to Display Complete Blood Count: No Data to Display Complete Metabolic Panel: No Data to Display Liver Function Panel: No Data to Display Coagulation Panel: No Data to Display Cardiac Panel: No Data to Display Arterial Blood Gas: No Data to Display Venous Blood Gas: No Data to Display Pancreas Panel: No Data to Display Thyroid Panel: No Data to Display Infectious Disease: No Data to Display Blood Cultures: No Data to Display Toxicology Panel: No Data to Display Imaging and Studies Imaging and Studies Study information below may be from another EMR and interpreted by another provider. Please see original notes in EMR for more complete details. EKG Summary: Conclusion Sinus rhythm...normal P axis, V-rate 50- 99 Stress Test Summary: MPI Conclusion The patient's ejection fraction was 53% with stress. There were no wall motion abnormalities. There is no evidence of ischemia on the imaging portion of the exam. This represents a normal SPECT stress test. Echocardiogram Summary: 10/2020: Mild AR, EF 75% Carotid Artery Summary:: SUMMARY: No evidence of significant carotid stenosis. A 1.38 cm left thyroid nodule is identified, nil else. Pulmonary Function Summary: Impression Moderate airflow obstruction with a bronchodilator response and a decreased diffusion. The FVC is low due to obstruction. Note: When compared to 05/26/21, lung function, including diffusion, has improved. Clinical Correlation therefore is recommended. Anesthesia Assessment and Plan Anesthesia History Personal History: No History of Anesthesia Complications Family History: No Family History of Anesthesia Complications Implantable Cardiac Device Does patient have a Pacemaker or an ICD?: No
[2024-07-07] MEDS: Lactated Ringers 1,000 ML 50 ML IV (10:10)
--- NOTE | 2024-07-07 10:36 | W.ANESPRE ---
General Info Date of Service Date Performed: 07/07/24 Height: 5 ft 4 in Weight: 112.5 kg Body Mass Index (BMI): 42.5 Surgical Procedure: Operation Date: 07/07/24 10:55 Proposed Procedure Side Surgeon p Fess w/Lt Polypectomy Left William Quesada MD Meds Allergies and Home Medications Allergies Allergy/AdvReac Type Severity Reaction Status Date / Time ethinyl estradiol (From Allergy Other (See Verified 07/03/24 14:51 Seasonale (91)) Comment) levonorgestrel (From Allergy Other (See Verified 07/03/24 14:51 Seasonale (91)) Comment) oxybutynin AdvReac Dry Verified 07/03/24 14:51 mouth/mucous membranes Home Medication ?Medication ?Instructions ?Recorded inhaler,assist devices,access 09/18/12 (EasiVent Mask Large) inhalational spacing device #1 ea 09/02/19 (Aerochamber MV spacer) Oxygen #1 ea 11/25/21 cetirizine 10 mg tablet (Zyrtec) 10 mg PO BID #180 tabs 03/02/23 cholecalciferol (vitamin D3) 125 125 mcg PO DAILY #90 caps 03/02/23 mcg (5,000 unit) capsule lorazepam 1 mg tablet 1 mg PO Q4H PRN anxiety #20 tabs 06/05/23 budesonide 160 mcg-glycopyr 9 2 inh inhalation BID #3 units 07/23/23 mcg-formot 4.8 mcg/actuation HFA inhaler (Breztri Aerosphere) folic acid 1 mg tablet 1 mg PO DAILY #90 tabs 07/23/23 magnesium oxide 800 mg (2 x 400 mg magnesium) PO 07/23/23 BID #360 caps sertraline 50 mg tablet 50 mg PO DAILY #90 tabs 07/23/23 levalbuterol tartrate 45 2 inh inhalation Q6H #45 grams 12/03/23 mcg/actuation aerosol inhaler omeprazole 20 mg capsule,delayed 20 mg PO DAILY #90 caps 01/18/24 release estradiol 0.5 mg tablet (Estrace) 0.5 mg PO .every 3rd day #90 02/21/24 tab-caps clotrimazole-betamethasone 1 1 applic topical DAILY PRN rash 03/09/24 %-0.05 % topical cream #45 grams calcium carbonate (Calcium 500) 1,000 mg (2 x 500 mg calcium 04/16/24 (1,250 mg)) PO QDAY #180 tabs fluticasone propionate 50 1 spray intranasal DAILY PRN 04/22/24 mcg/actuation nasal spray,suspension (Flonase Allergy Relief) montelukast 10 mg tablet 10 mg PO DAILY #90 tab-caps 05/05/24 (Singulair) mecobalamin (vitamin B12) 2,500 2,500 mcg PO DAILY #90 tabs 05/06/24 mcg chewable tablet atorvastatin 40 mg tablet 40 mg PO DAILY #90 tab-caps 05/08/24 sodium chloride 2.65 % nasal spray 1 spray intranasal DIRECTED 06/10/24 aerosol ([facility]) sotalol 80 mg tablet 40 mg (1/2 x 80 mg) PO BID #180 06/10/24 tabs xylitol-yerba jerome mucosal spray 1 spray mucous membrane ONCE 06/10/24 with pump diltiazem HCl 120 mg capsule,24 120 mg PO HS 07/03/24 hr,extended release Current Visit Medications: Current Medications Generic Name Dose Route Start Last Admin Trade Name Freq PRN Reason Stop Dose Admin Ringer's Solution 1,000 mls @ 50 mls/hr 07/07/24 06:00 07/07/24 10:10 IV 07/07/24 23:59 50 mls/hr INFUSION DOT Administration Cefazolin Sodium/Dextrose 2 gm in 50 mls @ 100 mls/hr 07/07/24 06:00 Ancef Duplex IVPB 07/07/24 23:59 PREOP DOT Tranexamic Acid/Sodium Chloride 1,000 mg in 100 mls @ 600 mls/hr 07/07/24 06:00 IVPB 07/07/24 23:59 PREOP DOT IV Miscellaneous Supplies 1 each 07/07/24 06:00 Iv Access IV 07/07/24 23:59 DIRECTED DOT Sodium Chloride 0 ml 07/07/24 06:00 Normal Saline Flush 10 Ml Syr IV 07/07/24 23:59 PRN PRN Sodium Chloride 0 ml 07/07/24 06:00 Normal Saline 10 Ml Vial IJ 07/07/24 23:59 DIRECTED PRN Sterile Water 0 ml 07/07/24 06:00 Water,Injection,Sterile 10 Ml Vial IJ 07/07/24 23:59 DIRECTED PRN PFS Active Problems Active Problems: Problem Status Onset Code Chronic rhinitis Acute J31.0 Nasal polyp Acute J33.9 B12 deficiency Acute E53.8 Encounter for hepatitis C screening test for low risk patient Acute Z11.59 Nasal congestion Acute R09.81 Osteoporosis Chronic M81.0 Chronic sinus infection Acute J32.9 History of lobectomy of lung Acute Z90.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 Tracheobronchomalacia Acute J39.8 Personal history of nicotine dependence Acute Z87.891 Asthma-COPD overlap syndrome Acute J44.9 Adenomatous colon polyp Acute D12.6 Diverticula of colon Acute K57.30 Chronic iron deficiency anemia Acute D50.9 Chronic respiratory failure with hypoxia Chronic J96.11 ALEXX on CPAP Chronic G47.33, Z99.89 Chest pain Resolved R07.9 PSVT (paroxysmal supraventricular tachycardia) Chronic I47.1 Fatigue Acute R53.83 Anemia Chronic 12/31/12 D64.9 Thyroid nodule Acute 01/19/16 E04.1 Vitamin D deficiency Chronic 06/26/16 E55.9 Lumbar disc prolapse with compression radiculopathy Chronic 08/21/09 M51.16 Hyperlipidemia Chronic 12/31/12 E78.5 Essential hypertension Chronic 04/09/13 I10 Depressive disorder Chronic F32.9 Allergic fungal sinusitis Chronic 07/16/13 J30.89, B49 Achilles tendinitis, right leg Chronic 08/18/16 M76.61 Medical History Medical History Medicare welcome exam Encounter for monitoring sotalol therapy Acute bilateral low back pain Chest pressure Resolved per pt Low thyroxine (T4) level Folate deficiency Ventricular tachycardia on zio patch SVT (supraventricular tachycardia) Headache Tick bite of back Hypomagnesemia Campylobacter gastroenteritis Infectious diarrhea in adult patient Abnormal thyroid blood test Chronic diarrhea Hypokalemia due to excessive gastrointestinal loss of potassium Abdominal pain Back pain Annual physical exam Gastritis (04/05/05) per EGD and mild reflux Asthma exacerbation (06/12/16) Shortness of breath Asthma dependent on inhaled steroids SVT (supraventricular tachycardia) Hypomagnesemia Cellulitis of left lower extremity (12/11/16) Cholelithiasis without obstruction s/p cholecystectomy Abnormal mammogram, unspecified 04/05/06 w/6 mos. 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 Evans Chronic obstructive lung disease FEV 1-72% Bleeding hemorrhoids (08/09/17) Anemia (12/31/12) Depression Surgical History Surgical History H/O sinus surgery Bilateral gris bullosa excision, bilateral maxillary antrostomy, 2011 H/O nasal septoplasty With inferior turbinoplasty, 2001 H/O esophagogastroduodenoscopy (~04/26/20) H/O surgical procedure removal of toenails of great toe-bilateral LUNG LOBECTOMY (~1991) RLL; ? congential defect LIP BX (10/05/11) DR. QUESADA Hysterectomy, Laproscopic (~1996) EGD - MAC (02/24/14) 04/25 Debridement, Soft Tissue 11/10/16-DR. VALLECILLO-RIGHT HEEL Dilation and curettage Colonoscopy - MAC 02/24/1404/25 Cholecystectomy Arthroplasty of knee Arthroscopy Tobacco Smoking/Tobacco Use Status: Former Tobacco Use Passive smoking exposure: No Second hand exposure: Yes Alcohol Alcohol Intake: current Alcohol intake frequency: a few times a month Alcohol type: wine and hard liquor Substance Use Substance use: Socially Substance use type: marijuana Vital Signs and Lab Results Vital Signs Most Recent Vital Signs in EMR: Most Recent Vital Signs Temp Pulse Resp BP Pulse Ox 36.1 C L 53 L 16 168/97 H 98 07/07/24 09:20 07/07/24 09:20 07/07/24 09:20 07/07/24 09:20 07/07/24 09:20 Lab Results Blood Type / Crossmatch: No Data to Display Complete Blood Count: No Data to Display Complete Metabolic Panel: No Data to Display Liver Function Panel: No Data to Display Coagulation Panel: No Data to Display Cardiac Panel: No Data to Display Arterial Blood Gas: No Data to Display Venous Blood Gas: No Data to Display Pancreas Panel: No Data to Display Thyroid Panel: No Data to Display Infectious Disease: No Data to Display Blood Cultures: No Data to Display Toxicology Panel: No Data to Display Imaging and Studies Imaging and Studies Study information below may be from another EMR and interpreted by another provider. Please see original notes in EMR for more complete details. EKG Summary: Conclusion Sinus rhythm...normal P axis, V-rate 50- 99 Stress Test Summary: MPI Conclusion The patient's ejection fraction was 53% with stress. There were no wall motion abnormalities. There is no evidence of ischemia on the imaging portion of the exam. This represents a normal SPECT stress test. Echocardiogram Summary: 10/2020: Mild AR, EF 75% Carotid Artery Summary:: SUMMARY: No evidence of significant carotid stenosis. A 1.38 cm left thyroid nodule is identified, nil else. Pulmonary Function Summary: Impression Moderate airflow obstruction with a bronchodilator response and a decreased diffusion. The FVC is low due to obstruction. Note: When compared to 05/26/21, lung function, including diffusion, has improved. Clinical Correlation therefore is recommended. Anesthesia Assessment and Plan Anesthesia History Personal History: No History of Anesthesia Complications Family History: No Family History of Anesthesia Complications Exercise Tolerance Exercise Tolerance: Metabolic Equivalents<4 Pertinent Negatives Pertinent Negatives: No Symptoms of GERD (Rx Treatment) Cardiac & Pulmonary Exam Cardiac Exam: Normal S1/S2 Heart Sounds Pulmonary Exam: Clear Bilateral Breath Sounds (Absent right base. Note PFT's 05/09/23) Cardiac and Pulmonary Comment:: Hx of SVT Implantable Cardiac Device Does patient have a Pacemaker or an ICD?: No Airway Exam Known Difficult Airway: No Mallampati Class: 3 Mouth Opening: Normal (> 3cm) Thyromental Distance: Greater than 3 cm Neck Range of Motion: Full ROM Neck Circumference: Normal Teeth Condition: Removable Dentures/Plates Upper, Removable Dentures/Plates Lower and Other (metal pegs on lower jaw) ASA Classification ASA Score: ASA 3 Emergency Case?: No NPO Status NPO Status: NPO Clears >2 hours, Solids >8 hours Anesthesia Plan Resuscitation Status: Full Code Anesthesia Technique: General Anesthesia Airway Planned: Endotracheal Tube Monitors Used: Standard Monitors and SedLine Preoperative Comments:: Complex patient with extensive pulmonary history, O2 dependent with activity. Hx of SVT, currently on Diltiazem. KENYATTA Coe EKG PATIENT NAME: Joselyn Ramírez UNIT #: [id number] ORDERING PROVIDER: Adam Roberts M.D. PRIMARY CARE PROVIDER: NICOLE HUBBARD MD, DC DATE/TIME OF SERVICE: 02/06/24 1014 : 1955 [facility] Exam: Resting ECG Reason for Exam: svt Patient Location: O HR:59 bpm ECG Measurements Heart Rate 59 AXIS NM 156 P 38 QRSd 92 QRS 7 QT 454 T31 QTc 450 Conclusion Sinus rhythm...normal P axis, V-rate 50- 99 Borderline T abnormalities, anterior leads...T flat or neg, V2-V4 Baseline wander in lead(s) III,aVF,V6 <Electronically signed by JUAREZ MEZA MD in OV> E-Sign Date: 02/07/24 E-Sign Time: 0805 Patient Name: JOSELYN ANGULO Unit #: [id number] Loc: ICU Ordering Provider: Nicolasa Hdz M.D. Status: ADM IN Primary Care Provider: Nicole Hubbard M.D., DC Date of Exam: 02/19/20 Sex: F Admission Date: 02/19/20 : 1955 Age: 64 Exam(s) a NM:NM MPI rest & stress grp APPROVED REPORT Exam: Pharmacologic Patient Location: In-Patient Room/Bed: 220 BMI: 42.90 Baseline Rhythm: Sinus Rhythm Indications: PSVT. Chest pain with diaphoresis. Medical History Medical History: COPD, Smoking, HTN, Hyperlipidemia, Obesity Cardiac Medications: Atorvastatin. Metoprolol Succinate. Losartan. Omeprazole Allergies: Amoxicillin, Oxybutynin, Potassium clavulanate. Cardiac Risk Factors: HTN, Hyperlipidemia, FHX of CAD, Smoking (former), Asthma, COPD Pretest Chest Pain Characteristics: No chest pain Exercise History: Sedentary Lung Sounds: Clear to auscultation, diminished Heart Sounds: Regular Stress Test Details Test: Pharmacologic stress testing performed using 0.4 mg of regadenoson per 5 mL given IV over 10 seconds. Reason for pharmacologic stress test: PUI for COVID19. Nuclear Acquisition: Rest Tc-99m/Stress Tc-99m 1 day Rest Isotope: Tc-99m Sestamibi. Dose: 12.3 Date: 02/19/2020 Injection Time: 1145 Stress Isotope: Tc-99m Sestamibi. Dose: 36.6 Date: 02/19/2020 Injection Time: 1441 HR Resting HR Supine: 71 bpmMax Heart Rate (APMHR): 157 bpm Target HR (85% APMHR): 133 bpm Max HR Achieved: 91 bpm % of APMHR: 57 Recovery HR: 73 bpm BP Resting BP Supine: 124/88 mmHg Max BP: 130/64 mmHg Recovery BP: 120/80 mmHg ECG Resting ECG: Sinus Rhythm Stress ECG: Sinus Rhythm ST Change: no significant ST segment changes noted Arrhythmia: None Recovery ECG: Sinus Rhythm Recovery ST Change: Normal Recovery Arrhythmia: None Clinical Stress Symptoms: Dyspnea, Chest pain Stress ECG Conclusion 1. This is a pharmacological stress test. Patient with symptoms suggestive of ischemia 2. EKG portion of the exam is nondiagnostic. Stress Test Summary STAGEHRBPSymptomsNOTES [id number] 1 min post Lexiscan [id number], 3/10 chest pressure 3 min post Lexiscan [id number] resolved. 3/10 chest pressure. 6 min post Lexiscan [id number]/80Chest pressure resolved. MPI Conclusion The patient's ejection fraction was 53% with stress. There were no wall motion abnormalities. There is no evidence of ischemia on the imaging portion of the exam. This represents a normal SPECT stress test. Radiologist Interpretation Radiologist Interpretation by: Manuel Barrera MD Interpretation Date/Time: 02/19/2020 15:57:00 Ordered By: Nicolasa Hdz M.D. CC: LUCIA SAMS MD Dictated By: Lucia Sams M.D. 02/19/20 1455 <Electronically signed by Lucia Sams M.D. in OV> 02/20/20 8657 Transcribed By: Lucia Sams MD Pulmonary Function Test PATIENT NAME: Joselyn Raímrez UNIT #: [id number] ADMITTING PROVIDER: Dipika Wells M.D. PRIMARY CARE PROVIDER: NICOLE HUBBARD MD, DC DATE OF ADMIT: 05/08/23 : 1955 Date of service: 05/08/23 Time of Service: 13:07 Pulmonary Function Test Result Indications: ACOS Interpretation Spirometry: There is moderate airflow limitation. There is a significant bronchodilator response. FVC is low. Lung Volumes: Normal lung volumes Diffusion Capacity: Decreased diffusion Airway Pressure: Increased airways resistance. Impression Moderate airflow obstruction with a bronchodilator response and a decreased diffusion. The FVC is low due to obstruction. Note: When compared to 05/26/21, lung function, including diffusion, has improved. Clinical Correlation therefore is recommended.
--- NOTE | 2024-07-07 11:05 | PDOC.DSDIS_ITS ---
Date of service: 07/07/24 Discharge Plan Disposition Patient Disposition: Home Condition: Good Discharge Details Reason For Visit: FESS with left polypectomy Attending Provider: William Quesada Primary Care Provider: Nicole Hubbard Home Meds and New Rx's Prescriptions: No Action (DME) Aerochamber MV Spacer See Rx Instructions .ROUTE .MEDSUPPLY Qty: 1 0RF Rx Instructions: As directed (DME) Oxygen Tank See Rx Instructions .Route Qty: 1 0RF Rx Instructions: Use 2Lpm with exertion as directed montelukast [Singulair] 10 mg tablet 10 mg PO DAILY Qty: 90 12RF fluticasone propionate [Flonase Allergy Relief] 50 mcg/actuation spr ay,suspension 1 spray intranasal DAILY PRN Rx Instructions: administer into each nostril xylitol-yerba jerome [place] With Pump 1 spray mucous membrane ONCE [facility] 2.65 % aerosol,spray 1 spray intranasal DIRECTED (DME) EasiVent Mask Large 1 EACH device 1 ea Miscellaneous DIRECTED cetirizine [Zyrtec] 10 mg tablet 10 mg PO BID Qty: 180 4RF Rx Instructions: medically necessary cholecalciferol (vitamin D3) 125 mcg (5,000 unit) capsule 125 mcg PO DAILY Qty: 90 4RF Rx Instructions: medically necessary lorazepam 1 mg tablet 1 mg PO Q4H MDD 4 PRN (Reason: anxiety) Qty: 20 0RF Rx Instructions: For anxiety; take 1 before the procedure and another 1 hr later if necessary.NO DRIVING Breztri Aerosphere 160-9-4.8 mcg/actuation HFA aerosol inhaler 2 inh inhalation BID Qty: 3 12RF folic acid 1 mg tablet 1 mg PO DAILY Qty: 90 4RF magnesium oxide 400 mg magnesium capsule 800 mg PO BID Qty: 360 4RF sertraline 50 mg tablet 50 mg PO DAILY Qty: 90 4RF levalbuterol tartrate 45 mcg/actuation HFA aerosol inhaler 2 inh inhalation Q6H Qty: 45 1RF omeprazole 20 mg capsule,delayed release(DR/EC) 20 mg PO DAILY Qty: 90 3RF estradiol [Estrace] 0.5 mg tablet 0.5 mg PO .every 3rd day Qty: 90 2RF clotrimazole-betamethasone 1-0.05 % cream 1 applic Topical DAILY PRN (Reason: rash) Qty: 45 5RF Rx Instructions: 45 gm tube calcium carbonate [Calcium 500] 500 mg calcium (1,250 mg) tablet,chewable 1,000 mg PO QDAY Qty: 180 5RF Rx Instructions: medically necessary mecobalamin (vitamin B12) 2,500 mcg tablet,chewable 2,500 mcg PO DAILY Qty: 90 4RF atorvastatin 40 mg tablet 40 mg PO DAILY Qty: 90 12RF sotalol 80 mg tablet 40 mg PO BID Qty: 180 4RF diltiazem HCl 120 mg capsule,extended release 24 hr 120 mg PO HS Discharge Instructions Additional Instructions: My cell phone number is [phone]. Please call with any questions or concerns. If you are unable to reach me and you feel it is an emergency, please call 911 or proceed to the emergency room. Hold your Flonase for 10 days and then you may resume it. You may use your xylitol spray and the AYR spray if you need them Stand Alone Forms: ENT-FESS Instr. Dipak Referrals: William Quesada MD [ [facility] STAFF PHYSICIAN] - (1 month as scheduled) Discharge Orders Discharge Orders: Discharge Order (Routine); Ordered 07/07/24 Ordered By: William Quesada
--- NOTE | 2024-07-07 11:10 | W.PM.OP ---
Operative Note Operative Note PRE-OP DIAGNOSIS: Antrochoanal polyp, left POST-OP DIAGNOSIS: same PROCEDURE: Functional endoscopic sinus surgery with left antrochoanal polyp excision SURGEON: William Quesada ANESTHESIA TYPE: General LMA/ETT Refer to Anesthesia Record ESTIMATED BLOOD LOSS: 5 PATHOLOGY: other (Nasal mass) COMPLICATIONS: None Patient was transported to: PACU Patient's condition: stable Indications: Patient with obstructive left antrochoanal polyp. No evidence of infection. Options were explained to the patient regarding further management. She elected to undergo treatment procedure. Consent was filled and signed prior to procedure. H&P was reviewed. There have been no changes. All questions were answered prior to the procedure. Findings: Large solitary left antrochoanal polyp, no evidence of infection. No polyps on the right Procedure Description: After obtaining an adequate level of general endotracheal anesthesia the patient was positioned in supine position and prepped and draped in appropriate fashion. A 0 degree scope was used to examine the left nasal cavity revealing the left nasal polyp extending from the left maxillary sinus. StraightShot microdebrider with a 4 mm Quadra cut blade was used to remove the polyp at its base from the left maxillary sinus. There was no evidence of infection or fungal elements behind this. Bleeding was minimal and self-limited. The polyp was sent to pathology. Repeat examination of the nasal cavity and nasopharynx revealed no other masses. The patient was then awakened and extubated by anesthesia and taken the recovery room in stable condition. I was present throughout the entire case. Date of Procedure: 07/07/24
[2024-07-07] MEDS: ceFAZolin 2 GM/50 ML BAG IVPB (11:25)
[2024-07-07] MEDS: TRANEXAMIC ACID/SOD. CHL. 1,000 MG/100 ML BAG 600 MG IVPB (11:35)
--- NOTE | 2024-07-07 11:46 | NASALBX_PTH ---
PATIENT: Joselyn Ramírez LOC: [facility] U#:[id number] AGE/SX: 68/F ROOM: RE07/07/[address]: William Quesada MD : 1955 BED: DIS: 07/07/2024 SPEC #: [id number] RECD: 07/07/24 13:09 STATUS: LÓPEZ REErik #: [id number] CONNOR: 07/07/24 11:[address]: William Quesada DEPT: Surgical Specimen RECD BY: Rachel Pedro ENTERED: 07/07/24 13:10 SP TYPE: NASALBX OTHR DR: Nicole Hubbard MD, DC Tissues: 1 - MUCOSA, NOS Procedures: GROSS AND MICRO LEVEL 3 Comments: [id number]
--- NOTE | 2024-07-07 13:02 | W.ANESPOSTOP ---
Postoperative Evaluation Date, Time and Location Date Performed: 07/07/24 Time Performed: 13:02 Patient Location: Day Surgery Unit Vital Signs Most Recent Imported Vital Signs: Most Recent Vital Signs Temp Pulse Resp BP Pulse Ox 36.1 C L 59 L 16 104/66 97 07/07/24 12:30 07/07/24 12:30 07/07/24 12:30 07/07/24 12:30 07/07/24 12:30 Pain Score Most Recent Pain Score: Most Recent Pain Score Pain Level 2 07/07/24 12:19 Assessment Mental Status: Awake (Alert & Oriented to Patient Baseline) Airway and Respiratory Function: Patent airway with normal (patient baseline) respiratory exam Cardiovascular Function: Hemodynamically Stable Hydration Status: Adequately Hydrated Nausea & Vomiting: No Nausea or Vomiting Pain: Pain is tolerable per patient Peripheral Nerve Block: Patient did not receive a nerve block
== END 2024-07-07 13:26 | disposition home or self-care (01) ==
PROVIDERS: PCP Family Medicine; Visit Provider Otolaryngology
PROC: 09QM4ZZ Repair Nasal Septum, Percutaneous Endoscopic Approach (ICD-10-PCS; CPT 30520; principal; 2024-07-07 10:45)
DX: J31.0 Chronic rhinitis (principal); J32.9 Chronic sinusitis, unspecified; J33.8 Other polyp of sinus; J44.9 Chronic obstructive pulmonary disease, unspecified; Z90.2 Acquired absence of lung [part of]; I47.10 Supraventricular tachycardia, unspecified; I10 Essential (primary) hypertension; E78.5 Hyperlipidemia, unspecified
CPT/HCPCS: 31237; 88305; 88304; J0690; J1100; J2003; J2004; J2371; J2405; J2704; J3010

== ENCOUNTER 2024-08-06 11:14 | Outpatient (CLI) | payer MEDICARE, SELFPAY ==
--- NOTE | 2024-08-06 11:00 | RT.EKG_ITS ---
APPROVED REPORT Exam: Resting ECG Reason for Exam: PSVT Patient Location: O HR:52 bpm ECG Measurements Heart Rate 52 AXIS OH 160 P 46 QRSd 93 QRS -4 QT 495 T 35 QTc 461 Conclusion Sinus rhythm...normal P axis, V-rate 50- [address]-T abnormalities
== END 2024-08-06 11:15 | disposition home or self-care (01) ==
LOC: DI.CARD 11:14
PROVIDERS: PCP Family Medicine; Visit Provider Internal Medicine Cardiovascular Disease
DX: I47.10 Supraventricular tachycardia, unspecified (principal)
CPT/HCPCS: 93010

== ENCOUNTER → 2024-08-06 11:33 | Outpatient (BNVA) | payer MEDICARE, SELFPAY | PROVIDERS: PCP Family Medicine; Visit Provider Internal Medicine Cardiovascular Disease | DX: I47.10 Supraventricular tachycardia, unspecified (principal) | CPT/HCPCS: 93005; 99213 ==

== ENCOUNTER 2024-10-14 02:33 | Outpatient (CLI) | payer MEDICARE, SELFPAY ==
[2024-10-14 13:33] LABS: Vitamin B12 1575 pg/mL (193-986)
== END 2024-10-14 02:34 | disposition home or self-care (01) ==
LOC: LOS 02:33
PROVIDERS: PCP Family Medicine; Visit Provider Family Medicine
DX: E53.8 Deficiency of other specified B group vitamins (principal)
CPT/HCPCS: 36415; 82607

== ENCOUNTER 2025-01-07 14:51 | Outpatient (CLI) | payer MEDICARE, SELFPAY ==
--- NOTE | 2025-01-07 12:35 | DI.MAMMO_ITS ---
Exam(s) MAMMO SCREENING EXAM: MAMMO SCREENING CLINICAL HISTORY: screening Z12.39 TECHNIQUE: Bilateral full field digital CC and MLO mammographic images were obtained with 3D tomosynthesis and utilizing computer aided detection (CAD). COMPARISON: Comparison is made with prior examinations. FINDINGS: Masses/Architectural Distortion: No suspicious masses or areas of architectural distortion are present. There is stable nodule seen in both breasts. Microcalcifications: No suspicious pleomorphic-type are seen. Skin Thickening/Nipple Retraction: None. IMPRESSION: 1. No significant interval change with no specific features of malignancy noted. 2. Unless there is more urgent need, screening mammography is recommended, as per [place] [employer] guidelines. BI-RADS Category 2 - Benign Findings Breast Density - Category B - There are scattered areas of fibroglandular density. Breast density Category C or D implies that the patient has dense breast tissue. Dense breast tissue can make it harder to find cancer on a mammogram. Dense breast tissue is also associated with an increased risk of breast cancer. This information about the result of the mammogram report was provided to the patient to raise their awareness. Use this report when you speak with the patient about their risks for breast cancer, which includes their family history. At that time, you may recommend additional screening tests (Ultrasound or MRI) as these tests may add significant information. A negative radiographic report should not delay biopsy if a dominant or clinically suspicious mass is present. Up to ten percent of cancers are not identified on mammography. A negative report may reinforce clinical impression. Adenosis and dense breasts may obscure an underlying neoplasm. False positive reports average 6 to 10%. Patient will receive a letter notifying them of these results.
== END 2025-01-07 15:11 ==
LOC: DI 14:51
PROVIDERS: PCP Family Medicine; Visit Provider Family Medicine
DX: Z12.31 Encounter for screening mammogram for malignant neoplasm of breast (principal)
CPT/HCPCS: 77063; 77067

== ENCOUNTER 2025-01-07 15:03 | Outpatient (CLI) | payer MEDICARE, SELFPAY ==
[2025-01-07 12:50] LABS: ALT 21 U/L (14-59); AST 14 U/L (15-37); Albumin 4.0 g/dL (3.4-5.0); Alkaline Phosphatase 46 U/L (46-116); Anion Gap 6.3 mmol/L (3-11); BUN 18 mg/dL (7-18); Bilirubin, Total 0.5 mg/dL (0.2-1.0); CO2 33.7 mmol/L (21.0-32.0); Calcium 9.4 mg/dL (8.5-10.1); Chloride 99 mmol/L (98-107); Estimated GFR 94.15 (mL/min/1.73m2); Glucose 116 mg/dL (74-106); Potassium 4.3 mmol/L (3.5-5.1); Sodium 139 mmol/L (136-145); Total Protein 7.8 g/dL (6.4-8.2)
[2025-01-07 12:51] LABS: Folate > 20.0 ng/mL (8.6-20.0)
== END 2025-01-07 15:04 | disposition home or self-care (01) ==
LOC: LOS 15:04
PROVIDERS: PCP Family Medicine; Visit Provider Family Medicine
DX: E53.8 Deficiency of other specified B group vitamins (principal); I10 Essential (primary) hypertension
CPT/HCPCS: 36415; 77063; 77067; 80053; 82746